=== PATIENT | male | born 1945 | race Caucasian/White ===

== ENCOUNTER → 2019-12-20 | Outpatient (BNVA) | payer MEDICARE, SELFPAY | PROVIDERS: PCP Internal Medicine; Visit Provider Internal Medicine ==

== ENCOUNTER → 2020-01-17 11:10 | Outpatient (BNVA) | payer MEDICARE, SELFPAY | PROVIDERS: PCP Internal Medicine; Referring Provider Internal Medicine; Visit Provider Internal Medicine | DX: Z76.89 Persons encountering health services in other specified circumstances (principal) ==

== ENCOUNTER 2020-01-26 11:05 | Outpatient (REF) | payer MEDICARE, SELFPAY ==
[2020-01-26 14:38] LABS: MANUAL DIFF FLAG NO
[2020-01-26 14:43] LABS: Basophils Percent Auto 0.8 % (0-2); Eosinophils Absolute Auto 0.1 X10*3/uL (0.0-0.4); Eosinophils Percent Auto 2.5 % (0-4); Hematocrit 36.2 % (42-52); Hemoglobin 11.8 g/dl (14.0-18.0); Imm Gran Abs Auto 0.02 X10*3/uL (0.00-0.03); Imm Gran Pct Auto 0.4 % (0.0-0.4); Lymphocytes Percent Auto 20.3 % (20-40); Mean Corpuscular HGB Conc 32.6 g/dl (31.0-36.0); Mean Corpuscular Hemoglobin 30.3 pg (27.0-33.0); Mean Corpuscular Volume 92.8 fL (80-98); Mean Platelet Volume 10.3 fL (9.4-12.4); Monocytes Absolute Auto 0.5 X10*3/uL (0.1-1.2); Monocytes Percent Auto 10.7 % (2-11); Neutrophils Absolute Auto 3.1 X10*3/uL (2.0-8.3); Neutrophils Percent Auto 65.3 % (45-73); Platelet Count 281 X10*3/uL (160-400); Red Cell Distribution Width 12.5 % (11.0-16.0); White Blood Count 4.8 X10*3/uL (4.8-10.8)
[2020-01-26 15:13] LABS: Alanine Aminotransferase 28 U/L (0-40); Albumin Level 4.5 g/dL (3.5-5.0); Alkaline Phosphatase 83 U/L (39-117); Anion Gap 12 (12-20); Aspartate Amino Transferase 30 U/L (5-37); Bilirubin Total 1.5 mg/dL (0.0-1.0); Blood Urea Nitrogen 17 mg/dL (9-16); Carbon Dioxide 26 mmol/L (22-29); Chloride 107 mmol/L (96-108); Cholesterol 112 mg/dL; Estimated Glomerular Filt Rate > 60; Glucose Fasting 87 mg/dL (60-99); HDL Cholesterol 45 mg/dL; LDL Cholesterol Calculated 54 mg/dl; Potassium 4.4 mmol/l (3.3-5.1); Sodium 141 mmol/L (135-145); Total Protein 7.1 g/dL (6.5-8.0); Triglycerides 65 mg/dL
[2020-01-26 15:35] LABS: Thyroid Stimulating Hormone 2.86 uIU/mL (0.32-4.0)
[2020-01-26 16:10] LABS: Prostate Specific Antigen 6.46 ng/mL (<0.05-4.0)
== END 2020-01-26 11:06 | disposition home or self-care (01) ==
LOC: HO.HMGCLDS 11:05
PROVIDERS: PCP Internal Medicine; Visit Provider Urology
DX: I48.20 Chronic atrial fibrillation, unspecified (principal); E78.2 Mixed hyperlipidemia; N40.0 Benign prostatic hyperplasia without lower urinary tract symptoms; C61 Malignant neoplasm of prostate; F51.01 Primary insomnia
CPT/HCPCS: 36415; 80053; 80061; 84153; 84443; 85025

== ENCOUNTER → 2020-01-31 12:05 | Outpatient (BNVA) | payer MEDICARE, SELFPAY | PROVIDERS: PCP Internal Medicine; Visit Provider Internal Medicine | DX: Z76.89 Persons encountering health services in other specified circumstances (principal) ==

== ENCOUNTER → 2020-02-14 15:20 | Outpatient (BNVA) | payer MEDICARE, SELFPAY | PROVIDERS: PCP Internal Medicine; Visit Provider Internal Medicine | DX: Z76.89 Persons encountering health services in other specified circumstances (principal) ==

== ENCOUNTER → 2020-02-29 11:27 | Outpatient (BNVA) | payer MEDICARE, SELFPAY | PROVIDERS: PCP Internal Medicine; Visit Provider Internal Medicine | DX: Z76.89 Persons encountering health services in other specified circumstances (principal) ==

== ENCOUNTER → 2020-03-14 08:15 | Outpatient (BNVA) | payer MEDICARE, SELFPAY | PROVIDERS: PCP Internal Medicine; Visit Provider Internal Medicine | DX: Z76.89 Persons encountering health services in other specified circumstances (principal) ==

== ENCOUNTER → 2020-03-22 11:19 | Outpatient (BNVA) | payer MEDICARE, SELFPAY | PROVIDERS: PCP Internal Medicine; Visit Provider Urology | DX: C61 Malignant neoplasm of prostate (principal) | CPT/HCPCS: 99212 ==

== ENCOUNTER → 2020-03-27 11:30 | Outpatient (BNVA) | payer MEDICARE, SELFPAY | PROVIDERS: PCP Internal Medicine; Visit Provider Internal Medicine | DX: Z76.89 Persons encountering health services in other specified circumstances (principal) ==

== ENCOUNTER → 2020-04-10 08:21 | Outpatient (BNVA) | payer MEDICARE, SELFPAY | PROVIDERS: PCP Internal Medicine; Visit Provider Internal Medicine | DX: Z76.89 Persons encountering health services in other specified circumstances (principal) ==

== ENCOUNTER → 2020-04-24 12:46 | Outpatient (BNVA) | payer MEDICARE, SELFPAY | PROVIDERS: PCP Internal Medicine; Visit Provider Internal Medicine ==

== ENCOUNTER → 2020-05-08 12:40 | Outpatient (BNVA) | payer MEDICARE, SELFPAY | PROVIDERS: PCP Internal Medicine; Visit Provider Internal Medicine ==

== ENCOUNTER → 2020-05-22 10:36 | Outpatient (BNVA) | payer MEDICARE, SELFPAY | PROVIDERS: PCP Internal Medicine; Visit Provider Internal Medicine | DX: I48.20 Chronic atrial fibrillation, unspecified (principal); Z51.81 Encounter for therapeutic drug level monitoring; Z79.01 Long term (current) use of anticoagulants | CPT/HCPCS: 85610; 99211 ==

== ENCOUNTER → 2020-06-05 12:50 | Outpatient (BNVA) | payer MEDICARE, SELFPAY | PROVIDERS: PCP Internal Medicine; Visit Provider Internal Medicine ==

== ENCOUNTER → 2020-06-19 10:46 | Outpatient (BNVA) | payer MEDICARE, SELFPAY | PROVIDERS: PCP Internal Medicine; Visit Provider Internal Medicine ==

== ENCOUNTER → 2020-07-03 12:15 | Outpatient (BNVA) | payer MEDICARE, SELFPAY | PROVIDERS: PCP Internal Medicine; Visit Provider Internal Medicine ==

== ENCOUNTER → 2020-07-17 12:05 | Outpatient (BNVA) | payer MEDICARE, SELFPAY | PROVIDERS: PCP Internal Medicine; Visit Provider Internal Medicine ==

== ENCOUNTER 2020-07-19 10:27 | Outpatient (REF) | payer MEDICARE, SELFPAY ==
[2020-07-19 12:28] LABS: Prostate Specific Antigen 6.54 ng/mL (<0.05-4.0)
== END 2020-07-19 10:28 | disposition home or self-care (01) ==
LOC: HO.HMGCLDS 10:27
PROVIDERS: PCP Internal Medicine; Visit Provider Urology
DX: Z79.01 Long term (current) use of anticoagulants (principal); Z12.5 Encounter for screening for malignant neoplasm of prostate
CPT/HCPCS: 36415; 84153

== ENCOUNTER → 2020-07-26 08:16 | Outpatient (BNVA) | payer MEDICARE, SELFPAY | PROVIDERS: PCP Internal Medicine; Visit Provider Urology | DX: C61 Malignant neoplasm of prostate (principal) | CPT/HCPCS: 99212 ==

== ENCOUNTER → 2020-07-31 11:30 | Outpatient (BNVA) | payer MEDICARE, SELFPAY | PROVIDERS: PCP Internal Medicine; Visit Provider Internal Medicine ==

== ENCOUNTER → 2020-08-14 09:13 | Outpatient (BNVA) | payer MEDICARE, SELFPAY | PROVIDERS: PCP Internal Medicine; Visit Provider Internal Medicine ==

== ENCOUNTER → 2020-08-28 09:18 | Outpatient (BNVA) | payer MEDICARE, SELFPAY | PROVIDERS: PCP Internal Medicine; Visit Provider Internal Medicine ==

== ENCOUNTER → 2020-09-11 09:39 | Outpatient (BNVA) | payer MEDICARE, SELFPAY | PROVIDERS: PCP Internal Medicine; Visit Provider Internal Medicine ==

== ENCOUNTER → 2020-09-25 10:32 | Outpatient (BNVA) | payer MEDICARE, SELFPAY | PROVIDERS: PCP Internal Medicine; Visit Provider Internal Medicine ==

== ENCOUNTER → 2020-10-10 10:21 | Outpatient (BNVA) | payer MEDICARE, SELFPAY | PROVIDERS: PCP Internal Medicine; Visit Provider Internal Medicine | DX: Z79.01 Long term (current) use of anticoagulants (principal) ==

== ENCOUNTER 2020-10-11 09:00 | Outpatient (RCR) | payer MEDICARE, SELFPAY ==
--- NOTE | 2020-10-11 16:42 | MHC.PT.DC ---
[facility] [place] Office [place] Office [address] Man Toribio 140 [facility] [phone] F: [phone] F: [phone] F: [phone] F: [phone] Physical Therapy Discharge Report Diagnosis: R groin strain, R gluteal pain. Date of Surgery: Date of Evaluation: 09/02/20 Date of Discharge: 10/11/20 Treatments to Date: 9 Cancellations to Date: No Shows to Date: Discharge Status: Achieved Goals Improved Function Independent with HEP Discharge Summary: Arturo has been an active and motivated participant in his therapy in and out of the clinic and has met his therapeutic goals, is I with his home program and is in agreement with DC at this time. Electronically signed by: Aries Mendes PT. Please sign and return to therapist. Thank you for your referral.
== END 2020-10-11 16:42 ==
LOC: HO.PTCHIC 09:00
PROVIDERS: Visit Provider Internal Medicine
DX: S76.211A Strain of adductor muscle, fascia and tendon of right thigh, initial encounter (principal)
CPT/HCPCS: 97110; 97116; 97140; 97150; 97162

== ENCOUNTER → 2020-10-23 11:28 | Outpatient (BNVA) | payer MEDICARE, SELFPAY | PROVIDERS: PCP Internal Medicine; Visit Provider Internal Medicine ==

== ENCOUNTER → 2020-11-06 09:32 | Outpatient (BNVA) | payer MEDICARE, SELFPAY | PROVIDERS: PCP Internal Medicine; Visit Provider Internal Medicine ==

== ENCOUNTER 2020-11-20 09:48 | Outpatient (REF) | payer MEDICARE, SELFPAY ==
[2020-11-20 14:54] LABS: PSA,Total (Free>4and<10) 4.28 ng/mL (0.00-4.00)
[2020-11-24 10:11] LABS: Free Prostate Spec Ag 0.5 ng/mL; Percent Free Prostate Spec Ag 14 % (calc) (>25); Prostate Specific Ag Total 3.5 ng/mL (< OR = 4.0)
== END 2020-11-20 09:49 | disposition home or self-care (01) ==
LOC: HO.HMGCLDS 09:48
PROVIDERS: Urology; PCP Internal Medicine; Visit Provider Internal Medicine
DX: C61 Malignant neoplasm of prostate (principal); N40.1 Benign prostatic hyperplasia with lower urinary tract symptoms; N13.8 Other obstructive and reflux uropathy
CPT/HCPCS: 36415; 84153; 84154

== ENCOUNTER → 2020-11-28 09:01 | Outpatient (BNVA) | payer MEDICARE, SELFPAY | PROVIDERS: PCP Internal Medicine; Visit Provider Urology | CPT/HCPCS: Q3014 ==

== ENCOUNTER → 2020-12-04 09:24 | Outpatient (BNVA) | payer MEDICARE, SELFPAY | PROVIDERS: PCP Internal Medicine; Visit Provider Internal Medicine ==

== ENCOUNTER 2020-12-12 09:57 | Outpatient (REF) | payer MEDICARE, SELFPAY ==
[2020-12-12 11:26] LABS: MANUAL DIFF FLAG NO
[2020-12-12 11:38] LABS: Basophils Percent Auto 0.8 % (0-2); Eosinophils Absolute Auto 0.2 X10*3/uL (0.0-0.4); Eosinophils Percent Auto 3.3 % (0-4); Hemoglobin 11.4 g/dl (14.0-18.0); Imm Gran Abs Auto 0.01 X10*3/uL (0.00-0.03); Imm Gran Pct Auto 0.2 % (0.0-0.4); Mean Corpuscular HGB Conc 32.6 g/dl (31.0-36.0); Mean Corpuscular Hemoglobin 30.3 pg (27.0-33.0); Mean Corpuscular Volume 93.1 fL (80-98); Mean Platelet Volume 10.3 fL (9.4-12.4); Monocytes Absolute Auto 0.7 X10*3/uL (0.1-1.2); Neutrophils Absolute Auto 3.2 X10*3/uL (2.0-8.3); Neutrophils Percent Auto 62.7 % (45-73); Platelet Count 266 X10*3/uL (160-400); Red Blood Count 3.76 X10*6/uL (4.60-5.80); Red Cell Distribution Width 12.6 % (11.0-16.0); White Blood Count 5.1 X10*3/uL (4.8-10.8)
[2020-12-12 12:05] LABS: Alanine Aminotransferase 23 U/L (0-40); Alkaline Phosphatase 75 U/L (39-117); Anion Gap 12 (12-20); Aspartate Amino Transferase 28 U/L (5-37); Bilirubin Total 1.5 mg/dL (0.0-1.0); Blood Urea Nitrogen 17 mg/dL (9-16); Carbon Dioxide 23 mmol/L (22-29); Cholesterol 114 mg/dL; Estimated Glomerular Filt Rate > 60; Glucose Fasting 104 mg/dL (60-99); HDL Cholesterol 40 mg/dL; LDL Cholesterol Calculated 63 mg/dl; Potassium 4.2 mmol/L (3.3-5.1); Total Protein 7.1 g/dL (6.5-8.0); Triglycerides 59 mg/dL
[2020-12-12 12:13] LABS: Thyroid Stimulating Hormone 2.58 uIU/mL (0.32-4.0)
[2020-12-12 12:52] LABS: Albumin Level 4.4 g/dL (3.5-5.0); Chloride 108 mmol/L (96-108); Sodium 139 mmol/L (135-145)
== END 2020-12-12 09:58 | disposition home or self-care (01) ==
LOC: HO.HMGCLDS 09:57
PROVIDERS: PCP Internal Medicine; Visit Provider Internal Medicine
DX: I48.0 Paroxysmal atrial fibrillation (principal); E78.2 Mixed hyperlipidemia
CPT/HCPCS: 36415; 80053; 80061; 84443; 85025

== ENCOUNTER → 2020-12-18 09:36 | Outpatient (BNVA) | payer MEDICARE, SELFPAY | PROVIDERS: PCP Internal Medicine; Visit Provider Internal Medicine ==

== ENCOUNTER → 2021-01-01 15:40 | Outpatient (BNVA) | payer MEDICARE, SELFPAY | PROVIDERS: PCP Internal Medicine; Visit Provider Internal Medicine ==

== ENCOUNTER 2021-01-22 09:00 | Outpatient (RCR) | payer MEDICARE, SELFPAY ==
--- NOTE | 2020-12-26 20:50 | MHC.PT.EP ---
[facility] [place] Office [place] Office [place] Office [address] Anca Toribio [address] [phone] F: [phone] F: [phone] F: [phone] F: [phone] Physical Therapy Plan of Care Date of Evaluation: Date of Surgery: Diagnosis: Muscle strain R thigh. 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 Pt is deemed an appropriate candidate to receive skilled PT in order to address his physical limitations to improve his functional ability. Frequency and Duration: The patient will be seen 2 x / wk x 5 wks. Short Term Goals: initiate HEP. improve baseline pain with activity to < 4/10; initial 7/10. Fci Goals: Pt will be able to negotiate 1 fl of stairs with managed Sx; initial: moderate difficulty. Pt will be yoshi to walk long distances w/o pain. I with HEP. Treatment Plan: Modalities to reduce pain, spasms and effusion. Manual therapy to restore motion and function. Therapeutic exercise to improve strength and flexibility. Neuromuscular re-education for posture and balance. Therapeutic activities to return to functional activities of daily living. Electronically signed by: Aries Mendes PT. Please sign and return to therapist. Thank you for your referral.
== END 2021-02-26 14:29 | disposition home or self-care (01) ==
LOC: HO.PTCHIC 09:00
PROVIDERS: PCP Internal Medicine; Visit Provider Internal Medicine
DX: S76.911D Strain of unspecified muscles, fascia and tendons at thigh level, right thigh, subsequent encounter (principal)
CPT/HCPCS: 97110; 97140; 97161

== ENCOUNTER → 2021-01-29 11:28 | Outpatient (BNVA) | payer MEDICARE, SELFPAY | PROVIDERS: PCP Internal Medicine; Visit Provider Internal Medicine | DX: I48.20 Chronic atrial fibrillation, unspecified (principal); Z51.81 Encounter for therapeutic drug level monitoring; Z79.01 Long term (current) use of anticoagulants | CPT/HCPCS: Q3014 ==

== ENCOUNTER → 2021-02-12 09:58 | Outpatient (BNVA) | payer MEDICARE, SELFPAY | PROVIDERS: PCP Internal Medicine; Visit Provider Internal Medicine ==

== ENCOUNTER 2021-02-13 09:04 | Outpatient (REF) | payer MEDICARE, SELFPAY ==
--- NOTE | ~2021-02-13 | XR_ITS ---
EXAMINATION: XR PELVIS CLINICAL INFORMATION: Pain in the hip COMPARISON: Pelvis and hips 05/22/2015 TECHNIQUE: AP view of the pelvis. FINDINGS: No fracture. No focal bone lesion. Status post left hip replacement. Orthopedic components in position with no fracture or loosening. There is mild joint narrowing of the right hip joint. Minor spur of the right femoral head inferiorly and the superior lateral rim of the acetabulum. Small subchondral cystic change present of the femoral head. No bony erosions. The sacroiliac joints are normal. There are vascular calcifications in the pelvis and proximal thigh. Compared to prior study of 05/22/2015 there is been interval placement of a left hip prosthesis. The degenerative change of the right hip is similar. XR/XR pelvis 1-2V IMPRESSION: 1. No acute abnormality. 2. Status post left hip replacement. No radiographic evidence of loosening of the prosthesis. 3. Mild to moderate degenerative joint disease of the right hip.
== END 2021-02-13 09:05 | disposition home or self-care (01) ==
LOC: HO.HOSX 09:04
PROVIDERS: Visit Provider Orthopaedic Surgery
DX: R26.9 Unspecified abnormalities of gait and mobility (principal); M16.11 Unilateral primary osteoarthritis, right hip; M76.31 Iliotibial band syndrome, right leg
CPT/HCPCS: 72170; 99202

== ENCOUNTER → 2021-03-12 12:38 | Outpatient (BNVA) | payer MEDICARE, SELFPAY | PROVIDERS: PCP Internal Medicine; Visit Provider Internal Medicine ==

== ENCOUNTER 2021-03-21 09:45 | Outpatient (REF) | payer MEDICARE, SELFPAY ==
[2021-03-21 12:10] LABS: PSA,Total (Free>4and<10) 2.99 ng/mL (0.00-4.00)
== END 2021-03-21 09:46 | disposition home or self-care (01) ==
LOC: HO.HMGCLDS 09:45
PROVIDERS: PCP Internal Medicine; Visit Provider Urology
DX: Z12.5 Encounter for screening for malignant neoplasm of prostate (principal); C61 Malignant neoplasm of prostate
CPT/HCPCS: 36415; 84153

== ENCOUNTER → 2021-03-26 12:58 | Outpatient (BNVA) | payer MEDICARE, SELFPAY | PROVIDERS: PCP Internal Medicine; Visit Provider Internal Medicine ==

== ENCOUNTER → 2021-03-27 08:22 | Outpatient (BNVA) | payer MEDICARE, SELFPAY | PROVIDERS: PCP Internal Medicine; Visit Provider Urology | DX: Z13.89 Encounter for screening for other disorder (principal) | CPT/HCPCS: Q3014 ==

== ENCOUNTER 2021-03-27 13:00 | Outpatient (RCR) | payer MEDICARE, SELFPAY ==
--- NOTE | 2021-02-26 17:18 | MHC.PT.EP ---
[facility] [place] Office [place] Office [place] Office [address] Man Toribio [address] [phone] F: [phone] F: [phone] F: [phone] F: [phone] Physical Therapy Plan of Care Date of Evaluation: Date of Surgery: Diagnosis: Illiotibial band syndrome R, OA R hip, unspecified abnormalities of gait. Assessment: Pt is a 76 y/o male referred to PT for eval and treat of Illiotibial band syndrome R, OA R hip, unspecified abnormalities of gait resulting in decreased tolerance for Heavy HH chores, playing tennis, squatting and lifting objects from the ground, and negotiating stairs secondary to increased B hip tissue tension, decreased B hip ER and abduction strength, gait abnormality, and pain. Pt is deemed an appropriate candidate to receive skilled PT in order to address his physical limitations to improve his functional ability. Ortho sp. instructions for Stretching, Core and gluteal, strengthening, and HEP. Frequency and Duration: The patient will be seen 2 x / wk x 5 wks. Short Term Goals: Initiate HEP. Improve baseline pain with activity to < 4/10; initial: 6/10. Senior Care Goals: Pt will report no longer painful negotiating stairs. improve B hip glute med MMT by at least 1/2 MMT grade; initial: 4/5 B I with HEP. Pt will be able to stand > 1 hour with managed Sx. Treatment Plan: Modalities to reduce pain, spasms and effusion. Manual therapy to restore motion and function. Therapeutic exercise to improve strength and flexibility. Neuromuscular re-education for posture and balance. Therapeutic activities to return to functional activities of daily living. Electronically signed by: Please sign and return to therapist. Thank you for your referral.
--- NOTE | 2021-03-27 17:00 | MHC.PT.DC ---
[facility] [place] Office [place] Office [place] Office [address] Man Toribio 140 [facility] [phone] F: [phone] F: [phone] F: [phone] F: [phone] Physical Therapy Discharge Report Diagnosis: Illiotibial band syndrome R, OA R hip, unspecified abnormalities of gait. Date of Surgery: Date of Evaluation: 02/26/21 Date of Discharge: Treatments to Date: 4 Cancellations to Date: No Shows to Date: Discharge Status: Discharge Summary: Arturo has been an active and motivated participant in his therapy in and out of the clinic. He has met his therapeutic goals, is I with his home program, and PT is in agreement with DC at this time. Electronically signed by: Please sign and return to therapist. Thank you for your referral.
== END 2021-03-27 17:00 | disposition home or self-care (01) ==
LOC: HO.PTCHIC 13:00
PROVIDERS: PCP Internal Medicine; Visit Provider Orthopaedic Surgery
DX: M76.31 Iliotibial band syndrome, right leg (principal); M16.11 Unilateral primary osteoarthritis, right hip; E26.9 Hyperaldosteronism, unspecified
CPT/HCPCS: 97110; 97140; 97161

== ENCOUNTER → 2021-04-09 14:13 | Outpatient (BNVA) | payer MEDICARE, SELFPAY | PROVIDERS: PCP Internal Medicine; Visit Provider Internal Medicine ==

== ENCOUNTER → 2021-04-23 09:56 | Outpatient (BNVA) | payer MEDICARE, SELFPAY | PROVIDERS: PCP Internal Medicine; Visit Provider Internal Medicine | DX: Z13.89 Encounter for screening for other disorder (principal) ==

== ENCOUNTER → 2021-04-25 09:14 | Outpatient (BNVA) | payer MEDICARE, SELFPAY | PROVIDERS: PCP Internal Medicine; Visit Provider Urology | DX: N40.0 Benign prostatic hyperplasia without lower urinary tract symptoms (principal); C61 Malignant neoplasm of prostate | CPT/HCPCS: 99212 ==

== ENCOUNTER → 2021-05-07 09:40 | Outpatient (BNVA) | payer MEDICARE, SELFPAY | PROVIDERS: PCP Internal Medicine; Visit Provider Internal Medicine | DX: Z13.89 Encounter for screening for other disorder (principal) ==

== ENCOUNTER → 2021-05-21 09:57 | Outpatient (BNVA) | payer MEDICARE, SELFPAY | PROVIDERS: PCP Internal Medicine; Visit Provider Internal Medicine | DX: I48.20 Chronic atrial fibrillation, unspecified (principal); Z51.81 Encounter for therapeutic drug level monitoring; Z79.01 Long term (current) use of anticoagulants | CPT/HCPCS: 85610; 99211 ==

== ENCOUNTER → 2021-06-04 10:30 | Outpatient (BNVA) | payer MEDICARE, SELFPAY | PROVIDERS: PCP Internal Medicine; Visit Provider Internal Medicine | DX: Z13.89 Encounter for screening for other disorder (principal) ==

== ENCOUNTER → 2021-06-18 10:26 | Outpatient (BNVA) | payer MEDICARE, SELFPAY | PROVIDERS: PCP Internal Medicine; Visit Provider Internal Medicine | DX: Z13.9 Encounter for screening, unspecified (principal) ==

== ENCOUNTER → 2021-07-02 09:15 | Outpatient (BNVA) | payer MEDICARE, SELFPAY | PROVIDERS: PCP Internal Medicine; Visit Provider Internal Medicine | DX: Z13.89 Encounter for screening for other disorder (principal) ==

== ENCOUNTER → 2021-07-17 14:04 | Outpatient (BNVA) | payer MEDICARE, SELFPAY | PROVIDERS: PCP Internal Medicine; Visit Provider Internal Medicine | DX: Z13.89 Encounter for screening for other disorder (principal) ==

== ENCOUNTER → 2021-07-30 09:20 | Outpatient (BNVA) | payer MEDICARE, SELFPAY | PROVIDERS: PCP Internal Medicine; Visit Provider Internal Medicine | DX: Z79.01 Long term (current) use of anticoagulants (principal) ==

== ENCOUNTER → 2021-08-05 10:27 | Outpatient (BNVA) | payer MEDICARE, SELFPAY | PROVIDERS: PCP Internal Medicine; Visit Provider Internal Medicine | DX: G47.39 Other sleep apnea (principal); G47.34 Idiopathic sleep related nonobstructive alveolar hypoventilation | CPT/HCPCS: 99202 ==

== ENCOUNTER → 2021-08-13 09:19 | Outpatient (BNVA) | payer MEDICARE, SELFPAY | PROVIDERS: PCP Internal Medicine; Visit Provider Internal Medicine | DX: Z79.01 Long term (current) use of anticoagulants (principal) ==

== ENCOUNTER 2021-08-13 10:49 | Outpatient (REF) | payer MEDICARE, SELFPAY ==
[2021-08-13 14:20] LABS: Prostate Specific Antigen 2.23 ng/mL (<0.05-4.0)
== END 2021-08-13 10:50 | disposition home or self-care (01) ==
LOC: HO.HMGCLDS 10:49
PROVIDERS: PCP Internal Medicine; Visit Provider Urology
DX: C61 Malignant neoplasm of prostate (principal); Z12.5 Encounter for screening for malignant neoplasm of prostate
CPT/HCPCS: 36415; 84153

== ENCOUNTER → 2021-08-20 08:32 | Outpatient (BNVA) | payer MEDICARE, SELFPAY | PROVIDERS: PCP Internal Medicine; Visit Provider Urology | DX: C61 Malignant neoplasm of prostate (principal); N40.1 Benign prostatic hyperplasia with lower urinary tract symptoms; R35.1 Nocturia; R39.11 Hesitancy of micturition; Z79.899 Other long term (current) drug therapy | CPT/HCPCS: Q3014 ==

== ENCOUNTER → 2021-10-03 22:40 | Outpatient (REF) | payer MEDICARE, SELFPAY | LOC: HO.SL 22:40 | PROVIDERS: Visit Provider Internal Medicine | DX: G47.33 Obstructive sleep apnea (adult) (pediatric) (principal) | CPT/HCPCS: 95811 ==

== ENCOUNTER → 2021-10-09 09:37 | Outpatient (BNVA) | payer MEDICARE, SELFPAY | PROVIDERS: PCP Internal Medicine; Visit Provider Internal Medicine | DX: G47.39 Other sleep apnea (principal); G47.34 Idiopathic sleep related nonobstructive alveolar hypoventilation | CPT/HCPCS: 99212 ==

== ENCOUNTER → 2021-12-25 08:54 | Outpatient (BNVA) | payer MEDICARE, SELFPAY | PROVIDERS: PCP Internal Medicine; Visit Provider Internal Medicine | DX: G47.34 Idiopathic sleep related nonobstructive alveolar hypoventilation (principal); G47.39 Other sleep apnea | CPT/HCPCS: 99212 ==

== ENCOUNTER 2022-02-17 10:26 | Outpatient (REF) | payer MEDICARE, SELFPAY ==
[2022-02-17 14:06] LABS: Prostate Specific Antigen 2.83 ng/mL (<0.05-4.0)
== END 2022-02-17 10:27 | disposition home or self-care (01) ==
LOC: HO.HMGCLDS 10:26
PROVIDERS: PCP Internal Medicine; Visit Provider Urology
DX: Z12.5 Encounter for screening for malignant neoplasm of prostate (principal); C61 Malignant neoplasm of prostate
CPT/HCPCS: 36415; 84153

== ENCOUNTER → 2022-02-25 09:52 | Outpatient (BNVA) | payer MEDICARE, SELFPAY | PROVIDERS: PCP Internal Medicine; Visit Provider Urology | DX: C61 Malignant neoplasm of prostate (principal); N40.0 Benign prostatic hyperplasia without lower urinary tract symptoms | CPT/HCPCS: 99212 ==

== ENCOUNTER → 2022-02-26 10:08 | Outpatient (BNVA) | payer MEDICARE, SELFPAY | PROVIDERS: PCP Internal Medicine; Visit Provider Internal Medicine | DX: G47.39 Other sleep apnea (principal); G47.34 Idiopathic sleep related nonobstructive alveolar hypoventilation; R06.3 Periodic breathing | CPT/HCPCS: 99212 ==

== ENCOUNTER → 2022-03-11 12:07 | Outpatient (BNVA) | payer MEDICARE, SELFPAY | PROVIDERS: PCP Internal Medicine; Visit Provider Internal Medicine | DX: Z79.01 Long term (current) use of anticoagulants (principal) ==

== ENCOUNTER → 2022-03-25 13:35 | Outpatient (BNVA) | payer MEDICARE, SELFPAY | PROVIDERS: PCP Internal Medicine; Visit Provider Internal Medicine | DX: Z79.01 Long term (current) use of anticoagulants (principal) ==

== ENCOUNTER → 2022-04-08 13:40 | Outpatient (BNVA) | payer MEDICARE, SELFPAY | PROVIDERS: PCP Internal Medicine; Visit Provider Internal Medicine | DX: Z79.01 Long term (current) use of anticoagulants (principal) ==

== ENCOUNTER → 2022-04-22 12:57 | Outpatient (BNVA) | payer MEDICARE, SELFPAY | PROVIDERS: PCP Internal Medicine; Visit Provider Internal Medicine | DX: Z79.01 Long term (current) use of anticoagulants (principal) ==

== ENCOUNTER → 2022-05-06 11:04 | Outpatient (BNVA) | payer MEDICARE, SELFPAY | PROVIDERS: PCP Internal Medicine; Visit Provider Internal Medicine | DX: Z79.01 Long term (current) use of anticoagulants (principal) ==

== ENCOUNTER → 2022-05-13 09:17 | Outpatient (BNVA) | payer MEDICARE, SELFPAY | PROVIDERS: PCP Internal Medicine; Visit Provider Internal Medicine | DX: I48.20 Chronic atrial fibrillation, unspecified (principal); Z79.01 Long term (current) use of anticoagulants; Z51.81 Encounter for therapeutic drug level monitoring | CPT/HCPCS: 85610; 99211 ==

== ENCOUNTER → 2022-05-27 09:27 | Outpatient (BNVA) | payer MEDICARE, SELFPAY | PROVIDERS: PCP Internal Medicine; Visit Provider Internal Medicine | DX: Z79.01 Long term (current) use of anticoagulants (principal) ==

== ENCOUNTER → 2022-06-10 14:34 | Outpatient (BNVA) | payer MEDICARE, SELFPAY | PROVIDERS: PCP Internal Medicine; Visit Provider Internal Medicine | DX: Z79.01 Long term (current) use of anticoagulants (principal) ==

== ENCOUNTER → 2022-06-24 14:38 | Outpatient (BNVA) | payer MEDICARE, SELFPAY | PROVIDERS: PCP Internal Medicine; Visit Provider Internal Medicine ==

== ENCOUNTER → 2022-07-08 13:05 | Outpatient (BNVA) | payer MEDICARE, SELFPAY | PROVIDERS: PCP Internal Medicine; Visit Provider Internal Medicine ==

== ENCOUNTER → 2022-07-22 14:39 | Outpatient (BNVA) | payer MEDICARE, SELFPAY | PROVIDERS: PCP Internal Medicine; Visit Provider Internal Medicine ==

== ENCOUNTER → 2022-08-05 13:45 | Outpatient (BNVA) | payer MEDICARE, SELFPAY | PROVIDERS: PCP Internal Medicine; Visit Provider Internal Medicine ==

== ENCOUNTER → 2022-08-19 14:05 | Outpatient (BNVA) | payer MEDICARE, SELFPAY | PROVIDERS: PCP Internal Medicine; Visit Provider Internal Medicine ==

== ENCOUNTER 2022-08-26 08:26 | Outpatient (REF) | payer MEDICARE, SELFPAY ==
[2022-08-26 11:17] LABS: MANUAL DIFF FLAG NO
[2022-08-26 11:40] LABS: Basophils Percent Auto 0.8 % (0-2); Eosinophils Absolute Auto 0.1 X10*3/uL (0.0-0.4); Eosinophils Percent Auto 2.1 % (0-4); Hematocrit 37.2 % (42.0-52.0); Hemoglobin 11.8 g/dl (14.0-18.0); Imm Gran Abs Auto 0.02 X10*3/uL (0.00-0.03); Imm Gran Pct Auto 0.4 % (0.0-0.4); Lymphocytes Absolute Auto 1.1 X10*3/uL (1.2-4.9); Lymphocytes Percent Auto 21.4 % (20-40); Mean Corpuscular HGB Conc 31.7 g/dl (31.0-36.0); Mean Corpuscular Hemoglobin 30.3 pg (27.0-33.0); Mean Corpuscular Volume 95.6 fL (80.0-98.0); Mean Platelet Volume 9.9 fL (9.4-12.4); Monocytes Absolute Auto 0.5 X10*3/uL (0.1-1.2); Monocytes Percent Auto 9.6 % (2-11); Neutrophils Absolute Auto 3.4 x10*3/uL (2.0-8.3); Neutrophils Percent Auto 65.7 % (45-73); Platelet Count 309 X10*3/uL (160-400); Red Blood Count 3.89 X10*6/uL (4.60-5.80); Red Cell Distribution Width 13.1 % (11.0-16.0); White Blood Count 5.2 X10*3/uL (4.8-10.8)
[2022-08-26 12:00] LABS: Alanine Aminotransferase 27 U/L (0-40); Albumin Level 4.2 g/dL (3.5-5.0); Alkaline Phosphatase 80 U/L (39-117); Anion Gap 12 (12-20); Aspartate Amino Transferase 32 U/L (5-37); Bilirubin Total 1.8 mg/dL (0.0-1.0); Blood Urea Nitrogen 21 mg/dL (9-16); Calcium 9.4 mg/dL (8.4-10.2); Carbon Dioxide 26 mmol/L (22-29); Chloride 106 mmol/L (96-108); Cholesterol 116 mg/dL; Estimated Glomerular Filt Rate > 60; Glucose Fasting 100 mg/dL (60-99); HDL Cholesterol 45 mg/dL; LDL Cholesterol Calculated 58 mg/dl; Potassium 4.2 mmol/L (3.3-5.1); Sodium 140 mmol/L (135-145); Total Protein 7.2 g/dL (6.5-8.0); Triglycerides 65 mg/dL
[2022-08-26 12:23] LABS: Thyroid Stimulating Hormone 2.94 uIU/mL (0.32-4.0)
== END 2022-08-26 08:27 | disposition home or self-care (01) ==
LOC: HO.HMGCLDS 08:26
PROVIDERS: Absent Provider Urology; PCP Internal Medicine; Visit Provider Internal Medicine
DX: Z12.5 Encounter for screening for malignant neoplasm of prostate (principal); C61 Malignant neoplasm of prostate; I48.0 Paroxysmal atrial fibrillation; E78.2 Mixed hyperlipidemia; N40.0 Benign prostatic hyperplasia without lower urinary tract symptoms; F51.01 Primary insomnia
CPT/HCPCS: 36415; 80053; 80061; 84153; 84443; 85025

== ENCOUNTER 2022-09-01 12:41 | Outpatient (AMB) | payer MEDICARE, SELFPAY ==
--- NOTE | 2022-09-01 12:53 | A.OFFVIS_ITS ---
Intake Intake Visit Reasons: 6M PSA(set) Intake Note: Patient is presents today for 6mo follow-up with PSA results. * Urology Medication: Finasteride * Blood Thinner: Warfarin Freight Brake Operator Required: No Accompanied by: Self / Same As Patient Allergies No Known Allergies [No Known Allergies*] Allergy (Verified 11/18/22 10:02) HPI HPI Comments History of Present Illness Details Arturo is a pleasant male. He is a patient of Dr. Muñoz. He is seen for the following urologic issues. - prostate cancer - BPH PSA remains low Has had improvement with nocturia secondary to compliance with sleep apnea therapy Continue finasteride Review in 6 months Prostate cancer grade group 1 - 05/04 - initial therapy active surveillance Prostate cancer diagnosed with Dr. Blue 2018 - initial PSA 6.5, prostate volume 35 g Initial pathology biopsy 05/04 - Gl 3+3 left mid lateral 30%, left mid medial 30% 04/26 cores PSA 08/02 6.5, 12/03 4.2 14%, 04/05 2.9, 09/03 2.2 03/05 2.8, 09/04 2.1 Initial therapy active surveillance, initiate finasteride 08/02 DNA analysis 05/06 active surveillance group 08/01 MRI 30 g prostate, no clear evidenc e of clinically significant lesion Lower urinary tract symptoms Longstanding Nocturia 1-2 Mild hesitancy Current medications tamsulosin [facility] Medical History BPH (benign prostatic hyperplasia) Central sleep apnea with Mateusz-Antoine respiration Elevated PSA Mixed sleep apnea Nocturnal hypoxemia Prostate cancer Surgical History History of left hip replacement History of right shoulder replacement Previous back surgery (~1997) Social History Patient Tobacco Use Status: Never used Tobacco Review of Systems Const Denies chills and Denies fever(s) Card Reports no additional complaints and Denies syncope Resp Denies cough GI Denies abdominal pain and Denies heartburn Reports as per HPI and Denies change in libido Neuro Denies syncope Psych Denies change in libido Endo Denies change in libido Physical Exam Const General: cooperative, healthy appearing, comfortable and no acute distress Orientation/consciousness: patient oriented x3 HEENT Face and sinus: Yes normal facial exam Mouth: moist mucous membranes Neck Neck: Yes normal visual inspection, Yes full ROM and Yes trachea midline Chest Chest palpation & inspection: normal inspection of the chest Resp Effort & Inspection: normal respiratory effort, able to speak in complete sentences and no respiratory distress GI Inspection: Yes normal to inspection Back/Spine/Pelvis Cervical Spine: normal cervical lordosis Thoracic/Lumbar Spine: thoracic and lumbar spine normal to inspection Skin General skin exam: no rashes or lesions noted Neuro General: patient oriented x3, gait normal, tone normal and moves all extremities Extrem General: Yes normal to inspection and Yes capillary refill normal Assessment & Plan Assessment & Plan (1) BPH (benign prostatic hyperplasia): Code(s): N40.0 - Benign prostatic hyperplasia without lower urinary tract symptoms (2) Prostate cancer: Comment: 05/04 low-grade, low volume prostate cancer Code(s): C61 - Malignant neoplasm of prostate Plan Six month follow-up Orders: Orders Prostate Specific Antigen 6 Months C61 - Malignant neoplasm of prostate Patient Instructions: Imaging studies, laboratory and physical exam results were discussed and reviewed in detail. No major barriers to patient understanding were identified. An opportunity to ask questions regarding the treatment plan was provided. All questions were answered. The patient expressed understanding and agreement with the above treatment plan. The patient is aware they should contact our office by phone for worsening of their current condition or the appearance of new urologic symptoms. Compliance is encouraged with any medications and followup testing that is ordered. It is a privilege to participate in the urologic care of your patient. If you have any questions or concerns regarding treatment for the above conditions, or other urologic issues, please do not hesitate to contact me. The office telephone contact is [phone]. This note is constructed using voice recognition software. While every effort has been made to ensure accuracy wire rope sales representative errors may have been included. Yours sincerely, Dr Chidi Escobar MD, [facility] - Urology Providers of Expert, Compassionate Care for the Genitourinary System Coding Level of Care Code Est Pt Level 3 (59065) Diagnoses BPH (benign prostatic hyperplasia) N40.0 Prostate cancer C61
== END 2022-09-01 13:13 | disposition home or self-care (01) ==
LOC: HO.HUSH 12:41
PROVIDERS: PCP Internal Medicine; Visit Provider Urology
DX: N40.0 Benign prostatic hyperplasia without lower urinary tract symptoms (principal); C61 Malignant neoplasm of prostate
CPT/HCPCS: 99213

== ENCOUNTER → 2022-09-01 12:41 | Outpatient (BNVA) | payer MEDICARE, SELFPAY | PROVIDERS: PCP Internal Medicine; Visit Provider Urology | DX: C61 Malignant neoplasm of prostate (principal); N40.0 Benign prostatic hyperplasia without lower urinary tract symptoms | CPT/HCPCS: 99212 ==

== ENCOUNTER → 2022-09-02 11:18 | Outpatient (BNVA) | payer MEDICARE, SELFPAY | PROVIDERS: PCP Internal Medicine; Visit Provider Internal Medicine ==

== ENCOUNTER → 2022-09-23 10:33 | Outpatient (BNVA) | payer MEDICARE, SELFPAY | PROVIDERS: PCP Internal Medicine; Visit Provider Internal Medicine ==

== ENCOUNTER → 2022-10-07 09:43 | Outpatient (BNVA) | payer MEDICARE, SELFPAY | PROVIDERS: PCP Internal Medicine; Visit Provider Internal Medicine ==

== ENCOUNTER 2022-10-08 13:45 | Outpatient (AMB) | payer MEDICARE, SELFPAY ==
[2022-10-08 14:15] VITALS: BP 122/60; PULSE 61; O2SAT 96; BMI 25.3
--- NOTE | 2022-10-08 14:15 | MHC.OFFVIS ---
Intake Vital Signs 10/08/22 14:15 Height 5 ft 10 in Weight 176 lb 5.917 oz BMI 25.3 BP 122/60 Blood Pressure Location Rt brachial Position Sitting Pulse 61 Pulse Source Pulse Oximeter Pulse Oximetry (%) 96 Oxygen Delivery Method Room Air Intake Visit Reasons: Obstructive sleep apnea Fruit Farmworker Required: No Allergies No Known Allergies [No Known Allergies*] Allergy (Verified 10/08/22 14:37) Medication List - Last Reconciled 10/08/22 by Luisana Anguiano MD aspirin (Adult Low Dose Aspirin) 81 mg PO DAILY atorvastatin 40 mg PO DAILY finasteride 5 mg PO .MON,WED,FRI lorazepam 1 mg PO BEDTIME PRN srsavtya-fix-CV-lycopen-lutein 300-600-300 mcg (Centrum Silver Men) 1 tab PO DAILY neomycin-polymyxin B-dexameth 3.5mg/mL-10,000 unit/mL-0.1 % 0 drps ophthalmic (eye) tamsulosin 0.4 mg PO DAILY warfarin 5 mg See Protocol PO DAILY Do you need a note to return to daycare/school/sports/work: No HPI Obstructive sleep apnea HPI Details THIS 77 YEARS OLD GENTLEMAN IS A CASE OF SEVERE (MIXED )SLEEP APNEA, 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 HE REQUIRES A RELATIVELY HIGH PRESSURE, BUT USES HIS CPAP VERY REGULARLY. HE SLEEPS AT LEAST 6-7 HOURS EVERY NIGHT. ON SOME OF THE NIGHTS SLEEP MAY BE INTERRUPTED BY WAKING UP AFTER A FEW HOURS AND THEN HE GOES BACK TO SLEEP. HE DENIES ANY DAYTIME SLEEPINESS. HIS WEIGHT REMAINS WELL CONTROLLED. [facility] Medical History BPH (benign prostatic hyperplasia) Central sleep apnea with Cody-Muñoz respiration Elevated PSA Mixed sleep apnea Nocturnal hypoxemia Prostate cancer Surgical History History of left hip replacement History of right shoulder replacement Previous back surgery (~1997) Social History Patient Tobacco Use Status: Never used Tobacco Review of Systems Const All systems reviewed & are unremarkable except as noted in HPI and below Denies chills and Denies fever(s) Eyes Reports no additional complaints ENT Reports no additional complaints Card Reports no additional complaints and Denies syncope Resp Denies cough GI Denies abdominal pain and Denies heartburn Reports as per HPI and Denies change in libido Musc Reports no additional complaints Skin/Breast Reports system reviewed and no additional complaints, except as documented Neuro Denies syncope Psych Denies change in libido Endo Denies change in libido Physical Exam Vital Signs: Last Vital Signs Pulse 61 10/08/22 14:15 BP 122/60 10/08/22 14:15 Pulse Ox 96 10/08/22 14:15 Oxygen Delivery Method Room Air 10/08/22 14:15 BMI result Body Mass Index 25.3 Const General: healthy appearing, comfortable, no acute distress, alert and awake Orientation/consciousness: patient oriented x3 HEENT Other: One prominent finding is that of is significant degree of RETROGANTHIA of the lower jaw. Thus compromising the jim pharyngeal space. MALLAMPATI CLASS 3 . General nose exam: No nasal polyps present and No nasal discharge present Face and sinus: Yes sinuses nontender Mouth: oropharynx abnormals (Tongue is back and convex, Mallampati class 3) Throat: Yes posterior oropharynx normal Eyes General: appearance normal, both eyes and all related structures Neck Neck: Yes normal visual inspection, Yes no lymphadenopathy, Yes trachea midline and Yes no JVD Thyroid: Thyroid normal Lymphatic: other (Neck size 16 in) Chest Chest palpation & inspection: normal inspection of the chest, normal palpation of entire chest wall and no tenderness Resp Effort & Inspection: normal respiratory effort Auscultation: clear to auscultation bilaterally, no crackles and no wheezes Cardio Palpation: normal PMI Rate: regular rate Rhythm: regular rhythm Heart sounds: no gallops and no murmurs Peripheral pulses: Peripheral pulses 2+ throughout GI Palpation (GI): Soft to palpation, nontender, No hepatosplenomegaly present and no masses Auscultation: normal bowel sounds Back/Spine/Pelvis Thoracic/Lumbar Spine: thoracic and lumbar spine normal to inspection Skin General skin exam: no rashes or lesions noted Neuro General: patient oriented x3 and no focal motor deficits Cranial nerves: Yes CN's II-XII intact bilaterally Extrem General: Yes normal to inspection, Yes no clubbing, cyanosis or edema and Yes no calf tenderness Psych Appearance: grossly normal and well kempt Speech and movement: Normal speech and movement present Assessment & Plan Assessment & Plan (1) Mixed sleep apnea: Comment: BASELINE STUDY HAD SHOWN PRESENCE OF MIXED SLEEP APNEA, PREDOMINANTLY CENTRAL APNEA WITH CODY-MUÑOZ BREATHING, AND ALSO COMPONENT OF OBSTRUCTIVE SLEEP APNEA. CPAP TITRATION , SUCCESSFUL BUT REQUIRED HIGH BILEVEL PRESSURE OF 20/16 CM, WITH THIS PRESSURE HYPOXEMIA WAS ALSO CORRECTED. He is using bilevel CPAP successfully, and claims that his sleep is better. HIS COMPLIANCE IS 100%, WITH MUCH IMPROVED SLEEP QUALITY. ADVISED TO KEEP ON USING THE CPAP REGULARLY EVERY NIGHT (FOR AT LEAST 6-7 HOURS EVERY NIGHT ) Code(s): G47.39 - Other sleep apnea (2) Nocturnal hypoxemia: Comment: NOCTURNAL HYPOXEMIA CORRECTED WITH THE USE OF BIPAP. SO HE DOES NOT NEED OXYGEN SUPPLEMENTATION. Code(s): G47.34 - Idiopathic sleep related nonobstructive alveolar hypoventilation Coding Level of Care Code Est Pt Level 3 (44692) Diagnoses Mixed sleep apnea G47.39 Nocturnal hypoxemia G47.34
== END 2022-10-08 14:42 | disposition home or self-care (01) ==
PROVIDERS: PCP Internal Medicine; Visit Provider Internal Medicine
DX: G47.39 Other sleep apnea (principal); G47.34 Idiopathic sleep related nonobstructive alveolar hypoventilation
CPT/HCPCS: 99213

== ENCOUNTER → 2022-10-08 13:45 | Outpatient (BNVA) | payer MEDICARE, SELFPAY | PROVIDERS: PCP Internal Medicine; Visit Provider Internal Medicine | DX: G47.39 Other sleep apnea (principal); G47.34 Idiopathic sleep related nonobstructive alveolar hypoventilation | CPT/HCPCS: 99212 ==

== ENCOUNTER → 2022-10-21 10:01 | Outpatient (BNVA) | payer MEDICARE, SELFPAY | PROVIDERS: PCP Internal Medicine; Visit Provider Internal Medicine ==

== ENCOUNTER → 2022-11-04 10:45 | Outpatient (BNVA) | payer MEDICARE, SELFPAY | PROVIDERS: PCP Internal Medicine; Visit Provider Internal Medicine ==

== ENCOUNTER → 2022-11-18 10:01 | Outpatient (BNVA) | payer MEDICARE, SELFPAY | PROVIDERS: PCP Internal Medicine; Visit Provider Internal Medicine ==

== ENCOUNTER → 2022-12-02 11:05 | Outpatient (BNVA) | payer MEDICARE, SELFPAY | PROVIDERS: PCP Internal Medicine; Visit Provider Internal Medicine ==

== ENCOUNTER → 2022-12-16 10:39 | Outpatient (BNVA) | payer MEDICARE, SELFPAY | PROVIDERS: PCP Internal Medicine; Visit Provider Internal Medicine ==

== ENCOUNTER 2022-12-17 10:41 | Outpatient (REF) | payer MEDICARE, SELFPAY | END 2022-12-17 10:42 | disposition home or self-care (01) | LOC: HO.LAB 10:41 | PROVIDERS: PCP Internal Medicine; Visit Provider Otolaryngology | DX: J34.89 Other specified disorders of nose and nasal sinuses (principal) | CPT/HCPCS: 36415; 82565; 84520 ==

== ENCOUNTER → 2023-01-06 10:40 | Outpatient (BNVA) | payer MEDICARE, SELFPAY | PROVIDERS: PCP Internal Medicine; Visit Provider Internal Medicine ==

== ENCOUNTER → 2023-01-27 10:03 | Outpatient (BNVA) | payer MEDICARE, SELFPAY | PROVIDERS: PCP Internal Medicine; Visit Provider Internal Medicine ==

== ENCOUNTER → 2023-02-10 10:45 | Outpatient (BNVA) | payer MEDICARE, SELFPAY | PROVIDERS: PCP Internal Medicine; Visit Provider Internal Medicine ==

== ENCOUNTER 2023-02-22 09:56 | Outpatient (REF) | payer MEDICARE, SELFPAY ==
[2023-02-22 14:17] LABS: Prostate Specific Antigen 2.11 ng/mL (<0.05-4.0)
== END 2023-02-22 09:57 | disposition home or self-care (01) ==
LOC: HO.HMGCLDS 09:56
PROVIDERS: Urology; PCP Internal Medicine; Visit Provider Psychiatry & Neurology Neurology
DX: C61 Malignant neoplasm of prostate (principal); Z12.5 Encounter for screening for malignant neoplasm of prostate
CPT/HCPCS: 36415; 84153

== ENCOUNTER → 2023-02-24 09:52 | Outpatient (BNVA) | payer MEDICARE, SELFPAY | PROVIDERS: PCP Internal Medicine; Visit Provider Internal Medicine ==

== ENCOUNTER 2023-03-02 12:48 | Outpatient (AMB) | payer MEDICARE, SELFPAY ==
--- NOTE | 2023-03-02 13:04 | A.OFFVIS_ITS ---
Intake Intake Visit Reasons: 6m/PSA(set) Intake Note: Patient is Present for Follow Up Urology Medication: Finasteride, Tamsulosin Antibiotic Allergies: None Blood Thinners: Warfarin Allergies No Known Allergies [No Known Allergies*] Allergy (Verified 03/02/23 13:04) Medication List - Last Reconciled 03/02/23 by Chidi Escobar MD aspirin (Adult Low Dose Aspirin) 81 mg PO DAILY atorvastatin 40 mg PO DAILY finasteride 5 mg PO .MON,WED,WED lorazepam 1 mg PO BEDTIME PRN [id number] mcg (Centrum Silver Men) 1 tab PO DAILY neomycin-polymyxin B-dexameth 3.5mg/mL-10,000 unit/mL-0.1 % 0 drps ophthalmic (eye) tamsulosin 0.4 mg PO DAILY warfarin 5 mg See Protocol PO DAILY HPI HPI Comments History of Present Illness Details Arturo is a pleasant male. He is a patient of Dr. Muñoz. He is seen for the following urologic issues. - prostate cancer - BPH PSA remains low Has had improvement with nocturia secondary to compliance with sleep apnea therapy Continue finasteride May cut back to 2 times a week Review in 6 months Prostate cancer grade group 1 - 05/04 - initial therapy active surveillance Prostate cancer diagnosed with Dr. 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 BPH (benign prostatic hyperplasia) Prostate cancer Elevated PSA Surgical History History of right shoulder replacement History of left hip replacement Previous back surgery (~1997) Social History Patient Tobacco Use Status: Never used Tobacco Review of Systems Const Denies chills and Denies fever(s) Card Reports no additional complaints and Denies syncope Resp Denies cough GI Denies abdominal pain and Denies heartburn Reports as per HPI and Denies change in libido Neuro Denies syncope Psych Denies change in libido Endo Denies change in libido Physical Exam Const General: cooperative, healthy appearing, comfortable and no acute distress Orientation/consciousness: patient oriented x3 HEENT Face and sinus: Yes normal facial exam Mouth: moist mucous membranes Neck Neck: Yes normal visual inspection, Yes full ROM and Yes trachea midline Chest Chest palpation & inspection: normal inspection of the chest Resp Effort & Inspection: normal respiratory effort, able to speak in complete sentences and no respiratory distress GI Inspection: Yes normal to inspection Back/Spine/Pelvis Cervical Spine: normal cervical lordosis Thoracic/Lumbar Spine: thoracic and lumbar spine normal to inspection Skin General skin exam: no rashes or lesions noted Neuro General: patient oriented x3, gait normal, tone normal and moves all extremities Extrem General: Yes normal to inspection and Yes capillary refill normal Assessment & Plan Assessment & Plan (1) Prostate cancer: Comment: 05/04 low-grade, low volume prostate cancer Code(s): C61 - Malignant neoplasm of prostate Plan Six month follow-up Orders: Orders AMB Post Void Residual by ultrasound Today N40.0 - Benign prostatic hyperplasia without lower urinary tract symptoms Prostate Specific Antigen 6 Months C61 - Malignant neoplasm of prostate Patient Instructions: Imaging studies, laboratory and physical exam results were discussed and reviewed in detail. No major barriers to patient understanding were identified. An opportunity to ask questions regarding the treatment plan was provided. All questions were answered. The patient expressed understanding and agreement with the above treatment plan. The patient is aware they should contact our office by phone for worsening of their current condition or the appearance of new urologic symptoms. Compliance is encouraged with any medications and followup testing that is ordered. It is a privilege to participate in the urologic care of your patient. If you have any questions or concerns regarding treatment for the above conditions, or other urologic issues, please do not hesitate to contact me. The office telephone contact is [phone]. This note is constructed using voice recognition software. While every effort has been made to ensure accuracy retail presentation specialist errors may have been included. Yours sincerely, Dr Chidi Escobar MD, [facility] - Urology Providers of Expert, Compassionate Care for the Genitourinary System Coding Level of Care Code Est Pt Level 3 (01725) Diagnoses Prostate cancer C61
== END 2023-03-02 13:33 | disposition home or self-care (01) ==
PROVIDERS: PCP Internal Medicine; Visit Provider Urology
DX: C61 Malignant neoplasm of prostate (principal)
CPT/HCPCS: 99213

== ENCOUNTER → 2023-03-02 12:48 | Outpatient (BNVA) | payer MEDICARE, SELFPAY | PROVIDERS: PCP Internal Medicine; Visit Provider Urology | DX: C61 Malignant neoplasm of prostate (principal) | CPT/HCPCS: 99212 ==

== ENCOUNTER → 2023-03-11 09:51 | Outpatient (BNVA) | payer MEDICARE, SELFPAY | PROVIDERS: PCP Internal Medicine; Visit Provider Internal Medicine ==

== ENCOUNTER → 2023-03-24 08:17 | Outpatient (BNVA) | payer MEDICARE, SELFPAY | PROVIDERS: PCP Internal Medicine; Visit Provider Internal Medicine ==

== ENCOUNTER → 2023-04-07 10:03 | Outpatient (BNVA) | payer MEDICARE, SELFPAY | PROVIDERS: PCP Internal Medicine; Visit Provider Internal Medicine ==

== ENCOUNTER 2023-04-15 14:02 | Outpatient (AMB) | payer MEDICARE, SELFPAY ==
[2023-04-15 14:06] VITALS: BP 130/64; PULSE 61; O2SAT 99; BMI 26.0
--- NOTE | 2023-04-15 14:06 | MHC.OFFVIS ---
Intake Vital Signs 04/15/23 14:06 Height 5 ft 10 in Weight 181 lb BMI 26.0 BP 130/64 Blood Pressure Location Lt brachial Position Sitting Pulse 61 Pulse Source Pulse Oximeter Pulse Oximetry (%) 99 Oxygen Delivery Method Room Air Intake Visit Reasons: Obstructive sleep apnea Intake Note: pt is here for follow up and states he is doing well with usage. 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 Allergies No Known Allergies [No Known Allergies*] Allergy (Verified 04/15/23 14:27) Medication List - Last Reconciled 04/15/23 by Luisana Anguiano MD aspirin (Adult Low Dose Aspirin) 81 mg PO DAILY atorvastatin 40 mg PO DAILY finasteride 5 mg PO .MON,WED,FRI lorazepam 1 mg PO BEDTIME PRN [id number] mcg (Centrum Silver Men) 1 tab PO DAILY neomycin-polymyxin B-dexameth 3.5mg/mL-10,000 unit/mL-0.1 % 0 drps ophthalmic (eye) tamsulosin 0.4 mg PO DAILY warfarin 5 mg See Protocol PO DAILY Do you need a note to return to daycare/school/sports/work: No HPI Obstructive sleep apnea HPI Details Mr. Bentley, 78 years old gentleman of a thin build, has rather severe obstructive sleep apnea secondary to severe RETROGANTHIA of the lower jaw. He has benefited from the use of bilevel CPAP. However recently he is having some problem with the mask, causing irritation on his nasal bridge and on the sides. So he has not been using enough in the last few weeks. He feels that he cannot go without using the mask, because then he feels tired and sleepy during the daytime. [facility] Medical History Nocturnal hypoxemia Central sleep apnea with Cody-Antoine respiration Mixed sleep apnea BPH (benign prostatic hyperplasia) Prostate cancer Elevated PSA Surgical History History of right shoulder replacement History of left hip replacement Previous back surgery (~1997) Social History Patient Tobacco Use Status: Never used Tobacco Review of Systems Const All systems reviewed & are unremarkable except as noted in HPI and below Denies chills and Denies fever(s) Eyes Reports no additional complaints ENT Reports no additional complaints Card Reports no additional complaints and Denies syncope Resp Denies cough GI Denies abdominal pain and Denies heartburn Reports as per HPI and Denies change in libido Musc Reports no additional complaints Skin/Breast Reports system reviewed and no additional complaints, except as documented Neuro Denies syncope Psych Denies change in libido Endo Denies change in libido Physical Exam Vital Signs: Last Vital Signs Pulse 61 04/15/23 14:06 BP 130/64 04/15/23 14:06 Pulse Ox 99 04/15/23 14:06 Oxygen Delivery Method Room Air 04/15/23 14:06 BMI result Body Mass Index 26.0 Const General: healthy appearing, comfortable, no acute distress, alert and awake Orientation/consciousness: patient oriented x3 HEENT Other: One prominent finding is that of is significant degree of RETROGANTHIA of the lower jaw. Thus compromising the jim pharyngeal space. MALLAMPATI CLASS 3 . General nose exam: No nasal polyps present and No nasal discharge present Face and sinus: Yes sinuses nontender Mouth: oropharynx abnormals (Tongue is back and convex, Mallampati class 3) Throat: Yes posterior oropharynx normal Eyes General: appearance normal, both eyes and all related structures Neck Neck: Yes normal visual inspection, Yes no lymphadenopathy, Yes trachea midline and Yes no JVD Thyroid: Thyroid normal Lymphatic: other (Neck size 16 in) Chest Chest palpation & inspection: normal inspection of the chest, normal palpation of entire chest wall and no tenderness Resp Effort & Inspection: normal respiratory effort Auscultation: clear to auscultation bilaterally, no crackles and no wheezes Cardio Palpation: normal PMI Rate: regular rate Rhythm: regular rhythm Heart sounds: no gallops and no murmurs Peripheral pulses: Peripheral pulses 2+ throughout GI Palpation (GI): Soft to palpation, nontender, No hepatosplenomegaly present and no masses Auscultation: normal bowel sounds Back/Spine/Pelvis Thoracic/Lumbar Spine: thoracic and lumbar spine normal to inspection Skin General skin exam: no rashes or lesions noted Neuro General: patient oriented x3 and no focal motor deficits Cranial nerves: Yes CN's II-XII intact bilaterally Extrem General: Yes normal to inspection, Yes no clubbing, cyanosis or edema and Yes no calf tenderness Psych Appearance: grossly normal and well kempt Speech and movement: Normal speech and movement present Results Reviewed Results Reviewed: Compliance report is reviewed and for the last 3 weeks he has been using his CPAP only for about an hour at night. This is because of irritation on his nose and the cheeks, and he is having a high level of air leak. However when he has used the CPAP his residual AHI is only 0.2 Assessment & Plan Assessment & Plan (1) Mixed sleep apnea: Comment: BASELINE STUDY HAD SHOWN PRESENCE OF MIXED SLEEP APNEA, PREDOMINANTLY CENTRAL APNEA WITH CODY-ANTOINE BREATHING, AND ALSO COMPONENT OF OBSTRUCTIVE SLEEP APNEA. CPAP TITRATION , SUCCESSFUL BUT REQUIRED HIGH BILEVEL PRESSURE OF 20/16 CM, WITH THIS PRESSURE HYPOXEMIA WAS ALSO CORRECTED. He is using bilevel CPAP successfully, and claims that his sleep is better. LATELY HIS COMPLIANCE IS POOR BECAUSE HE IS HAVING SOME ISSUE WITH THE MASK LINING. Code(s): G47.39 - Other sleep apnea Plan: WE ARE REFERRING HIM TO THE DME SUPPLIER, FOR PROPER MASK FITTING. I STRESSED THAT HE HAS TO START USING THE MASK EVERY NIGHT AND FOR AT LEAST 4-5 HOURS PER NIGHT. WILL SEE HIM BACK IN 2 MONTHS TO MAKE SURE THAT HE IS USING THE MASK ENOUGH AND PROPERLY. Coding Level of Care Code Est Pt Level 3 (93526) Diagnoses Mixed sleep apnea G47.39
== END 2023-04-15 14:29 | disposition home or self-care (01) ==
PROVIDERS: PCP Internal Medicine; Visit Provider Internal Medicine
DX: G47.39 Other sleep apnea (principal)
CPT/HCPCS: 99213

== ENCOUNTER → 2023-04-15 14:02 | Outpatient (BNVA) | payer MEDICARE, SELFPAY | PROVIDERS: PCP Internal Medicine; Visit Provider Internal Medicine | DX: G47.39 Other sleep apnea (principal) | CPT/HCPCS: 99212 ==

== ENCOUNTER → 2023-04-21 10:19 | Outpatient (BNVA) | payer MEDICARE, SELFPAY | PROVIDERS: PCP Internal Medicine; Visit Provider Internal Medicine ==

== ENCOUNTER → 2023-05-05 15:06 | Outpatient (BNVA) | payer MEDICARE, SELFPAY | PROVIDERS: PCP Internal Medicine; Visit Provider Internal Medicine ==

== ENCOUNTER 2023-05-19 08:05 | Outpatient (AMB) | payer MEDICARE, SELFPAY ==
[2023-05-19 08:13] LABS: Prothrombin Time Whole Bld POC 23.7 sec (11.1-13.5)
--- NOTE | 2023-05-19 08:19 | MHC.OFFVISCO ---
Intake Intake Visit Reasons: Anticoagulation Allergies No Known Allergies [No Known Allergies*] Allergy (Verified 05/19/23 08:07) Medication List - Last Reconciled 05/19/23 by Yesenia Jenkins RN aspirin (Adult Low Dose Aspirin) 81 mg PO DAILY atorvastatin 40 mg PO DAILY finasteride 5 mg orally wed and ; lorazepam 1 mg PO BEDTIME PRN [id number] mcg (Centrum Silver Men) 1 tab PO DAILY neomycin-polymyxin B-dexameth 3.5mg/mL-10,000 unit/mL-0.1 % 0 drps ophthalmic (eye) tamsulosin 0.4 mg PO DAILY warfarin 5 mg See Protocol PO DAILY Nursing Note pt came to clinic for meter to meter correlation, pt is A+O x 3 and offers no complaints or new dx, finesteride was decreased meter meter correlation with proficient POC skills, meter to date with results and correct time and date INR received and reviewed from [facility] INR? 2.0 in therapeutic range Pt is well and staying active No changes in health or diet No signs and symptoms of bleeding or bruising or clotting Keep same dosing 2.5mg x 2 days/ 5mg x 5 days Retest 2 weeks next meter to meter booked 05/2024 Anti-Coag Initial Assessment Social Hx Patient Tobacco Use Status: Never used Tobacco Questionnaires HAS-BLED Does the patient had uncontrolled Hypertension?: No Does the patient have renal disease?: No Does the patient have liver disease?: No Does the patient have a history of stroke?: Yes Has the patient had major bleeding or predisposition to bleeding?: No Does the patient have labile INRs?: No Is the patient over 65 years of age?: Yes Is the patient on medications that gives them a predisposition to bleeding?: Yes Does the patient use alcohol?: No HAS-BLED Score: 3 CHADSVASC Age: 75 or over Gender: Male Does the patient have a history of CHF?: No Does the patient have a history of Hypertension?: No Does the patient have a history of Stroke/TIA/Thromboembolism?: Yes Does the patient have a history of Vascular Disease (prior DE, PAD or aortic plaque)?: No Does the patient have a history of Diabetes?: No CHADS VACS Score: 4 Guillermo Prediction Score Rsk VTE Active Cancer: No Previous VTE, excluding superficial vein thrombosis: No Reduced mobility: No Already known Thrombophilic Condition: No With-in last month Trauma and/or Surgery: No Elderly 70 year or older: Yes Heart and/or Respiratory Failure: No Acute Myocardial infarction and/or Ischemic Stroke: Yes Acute Infection and/or Rheumatologic Disorder: No Obesity (BMI 30 or greater): No Ongoing Hormonal Treatment: No Score: 2 Guillermo Score less than 4; Low Risk of VTE Guillermo Score 4 or greater; High Risk of VTE Coding Level of Care Code Est Patient Level 1 Diagnoses Current use of anticoagulant therapy Z79.01 Comment meter to meter correlation and document 2 sites acelis and expanssoco Assessment & Plan Assessment & Plan (1) Current use of anticoagulant therapy: 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
== END 2023-05-19 08:32 | disposition home or self-care (01) ==
LOC: HO.ACS 08:05
PROVIDERS: PCP Internal Medicine; Visit Provider Internal Medicine
DX: Z79.01 Long term (current) use of anticoagulants (principal)

== ENCOUNTER → 2023-05-19 08:05 | Outpatient (BNVA) | payer MEDICARE, SELFPAY | PROVIDERS: PCP Internal Medicine; Visit Provider Internal Medicine | DX: I48.20 Chronic atrial fibrillation, unspecified (principal); Z79.01 Long term (current) use of anticoagulants; Z51.81 Encounter for therapeutic drug level monitoring | CPT/HCPCS: 85610; 99211 ==

== ENCOUNTER → 2023-06-02 14:06 | Outpatient (BNVA) | payer MEDICARE, SELFPAY | PROVIDERS: PCP Internal Medicine; Visit Provider Internal Medicine ==

== ENCOUNTER → 2023-06-16 11:32 | Outpatient (BNVA) | payer MEDICARE, SELFPAY | PROVIDERS: PCP Internal Medicine; Visit Provider Internal Medicine ==

== ENCOUNTER 2023-06-24 13:19 | Outpatient (AMB) | payer MEDICARE, SELFPAY ==
[2023-06-24 13:37] VITALS: BP 102/68; PULSE 86; O2SAT 96; BMI 25.4
--- NOTE | 2023-06-24 13:37 | MHC.OFFVIS ---
Intake Vital Signs 06/24/23 13:37 Height 5 ft 10 in Weight 177 lb BMI 25.4 BP 102/68 Blood Pressure Location Lt brachial Position Sitting Pulse 86 Pulse Source Pulse Oximeter Pulse Oximetry (%) 96 Oxygen Delivery Method Room Air Intake Visit Reasons: Obstructive sleep apnea Intake Note: pt is here for CONRAD, his mask is causing issues with nose Pigment Grinder Required: No Allergies No Known Allergies [No Known Allergies*] Allergy (Verified 06/24/23 16:50) Medication List - Last Reconciled 06/24/23 by Luisana Anguiano MD aspirin (Adult Low Dose Aspirin) 81 mg PO DAILY atorvastatin 40 mg PO DAILY finasteride 5 mg orally wed and ; lorazepam 1 mg PO BEDTIME PRN [id number] mcg (Centrum Silver Men) 1 tab PO DAILY tamsulosin 0.4 mg PO DAILY warfarin 5 mg See Protocol PO DAILY Do you need a note to return to daycare/school/sports/work: No HPI Obstructive sleep apnea HPI Details MR. BROWN, 78 years old very pleasant gentleman is here for follow-up of his sleep apnea and use of CPAP. He has been using his CPAP very regularly with good compliance. The only issue is that the mask still irritates his nasal bridge. He has been trying to put some nasal pads, and has been keeping the mask on throughout the night. He sleeps well. Denies any daytime sleepiness. [facility] Medical History Nocturnal hypoxemia 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 BPH (benign prostatic hyperplasia) Prostate cancer Elevated PSA Surgical History History of right shoulder replacement History of left hip replacement Previous back surgery (~1997) Social History Patient Tobacco Use Status: Never used Tobacco Review of Systems Const All systems reviewed & are unremarkable except as noted in HPI and below Denies chills and Denies fever(s) Eyes Reports no additional complaints ENT Reports no additional complaints Card Reports no additional complaints and Denies syncope Resp Denies cough GI Denies abdominal pain and Denies heartburn Reports as per HPI and Denies change in libido Musc Reports no additional complaints Skin/Breast Reports system reviewed and no additional complaints, except as documented Neuro Denies syncope Psych Denies change in libido Endo Denies change in libido Physical Exam Vital Signs: Last Vital Signs Pulse 86 06/24/23 13:37 BP 102/68 06/24/23 13:37 Pulse Ox 96 06/24/23 13:37 Oxygen Delivery Method Room Air 06/24/23 13:37 BMI result Body Mass Index 25.4 Const General: healthy appearing, comfortable, no acute distress, alert and awake Orientation/consciousness: patient oriented x3 HEENT Other: One prominent finding is that of is significant degree of RETROGANTHIA of the lower jaw. Thus compromising the jim pharyngeal space. MALLAMPATI CLASS 3 . General nose exam: No nasal polyps present and No nasal discharge present Face and sinus: Yes sinuses nontender Mouth: oropharynx abnormals (Tongue is back and convex, Mallampati class 3) Throat: Yes posterior oropharynx normal Eyes General: appearance normal, both eyes and all related structures Neck Neck: Yes normal visual inspection, Yes no lymphadenopathy, Yes trachea midline and Yes no JVD Thyroid: Thyroid normal Lymphatic: other (Neck size 16 in) Chest Chest palpation & inspection: normal inspection of the chest, normal palpation of entire chest wall and no tenderness Resp Effort & Inspection: normal respiratory effort Auscultation: clear to auscultation bilaterally, no crackles and no wheezes Cardio Palpation: normal PMI Rate: regular rate Rhythm: regular rhythm Heart sounds: no gallops and no murmurs Peripheral pulses: Peripheral pulses 2+ throughout GI Palpation (GI): Soft to palpation, nontender, No hepatosplenomegaly present and no masses Auscultation: normal bowel sounds Back/Spine/Pelvis Thoracic/Lumbar Spine: thoracic and lumbar spine normal to inspection Skin General skin exam: no rashes or lesions noted Neuro General: patient oriented x3 and no focal motor deficits Cranial nerves: Yes CN's II-XII intact bilaterally Extrem General: Yes normal to inspection, Yes no clubbing, cyanosis or edema and Yes no calf tenderness Psych Appearance: grossly normal and well kempt Speech and movement: Normal speech and movement present Results Reviewed Results Reviewed: Compliance report for the last 30 nights is reviewed he has used 30/30 nights 100% of the time Average use per night 7 hours 4 minutes which is excellent. No significant air leak. Pressure setting 20/16 . Residual AHI 2.9 Assessment & Plan Assessment & Plan (1) Mixed sleep apnea: Comment: BASELINE STUDY HAD SHOWN PRESENCE OF MIXED SLEEP APNEA, PREDOMINANTLY CENTRAL APNEA WITH MATEUSZ-ANTOINE BREATHING, AND ALSO COMPONENT OF OBSTRUCTIVE SLEEP APNEA. CPAP TITRATION , SUCCESSFUL BUT REQUIRED HIGH BILEVEL PRESSURE OF 20/16 CM, WITH THIS PRESSURE HYPOXEMIA WAS ALSO CORRECTED. He is using BIPAP successfully, and claims that his sleep is better. Compliance is excellent. But he has discomfort even with the new fullface mask. Code(s): G47.39 - Other sleep apnea Plan: Commended for good compliance. Will send order for a different fullface mask , which does not go over his nasal bridge( Dream wear) A FIT- 30 (2) Nocturnal hypoxemia: Comment: NOCTURNAL HYPOXEMIA CORRECTED WITH THE USE OF BIPAP. SO HE DOES NOT NEED OXYGEN SUPPLEMENTATION. Code(s): G47.34 - Idiopathic sleep related nonobstructive alveolar hypoventilation Plan: DOES NOT NEED OXYGEN Coding Level of Care Code Est Pt Level 3 (83453) Diagnoses Mixed sleep apnea G47.39 Nocturnal hypoxemia G47.34
== END 2023-06-24 14:12 | disposition home or self-care (01) ==
PROVIDERS: PCP Internal Medicine; Visit Provider Internal Medicine
DX: G47.39 Other sleep apnea (principal); G47.34 Idiopathic sleep related nonobstructive alveolar hypoventilation
CPT/HCPCS: 99213

== ENCOUNTER → 2023-06-24 13:19 | Outpatient (BNVA) | payer MEDICARE, SELFPAY | PROVIDERS: PCP Internal Medicine; Visit Provider Internal Medicine | DX: G47.39 Other sleep apnea (principal); G47.34 Idiopathic sleep related nonobstructive alveolar hypoventilation; Z99.89 Dependence on other enabling machines and devices | CPT/HCPCS: 99212 ==

== ENCOUNTER → 2023-06-30 10:54 | Outpatient (BNVA) | payer MEDICARE, SELFPAY | PROVIDERS: PCP Internal Medicine; Visit Provider Internal Medicine ==

== ENCOUNTER → 2023-07-21 09:57 | Outpatient (BNVA) | payer MEDICARE, SELFPAY | PROVIDERS: PCP Internal Medicine; Visit Provider Internal Medicine ==

== ENCOUNTER → 2023-08-04 11:22 | Outpatient (BNVA) | payer MEDICARE, SELFPAY | PROVIDERS: PCP Internal Medicine; Visit Provider Internal Medicine ==

== ENCOUNTER → 2023-08-18 09:35 | Outpatient (BNVA) | payer MEDICARE, SELFPAY | PROVIDERS: PCP Internal Medicine; Visit Provider Internal Medicine ==

== ENCOUNTER 2023-08-27 09:13 | Outpatient (REF) | payer MEDICARE, SELFPAY | END 2023-08-27 09:14 | disposition home or self-care (01) | LOC: HO.HMGCLDS 09:13 | PROVIDERS: PCP Internal Medicine; Visit Provider Urology | DX: C61 Malignant neoplasm of prostate (principal); Z12.5 Encounter for screening for malignant neoplasm of prostate | CPT/HCPCS: 36415; 84153 ==

== ENCOUNTER → 2023-09-01 13:45 | Outpatient (BNVA) | payer MEDICARE, SELFPAY | PROVIDERS: PCP Internal Medicine; Visit Provider Internal Medicine ==

== ENCOUNTER → 2023-09-15 10:43 | Outpatient (BNVA) | payer MEDICARE, SELFPAY | PROVIDERS: PCP Internal Medicine; Visit Provider Internal Medicine ==

== ENCOUNTER → 2023-09-29 09:37 | Outpatient (BNVA) | payer MEDICARE, SELFPAY | PROVIDERS: PCP Internal Medicine; Visit Provider Internal Medicine ==

== ENCOUNTER 2023-10-12 09:55 | Outpatient (AMB) | payer MEDICARE, SELFPAY ==
--- NOTE | 2023-10-12 09:52 | MHC.OFFVIS ---
Intake Visit Reasons: 6m/PSA(set) Intake Note: Patient is Present for 6m Follow Up/psa Urology Medication: Finasteride, Tamsulosin Antibiotic Allergies: None Blood Thinners: Warfarin,aspirin Compliance Mgr Required: No Allergies No Known Allergies [No Known Allergies*] Allergy (Verified 12/08/23 09:01) Medication List - Last Reconciled 10/12/23 by Chidi Escobar MD aspirin (Adult Low Dose Aspirin) 81 mg PO DAILY atorvastatin 40 mg PO DAILY finasteride 5 mg orally Twice weekly- Wednesday & ; 90 days lorazepam 1 mg PO BEDTIME PRN [id number] mcg (Centrum Silver Men) 1 tab PO DAILY tamsulosin 0.4 mg PO DAILY warfarin 5 mg See Protocol PO DAILY HPI Comments Details: Arturo is a pleasant male. He is a patient of Dr. Muñoz. He is seen for the following urologic issues. - prostate cancer - BPH Telemedicine Evaluation 15 min Consultation [employer] [facility] Video PSA remains low 1.9 Has had improvement with nocturia secondary to compliance with sleep apnea therapy Continue finasteride Trial cycling finasteride Review in 6 months Prostate cancer grade group 1 - 05/04 - initial therapy active surveillance Prostate cancer diagnosed with Dr. Blue 2018 - initial PSA 6.5, prostate volume 35 g Initial pathology biopsy 05/04 - Gl 3+3 left mid lateral 30%, left mid medial 30% 04/26 cores PSA 08/02 6.5, 12/03 4.2 14%, 04/05 2.9, 09/03 2.2 03/05 2.8, 09/04 2.1, 03/06 2.1, 09/05 1.9 Initial therapy active surveillance, initiate finasteride 08/02 Prolaris DNA analysis 05/06 active surveillance group 08/01 MRI 30 g prostate, no clear evidence of clinically significant lesion Lower urinary tract symptoms Longstanding Nocturia 1-2 Mild hesitancy Current medications tamsulosin [facility] Medical History Nocturnal hypoxemia 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 BPH (benign prostatic hyperplasia) Prostate cancer Elevated PSA Surgical History History of right shoulder replacement History of left hip replacement Previous back surgery (~1997) Social History Patient Tobacco Use Status: Never used Tobacco Review of Systems Const All systems reviewed & are unremarkable except as noted in HPI and below Reports no additional complaints Resp Reports no additional complaints GI Reports no additional complaints Reports as per HPI Musc Reports no additional complaints Physical Exam Telemedicine evaluation Appropriate responses Regular breathing rate and rhythm HEENT Head: Yes normal to inspection Ears: hearing grossly normal bilaterally Eyes General: appearance normal, both eyes and all related structures Neck Neck: Yes normal visual inspection Chest Chest palpation & inspection: normal inspection of the chest Resp Effort & Inspection: normal respiratory effort and able to speak in complete sentences Telehealth Telehealth Location of provider rendering services: practice address Location of patient: address on file Patient Identification confirmed using: Name, : Yes Telehealth method: voice only Patient verbally consented to treatment: Yes Patient verbally consented to billing insurance company: Yes Patient informed of any privacy concerns related to visit: Yes Assessment & Plan Assessment & Plan (1) Prostate cancer: Comment: 05/04 low-grade, low volume prostate cancer Code(s): C61 - Malignant neoplasm of prostate Category: Medical Plan Six-month follow-up PSA Orders: Orders Prostate Specific Antigen 6 Months C61 - Malignant neoplasm of prostate Patient Instructions: Imaging studies, laboratory and physical exam results were discussed and reviewed in detail. No major barriers to patient understanding were identified. An opportunity to ask questions regarding the treatment plan was provided. All questions were answered. The patient expressed understanding and agreement with the above treatment plan. The patient is aware they should contact our office by phone for worsening of their current condition or the appearance of new urologic symptoms. Compliance is encouraged with any medications and followup testing that is ordered. It is a privilege to participate in the urologic care of your patient. If you have any questions or concerns regarding treatment for the above conditions, or other urologic issues, please do not hesitate to contact me. The office telephone contact is [phone]. This note is constructed using voice recognition software. While every effort has been made to ensure accuracy application security engineer errors may have been included. Yours sincerely, Dr Chidi Escobar MD, [facility] - Urology Providers of Expert, Compassionate Care for the Genitourinary System Coding Level of Care Code Tele Est Pt Level 3 (88797) Diagnoses Prostate cancer C61
== END 2023-10-12 12:35 | disposition home or self-care (01) ==
LOC: HO.HUSH 09:55
PROVIDERS: PCP Internal Medicine; Visit Provider Urology
DX: C61 Malignant neoplasm of prostate (principal)
CPT/HCPCS: 99442

== ENCOUNTER → 2023-10-12 09:55 | Outpatient (BNVA) | payer MEDICARE, SELFPAY | PROVIDERS: PCP Internal Medicine; Visit Provider Urology ==

== ENCOUNTER → 2023-10-13 09:33 | Outpatient (BNVA) | payer MEDICARE, SELFPAY | PROVIDERS: PCP Internal Medicine; Visit Provider Internal Medicine ==

== ENCOUNTER 2023-10-26 13:34 | Outpatient (AMB) | payer MEDICARE, SELFPAY ==
--- NOTE | 2023-10-26 13:39 | MHC.OFFVIS ---
Vital Signs 10/26/23 13:40 Height 5 ft 10 in Weight 174 lb 2.643 oz BMI 25.0 BP 102/60 Blood Pressure Location Rt brachial Position Sitting Respiration 14 Pulse 58 Pulse Source Pulse Oximeter Pulse Oximetry (%) 97 Oxygen Delivery Method Room Air Intake Visit Reasons: Obstructive sleep apnea Intake Note: Patient comes in for follow up. Allergies No Known Allergies [No Known Allergies*] Allergy (Verified 10/26/23 14:07) Medication List - Last Reconciled 10/26/23 by Luisana Anguiano MD aspirin (Adult Low Dose Aspirin) 81 mg PO DAILY atorvastatin 40 mg PO DAILY finasteride 5 mg orally Twice weekly- Wednesday & ; 90 days lorazepam 1 mg PO BEDTIME PRN [id number] 798-01-780-300 mcg (Centrum Silver Men) 1 tab PO DAILY tamsulosin 0.4 mg PO DAILY warfarin 5 mg See Protocol PO DAILY Do you need a note to return to daycare/school/sports/work: No HPI HPI Obstructive sleep apnea: Details: This 78 years old very pleasant gentleman who is the of normal weight, has obstructive sleep apnea 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 In fact he is not able to sleep good without the CPAP. He .has been very compliant and benefiting His CPAP device was not functioning well and today he got a new model. He has no issue with the mask. [facility] Medical History Nocturnal hypoxemia Central sleep apnea with Cody-Muñoz respiration Mixed sleep apnea BPH (benign prostatic hyperplasia) Prostate cancer Elevated PSA Surgical History History of right shoulder replacement History of left hip replacement Previous back surgery (~1997) Social History Patient Tobacco Use Status: Never used Tobacco Review of Systems Const All systems reviewed & are unremarkable except as noted in HPI and below Denies chills and Denies fever(s) Eyes Reports no additional complaints ENT Reports no additional complaints Card Reports no additional complaints and Denies syncope Resp Denies cough GI Denies abdominal pain and Denies heartburn Reports as per HPI and Denies change in libido Musc Reports no additional complaints Skin/Breast Reports system reviewed and no additional complaints, except as documented Neuro Denies syncope Psych Denies change in libido Endo Denies change in libido Physical Exam Vital Signs: Last Vital Signs Pulse 58 10/26/23 13:40 Resp 14 10/26/23 13:40 BP 102/60 10/26/23 13:40 Pulse Ox 97 10/26/23 13:40 Oxygen Delivery Method Room Air 10/26/23 13:40 BMI result Body Mass Index 25.0 Const General: healthy appearing, comfortable, no acute distress, alert and awake Orientation/consciousness: patient oriented x3 HEENT Other: One prominent finding is that of is significant degree of RETROGANTHIA of the lower jaw. Thus compromising the jim pharyngeal space. MALLAMPATI CLASS 3 . General nose exam: No nasal polyps present and No nasal discharge present Face and sinus: Yes sinuses nontender Mouth: oropharynx abnormals (Tongue is back and convex, Mallampati class 3) Teeth and gingiva: other (Has very significant degree of retroganthia of the lower jaw) Throat: Yes posterior oropharynx normal Eyes General: appearance normal, both eyes and all related structures Neck Neck: Yes normal visual inspection, Yes no lymphadenopathy, Yes trachea midline and Yes no JVD Thyroid: Thyroid normal Lymphatic: other (Neck size 16 in) Chest Chest palpation & inspection: normal inspection of the chest, normal palpation of entire chest wall and no tenderness Resp Effort & Inspection: normal respiratory effort Auscultation: clear to auscultation bilaterally, no crackles and no wheezes Cardio Palpation: normal PMI Rate: regular rate Rhythm: regular rhythm Heart sounds: no gallops and no murmurs Peripheral pulses: Peripheral pulses 2+ throughout GI Palpation (GI): Soft to palpation, nontender, No hepatosplenomegaly present and no masses Auscultation: normal bowel sounds Back/Spine/Pelvis Thoracic/Lumbar Spine: thoracic and lumbar spine normal to inspection Skin General skin exam: no rashes or lesions noted Neuro General: patient oriented x3 and no focal motor deficits Cranial nerves: Yes CN's II-XII intact bilaterally Extrem General: Yes normal to inspection, Yes no clubbing, cyanosis or edema and Yes no calf tenderness Psych Appearance: grossly normal and well kempt Speech and movement: Normal speech and movement present Assessment & Plan Assessment & Plan (1) Mixed sleep apnea: Comment: BASELINE STUDY HAD SHOWN PRESENCE OF MIXED SLEEP APNEA, PREDOMINANTLY CENTRAL APNEA WITH CODY-MUÑOZ BREATHING, AND ALSO COMPONENT OF OBSTRUCTIVE SLEEP APNEA. CPAP TITRATION , SUCCESSFUL BUT REQUIRED HIGH BILEVEL PRESSURE OF 20/16 CM, WITH THIS PRESSURE HYPOXEMIA WAS ALSO CORRECTED. He has been using BIPAP successfully, and claims that his sleep is better. Compliance has been excellent. Code(s): G47.39 - Other sleep apnea Category: Medical Plan: He just has his new CPAP device . Advised to keep on using the CPAP with bilevel pressure 20/16 cm . Every night (2) Nocturnal hypoxemia: Comment: NOCTURNAL HYPOXEMIA CORRECTED WITH THE USE OF BIPAP. SO HE DOES NOT NEED OXYGEN SUPPLEMENTATION. Code(s): G47.34 - Idiopathic sleep related nonobstructive alveolar hypoventilation Category: Medical Plan: Explained to him that he is doing well and that not need. To have O2 supplementation Coding Level of Care Code Est Pt Level 3 (98452) Diagnoses Mixed sleep apnea G47.39 Nocturnal hypoxemia G47.34
[2023-10-26 13:40] VITALS: BP 102/60; PULSE 58; RESP 14; O2SAT 97; BMI 25.0
== END 2023-10-26 14:05 | disposition home or self-care (01) ==
PROVIDERS: PCP Internal Medicine; Visit Provider Internal Medicine
DX: G47.39 Other sleep apnea (principal); G47.34 Idiopathic sleep related nonobstructive alveolar hypoventilation
CPT/HCPCS: 99213

== ENCOUNTER → 2023-10-26 13:34 | Outpatient (BNVA) | payer MEDICARE, SELFPAY | PROVIDERS: PCP Internal Medicine; Visit Provider Internal Medicine | DX: G47.34 Idiopathic sleep related nonobstructive alveolar hypoventilation (principal); G47.37 Central sleep apnea in conditions classified elsewhere; M26.19 Other specified anomalies of jaw-cranial base relationship | CPT/HCPCS: 99212 ==

== ENCOUNTER → 2023-10-27 14:14 | Outpatient (BNVA) | payer MEDICARE, SELFPAY | PROVIDERS: PCP Internal Medicine; Visit Provider Internal Medicine ==

== ENCOUNTER → 2023-11-10 10:54 | Outpatient (BNVA) | payer MEDICARE, SELFPAY | PROVIDERS: PCP Internal Medicine; Visit Provider Internal Medicine ==

== ENCOUNTER → 2023-11-24 08:50 | Outpatient (BNVA) | payer MEDICARE, SELFPAY | PROVIDERS: PCP Internal Medicine; Visit Provider Internal Medicine ==

== ENCOUNTER → 2023-12-08 09:05 | Outpatient (BNVA) | payer MEDICARE, SELFPAY | PROVIDERS: PCP Internal Medicine; Visit Provider Internal Medicine | DX: Z79.01 Long term (current) use of anticoagulants (principal) ==

== ENCOUNTER → 2023-12-22 10:28 | Outpatient (BNVA) | payer MEDICARE, SELFPAY | PROVIDERS: PCP Internal Medicine; Visit Provider Internal Medicine ==

== ENCOUNTER → 2024-01-05 10:37 | Outpatient (BNVA) | payer MEDICARE, SELFPAY | PROVIDERS: PCP Internal Medicine; Visit Provider Internal Medicine ==

== ENCOUNTER → 2024-01-13 09:49 | Outpatient (BNVA) | payer MEDICARE, SELFPAY | PROVIDERS: PCP Internal Medicine; Visit Provider Internal Medicine ==

== ENCOUNTER 2024-02-29 09:39 | Outpatient (REF) | payer MEDICARE, SELFPAY ==
--- OUTSIDE RECORDS SUMMARY | 2024-02-29 09:42 | XMS_ITS | Continuity of Care Document ---
Author Name [facility] Organization [facility] Care Team Providers Care Lemon Grower Name Role Phone [facility] Unavailable Unavailable Problems Combined list of problems from Department of [facility] and [facility] facilities. It does not include entries that [...] RUCHI MARQUEZ Comment: Cardio Dr Salazar at [facility] Degenerative joint disease of shoulder region Active Condition Jan 15, 2021 Entered By: RUCHI MARQUEZ Comment: Shldr Replacement, R Shldr 2016 [place] Osteoarthritis of hip Active Condition Jan 15, 2021 Entered By: RUCHI MARQUEZ Comment: THR, L Side 2014 [place] Prostate cancer Active Condition Jan 15, 2021 Entered By: RUCHI MARQUEZ Comment: Tx'd Medically Only; [facility] - Dr. Escobar [phone] 15, 2021 Entered By: RUCHI MARQUEZ Comment: on Flomax; Last PSA was 3.5 in DEC 03 [place] Screening for malignant neoplasm of colon done Active Condition Jan 15, 2021 Entered By: RUCHI MARQUEZ Comment: Screen Colonoscopy approx 2011; No CA; repeat prn [place] Seen by general physician Active Condition Jan 15, 2021 Entered By: RUCHI MARQUEZ Comment: PCP Dr Muñoz [phone] [place] Medications Combined list of outpatient medications from Department of [facility] and [facility] facilities.Medications provided include 1) outpatient medications [...] Site Reaction Lot Number CVX Code Drug Supervisor Sterile Processing Status Comments Source COVID-19 (Ortho-tag), MRNA, LNP-S, PF, 30 MCG/0.3 ML DOSE 3 2020 208 complet ed [facility] INFLUENZA, UNSPECIFIED FORMULATION 2020 88 complet ed [facility] COVID-19 (PFIZER), MRNA, LNP-S, PF, 30 MCG/0.3 ML DOSE 2 2020 208 complet ed [facility] COVID-19 (PFIZER), MRNA, LNP-S, PF, 30 MCG/0.3 ML DOSE 1 2020 208 complet ed [facility] Social History Combined list of available smoking, tobacco, and other social history from Department of Defense and Veterans Affairs facilities. Social History Type Response Date Comment [facility] e Tobacco smoking status [facility]-TOBACCO NEVER USED 01/16/20 21 [place]
[2024-02-29 13:16] LABS: MANUAL DIFF FLAG NO
[2024-02-29 13:27] LABS: Basophils Percent Auto 0.8 % (0-2); Eosinophils Absolute Auto 0.2 X10*3/uL (0.0-0.4); Eosinophils Percent Auto 3.2 % (0-4); Hemoglobin 11.5 g/dl (14.0-18.0); Imm Gran Abs Auto 0.02 X10*3/uL (0.00-0.03); Imm Gran Pct Auto 0.4 % (0.0-0.4); Lymphocytes Percent Auto 20.8 % (20-40); Mean Corpuscular HGB Conc 31.9 g/dl (31.0-36.0); Mean Corpuscular Hemoglobin 29.8 pg (27.0-33.0); Mean Corpuscular Volume 93.3 fL (80.0-98.0); Mean Platelet Volume 9.9 fL (9.4-12.4); Monocytes Absolute Auto 0.6 X10*3/uL (0.1-1.2); Monocytes Percent Auto 11.6 % (2-11); Neutrophils Absolute Auto 3.2 x10*3/uL (2.0-8.3); Neutrophils Percent Auto 63.2 % (45-73); Platelet Count 277 X10*3/uL (160-400); Red Blood Count 3.86 X10*6/uL (4.60-5.80); Red Cell Distribution Width 12.6 % (11.0-16.0)
[2024-02-29 13:54] LABS: Alanine Aminotransferase 54 U/L (0-40); Albumin Level 4.1 g/dL (3.5-5.0); Alkaline Phosphatase 119 U/L (39-117); Anion Gap 10 (12-20); Aspartate Amino Transferase 47 U/L (5-37); Bilirubin Total 1.2 mg/dL (0.0-1.0); Blood Urea Nitrogen 23 mg/dL (9-16); Calcium 8.9 mg/dL (8.4-10.2); Carbon Dioxide 27 mmol/L (22-29); Chloride 107 mmol/L (96-108); Cholesterol 114 mg/dL (<200); Estimated Glomerular Filt Rate > 60; Glucose Fasting 98 mg/dL (60-99); HDL Cholesterol 44 mg/dL (>40); LDL Cholesterol Calculated 57 mg/dL (<100); Potassium 4.2 mmol/L (3.3-5.1); Sodium 140 mmol/L (135-145); Total Protein 7.1 g/dL (6.5-8.0); Triglycerides 67 mg/dL (<150)
[2024-02-29 13:55] LABS: Thyroid Stimulating Hormone 3.66 uIU/mL (0.32-4.0)
== END 2024-02-29 09:40 | disposition home or self-care (01) ==
LOC: HO.HMGCLDS 09:39
PROVIDERS: PCP Internal Medicine; Visit Provider Internal Medicine
DX: I48.0 Paroxysmal atrial fibrillation (principal); E78.2 Mixed hyperlipidemia; N40.0 Benign prostatic hyperplasia without lower urinary tract symptoms; C61 Malignant neoplasm of prostate; F51.01 Primary insomnia
CPT/HCPCS: 36415; 80053; 80061; 84443; 85025

== ENCOUNTER → 2024-03-06 08:34 | Outpatient (BNVA) | payer MEDICARE, SELFPAY | PROVIDERS: PCP Internal Medicine; Visit Provider Internal Medicine ==

== ENCOUNTER → 2024-03-22 09:47 | Outpatient (BNVA) | payer MEDICARE, SELFPAY | PROVIDERS: PCP Internal Medicine; Visit Provider Internal Medicine ==

== ENCOUNTER 2024-04-04 09:32 | Outpatient (REF) | payer MEDICARE, SELFPAY ==
--- OUTSIDE RECORDS SUMMARY | 2024-04-04 10:29 | XMS_ITS | Clinical Summary ---
Author Organization [facility] Address [address] [place] [address] Care Team Providers Care Cementer Helper Name Role Phone Unavailable Primary Care Provider Unavailabl e Social History Tobacco Use Types Packs/Day Years Used Date Smoking Tobacco: Never Assessed Sex and Gender Information Value Date Recorded Sex Assigned at Not on file Gender Identity Not on file Sexual Orientation Not on file Plan of Treatment Health Maintenance Due Date Last Done Comments DTaP/Tdap/Td Vaccines (1 - Tdap) 01/20/1963 Pneumococcal Vaccines 50+ (1 of 1 - PCV) 01/20/1994 Zoster (Shingles) Vaccine (1 of 2) 01/20/1994 RSV Vaccine 60 years and old er and Patients (1 - 1-dose 75+ series) 01/20/2019 COVID-19 Vaccine ( - 2023-2 5 season) 2023 Hepatitis B Vaccines Aged Out No long er eligible based on patient's age to complete this topic
--- OUTSIDE RECORDS SUMMARY | 2024-04-04 10:29 | XMS_ITS | Continuity of Care Document ---
Author Name [employer] Organization [facility] Care Team Providers Care Renewable Energy Technician Name Role Phone [facility] Unavailable Unavailable Problems Combined list of problems from Department of [facility] and [facility] facilities. 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 Escobar [phone] 15, 2021 Entered By: RUCHI MARQUEZ Comment: on Flomax; Last PSA was 3.5 in DEC 03 [place] Screening for malignant neoplasm of colon done Active Condition Jan 15, 2021 Entered By: RUCHI MARQUEZ Comment: Screen Colonoscopy approx 2011; No CA; repeat prn [place] Seen by general physician Active Condition Jan 15, 2021 Entered By: RUCHI MARQUEZ Comment: PCP Dr Muñoz [phone] [place] Medications Combined list of outpatient medications from Department of [facility] and [facility] facilities.Medications provided include 1) outpatient medications from [...] Site Reaction Lot Number CVX Code Drug Tape Duplicator Status Comments Source COVID-19 (SplitGigs), MRNA, LNP-S, PF, 30 MCG/0.3 ML DOSE 3 2020 208 complet ed [facility] INFLUENZA, UNSPECIFIED FORMULATION 2020 88 complet ed [facility] COVID-19 (PFIZER), MRNA, LNP-S, PF, 30 MCG/0.3 ML DOSE 2 2020 208 complet ed [facility] COVID-19 (PFIZER), MRNA, LNP-S, PF, 30 MCG/0.3 ML DOSE 1 2020 208 complet ed [facility] Social History Combined list of available smoking, tobacco, and other social history from Department of Defense and Veterans Affairs facilities. Social History Type Response Date Comment [facility] e Tobacco smoking status [facility]-TOBACCO NEVER USED 01/16/20 21 [place]
--- OUTSIDE RECORDS SUMMARY | 2024-04-04 10:29 | XMS_ITS | Clinical Summary ---
Author Organization [facility] Address [address] [place] [address] Phone Care Team Providers Care Assembly Operator Name Role Phone Arden Muñoz DO Primary Care Provider [phone] Encounters Date Type Department Care Team Description 01/04/2024 9:24 AM EDT - 01/04/2024 11:59 PM EDT Hospital Encounter [facility] Cardiology [facility] [address] [place] [phone] Neville Salazar MD Discharge Disposition: Home or Self Care from Last 3 Months Family History Medical History Relation Name Comments Stroke Father Other: Cardiomyopathy Mother Relation Name Status Comments Father Mother Social History Tobacco Use Types Packs/Day Years Used Date Smoking Tobacco: Never Smokeless Tobacco: Never Alcohol Use Standard Drinks/Week Comments Never 0 (1 standard drink = 0.6 oz pur e alcohol) Sex and Gender Information Value Date Recorded Sex Assigned at Not on file Gender Identity Not on file Sexual Orientation Not on file Obstetrics History Last Filed Vital Signs Vital Sign Reading Time Taken Comments Blood Pressure 138/81 01/04/2024 10:06 AM EDT Pulse 58 09/13/2023 10:56 AM EDT Temperature - - Respiratory Rate - - Oxygen Saturation - - Inhaled Oxygen Concentration - - Weight 78.9 kg (174 lb) 01/04/2024 10:06 AM EDT Height 175.3 cm (5' 9 ) 01/04/2024 10:06 AM EDT Body Mass Index 25.7 01/04/2024 10:06 AM EDT Plan of Treatment Health Maintenance Due Date Last Done Comments DTaP,Tdap,and Td Vaccines (1 - Tdap) 01/20/1964 Zoster Vaccines (1 of 2) 01/20/1994 Pneumococcal Vaccine: 65+ Years (1 of 1 - PCV) 01/20/2009 RSV Immunization Patients 60 + Years Old (1 - 1-dose 75+ series) 01/20/2019 Cholesterol Screening (Lipid Panel) 02/22/2022 Depression Screening 02/22/2022 Falls Risk Assessment 02/22/2022 Social Influencers of Health Screening 02/22/2022 COVID-19 Vaccine (1 - 2023-2 5 season) 2023 Influenza Vaccine (#1) 2023 2, 12/09/2020 HIB Vaccines Aged Out No longer eligi ble based on patient's age to complete this topic HPV Vaccines Aged Out No longer eligi ble based on patient's age to complete this topic Hepatitis A Vaccines Aged Out No long er eligible based on patient's age to complete this topic Hepatitis B Vaccines Aged Out No long er eligible based on patient's age to complete this topic IPV Vaccines Aged Out No longer eligi ble based on patient's age to complete this topic MMR Vaccines Aged Out No longer eligi ble based on patient's age to complete this topic Meningococcal ACWY Vaccine Aged Out N o longer eligible based on patient's age to complete this topic RSV Immunization Patients Under 20 months Aged Out No longer eligible b ased on patient's age to complete this topic Varicella Vaccines Aged Out No longer eligible based on patient's age to complete this topic Procedures Procedure Name Priority Date/Time Associated Diagnosis Comments EXTERNAL ECHO Routine 01/04/2024 9:33 AM EDT from Last 3 Months Results * External Echo (01/04/2024 9:33 AM EDT) Anatomical Region Laterality Modality Ultrasound Historical Provider MD SNEED ECHO PROCEDURE S from Last 3 Months Care Teams Assembly Operator Relationship Specialty Start Date End Date Arden Muñoz DO [address] [place] [phone] PCP - General 02/03/12
--- OUTSIDE RECORDS SUMMARY | 2024-04-04 10:29 | XMS_ITS | Data Portability ---
Author Organization [place] - [facility], Allergy Address [address] [address] Assessment Encounter Date Assessment Date Assessment LastModified by Organization Details LastModified Time 07/30/2023 07/30/2023 HAF scheduled. He has my email in case he needs to change the appointment. [email or web address] Not available 07/30/2023 10:28:33 Plan of Treatment Reminders Order Date Submit Date Provider Last Modified By Organization Details Last Modified Time Details Appointments None record ed. Lab None record ed. Referral None record ed. Procedures None record ed. Surgeries None record ed. Imaging None record ed. Medication Orders None record ed. Patient TargetsNo targets recorded. Patient InstructionsNo instructions recorded. Reason for Referral None Reported. Results Created Date Observation Date Name Description Value Unit Range Abnormal Flag Note LastModifiedBy Organization Detail LastModifiedTime 11/03/19 24 07/22/2023 imagi ng/di agnos tic resul t No observ ation record ed. [email or web address] Not Available 16:42:21 11/03/19 24 07/22/2023 imagi ng/di agnos tic resul t No observ ation record ed. [email or web address] Not Available 16:42:23 11/03/19 24 01/22/2022 imagi ng/di agnos tic resul t No observ ation record ed. [email or web address] Not Available 16:42:27 11/03/19 24 03/11/2023 imagi ng/di agnos tic resul t No observ ation record ed. [email or web address] Not Available 16:42:28 11/03/19 24 07/22/2023 audio gram No observ ation record ed. [email or web address] Not Available 16:42:33 Result Notes None recorded. Problems Name Problem SNOMED Code Status Onset Date Resolution Date Notes Provider Name and Address Organization Details Recorded Time Sensorine ural hearing loss of bilateral ears 664681644 Active 2023 ALONA GUILLEN, AUD 100 [facility] 100, [place], [address] , [facility] - [facility] 4 10:29:09 Bilateral exostosis of external ear canals [id number] 47068 Active 2023 Exostosis of external canal, bilateral ; Note: Date Diagnosed : 07/22/2023 10:03 AM (H61.813) Not Available [facility] 4 03:10:10 Abnormal auditory perceptio n 03461703 Active 2023 Other abnormal auditory perceptio ns, left ear; Note: Date Diagnosed : 07/22/2023 10:03 AM (H93.292) Not Available [facility] 4 03:10:11 Problem Notes None recorded. Procedures Surgical History None recorded. Imaging Results Imaging Date Name Status LastModified by [facility] Details LastModified Time 07/22/2023 imaging/diagno stic result completed Information not available 11/03/2023 16:42:21 07/22/2023 imaging/diagno stic result completed Information not available 11/03/2023 16:42:23 01/22/2022 imaging/diagno stic result completed Information not available 11/03/2023 16:42:27 03/11/2023 imaging/diagno stic result completed Information not available 11/03/2023 16:42:28 07/22/2023 audiogram completed Information not available 11/03/2023 16:42:33 Procedure Notes None recorded. Medical Equipment None Reported. Medications Name Sig Start Date Stop Date Status Note LastModified by Organization Details LastModified Time multivitam in tablet active Medication ID: [id number] Bra nd Name: multivitam in Send Method: E-Prescrib ed Subs Allowed: subs OK Medicat ionGeneric Name: multivitam in Not Available Not Available Not Available atorvastat in 40 mg tablet active Medication ID: [id number] nd Name: atorvastat in Send Method: E-Prescrib ed Subs Allowed: subs OK Medicat ionGeneric Name: atorvastat in Not Available Not Available Not Available neomycin-p olymyxin-h ydrocort 3.5 mg/mL-10,0 00 unit/mL-1 % ear solution INSTILL 4-5 DROPS IN LEFT EAR EVERY DAY active Not Available Not Available No t Available tamsulosin 0.4 mg capsule active Medication ID: [id number] nd Name: tamsulosin Send Method: E-Prescrib ed Subs Allowed: subs OK Medicat ionGeneric Name: tamsulosin Not Available Not Available Not Available warfarin 5 mg tablet active Medication ID: [id number] nd Name: warfarin S end Method: E-Prescrib ed Subs Allowed: subs OK Medicat ionGeneric Name: warfarin Not Available Not Available Not Available lorazepam 1 mg tablet active Medication ID: [id number] nd Name: lorazepam Send Method: E-Prescrib ed Subs Allowed: subs OK Medicat ionGeneric Name: lorazepam Not Available Not Available Not Available finasterid e 5 mg tablet active Medication ID: [id number] nd Name: finasterid e Send Method: E-Prescrib ed Subs Allowed: subs OK Medicat ionGeneric Name: finasterid e Not Available Not Available Not Available aspirin 81 mg capsule active Medication ID: [id number] nd Name: aspirin Se nd Method: E-Prescrib ed Subs Allowed: subs OK Medicat ionGeneric Name: aspirin Not Available Not Available Not Available Vitals None Recorded Social History None recorded. Functional Status None recorded. Mental Status None recorded. Family History Nothing Reported. Medical History No medical history recorded. Past Encounters Encounter ID Performer Location Encounter Start Date Encounter Closed Date Diagnosis/Indication Diagnosis SNOMED-CT Code Diagnosis ICD10 Code Diagnosis Note [id number] GAUTAM ZELAYA [place] [address] [place] [address] 07/30/2023 09:51:52 09/02/2023 00:15:53 Sensorineural hearing loss of bilateral ears [id number] H90.3 [id number] GAUTAM ZELAYA [place] [address] [place] [address] 08/12/2023 10:36:38 08/12/2023 11:38:04 Sensorineural hearing loss of bilateral ears [id number] H90.3 [id number] GAUTAM ZELAYA [place] 100 [facility] 100 [place] [address] 10/01/2023 10:34:45 10/02/2023 14:45:28 Sensorineural hearing loss of bilateral ears [id number] H90.3 Health Concerns Section Related Observation LastModified by Organization Detai ls LastModified Time None Recorded Concern Status LastModified by Organization Details LastModified Time None Recorded Advance Directives Directive None Recorded Payers Encounter Date Sequence Insurance Name Policy Number Policy Devine Covered Member ID Devine Member ID Guarantor Name 07/30/2023 2 [employer] OPTIONS (MEDICARE SUPPLEMENT) Arturo Hammond Mc [id number] Arturo Stephany Mc 07/30/2023 1 MEDICARE B-[place]: [facility] Arturo Correao [id number] Arturo Stephany Correao 08/12/2023 2 [employer] OPTIONS (MEDICARE SUPPLEMENT) Arturo Correao [id number] Arturo Correao 08/12/2023 1 MEDICARE [place]: [facility] Arturo Correao [id number] Arturo Stephany Correao 10/01/2023 2 [employer] OPTIONS (MEDICARE SUPPLEMENT) Arturo Correao [id number] Arturo Correao 10/01/2023 1 MEDICARE B-[place]: [facility] Arturo Hammond Mc [id number] Arturo Stephany Mc Notes Date Note Type Note Provider Name and Address Organization Details Recorded Time 07/30/2023 text/html Pt is here today with {{spouse* daughter son}}. They are {{a* an}} {{new* experienced} } user of hearing aids. Here today due to difficulty {{ in all situations. Especially with his left ear, he feels it is always blocked. Goes out every morning to play pickleball or pingpong, leads a pretty active lifestyle with friends. #}} Discussed type, technology levels, and manufacturers of hearing aids. Type of phone: {{iphone android (galaxNanoLumens) android (off brand) no smart phone iphone, but not too interested in the bluetooth/angie technology.#}} Ordering:{{Oticon p honak* Widex}} {{ [id number] Life-R in P7 steel frazier#}}Drywall Sander: {{ 1M#}}Domes: {{ open medium#}}Other: {{}} Paid today: {{$ $0#}}Due at fitting {{$ $5144#}}Total: {{$ $5144#}} ALONA GUILLEN, [facility] 100 [facility],[address], [address], [facility] 07/30/2023 10:29:20 08/12/2023 text/html Fit today with {{phonak* oticon wi dex}} Set at level 3 and fit to target. {{No changes made after REM. Turned down after REM for comfort.*}} 90% with weak occlusion used car manager. VC activated and explained. All tap controls turned off. Discussed insertion/removal of devices from ears and value stream manager and cleaning of devices which included changing the domes, replacing the filter, and wiping down the HAs. Patient was able to successfully insert devices into ears in office {{Connected to phone and angie. Connected to angie but not phone Connected to phone but not angie Not interested in phone connectivity* Does not have a smartphone}}Paid {{ 5144#}} via {{card osorio check*} } via {{ARG* SANJUANA}} ALONA GUILLEN [facility] 100 [facility],[address], [address], [facility] 08/12/2023 11:33:57 10/01/2023 text/html Concerns: No concerns regarding sound quality or fit of devices. He wanted to go over care/maintence of the hearing aids again.Check/clean: Changed domes and filters. GWO.Adjustments: None made in software. No firmware updates were needed at this timeDataloggin.5Reviewed the frequency of when he needs to change the domes and filters and also discussed how to replace them. He understood.FU: 1 year FU with HT. ALONA GUILLEN, [facility] 100 [facility],[place] [address], [place], [address], [facility] - [facility] 10/01/2023 11:03:39
[2024-04-04 14:12] LABS: Prostate Specific Antigen 3.79 ng/mL (<0.05-4.0)
== END 2024-04-04 09:33 | disposition home or self-care (01) ==
LOC: HO.HMGCLDS 09:32
PROVIDERS: PCP Internal Medicine; Visit Provider Urology
DX: C61 Malignant neoplasm of prostate (principal); Z12.5 Encounter for screening for malignant neoplasm of prostate
CPT/HCPCS: 36415; 84153

== ENCOUNTER → 2024-04-05 09:47 | Outpatient (BNVA) | payer MEDICARE, SELFPAY | PROVIDERS: PCP Internal Medicine; Visit Provider Internal Medicine ==

== ENCOUNTER 2024-04-12 11:26 | Outpatient (AMB) | payer MEDICARE, SELFPAY ==
--- NOTE | 2024-04-12 11:29 | MHC.OFFVIS ---
Intake Visit Reasons: 6m/PSA(set) Intake Note: Patient is present for 6M/PSA Urology Medication:FINASTERIDE,TAMSULOSIN Antibiotic Allergy:NONE Blood Thinner:ASPIRIN,WARFARIN Wing Coverer Required: No Allergies No Known Allergies [No Known Allergies*] Allergy (Verified 04/12/24 11:30) HPI Comments Details: Arturo is a pleasant male. He is a patient of Dr. Muñoz. He is seen for the following urologic issues. - prostate cancer - BPH PSA rise - 3.8 While cycling finasteride Will switch back to 2 tabs per week since PSA remained low during this phase Has had improvement with nocturia secondary to compliance with sleep apnea therapy Prostate cancer grade group 1 - 05/04 - initial therapy active surveillance Prostate cancer diagnosed with Dr. 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 BPH (benign prostatic hyperplasia) Prostate cancer Elevated PSA Surgical History History of right shoulder replacement History of left hip replacement Previous back surgery (~1997) Social History Patient Tobacco Use Status: Never used Tobacco Review of Systems Const Denies chills and Denies fever(s) Card Reports no additional complaints and Denies syncope Resp Denies cough GI Denies abdominal pain and Denies heartburn Reports as per HPI and Denies change in libido Neuro Denies syncope Psych Denies change in libido Endo Denies change in libido Physical Exam Const General: cooperative, healthy appearing, comfortable and no acute distress Orientation/consciousness: patient oriented x3 HEENT Face and sinus: Yes normal facial exam Mouth: moist mucous membranes Neck Neck: Yes normal visual inspection, Yes full ROM and Yes trachea midline Chest Chest palpation & inspection: normal inspection of the chest Resp Effort & Inspection: normal respiratory effort, able to speak in complete sentences and no respiratory distress GI Inspection: Yes normal to inspection Back/Spine/Pelvis Cervical Spine: normal cervical lordosis Thoracic/Lumbar Spine: thoracic and lumbar spine normal to inspection Skin General skin exam: no rashes or lesions noted Neuro General: patient oriented x3, gait normal, tone normal and moves all extremities Extrem General: Yes normal to inspection and Yes capillary refill normal Results AMB Urinalysis, Automated UA Leukoctes 0 Tiana/uL Last Edit by KORI Wasserman on 04/12/24 12:09 UA Nitrite Negative Last Edit by KORI Wasserman on 04/12/24 12:09 UA Urobilinogen 0.2 mg/dL Last Edit by KORI Wasserman on 04/12/24 12:09 UA Protein 15 mg/dL Last Edit by KORI Wasserman on 04/12/24 12:09 UA pH 6.0 Last Edit by KORI Wasserman on 04/12/24 12:09 UA Blood 10 Jose/uL Last Edit by KORI Wasserman on 04/12/24 12:09 UA Specific [place] 1.015 Last Edit by KORI Wasserman on 04/12/24 12:09 UA Ketone Negative Last Edit by KORI Wasserman on 04/12/24 12:09 UA Bilirubin 0 mg/dL Last Edit by KORI Wasserman on 04/12/24 12:09 UA Glucose 0 mg/dL Last Edit by KORI Wasserman on 04/12/24 12:09 Results Reviewed Results Reviewed: Laboratory Last Values Urine pH (Auto) 6.0 04/12/24 12:08 Specific [place] (Auto) 1.015 04/12/24 12:08 Urine Protein (Auto) 15 mg/dL 04/12/24 12:08 Glucose (UA)(Auto) 0 mg/dL 04/12/24 12:08 Urine Ketones (Auto) Negative 04/12/24 12:08 Urine Blood (Auto) 10 Jose/uL 04/12/24 12:08 Urine Nitrite (Auto) Negative 04/12/24 12:08 Urine Bilirubin (Auto) 0 mg/dL 04/12/24 12:08 Urine Urobilinogen (Auto) 0.2 mg/dL 04/12/24 12:08 Leukocyte Esterase (Auto) 0 Tiana/uL 04/12/24 12:08 Assessment & Plan Assessment & Plan (1) Prostate cancer: Comment: 05/04 low-grade, low volume prostate cancer Code(s): C61 - Malignant neoplasm of prostate Category: Medical Plan Four month follow-up PSA Orders: Orders Prostate Specific Antigen 4 Months C61 - Malignant neoplasm of prostate AMB Urinalysis Automated Today Z13.9 - Encounter for screening, unspecified Patient Instructions: Imaging studies, laboratory and physical exam results were discussed and reviewed in detail. No major barriers to patient understanding were identified. An opportunity to ask questions regarding the treatment plan was provided. All questions were answered. The patient expressed understanding and agreement with the above treatment plan. The patient is aware they should contact our office by phone for worsening of their current condition or the appearance of new urologic symptoms. Compliance is encouraged with any medications and followup testing that is ordered. It is a privilege to participate in the urologic care of your patient. If you have any questions or concerns regarding treatment for the above conditions, or other urologic issues, please do not hesitate to contact me. The office telephone contact is [phone]. This note is constructed using voice recognition software. While every effort has been made to ensure accuracy radio sales account executive errors may have been included. Yours sincerely, Dr Chidi Escobar MD, CASSANDRA [facility] - Urology Providers of Expert, Compassionate Care for the Genitourinary System Coding Level of Care Code Est Pt Level 3 (21924) Diagnoses Prostate cancer C61
--- OUTSIDE RECORDS SUMMARY | 2024-04-12 13:52 | XMS_ITS | Continuity of Care Document ---
Author Name [facility] Organization [facility] Care Team Providers Care Natural Gas Plant Technician Name Role Phone [facility] Unavailable Unavailable Problems Combined list of problems from Department of [facility] and [facility] facilities. It does not include entries [...] RUCHI MARQUEZ Comment: Cardio Dr Salazar at [facility] Degenerative joint disease of shoulder region Active Condition Jan 15, 2021 Entered By: RUCHI MARQUEZ Comment: Shldr Replacement, R Shldr 2016 [place] Osteoarthritis of hip Active Condition Jan 15, 2021 Entered By: RUCHI MARQUEZ Comment: THR, L Side 2014 [place] Prostate cancer Active Condition Jan 15, 2021 Entered By: RUCHI MARQUEZ Comment: Tx'd Medically Only; URO - Dr. Escobar [phone] 15, 2021 Entered By: RUCHI MARQUEZ Comment: on Flomax; Last PSA was 3.5 in DEC 03 [place] Screening for malignant neoplasm of colon done Active Condition Jan 15, 2021 Entered By: RUCHI MARQUEZ Comment: Screen Colonoscopy approx 2011; No CA; repeat prn [place] Seen by general physician Active Condition Jan 15, 2021 Entered By: RUCHI MARQUEZ Comment: PCP Dr Muñoz [phone] [place] Medications Combined list of outpatient medications from Department of [facility] and [facility] facilities.Medications provided include 1) outpatient medications [...] Site Reaction Lot Number CVX Code 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 Social History Type Response Date Comment [facility] e Tobacco smoking status [facility] VA-TOBACCO NEVER USED 01/16/20 21 [place]
--- OUTSIDE RECORDS SUMMARY | 2024-04-12 13:52 | XMS_ITS | Clinical Summary ---
Author Organization [facility] Address [address] [place] [address] Care Team Providers Care Recycling Attendant Name Role Phone Unavailable Primary Care Provider [...]
--- OUTSIDE RECORDS SUMMARY | 2024-04-12 13:52 | XMS_ITS ---
Author Organization Arden Muñoz DO, FACP Address [address] [place] [phone] Care Team Providers Care Prepper Name Role Phone Arden Muñoz Primary Care Provider [phone] REASON FOR VISIT told patient to call Encounters Encounter Location Date Provider Diagnosis Arden Muñoz DO, FACP [address] [place] [phone] 02/16/2024 Arden Muñoz PLAN OF TREATMENT Next Appt Details Provider Name:Arden wagoner, 04/18/2024 09:00:00 AM, [address] [place] [address], [phone],
--- OUTSIDE RECORDS SUMMARY | 2024-04-12 13:52 | XMS_ITS ---
Author Organization Arden Muñoz DO, FACP Address [address] [place] [phone] Care Team Providers Care Director Health Name Role Phone Arden Muñoz Primary Care Provider REASON FOR VISIT Message MEDICATIONS Medication SIG (Take, Route, Fr equency, Duration) Notes Start Date End Date Status Azithromycin 250 MG [address] day, then 1 tablet daily for 4 days Orally Once a day for 5 day(s) 02/14/2024 Active Encounters Encounter Location Date Provider Diagnosis ANGELITO [facility] [address] [place] [phone] 02/14/2024 Arden Muñoz PLAN OF TREATMENT Medication Medication Name Sig Start Date Stop Date Notes Azithromycin 250 MG [address] day, then 1 tablet daily for 4 days Orally Once a day for 5 day(s) 02/14/2024 Next Appt Details Provider Name:Arden wagoner, 04/18/2024 09:00:00 AM, [address] [place] [address], [phone],
--- OUTSIDE RECORDS SUMMARY | 2024-04-12 13:53 | XMS_ITS ---
Author Organization [facility] Address [address] [place] [address] Care Team Providers Care Access Specialist Name Role Phone Arden Muñoz MD Primary Care Provider Unavail able Juan Erwin Unavailable [phone] Allergies No Known Allergies REASON FOR VISIT Foot pain Medications Medication SIG (Take, Route, Frequency, Duration) Notes Start Date End Date Status Pravastatin Sodium U nknown Atenolol 15mg Unknow n Aspir-Low 81 MG 1 tablet Orally Once a day for 30 day(s) Unknown Atorvastatin Calcium 40 MG 1 tablet Oral ly Once a day for 30 day(s) Active Clark Aspirin EC Low Dose 81 MG 1 tablet Orally Once a day for 30 day(s) Active Multi Vitamin - 1 tablet Orally Once a day Active Warfarin Sodium 5 MG 1 tablet Orally Onc e a day for 30 day(s) Active Finasteride 5 MG 1 tablet Orally Once a day Active Tamsulosin HCl 0.4 MG 1 capsule Orally O nce a day for 30 day(s) Active Social History Tobacco Use: Social History Observation Description Date Details (start date - stop date) Never Smoker NA - NA Tobacco Use/Smoking Question Answer Notes Are you a: nonsmoker Additional Findings: Tobacco Non-User Current no n-smoker Alcohol Screen Question Answer Notes Did you have a drink containing alcohol in the p ast year? No Points 0 Interpretation Negative Tobacco use other than smoking: Question Answer Notes Are you an other tobacco user? No Vital Signs Height 5 ft 10 in in 01/29/2023 Weight 165 lbs 01/29/2023 BMI 23.67 kg/m2 01/29/2023 Encounters Encounter Location Date Provider Diagnosis [facility] [place] [address] [place] [address] 01/29/2023 Juan Erwin Pain in left foot M79.672 ; Pain in left ankle and joints of left foot M25.572 ; Bursitis of intermetatarsal bursa of left foot M77.52 ; Metatarsalgia of left foot M77.42 ; Pain in right foot M79.671 ; Pain in right ankle and joints of right foot M25.571 ; Bursitis of intermetatarsal bursa of right foot M77.51 and Metatarsalgia, right foot M77.41 Assessments Encounter Date Diagnosis (ICD Code) Assessment Notes Treatment Notes Treatment Clinical Notes Section Notes 01/29/2023 Pain in left foot (ICD-10 - M79.672) 01/29/2023 Pain in left ankle and joints of left foot (ICD-10 - M25.572) 01/29/2023 Bursitis of intermetatarsal bursa of left foot (ICD-10 - M77.52) 01/29/2023 Metatarsalgia of left foot (ICD-10 - M77.42) 01/29/2023 Pain in right foot (ICD-10 - M79.671) 01/29/2023 Pain in right ankle and joints of right foot (ICD-10 - M25.571) 01/29/2023 Bursitis of intermetatarsal bursa of right foot (ICD-10 - M77.51) 01/29/2023 Metatarsalgia, right foot (ICD-10 - M77.41) Plan Of Treatment Pending Test Test Name Order Date X ray : Foot, left 3V 01/29/2023 X ray : Foot, right 3V 01/29/2023 Next Appt Details Follow Up: prn, Reason: Progress Notes * Arturo BROWN ADOB:1945 (78 yo M)Acc No.[id number]:01/29/2023 Progress Notes Patient:?Arturo Brown Provider:?Juan Erwin DPM :1945???Age:78 Y???Sex:Male Dylon e:01/29/2023 Address:[address] [place], [place] Pcp:Arden Muñoz MD Subjective: * Chief Complaints: * ???Foot pain * HPI: ???Foot Pain:?Location:?Outside, Bottom, Midfoot, B/L.?Duration:?1 year or more.?Course:?worse.?Treatments:?rest.? * ROS:?General/Constitutional:?Nausea?denies.?Vomiting?denies.?Hunger Thirst?denies.?Loss appetite?denies.?Chills?denies.?Fatigue?denies.?Fever?denies.?Night Sweats?denies.?Unexplained weight loss?denies.?Unexplained weight gain?denies.?HEENTM:?Dentures?denies.?Dizziness?denies.?Glasses/contacts?admits.?Retinopathy?de nies.?Blurred/double vision?denies.?TMJ?denies.?Discharge/drainage?denies.?Implants?denies.?Sore throat?denies.?Dental implants?admits.?Hard of hearing ?denies.?Difficulty chewing/swallowing/speaking?denies.?Nose bleeds?denies.?Sore mouth?denies.?Respiratory:?On Oxygen?denies.?Pneumonia/pleurisy?denies.?Bronchitis?denies.?Emphysema?denies.?C oughing?denies.?Cough blood?denies.?Shortness of breath?denies.?Wheezing?denies.?Cardiovascular:?Pacemaker?denies.?MVP?denies.?WPW?denies.?CHF?denies.?Heart attack?denies.?Septal defect?denies.?Rapid beat?denies.?Chest pain ?denies.?Atrial Fib.?, admits.?Murmur/Palpitations?denies.?Gastrointestinal:?Hemorrhoids?denies.?Stomach/Abdominal pain?denies.?Dark blood stool?denies.?Irritable bowel ?denies.?Constipation?denies.?Diarrhea?denies.?Hematology:?Swelling?denies.?Clots?denies.?Varicose Veins?denies.?Bruising?admits, on anticoagulants.?Bleeding problem?admits, on anticoagulants.?Genitourinary:?Blood urine?denies.?Frequent/Painfu/urination/bladder control?denies.?Kidney stones?denies.?Infection (UTI)?denies.?Nephropathy?denies.?sex trans dis (STD)?denies.?Prostate?admits.?Musculoskeletal:?Hammertoes?denies.?Bunions?denies.?Back Pain?denies.?Muscle Cramps/ Resting?denies.?Muscle cramps / walking?denies.?Generalized aches and pains?denies.?Weakness?denies.?Integ.:?Joshi?denies.?Scars?denies.?Corns/calluses?admits.?Ingrown nails?denies.?Painful nails?denies.?Open Sores?denies.?Rashes?denies.?Neurologic:?Difficulty sleeping?denies.?Brain disorder?denies.?Numbness?denies.?Balance trouble?denies.?Confusion?denies.?Fainting/blackouts?denies.?Tingling?denies.?Tr emors?denies.? * Medical History:? * Surgical History:?back surge ry 1999hip replacement 2015shoulder surgery 2016 * Hospitalization/Major Diagno stic Procedure:?Denies Past Hospitalization * Family History:?Mother: dece ased, diagnosed with Family history of arthritis.?Father: , diagnosed with Family history of arthritis.?Siblings: Cancer, diagnosed with Other malignant neoplasm of unspecified site.? * Social History:?Tobacco Use:?Tobacco Use/Smoking?Are you a:?nonsmoker ?Additional Findings: Tobacco Non-User?Current non-smoker ?Tobacco use other than smoking?Are you an other tobacco user??No ???Drugs/Alcohol:?Drugs?Have you used drugs other than those for medical reasons in the past 12 months??No ?Alcohol Screen?Did you have a drink containing alcohol in the past year??No ?Points?0 ?Interpretation?Negative ???Miscellaneous:?no Caffeine. ?Children: yes. ?no Exercise. ?Marital status: . ?Occupation: retired. * Medications:?TakingMulti Vit yoo - Tablet 1 tablet Orally Once a dayFinasteride 5 MG Tablet 1 tablet Orally Once a dayWarfarin Sodium 5 MG Tablet 1 tablet Orally Once a dayTamsulosin HCl 0.4 MG Capsule 1 capsule Orally Once a dayAtorvastatin Calcium 40 MG Tablet 1 tablet Orally Once a dayBayer Aspirin EC Low Dose 81 MG Tablet Delayed Release 1 tablet Orally Once a dayTaking Multi Vitamin - Tablet 1 tablet Orally Once a dayTaking Finasteride 5 MG Tablet 1 tablet Orally Once a dayTaking Warfarin Sodium 5 MG Tablet 1 tablet Orally Once a dayTaking Tamsulosin HCl 0.4 MG Capsule 1 capsule Orally Once a dayTaking Atorvastatin Calcium 40 MG Tablet 1 tablet Orally Once a dayTaking Clark Aspirin EC Low Dose 81 MG Tablet Delayed Release 1 tablet Orally Once a dayUnknownAtenolol 15mg Pravastatin Sodium Aspir-Low 81 MG Tablet Delayed Release 1 tablet Orally Once a dayMedication List reviewed and reconciled with the patientUnknown Atenolol 15mg Unknown Pravastatin Sodium Unknown Aspir-Low 81 MG Tablet Delayed Release 1 tablet Orally Once a dayMedication List reviewed and reconciled with the patient * Allergies:?N.K.Yoonyes[Aller gies Verified] Objective: * Vitals:?Ht:5 ft 10 in, Wt:16 5, BMI: 23.67, Shoe size:11, Ht-cm: 177.8 cm, Wt-k.84 kg. * Examination: ???Orthopedic: ?MUSCLE STRENGTH:?5/5 all groups in a symmetrical fashion , B/L.?GAIT ABNORMALITY:?antalgic.?TAILOR'S BUNION:?Enlarged, painful, prominent, inflamed 5th Metatarsal Base , B/L.?FOOTWEAR:?shoe gear properties exacerbate patients foot/toe deformity.?X-Rays - IMAGING REPORT: ?Clinical Indication(s):? Evaluate for Fracture.?Views:? 3 views of Foot, AP, LAT, LO, B/L.?Findings:?normal bone and soft tissue density consistent for patients age and sex , hypertrophy of 5th MT Base/Styloid process.?Fracture:?Negative fractures identified.?Neurological: ?SENSORY:?Neurological exam reveals intact sensorium, pain sensation normal, vibration sensation intact, pinprick sensation is normal in the lower extremities, Pt denies, anesthesia, burning, paresthesia, tingling, B/L.?TINEL'S COMPRESSION:? Negative tarsal tunnel, leslie pedis, and medial calcaneal nerves.?DEEP TENDON REFLEXES:?Achilles, 2/4, B/L.?Neuroma Pain: ?PALPATION:?No interspace pain noted on palpation.?General Examination: ?GENERAL APPEARANCE:?Reveals a pleasant, alert, well-nourished, well- developed, well hydrated individual, who demonstrates proper attention to hygiene/body habitus, and is in no acute distress, Pt serves as own?historian for office visit today.?ORIENTED:?person, place, and time.?Vascular: ?DP PULSES:?3/4, B/L.?PT PULSES:?3/4, B/L.?CAPILLARY FILL TIME:?immediate, all digits, B/L.?SKIN TEMPERTURE GRADIENT OF THE LOWER EXTERMITIES:?warm to cool, proximal to distal, B/L.?HAIR GROWTH/TEXTURE/ELASTICITY/TURGOR:?normal, B/L.?PIGMENTATION:?normal, B/L.?EDEMA:?absent, B/L.?Dermatologic: ?SKIN FINDINGS:?Skin exam reveals normal texture, elasticity, and turgor. There are no masses. The interspaces are clear.? 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 Plan: * Treatment: 2.?Pain in right foot?Imaging: X ray : Foot, right 3V * Procedure Codes:?54939 X-RAY EXAM OF LEFT FOOT 3V, Modifiers: 26 , EB05812 X-RAY EXAM OF RIGHT FOOT 3V, Modifiers: 26 , RT * Preventive Medicine:? ??Counseling:?Discussion:?-04: Office or other outpatient visit for the evaluation and management of a new patient, which required a medically appropriate history and/or examination and MODERATE level of DECISION MAKING for: 1 OR MORE CHRONIC PROBLEM(S) THATS WORSENING, 2 STABLE CHRONIC PROBLEMS, A NEWLY DIAGNOSED PROBLEM WITH UNCERTAIN PROGNOSIS, AN ACUTE COMPLICATED INJURY WITH MULTIPLE TREATMENT OPTIONS, OR AN ACUTE PROBLEM WITH ACCOMPANYING SYSTEMIC SYMPTOMS, THAT POSE(S) A MODERATE RISK OF MORBIDITY. THIS CONDITION MAY ALSO INCLUDE RX DRUG MANAGEMENT, OR A DECISON FOR MINOR SURGERY. The visit on the day of the encounter encompassed interpreting the data and educating the patient as to the nature of their condition, treatment options available according to their individual PMH, meds, allergies, and overall health/living conditions, as well as any potential risks or complications that may occur from a failure to adhere to, and participate in, the recommended course of therapy. The discussion included a complete verbal, and/or written explanation of the examination results, any x-rays taken, the proposed diagnosis, and outline of the treatment plan. A schedule for future care needs was also explained. The patient verbalized an understanding of the instructions at this time and agreed to be an active participant in their treatment. If the patient should think of any questions or concerns after the visit, I have encouraged the patient to call the office.?Metatarsalgea:?I explained to the patient the possible etiologies of their Metatarsalgea Foot pain, including foot type/shoegear/activity level/exercise routine and the risks/benefits of all the different treatment options for pain including: No treatment at all, Rest, Ice, NSAIDs(only if well tolerated after meals), New/supportive Shoegear, Strappings and Tapings, Foot/Ankle AFO Bracing, Stretching exercises, Deep Tissue Massage, Arch support/shoe inserts, Custom orthoses, Topical analgesics including Aspercream/Voltaren gel, Physical Therapy, Cortisone injection therapy, EPAT/ESWT. Advantages and disadvantages of each option were discussed and the patients questions re: shoegear, custom vs prefabricated inserts, activity level, PO vs Topical medications (and their respective potential complications/drug interactions/side effects), and consistency in home treatment regimens for optimal success were answered to their verbally confirmed satisfaction.?Orthotics:?I explained to the patient the benefits of OT use. I explained that orthoses are medically necessary to decrease the foot pain through proper mechanical control, support of their foot, decrease pain under the painful metatarsal by supplementing the soft tissue, cushion the forefoot by supplementing the soft tissue.?P.R.I.C.E.:?The patient was counseled on the use of P.R.I.C.E. and NSAIDS (if well tolerated) to aid in the recovery from their painful condition.?Podiatric Surgery Counseling:?Surgical procedures to treat the patients foot problem were discussed. We reviewed the risks of the procedure (described below) vs not having the procedure (persistent pain, deformity, risk for skin ulceration/infection, loss of toe). We discussed the potential procedure complications including, but not limited to: pain, swelling, bleeding, scarring, numbness, infection, delayed/non healing, floppy/unstable/shorthened toe, recurrence, failure of the procedure, overcorrection leading to plantarflexed/downward positioned toe, recurrence, need for further surgery, as well as the possibility for loss of the toe itself. We discussed the use of IV/Local anesthesia, and the usual post-op course for healing. No guarentees were given. The patient verbally indicated a full understanding of the above conversation, and any other of their questions were answered to their satisfaction.?Shoe Gear Counseling:?The patient and I reviewed the types of shoes they should be wearing. My recommendation included obtaining a well-fitted shoe with a good supportive, non-foldable nor twistable sole, plenty of toe/room for the forefoot, and proper arch support. Based on todays examination, I recommended the patient look for new shoes, by having their feet professionally measured. We discussed that generally the best time of the day for a shoe fitting is the afternoon. Different shoes types and brands to best match the patients occupation and vocation were discussed. Specific brand selection will be up to the patient, their individual foot condition/deformities, and fit. The patient and I reviewed the standard new shoe break in period by wearing them for a few hours a day while checking for redness or sores as wear time is increased. The patient verbally confirmed to understanding the information discussed.? * Follow Up:?prn * Images: * Sign off status: Completed true * Provider:?Juan Erwin DPM Date:?2022 Generated for Jluis swift/aTyo/Tam on:?04/12/2024 01:53 PM EST History and Physical Notes * HPI (History of Present Illness) Category Sub-Category Detail Notes Category Not es Foot Pain Location: Outside, Bottom, Midfoot, B/ L Duration: 1 year or more Course: worse Treatments: rest Examination Category Sub-Category Detail Notes Category Not es Neuroma Pain PALPATION: No interspace pain noted on palpation Neurological SENSORY: Neurological exa m reveals intact sensorium, pain sensation normal, vibration sensation intact, pinprick sensation is normal in the lower extremities, Pt denies, anesthesia, burning, paresthesia, tingling, B/L TINEL'S COMPRESSION: Negative tarsal shereen alejandro, leslie pedis, and medial calcaneal nerves DEEP TENDON REFLEXES: Achilles, 2/4, B/L Dermatologic SKIN FINDINGS: Skin exam reveal s normal texture, elasticity, and turgor. There are no masses. The interspaces are clear Orthopedic GAIT ABNORMALITY: antalgic FOOTWEAR: shoe gear properties exacerbate patients foot/toe deformity TAILOR'S BUNION: Enlarged, painful, p rominent, inflamed 5th Metatarsal Base , B/L MUSCLE STRENGTH: 5/5 all groups in a symmetrical fashion , B/L General Examination GENERAL APPEARANCE: Reveals a pleasant, alert, well- nourished, well-developed, well hydrated individual, who demonstrates proper attention to hygiene/body habitus, and is in no acute distress, Pt serves as own historian for office visit today ORIENTED: person, place, and t angus Vascular DP PULSES (B): 3/4, B/L PT PULSES (B): 3/4, B/L CAPILLARY FILL TIME: immediate, all digi ts, B/L TEMPERTURE GRADIENT (C): warm to cool, p roximal to distal, B/L TROPHIC CONDITION-TEXTURE/ELASTICITY/TURGOR/HAIR GROWTH (B): normal, B/L EDEMA (C): absent, B/L PIGMENTATION: normal, B/L X-Rays - IMAGING REPORT Findings: normal b one and soft tissue density consistent for patients age and sex , hypertrophy of 5th MT Base/Styloid process Fracture: Negative fractures i dentified Views: 3 views of Foot, AP, LAT, LO, B/L Clinical Indication(s): Evaluate for Fra cture
--- OUTSIDE RECORDS SUMMARY | 2024-04-12 13:53 | XMS_ITS | Data Portability ---
Author Organization [place] [facility], All[facility] Address [address] [address] Assessment Encounter Date Assessment Date Assessment LastModified [...] Sensorine ural hearing loss of bilateral ears 432333202 Active 2023 ALONA GUILLEN, AUD [address] [facility], [place], [address] , [facility] - [facility] 4 10:29:09 Bilateral exostosis of external ear canals [id number] 48818 Active 2023 Exostosis of external canal, bilateral ; Note: Date Diagnosed : 07/22/2023 10:03 AM (H61.813) Not Available [facility] 4 03:10:10 Abnormal auditory perceptio n 19055266 Active 2023 Other abnormal auditory perceptio ns, left ear; Note: Date Diagnosed : 07/22/2023 10:03 AM (H93.292) Not Available [facility] 4 03:10:11 Problem Notes None recorded. Procedures Surgical History None recorded. Imaging Results Imaging Date Name Status LastModified by Organ [facility] Details LastModified Time 07/22/2023 imaging/diagno stic result [...] Time multivitam in tablet active Medication ID: [id number] Bra nd Name: multivitam in Send Method: E-Prescrib ed Subs Allowed: subs OK Medicat ionGeneric Name: multivitam in Not Available Not Available Not Available atorvastat in 40 mg tablet active Medication ID: [id number] nd Name: atorvastat in Send Method: E-Prescrib ed Subs Allowed: subs OK Medicat ionGeneric Name: atorvastat in Not Available Not Available Not Available neomycin-p olymyxin-h ydrocort 3.5 mg/mL-10,0 00 unit/mL-1 % ear solution INSTILL 4-5 DROPS IN LEFT EAR EVERY DAY active Not Available Not Available No t Available tamsulosin 0.4 mg capsule active Medication ID: [id number] nd Name: tamsulosin Send Method: E-Prescrib ed Subs Allowed: subs OK Medicat ionGeneric Name: tamsulosin Not Available Not Available Not Available warfarin 5 mg tablet active Medication ID: [id number] nd Name: warfarin S end Method: E-Prescrib ed Subs Allowed: subs OK Medicat ionGeneric Name: warfarin Not Available Not Available Not Available lorazepam 1 mg tablet active Medication ID: [id number] nd Name: lorazepam Send Method: E-Prescrib ed Subs Allowed: subs OK Medicat ionGeneric Name: lorazepam Not Available Not Available Not Available finasterid e 5 mg tablet active Medication ID: [id number] nd Name: finasterid e Send Method: E-Prescrib ed Subs Allowed: subs OK Medicat ionGeneric Name: finasterid e Not Available Not Available Not Available aspirin 81 mg capsule active Medication ID: [id number] nd Name: aspirin Se nd Method: E-Prescrib [...] [address] ZELAYA [place] - [place] [address] [place] [address] 07/30/2023 09:51:52 09/02/2023 00:15:53 Sensorineural hearing loss of bilateral ears [id number] H90.3 1905 [address]AYA [place] [address] [place] [address] 08/12/2023 10:36:38 08/12/2023 11:38:04 Sensorineural hearing loss of bilateral ears [id number] H90.3 [id number] [address] ZELAYA [place] 100 [facility] 100 [place] [address] 10/01/2023 10:34:45 10/02/2023 14:45:28 Sensorineural hearing loss of bilateral ears 031985465 H90.3 Health Concerns Section Related Observation LastModified by Organization Detai ls LastModified Time None Recorded Concern Status LastModified by Organization Details LastModified Time None Recorded Advance Directives Directive None Recorded Payers Encounter Date Sequence Insurance Name Policy Number Policy Devine Covered Member ID Devine Member ID Guarantor Name 07/30/2023 2 [employer] OPTIONS (MEDICARE SUPPLEMENT) Arturo Hammond Mc [id number] Arturo Stephany Mc 07/30/2023 1 MEDICARE B-[place]: [facility] Arturo Correao [id number] Arturo Stephany Correao 08/12/2023 2 [employer] OPTIONS (MEDICARE SUPPLEMENT) Arturo Correao [id number] Arturo Correao 08/12/2023 1 [place]: [facility] Arturo Correao [id number] Arturo Stephany Correao 10/01/2023 2 [employer] OPTIONS (MEDICARE SUPPLEMENT) Arturo Correao [id number] Arturo Correao 10/01/2023 1 MEDICARE B-[place]: [facility] Arturo Hammond Mc [id number] Arturo Stephany Mc Notes Date Note Type [...] hearing aids. Type of phone: {{iphone android (galaxWedia) android (off brand) no smart phone iphone, but not too interested in the bluetooth/angie technology.#}} Ordering:{{Oticon p honak* Widex}} {{ [id number] Life-R in P7 steel frazier#}}Endoscopy Registered Nurse: {{ 1M#}}Domes: {{ open medium#}}Other: {{}} Paid today: {{$ $0#}}Due at fitting {{$ $5144#}}Total: {{$ $5144#}} ALONA GUILLEN, [facility],[address], [address], [facility] 07/30/2023 10:29:20 08/12/2023 text/html Fit today with {{phonak* oticon wi dex}} Set at level 3 and fit to target. {{No changes made after REM. Turned down after REM for comfort.*}} 90% with weak occlusion manager star. VC activated and explained. All tap controls turned off. Discussed insertion/removal of devices from ears and mechanical shovel operator and cleaning of devices which included changing [...] check*} } via {{ARG* SANJUANA}} ALONA GUILLEN [facility] [address] [facility],[address], [address], [facility] 08/12/2023 11:33:57 10/01/2023 text/html Concerns: No concerns [...] He understood.FU: 1 year FU with HT. AOLNA GUILLEN, [facility] [address] [facility],[place] [address], [place], [address], [facility] - [facility] 10/01/2023 11:03:39
--- OUTSIDE RECORDS SUMMARY | 2024-04-12 13:53 | XMS_ITS ---
Author Organization Arden Muñoz DO, FACP Address [address] [place] [phone] Care Team Providers Care Bread Molder Name Role Phone Arden Muñoz Primary Care Provider REASON FOR VISIT blood thinners Encounters Encounter Location Date Provider Diagnosis Arden Muñoz DO, FACP [address] [place] [phone] 03/03/2024 Arden Muñoz PLAN OF TREATMENT Next Appt Details Provider Name:Arden wagoner, 04/18/2024 09:00:00 AM, [address] [place] [address], [phone],
--- OUTSIDE RECORDS SUMMARY | 2024-04-12 13:53 | XMS_ITS | Patient Health Record ---
Author Organization Arden Muñoz DO, [facility] Address [address] [place] [phone] Care Team Providers Care Social Worker Clinical Name Role Phone Arden Muñoz Primary Care Provider [phone] ALLERGIES No Known Allergies RESULTS Component Value Reference Range Notes INR WHOLE BLOOD POC Reviewed date:05/19/2023 01:08:36 PM Interpretation:Therapeutic Performing Lab:[facility], [address] [place] [phone] Notes/Report: PT, INR - Anti Coag Clinic 2.0 0.9-1.1 METER #: [id number] INTERNATIONAL NORMALIZED RATIO (INR) REFERENCE RANGES Reference Range For patients not on anticoagulant therapy: 0.9 - 1.1 INR ranges for oral anticoagulant therapy: For prevention and treatment of venous thrombosis and pulmonary embolism: 2.0 - 3.0 For acute myocardial infarction with aspirin therapy: 2.0 - 3.0 For acute myocardial infarction without aspirin therapy: 3.0 - 4.0 For patients with mechanical prosthetic heart valves: 2.5 - 3.5 Prothrombin Time Whole Bld P OC Reviewed date:05/19/2023 01:08:48 PM Interpretation:Therapeutic Performing Lab:[facility], [address] [place] [phone] Notes/Report: Prothrombin Time Whole Bld POC 23.7 11.1-13.5 sec Prostate Specific Antigen Reviewed date:08/27/2023 11:46:25 AM Interpretation:Normal Performing Lab:[facility], [address] [place] [phone] Notes/Report: Prostate Specific Antigen 1.90 <0.05-4.0 ng/mL PSA methodology: Ga Alinity i Chemiluminescent Microparticle Immunoassay (CMIA) Complete Blood Count Auto Di ff Reviewed date:02/29/2024 02:06:56 PM Interpretation:Abnormal Performing Lab:[facility], [address] [place] [phone] Notes/Report: White Blood Count 5.0 4.8-10.8 X10*3/uL Red Blood Count 3.86 4.60-5.80 X10*6/uL Hemoglobin 11.5 14.0-18.0 g/dl Hematocrit 36.0 42.0-52.0 % Mean Corpuscular Volume 93.3 80.0-98.0 fL Mean Corpuscular Hemoglobin 29.8 27.0-33.0 pg Mean Corpuscular HGB Conc 31.9 31.0-36.0 g/dl Red Cell Distribution Width 12.6 11.0-16.0 % Platelet Count 277 160-400 X10*3/uL Mean Platelet Volume 9.9 9.4-12.4 fL Neutrophils Percent Auto 63.2 45-73 % Imm Gran Pct Auto 0.4 0.0-0.4 % Lymphocytes Percent Auto 20.8 20-40 % Monocytes Percent Auto 11.6 2-11 % Eosinophils Percent Auto 3.2 0-4 % Basophils Percent Auto 0.8 0-2 % NRBC Pct Auto 0.0 0.0-0.2 /100WBC Neutrophils Absolute Auto 3.2 2.0-8.3 x10*3/u L Imm Gran Abs Auto 0.02 0.00-0.03 X10*3/uL Lymphocytes Absolute Auto 1.0 1.2-4.9 X10*3/u L Monocytes Absolute Auto 0.6 0.1-1.2 X10*3/uL Eosinophils Absolute Auto 0.2 0.0-0.4 X10*3/u L Basophils Absolute Auto 0.0 0.0-0.2 X10*3/uL NRBC Abs Auto 0.000 0.0-0.012 X10*3/uL Comprehensive Leland. Panel Fa st Reviewed date:02/29/2024 02:09:56 PM Interpretation:Abnormal Performing Lab:[facility], [address] [place] [phone] Notes/Report: Sodium 140 135-145 mmol/L Potassium 4.2 3.3-5.1 mmol/L Chloride 107 96-108 mmol/L Carbon Dioxide 27 22-29 mmol/L Anion Gap 10 12-20 Blood Urea Nitrogen 23 9-16 mg/dL Creatinine 0.89 0.5-1.4 mg/dL Estimated Glomerular Filt Rate > 60 Chronic Kidney Disease: Estimated GFR < 60 mL/min/1.73m2 Severe Kidney Disease: Estimated GFR < 15 mL/min/1.73m2 Glucose Fasting 98 60-99 mg/dL Calcium 8.9 8.4-10.2 mg/dL Bilirubin Total 1.2 0.0-1.0 mg/dL Aspartate Amino Transferase 47 5-37 U/L Alanine Aminotransferase 54 0-40 U/L Total Protein 7.1 6.5-8.0 g/dL Albumin Level 4.1 3.5-5.0 g/dL Alkaline Phosphatase 119 39-117 U/L Lipid Panel Reviewed date:02/29/2024 02:06:56 PM Interpretation:Normal Performing Lab:[facility], [address] [place] [phone] Notes/Report: Triglycerides 67 <150 mg/dL Desirable Triglyceride: less than 150 mg/dL Borderline High Triglyceride 150-199 mg/dL High Triglyceride: 200-499 mg/dL Very High Triglyceride: greater than or equal to 5OO mg/dL Cholesterol 114 <200 mg/dL Desirable Cholesterol: less than 200 mg/dL Borderline High Cholesterol: 200-239 mg/dL High Cholesterol: greater than 239 mg/dL LDL Cholesterol Calculated 57 <100 mg/dL Desirable LDL: less than 100 mg/dL Near Optimal/Above Optimal LDL: 110-129 mg/dL Borderline High LDL: 130-159 mg/dL High LDL: 160-189 mg/dL Very High LDL: greater than or equal to 190 mg/dL HDL Cholesterol 44 >40 mg/dL Desirable HDL: greater than 40 mg/dL Note: This HDL assay may give artificially low results in patients with liver disease. Thyroid Stimulating Hormone Reviewed date:02/29/2024 02:07:10 PM Interpretation:Normal Performing Lab:[facility], [address] [place] [phone] Notes/Report: Thyroid Stimulating Hormone 3.66 0.32-4.0 uIU/ mL Note: A sustained TSH level above 2.5 uIU/mL may warrant further investigation. TSH 3rd Generation ([facility]) REASON FOR REFERRAL No Information MEDICATIONS Medication SIG (Take, Route, Frequency, Duration) Notes Start Date End Date Status LORazepam 1 MG 1 tablet at bedtime as needed Orally Once a day for 30 days 01/10/2024 Active Finasteride 5 MG 1 tablet Orally Thre e times a week Active Centrum Silver - 1 tablet Orally Once a day Active Azithromycin 250 MG [address] day, then 1 tablet daily for 4 days Orally Once a day for 5 day(s) 02/14/2024 Active Atorvastatin Calcium 40 MG 1 tablet Oral ly Once a day Active Tamsulosin HCl 0.4 MG 1 capsule Orally O nce a day Active Aspirin 81 MG 1 tablet Orally Once a day Active Warfarin Sodium 5 MG 1 tablet as directe d Orally Once a day for 90 days Active IMMUNIZATIONS Vaccine Route Administration Date Status Comme nts Influenza Quad IM Intramuscular 06/06/2018 Administered TDaP IM Intramuscular 06/06/2018 Administered PPD ID Intradermal 06/06/2018 Administered Influenza High Dose IM Intramuscular 01/31/2019 Administer ed Influenza High Dose IM Intramuscular 12/01/2019 Administer ed COVID-19 Pfizer BioNTech Unknown 04/17/2020 Administere d Influnza High Dose Quad Unknown 12/09/2020 Administered Influenza Unknown 01/18/2010 Administered PCV 13 Unknown 04/08/2015 Administered COVID-19 Pfizer BioNTech Unknown 12/09/2020 Administere d COVID-19 Pfizer BioNTech Unknown 05/10/2020 Administere d COVID-19 Pfizer BioNTech Unknown 06/18/2021 Administere d PCV 20 Unknown 09/22/2021 Administered Shingrix Unknown 09/30/2021 Administered Influnza High Dose Quad Unknown 12/09/2021 Administered Shingrix Unknown 12/09/2021 Administered COVID-19 Pfizer Bivalent Unknown 12/18/2021 Administere d COVID-19 Pfizer Bivalent Unknown 08/18/2022 Administere d SOCIAL HISTORY Tobacco Use: Social History Observation Description Date Details (start date - stop date) Never Smoker NA - NA Sex Assigned At : Social History Observation Description Sex Assigned At Unknown Tobacco Use/Smoking Question Answer Notes Patient is a nonsmoker Additional Findings: Tobacco Non-User Cu rrent non-smoker, currently using no form of tobacco Alcohol Screen Question Answer Notes Did you have a drink containing alcohol in the p ast year? No Points 0 Interpretation Negative PROBLEMS Problem Type ICD Code Onset Dates Problem Status W/U Status Risk SNOMED Code Notes Problem Chronic atrial fibrillation (I48.2) Active confirmed 199194118 Problem Mixed hyperlipidemia (E78.2) Active confirmed 587988116 Problem Benign prostatic hyperplasia without lower urinary tract symptoms (N40.0) Active confirmed 607582139 Problem Primary insomnia (F51.01) Active confirmed 0190214 Problem Prostate cancer (C61) Active confirmed 027520411 Problem Paroxysmal atrial fibrillation (I48.0) Active confirmed 328858643 Problem CONRAD (obstructive sleep apnea) (G47.33) Active confirmed 91760565 VITAL SIGNS Blood pressure diastolic 62 mm Hg 10/20/2023 Height 68.25 in 10/20/2023 Blood pressure systolic 108 mm Hg 10/20/2023 Weight 174 lbs 10/20/2023 BMI 26.26 kg/m2 10/20/2023 Encounters Encounter Location Date Provider Diagnosis Arden Muñoz DO [address] [id number] 04/20/2023 Arden Muñoz Paroxysmal atrial fibrillation I48.0 ; Mixed hyperlipidemia E78.2 ; Benign prostatic hyperplasia without lower urinary tract symptoms N40.0 ; Prostate cancer C61 ; Primary insomnia F51.01 and Left-sided low back pain without sciatica, unspecified chronicity M54.50 Arden Muñoz DO, [address] [id number] 10/20/2023 Arden Muñoz Paroxysmal atrial fibrillation I48.0 ; Mixed hyperlipidemia E78.2 ; Benign prostatic hyperplasia without lower urinary tract symptoms N40.0 ; Prostate cancer C61 and Primary insomnia F51.01 Arden Muñoz DO [address] [id number] 04/16/2023 Arden Muñoz Primary insomnia F51 .01 Arden Muñoz DO [address] [id number] 05/10/2023 Arden Muñoz Primary insomnia F51 .01 Arden Muñoz DO [address] [id number] 09/13/2023 Arden Muñoz Primary insomnia F51 .01 Arden Muñoz DO [address] [id number] 01/10/2024 Arden Muñoz Primary insomnia F51 .[address] Wanda FLOR, [facility] [address] [place], [place] [id number] 02/14/[address] Wanda , [facility] [address] [place], [place] [id number] 02/16/[address] Wanda , [address] [id number] 04/16/2023 Arden Azarman Primary insomnia F51 .[address] Wanda FLOR, [facility] [address] [place], [place] [id number] 03/03/2024 Arden Muñoz ASSESSMENTS Encounter Date Diagnosis Assessment Notes Treatment Notes Treatment Clinical Notes 04/20/2023 Mixed hyperlipidemia (ICD-10 - E78.2) 04/20/2023 Paroxysmal atrial fibrillation (ICD-10 - I48.0) 10/20/2023 Mixed hyperlipidemia (ICD-10 - E78.2) 10/20/2023 Paroxysmal atrial fibrillation (ICD-10 - I48.0) 04/16/2023 Primary insomnia (ICD-10 - F51.01) 05/10/2023 Primary insomnia (ICD-10 - F51.01) 09/13/2023 Primary insomnia (ICD-10 - F51.01) 01/10/2024 Primary insomnia (ICD-10 - F51.01) 04/16/2023 Primary insomnia (ICD-10 - F51.01) 04/20/2023 Benign prostatic hyperplasia without lower urinary tract symptoms (ICD-10 - N40.0) 10/20/2023 Benign prostatic hyperplasia without lower urinary tract symptoms (ICD-10 - N40.0) 04/20/2023 Prostate cancer (ICD-10 - C61) Follow up with Urology 10/20/2023 Prostate cancer (ICD-10 - C61) Follow up with Urology 04/20/2023 Primary insomnia (ICD-10 - F51.01) 10/20/2023 Primary insomnia (ICD-10 - F51.01) 04/20/2023 Left-sided low back pain without sciatica, unspecified chronicity (ICD-10 - M54.50) Advised Physical Therapy. Arturo declines. He will let me know if his back pain does not subside PLAN OF TREATMENT Next Appt Details Provider Name:Arden Way Doetam rizwana, 04/18/2024 09:00:00 AM, [address] [place] [address], [place], [place], [phone], Insurance Providers Payer Name Payer Address Payer Phone Subscriber Number Group Number Insured Name Patient Relationship to Insured Coverage Start Date Coverage End Date MEDICARE [address] [place] [phone] [id number] Arturo Bentley Self - patient is the insured [facility] [address] [place] [address] [id number] Arturo Bentley Self - patient is the insured MEDICAL (GENERAL) HISTORY Medical History History ICD Code Atrial fibrillation hyperlipidemia cardiomyopathy, nonischemic cerebrovascular accident, embolic, left MCA, 2014 osteoarthritis s/p left THR and right sh oulder replacement anemia of chronic disease insomnia benign prostatic hyperplasia (BPH) prostate cancer
--- OUTSIDE RECORDS SUMMARY | 2024-04-12 13:53 | XMS_ITS | Clinical Summary ---
Author Organization [facility] [employer] [facility] Address [address] [facility] [facility] [place] [address] Phone Care Team Providers Care Cod Clerk Name Role Phone WandaArden pro Primary Care Provider [phone] Allergies No known active allergies Medications Medication Sig Dispensed Refills Start Date End Date Status finasteride (PROSCAR) 5 mg tablet Take 1 tablet (5 mg total) by mouth 1 (one) time each day. Active atorvastatin (LIPITOR) 40 mg tablet Take 1 tablet (40 mg total) by mouth 1 (one) time each day. Active LORazepam (ATIVAN) 1 mg tablet Take 1 tablet (1 mg total) by mouth as needed. Max Daily Amount: 1 mg Active multivitamin (Oncovite) tablet Take 1 tablet by mouth 1 (one) time each day. Active tamsulosin (FLOMAX) 0.4 mg 24 hr capsule Take 1 capsule (0.4 mg total) by mouth 1 (one) time each day. Active warfarin (COUMADIN) 2.5 mg tablet Take 1 tablet (2.5 mg total) by mouth 1 (one) time each day. Active warfarin (COUMADIN) 5 mg tablet Take 1 tablet (5 mg total) by mouth 1 (one) time each day. Active Active Problems Problem Noted Date Diagnosed Date Longstanding persistent atrial fibrillation 07/13 Overview (04/05/2024): Last Assessment & Plan: Patient has permanent atrial fibrillation, without any tacky or bradycardia symptoms reported. He is auto rate controlled. He remains anticoagulated for high [id number] score with prior stroke. He does have sleep apnea by home sleep study though the sleep center did not have any upcoming in lab titration study appointments available per his report and he plans to see the pulmonology team at [facility] next week. We discussed the long-term risks of untreated sleep apnea including further dilatation of his RV with concern for right-sided heart failure. Therefore, we stressed the importance of managing her sleep apnea. He does understand and agrees to at least the visit with the pulmonary team for further evaluation. We will update his echocardiogram before his next visit to follow his RV size and his TR. For now he is euvolemic on exam. Continue current treatment plan and the patient will notify us of any changes in his condition. Nonrheumatic tricuspid valve regurgitation 07/29 Overview (04/05/2024): Last Assessment & Plan: Update echocardiogram prior to his next visit. Hopefully he will be able to tolerate CPAP. Continue to follow. Family History Medical History Relation Name Comments [...] 01/04/2024 10:06 AM EDT Plan of Treatment Upcoming Encounters Date Type Department Care Team (Late st Contact Info) Description 08/10/2024 9:50 AM EDT Office Visit [facility] [address] [place] [address] Neville Salazar MD [address] [place] [address] Health Maintenance Due Date Last Done Comments DTaP,Tdap,and Td Vaccines (1 - Tdap) 01/20/1963 Zoster Vaccines (1 of 2) 01/20/1994 Pneumococcal Vaccine: 65+ Years (1 of 1 - PCV) 01/20/2009 RSV Immunization Patients 60 + Years Old (1 - 1-dose 75+ series) 01/20/2019 Cholesterol Screening (Lipid Panel) 02/22/2022 Depression Screening 02/22/2022 Falls Risk Assessment 02/22/2022 Medicare Annual Wellness Visit 02/22/2022 Social Influencers of Health Screening 02/22/2022 COVID-19 Vaccine ( - 2023-2 5 season) 2023 Influenza Vaccine [...] on patient's age to complete this topic Care Teams Cod Clerk Relationship Specialty Start Date End Date Arden Muñoz DO [address] [place] [phone] PCP - General 02/03/12
--- OUTSIDE RECORDS SUMMARY | 2024-04-12 13:53 | XMS_ITS | Patient Health Record ---
Author Organization [facility] Address [address] [facility] [place] [address] Care Team Providers Care Instructional Consultant Name Role Phone Arden Muñoz MD Primary Care Provider Unavail able Juan Erwin Unavailable [phone] Allergies No Known Allergies Reason For Referral No Information Medications Medication SIG (Take, Route, Frequency, Duration) Notes Start Date End Date Status Multi Vitamin - 1 tablet Orally Once a day Active Warfarin Sodium 5 MG 1 tablet Orally Onc e a day for 30 day(s) Active Finasteride 5 MG 1 tablet Orally Once a day Active Pravastatin Sodium U nknown Atenolol 15mg Unknow n Aspir-Low 81 MG 1 tablet Orally Once a day for 30 day(s) Unknown Atorvastatin Calcium 40 MG 1 tablet Oral ly Once a day for 30 day(s) Active Tamsulosin HCl 0.4 MG 1 capsule Orally O nce a day for 30 day(s) Active Clark Aspirin EC Low Dose 81 MG 1 tablet Orally Once a day for 30 day(s) Active Social [...] Are you an other tobacco user? No Plan Of Treatment Pending Test Test Name Order Date X ray : Foot, left 3V 08/29/2019 X ray : Foot, left 3V 01/29/2023 X ray : Foot, right 3V 01/29/2023 X ray : Foot, right 3V 07/10/2011 Insurance Providers Payer Name Payer Address Payer Phone Subscriber Number Group Number Insured Name Patient Relationship to Insured Coverage Start Date Coverage End Date Medicare National [employer] [address] [place] [address] [id number] McArturo Self - patient is the insured [employer] Secondary to Medicare [address] [place] [id number] Arturo Bentley Self - patient is the insured Medical (General) History Medical History History ICD Code heart condition hypertension Cholesterol chicken pox Cancer Stroke Measles Mumps Chicken pox Joint implants/screws Back,Hip,and Knee pain covid-19 Atrial fibrillation Surgical History Surgery Date(Month/Year) back surgery 1998 hip replacement 2014 shoulder surgery 2016
== END 2024-04-12 12:42 | disposition home or self-care (01) ==
PROVIDERS: PCP Internal Medicine; Visit Provider Urology
DX: Z13.9 Encounter for screening, unspecified (principal); C61 Malignant neoplasm of prostate
CPT/HCPCS: 99213

== ENCOUNTER → 2024-04-12 11:26 | Outpatient (BNVA) | payer MEDICARE, SELFPAY | PROVIDERS: PCP Internal Medicine; Visit Provider Urology | DX: C61 Malignant neoplasm of prostate (principal); N40.1 Benign prostatic hyperplasia with lower urinary tract symptoms; R35.1 Nocturia; R39.11 Hesitancy of micturition; Z79.899 Other long term (current) drug therapy | CPT/HCPCS: 81003; 99212 ==

== ENCOUNTER → 2024-04-18 06:59 | Outpatient (BNVA) | payer MEDICARE, SELFPAY | PROVIDERS: PCP Internal Medicine; Visit Provider Internal Medicine ==

== ENCOUNTER → 2024-05-03 08:33 | Outpatient (BNVA) | payer MEDICARE, SELFPAY | PROVIDERS: PCP Internal Medicine; Visit Provider Internal Medicine ==

== ENCOUNTER 2024-05-09 10:24 | Outpatient (AMB) | payer MEDICARE, SELFPAY ==
--- NOTE | 2024-05-09 10:25 | MHC.PC.OV ---
Vital Signs 05/09/24 10:29 Height 5 ft 7.25 in Weight 170 lb BMI 26.4 BP 120/72 Blood Pressure Location Rt brachial Pulse 68 Pulse Source Pulse Oximeter Temp 97.3 F Pulse Oximetry (%) 99 Intake Visit Reasons: follow up Intake Note: Discuss his chronic medical issues Allergies No Known Allergies [No Known Allergies*] Allergy (Verified 05/09/24 10:51) Medication List - Last Reconciled 05/09/24 by Saravanan Fajardo MD aspirin (Adult Low Dose Aspirin) 81 mg PO DAILY atorvastatin 40 mg PO DAILY finasteride 5 mg PO DAILY 90 days lorazepam 1 mg PO BEDTIME PRN tl-wya-kidjf-J7-xmhtggj-ruwsog [id number] mcg (Centrum Silver Men) 1 tab PO DAILY tamsulosin 0.4 mg PO DAILY warfarin 5 mg See Protocol PO DAILY PFSH Medical History (Updated 05/09/24 @ 10:55 by Saravanan Fajardo MD) Generalized anxiety disorder Insomnia Anemia of chronic disease Osteoarthritis H/O ischemic left MCA stroke Nonischemic cardiomyopathy Hyperlipidemia Atrial fibrillation Nocturnal hypoxemia Central sleep apnea with Cody-Muñoz respiration Mixed sleep apnea BPH (benign prostatic hyperplasia) Prostate cancer Elevated PSA Surgical History History of right shoulder replacement History of left hip replacement Previous back surgery (~1997) Social History Patient Tobacco Use Status: Never used Tobacco Physical exam (Primary Care) Vital Signs: Last Vital Signs Temp 97.3 F 05/09/24 10:29 Pulse 68 05/09/24 10:29 BP 120/72 05/09/24 10:29 Pulse Ox 99 05/09/24 10:29 BMI result Body Mass Index 26.4 Tobacco/Smoking Status: Tobacco use Status Patient Tobacco Use Status Never used Tobacco 05/09/24 10:26 Coding Level of Care Code New Pt Level 4 (30111) Complex EM visit Add On G2211 Diagnoses Atrial fibrillation I48.91 Hyperlipidemia E78.5 BPH (benign prostatic hyperplasia) N40.0 Prostate cancer C61 Mixed sleep apnea G47.39 Hepatitis K75.9 Generalized anxiety disorder F41.1 Assessment & Plan Assessment & Plan (1) Atrial fibrillation: Code(s): I48.91 - Unspecified atrial fibrillation Category: Medical Plan: Condition is stable. Continue warfarin (2) Hyperlipidemia: Code(s): E78.5 - Hyperlipidemia, unspecified Category: Medical Plan: LDL in range. (3) BPH (benign prostatic hyperplasia): Code(s): N40.0 - Benign prostatic hyperplasia without lower urinary tract symptoms Category: Medical Plan: Sees urologist. On meds. PSA is less than 4 (4) Prostate cancer: Comment: 05/04 low-grade, low volume prostate cancer Code(s): C61 - Malignant neoplasm of prostate Category: Medical Plan: As above (5) Mixed sleep apnea: Comment: BASELINE STUDY HAD SHOWN PRESENCE OF MIXED SLEEP APNEA, PREDOMINANTLY CENTRAL APNEA WITH CODY-MUÑOZ BREATHING, AND ALSO COMPONENT OF OBSTRUCTIVE SLEEP APNEA. CPAP TITRATION , SUCCESSFUL BUT REQUIRED HIGH BILEVEL PRESSURE OF 20/16 CM, WITH THIS PRESSURE HYPOXEMIA WAS ALSO CORRECTED. He has been using BIPAP successfully, and claims that his sleep is better. Compliance has been excellent. Code(s): G47.39 - Other sleep apnea Category: Medical Plan: As above (6) Hepatitis: Code(s): K75.9 - Inflammatory liver disease, unspecified Plan: LFT to be repeated. (7) Generalized anxiety disorder: Code(s): F41.1 - Generalized anxiety disorder Category: Medical Plan: Continue lorazepam three month supply Plan History of Present Illness The patient is an 79-year-old male presenting with a follow-up visit for his chronic medical conditions and to discuss medication management. He has a history of atrial fibrillation for which he is on Coumadin, monitored at [facility]. No further episodes of arrhythmia have been reported. The patient has undergone back surgery, right shoulder replacement, and total hip replacement in the past, with no current complaints regarding these conditions. He reports a history of a stroke, although details of deficits are not provided. He recently had a skin cancer lesion excised from his right leg and had previous excisions from the chest area and another minor area managed by a physician wet process miller head assistant. For prostate cancer, he did not have surgery but was treated with Finasteride; initial PSA levels reduced significantly. A recent elevation required adjustment, and he remains on the medication under monitoring. The patient also uses CPAP therapy for obstructive sleep apnea, which he uses nightly. A recent evaluation indicated slightly elevated liver enzymes; previously, his liver function was normal. There are no new symptoms suggesting liver dysfunction. Social History - Engages in regular activity, exercising at the gym thrice weekly, playing ping pong, and pickleball. - Attends personal and family healthcare with private insurance. - Drives during the day; vision issues restrict night driving. - Reports good appetite; modifies intake due to age rather than health issues. Review of Systems - Cardiovascular: Denies chest pain or palpitations. - Urinary: Denies urinary incontinence or difficulty. - Neurological: Denies any new focal neurological deficits. - Musculoskeletal: Denies joint pain or new limitations. - General: Denies fatigue or weakness, reports good energy. Physical Exam General: Cooperative and healthy appearing Nutritional Appearance: Well nourished Orientation/consciousness: Patient oriented x3 Limitations: No limitations Head: Normal to inspection General: Appearance normal, both eyes and all related structures Neck: Normal visual inspection Chest: Normal palpation of entire chest wall Respiratory: Normal respiratory effort Neurology: Patient oriented x3 Results - Labs: Previous liver enzyme test showed slight elevation. Plan - Refill Lorazepam with instructions for three months of use for nighttime dosing. - Check liver function tests promptly to monitor the elevated enzymes further. - Continue monitoring PSA and prostate status under current therapeutic regimen. - Conduct routine follow-up in six months unless changes occur or further symptoms develop. - Encourage continuation of current exercise regimen and health maintenance activities. Patient was informed and verbally consented to the use of an ambient scribe for clinic note documentation during this visit. Discussion Notes During this visit, we focused on addressing Mr. Bentley's current medication requirements and health maintenance. We discussed his history with atrial fibrillation and his regimen with Coumadin, emphasizing the importance of continued monitoring. We discussed his recent history of skin cancer treatments and the necessity of regular checks. I explained the importance of managing prostate cancer through Finasteride and maintaining vigilance through PSA tests. Additionally, we discussed his need for a CPAP for obstructive sleep apnea and emphasized regular usage. For his liver enzyme elevation, I advised obtaining updated tests promptly for assessment. We addressed his request for Lorazepam refills, providing clarity on its use for sleep at night. I advised him of no dietary or activity restrictions concerning his medications. Our conversation concluded with a six-month follow-up schedule and instruction to continue current health activities. Patient Instructions - Continue using Lorazepam nightly as prescribed for three months. - Schedule liver function tests at your earliest convenience. - Maintain regular use of your CPAP machine at night. - Engage in routine physical activity as tolerated. - Schedule a follow-up visit in six months. - For any concerns or new symptoms, contact the office.
[2024-05-09 10:29] VITALS: BP 120/72; PULSE 68; TEMP 36.3; O2SAT 99; BMI 26.4
--- OUTSIDE RECORDS SUMMARY | 2024-05-09 12:18 | XMS_ITS ---
Author Organization Arden Muñoz DO, FACP Address [address] [place], [place] [id number] Care Team Providers Care Carton Wrapper Name Role Phone Arden Muñoz Primary Care Provider [phone] REASON FOR VISIT told patient to call Encounters Encounter Location Date Provider Diagnosis Arden Muñoz DO, FACP [address] [place] [phone] 02/16/2024 Arden Muñoz PLAN OF TREATMENT No Information
--- OUTSIDE RECORDS SUMMARY | 2024-05-09 12:18 | XMS_ITS | Data Portability ---
Author Organization [place] - [facility], Allergy Address [address] [address] Assessment Encounter Date Assessment Date Assessment LastModified [...] Sensorine ural hearing loss of bilateral ears [id number] Active 2023 ALONA GUILLEN, AUD 100 [facility], [place], [address] , [facility] - [facility] 4 10:29:09 Bilateral exostosis of external ear canals [id number] 44583 Active 2023 Exostosis of external canal, bilateral ; Note: Date Diagnosed : 07/22/2023 10:03 AM (H61.813) Not Available [facility] 4 03:10:10 Abnormal auditory perceptio n 56979245 Active 2023 Other abnormal auditory perceptio ns, left ear; Note: Date Diagnosed : 07/22/2023 10:03 AM (H93.292) Not Available [facility] 4 03:10:11 Problem Notes None recorded. Procedures Surgical History None recorded. Imaging Results Imaging Date Name Status [facility]Modified by [facility] Details LastModified Time 07/22/2023 imaging/diagno stic [...] Time multivitam in tablet active Medication ID: [id number] Bra nd Name: multivitam in Send Method: E-Prescrib ed Subs Allowed: subs OK Medicat ionGeneric Name: multivitam in Not Available Not Available Not Available atorvastat in 40 mg tablet active Medication ID: [id number] nd Name: atorvastat in Send Method: E-Prescrib ed Subs Allowed: subs OK Medicat ionGeneric Name: atorvastat in Not Available Not Available Not Available neomycin-p olymyxin-h ydrocort 3.5 mg/mL-10,0 00 unit/mL-1 % ear solution INSTILL 4-5 DROPS IN LEFT EAR EVERY DAY active Not Available Not Available No t Available tamsulosin 0.4 mg capsule active Medication ID: [id number] nd Name: tamsulosin Send Method: E-Prescrib ed Subs Allowed: subs OK Medicat ionGeneric Name: tamsulosin Not Available Not Available Not Available warfarin 5 mg tablet active Medication ID: [id number] nd Name: warfarin S end Method: E-Prescrib ed Subs Allowed: subs OK Medicat ionGeneric Name: warfarin Not Available Not Available Not Available lorazepam 1 mg tablet active Medication ID: [id number] nd Name: lorazepam Send Method: E-Prescrib ed Subs Allowed: subs OK Medicat ionGeneric Name: lorazepam Not Available Not Available Not Available finasterid e 5 mg tablet active Medication ID: [id number] nd Name: finasterid e Send Method: E-Prescrib ed Subs Allowed: subs OK Medicat ionGeneric Name: finasterid e Not Available Not Available Not Available aspirin 81 mg capsule active Medication ID: [id number] nd Name: aspirin Se nd Method: E-Prescrib [...] 165 [facility]AYA [place] [address] [place] [address] 07/30/2023 09:51:52 09/02/2023 00:15:53 Sensorineural hearing loss of bilateral ears 792414096 H90.3 1905 [facility]AYA [place] [place] [address] [place] [address] 08/12/2023 10:36:38 08/12/2023 11:38:04 Sensorineural hearing loss of bilateral ears 999004101 H90.3 8647 [facility] ZELAYA [place] [place] 100 [facility] 100 [place] [address] 10/01/2023 10:34:45 10/02/2023 14:45:28 Sensorineural hearing loss of bilateral ears [id number] H90.3 Health Concerns Section Related Observation LastModified by Organization Detai ls LastModified Time None Recorded Concern Status LastModified by Organization Details LastModified Time None Recorded Advance Directives Directive None Recorded Payers Encounter Date Sequence Insurance Name Policy Number Policy Devine Covered Member ID Devine Member ID Guarantor Name 07/30/2023 2 [employer] OPTIONS (MEDICARE SUPPLEMENT) Arturo Hammond Mc [id number] Arturo Stephany Mc 07/30/2023 1 MEDICARE B-AZ: [facility] Arturo Correao [id number] Arturo Stephany Correao 08/12/2023 2 [employer] HE[employer] OPTIONS (MEDICARE SUPPLEMENT) Arturo Correao [id number] Arturo Correao 08/12/2023 1 MEDICARE B-[place]: [facility] Arturo Correao [id number] Arturo Stephany Correao 10/01/2023 2 [employer] OPTIONS (MEDICARE SUPPLEMENT) Arturo Correao [id number] Arturo Correao 10/01/2023 1 MEDICARE B-AZ: [facility] Arturo Hammond Mc [id number] Arturo Stephany Mc Notes Date Note Type [...] hearing aids. Type of phone: {{iphone android ([employer]) android (off brand) no smart phone iphone, but not too interested in the bluetooth/angie technology.#}} Ordering:{{Oticon p honak* Widex}} {{ epvxbfhb12 Life-R in P7 steel frazier#}}Metal Treater: {{ 1M#}}Domes: {{ open medium#}}Other: {{}} Paid today: {{$ $0#}}Due at fitting {{$ $5144#}}Total: {{$ $5144#}} ALONA GUILLEN, [facility] 100 [facility],[address], [address], [facility] 07/30/2023 10:29:20 08/12/2023 text/html Fit today with {{phonak* oticon wi dex}} Set at level 3 and fit to target. {{No changes made after REM. Turned down after REM for comfort.*}} 90% with weak occlusion manager stone. VC activated and explained. All tap controls turned off. Discussed insertion/removal of devices from ears and emergency preparedness manager and cleaning of devices which included [...] check*} } via {{ARG* SANJUANA}} ALONA GUILLEN [facility] 100 [facility],[address], [address], [facility] 08/12/2023 11:33:57 10/01/2023 text/html Concerns: No [...] 1 year FU with HT. ALONA GUILLEN, [facility] 100 [facility],[place] [address], [place], [address], [facility] - [facility] 10/01/2023 11:03:39
--- OUTSIDE RECORDS SUMMARY | 2024-05-09 12:18 | XMS_ITS | Clinical Summary ---
Author Organization [facility] Address [address] [place] [address] Care Team Providers Care Inspector Screen Printing Name Role Phone Unavailable Primary Care Provider [...]
--- OUTSIDE RECORDS SUMMARY | 2024-05-09 12:18 | XMS_ITS | Patient Health Record ---
Author Organization [facility] Address [address] [facility] [place] [address] Care Team Providers Care Farm Machine Tender Name Role Phone Arden Muñoz MD Primary Care Provider Unavail able Juan Erwin Unavailable [phone] Allergies No Known Allergies Reason For Referral [...] Inc [address] [place] [address] [id number] McArturo Self - patient is the insured AARP Secondary to Medicare [address] [place] [address] [id number] Arturo Bentley Self - patient is the insured Medical (General) History Medical History History ICD Code heart condition hypertension Cholesterol chicken pox Cancer Stroke Measles Mumps Chicken pox Joint implants/screws Back,Hip,and Knee pain covid-19 Atrial fibrillation Surgical History Surgery Date(Month/Year) back surgery 1998 hip replacement 2014 shoulder surgery 2016
--- OUTSIDE RECORDS SUMMARY | 2024-05-09 12:18 | XMS_ITS | Clinical Summary ---
Author Organization [facility] Address [address] [place] [address] Phone Care Team Providers Care Electric Shaver Mechanic Name Role Phone WandaArden pro Primary Care Provider [phone] Allergies No known active allergies Medications finasteride (PROSCAR) 5 mg tablet Take 1 [...] rate controlled. He remains anticoagulated for high [id number] score with prior stroke. He does have sleep apnea by home sleep study though the sleep center did not have any upcoming in lab titration study appointments available per his report and he plans to see the pulmonology team at [facility] next week. We discussed the [...] Recorded Sex Assigned at Not on file Legal Sex Male 7:09 AM EST Gender Identity Not on file Sexual Orientation [...] Description 08/10/2024 9:50 AM EDT Office Visit [facility] - [address] [place] [address] Neville Salazar MD [address] [facility] [address] [place] [address] Health Maintenance Due Date Last Done Comments DTaP,Tdap,and Td Vaccines (1 - Tdap) 01/20/1963 Pneumococcal Vaccine: 50+ Years (1 of 1 - PCV) 01/20/1994 Zoster Vaccines (1 of 2) 01/20/1994 RSV Immunization Patients 60 + Years Old [...] patient's age to complete this topic Meningococcal B Vacine Aged Out No lo nger eligible based on patient's age to complete this topic RSV Immunization Patients Under 20 months Aged Out No longer eligible b ased on patient's age to complete this topic Varicella Vaccines Aged Out No longer eligible based on patient's age to complete this topic Insurance MEDICARE Care Teams Electric Shaver Mechanic Relationship Specialty Start Date End Date Arden Muñoz DO [address] [place] [address] PCP - General 02/03/12
--- OUTSIDE RECORDS SUMMARY | 2024-05-09 12:19 | XMS_ITS | Patient Health Record ---
Author Organization Arden Muñoz DO, [facility] Address [address] [place] [phone] Care Team Providers Care Supervisor Drapery Hanging Name Role Phone Arden Muñoz Primary Care Provider ALLERGIES No Known Allergies RESULTS Component Value Reference Range Notes INR WHOLE BLOOD POC Reviewed date:05/19/2023 01:08:36 PM Interpretation:Therapeutic Performing Lab:[facility], [address] [place] [phone] Notes/Report: PT, INR - Anti Coag Clinic 2.0 0.9-1.1 METER #: [id number] INTERNATIONAL NORMALIZED RATIO (INR) REFERENCE RANGES Reference [...] OC Reviewed date:05/19/2023 01:08:48 PM Interpretation:Therapeutic Performing Lab:[facility], [address] [place] [address] Notes/Report: Prothrombin Time Whole Bld POC 23.7 11.1-13.5 sec Prostate Specific Antigen Reviewed date:08/27/2023 11:46:25 AM Interpretation:Normal Performing Lab:[facility], [address] [place] [phone] Notes/Report: Prostate Specific Antigen 1.90 <0.05-4.0 ng/mL PSA methodology: Ga Alinity i Chemiluminescent Microparticle Immunoassay (CMIA) Complete Blood Count Auto Di ff Reviewed date:02/29/2024 02:06:56 PM Interpretation:Abnormal Performing Lab:[facility], [address] [place] [address] Notes/Report: White Blood Count 5.0 4.8-10.8 X10*3/uL [...] NRBC Abs Auto 0.000 0.0-0.012 X10*3/uL Comprehensive [facility]. Panel Fa st Reviewed date:02/29/2024 02:09:56 PM Interpretation:Abnormal Performing Lab:[facility], [address] [place] [phone] Notes/Report: Sodium 140 135-145 mmol/L Potassium 4.2 [...] Panel Reviewed date:02/29/2024 02:06:56 PM Interpretation:Normal Performing Lab:[facility], [address] [place] [phone] Notes/Report: Triglycerides 67 <150 mg/dL Desirable Triglyceride: [...] Hormone Reviewed date:02/29/2024 02:07:10 PM Interpretation:Normal Performing Lab:[facility], [address] [place] [phone] Notes/Report: Thyroid Stimulating Hormone 3.66 0.32-4.0 uIU/ [...] Problem Chronic atrial fibrillation (I48.2) Active confirmed 662976252 Problem Mixed hyperlipidemia (E78.2) Active confirmed 475719664 Problem Benign prostatic hyperplasia without lower urinary tract symptoms (N40.0) Active confirmed 759667344 Problem Primary insomnia (F51.01) Active confirmed 4096741 Problem Prostate cancer (C61) Active confirmed 140398212 Problem Paroxysmal atrial fibrillation (I48.0) Active confirmed 612991457 Problem CONRAD (obstructive sleep apnea) (G47.33) Active confirmed 26742553 VITAL SIGNS Blood pressure diastolic 62 mm Hg 10/20/2023 Height 68.25 in 10/20/2023 Blood pressure systolic 108 mm Hg 10/20/2023 Weight 174 lbs 10/20/2023 BMI 26.26 kg/m2 10/20/2023 Encounters Encounter Location Date Provider Diagnosis Arden Muñoz DO, [address] [id number] 10/20/2023 Arden Muñoz Paroxysmal atrial fibrillation I48.0 ; Mixed hyperlipidemia E78.2 ; Benign prostatic hyperplasia without lower urinary tract symptoms N40.0 ; Prostate cancer C61 and Primary insomnia F51.01 Arden Muñoz DO, [address] [id number] 04/18/2024 Arden Muñoz DO, [address] [id number] 05/10/2023 Arden Muñoz Primary insomnia F51 .01 Arden Muñoz DO, [address] [id number] 09/13/2023 Arden Muñoz Primary insomnia F51 .01 Arden Muñoz DO, [address] [id number] 01/10/2024 Arden Muñoz Primary insomnia F51 .01 Arden Muñoz DO, [address] [id number] 02/14/2024 Arden Muñoz DO, [address] [id number] 02/16/2024 Arden Muñoz DO, [address] [id number] 03/03/2024Shimon Muñoz ASSESSMENTS Encounter Date Diagnosis Assessment Notes Treatment Notes Treatment Clinical Notes 10/20/2023 Mixed hyperlipidemia (ICD-10 - E78.2) 10/20/2023 Paroxysmal atrial fibrillation (ICD-10 - I48.0) 05/10/2023 Primary insomnia (ICD-10 - F51.01) 09/13/2023 Primary insomnia (ICD-10 - F51.01) 01/10/2024 Primary insomnia (ICD-10 - F51.01) 10/20/2023 Benign prostatic hyperplasia without lower urinary tract symptoms (ICD-10 - N40.0) 10/20/2023 Prostate cancer (ICD-10 - C61) Follow up with Urology 10/20/2023 Primary insomnia (ICD-10 - F51.01) PLAN OF TREATMENT No Information Insurance Providers Payer Name Payer Address Payer Phone Subscriber Number Group Number Insured Name Patient Relationship to Insured Coverage Start Date Coverage End Date MEDICARE [address] [facility] [place] [phone] [id number] Arturo Bentley Self - patient is the insured [facility] OPTIONS [address] [place] [phone] [id number] Arturo Bentley Self - patient is the insured MEDICAL (GENERAL) HISTORY Medical History History ICD Code Atrial fibrillation hyperlipidemia cardiomyopathy, nonischemic cerebrovascular accident, embolic, left MCA, 2014 osteoarthritis s/p left THR and right sh oulder replacement anemia of chronic disease insomnia benign prostatic hyperplasia (BPH) prostate cancer
--- OUTSIDE RECORDS SUMMARY | 2024-05-09 12:19 | XMS_ITS ---
Author Organization Arden Muñoz DO, FACP Address [address] [place], [place] [phone] Care Team Providers Care Rock Climbing Instructor Name Role Phone Arden Muñoz Primary Care Provider [phone] REASON FOR VISIT blood thinners Encounters Encounter Location Date Provider Diagnosis Arden Muñoz DO, [facility] [address] [place] [id number] 03/03/2024 Arden Muñoz PLAN OF TREATMENT No Information
--- OUTSIDE RECORDS SUMMARY | 2024-05-09 12:19 | XMS_ITS ---
Author Organization Arden Muñoz DO, FACP Address [address] [place] [phone] Care Team Providers Care Traveling Accountant Name Role Phone Arden Muñoz Primary Care Provider REASON FOR VISIT 6 month f/u Encounters Encounter Location Date Provider Diagnosis Arden Muñoz DO, [place] [address] [place] [id number] 04/18/2024 Arden Muñoz PLAN OF TREATMENT No Information
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
--- OUTSIDE RECORDS SUMMARY | 2024-05-09 12:19 | XMS_ITS ---
[facility] Address [address] [place] [address] Care Team Providers Care Refrigeration Person Name Role Phone Arden Muñoz MD Primary Care Provider Unavail able Juan Erwin Unavailable [phone] Allergies No Known Allergies REASON FOR VISIT [...] 01/29/2023 Encounters Encounter Location Date Provider Diagnosis [facility] [place] [address] [place] [address] 01/29/2023 Juan Erwin Pain in left foot [...] * Arturo BROWN ADOB:1945 (78 yo M)Acc No.[id number]:01/29/2023 Progress Notes Patient:?Arturo Brown Provider:?Jaun Erwin DPM :1945???Age:78 Y???Sex:Male Dylon e:01/29/2023 Address:[place], [id number] Pcp:Arden Muñoz MD Subjective: * Chief Complaints: [...] ray : Foot, right 3V * Procedure Codes:?87696 X-RAY EXAM OF LEFT FOOT 3V, Modifiers: 26 , [id number] X-RAY EXAM OF RIGHT FOOT 3V, Modifiers: [...] Provider:?Juan Erwin DPM Date:?2022 Generated for Jluis swift/Tayo/Tam on:?05/09/2024 12:18 PM EST History and Physical Notes * [...]
== END 2024-05-09 10:43 | disposition home or self-care (01) ==
LOC: HO.HMCSH 10:24
PROVIDERS: PCP Internal Medicine; Visit Provider Internal Medicine
DX: I48.91 Unspecified atrial fibrillation (principal); E78.5 Hyperlipidemia, unspecified; N40.0 Benign prostatic hyperplasia without lower urinary tract symptoms; C61 Malignant neoplasm of prostate; G47.39 Other sleep apnea; K75.9 Inflammatory liver disease, unspecified; F41.1 Generalized anxiety disorder

== ENCOUNTER → 2024-05-09 10:24 | Outpatient (BNVA) | payer MEDICARE, SELFPAY | PROVIDERS: PCP Internal Medicine; Visit Provider Internal Medicine | DX: I48.91 Unspecified atrial fibrillation (principal); E78.5 Hyperlipidemia, unspecified; N40.0 Benign prostatic hyperplasia without lower urinary tract symptoms; C61 Malignant neoplasm of prostate; G47.39 Other sleep apnea; F41.1 Generalized anxiety disorder; K75.9 Inflammatory liver disease, unspecified | CPT/HCPCS: 99202 ==

== ENCOUNTER 2024-05-10 09:30 | Outpatient (REF) | payer MEDICARE, SELFPAY ==
--- OUTSIDE RECORDS SUMMARY | 2024-05-10 10:50 | XMS_ITS ---
Author Organization [facility] Address [address] [place] [address] Care Team Providers Care Clod Puller Name Role Phone Arden Muñoz MD Primary Care Provider Unavail able Juan Erwin Unavailable [phone] Allergies No Known Allergies REASON FOR VISIT [...] 01/29/2023 Encounters Encounter Location Date Provider Diagnosis [facility] [place] [address] [place] [address] 01/29/2023 Juan Erwin Pain in left foot [...] * Arturo BROWN ADOB:1945 (78 yo M)Acc No.[id number]:01/29/2023 Progress Notes Patient:?Arturo Brown Provider:?Juan Erwin DPM :1945???Age:78 Y???Sex:Male Dylon e:01/29/2023 Address:[address], [id number] Pcp:Arden Muñoz MD Subjective: * Chief Complaints: [...] ray : Foot, right 3V * Procedure Codes:?22094 X-RAY EXAM OF LEFT FOOT 3V, Modifiers: 26 , [id number] X-RAY EXAM OF RIGHT FOOT 3V, Modifiers: [...] Erwin DPM Date:?2022 Generated for Jluis swift/Tayo/Tam on:?05/10/2024 10:50 AM EST History and Physical Notes * HPI [...]
--- OUTSIDE RECORDS SUMMARY | 2024-05-10 10:50 | XMS_ITS | Patient Health Record ---
Author Organization [facility] Address [address] [place] [address] Care Team Providers Care Check Pilot Name Role Phone Arden Muñoz MD Primary Care Provider Unavail able Juan Erwin Unavailable [phone] Allergies No Known Allergies Reason For Referral [...] Inc [address] [place] [address] [id number] McArturo Self - patient is the insured AARP Secondary to Medicare [address] [place] [address] [id number] Arturo Bentley Self - patient is the insured Medical (General) History Medical History History ICD Code heart condition hypertension Cholesterol chicken pox Cancer Stroke Measles Mumps Chicken pox Joint implants/screws Back,Hip,and Knee pain covid-19 Atrial fibrillation Surgical History Surgery Date(Month/Year) back surgery 1998 hip replacement 2014 shoulder surgery 2016
--- OUTSIDE RECORDS SUMMARY | 2024-05-10 10:50 | XMS_ITS | Clinical Summary ---
Author Organization [facility] Address [address] [place] [address] Phone Care Team Providers Care Utility Forester Name Role Phone WandaArden pro Primary Care Provider [phone] Allergies No known active allergies Medications finasteride [...] rate controlled. He remains anticoagulated for high [id number] score with prior stroke. He does have sleep apnea by home sleep study though the sleep center did not have any upcoming in lab titration study appointments available per his report and he plans to see the pulmonology team at [facility] next week. We discussed the long-term risks [...] Description 08/10/2024 9:50 AM EDT Office Visit [facility] [address] [place] [address] Neville Salazar MD [address] [place] [address] Health Maintenance Due Date Last Done Comments [...] complete this topic Insurance MEDICARE Care Teams Utility Forester Relationship Specialty Start Date End Date Arden Muñoz DO [address] [place] [phone] PCP - General 02/03/12
--- OUTSIDE RECORDS SUMMARY | 2024-05-10 10:50 | XMS_ITS | Clinical Summary ---
Author Organization [facility] Address [address] [place] [address] Care Team Providers Care Gasoline Tester Name Role Phone Unavailable Primary Care Provider [...]
--- OUTSIDE RECORDS SUMMARY | 2024-05-10 10:50 | XMS_ITS ---
Author Organization Arden Muñoz DO, FACP Address [address] [place], [place] [id number] Care Team Providers Care Clergy Member Name Role Phone Arden Muñoz Primary Care Provider REASON FOR VISIT told patient to call Encounters Encounter Location Date Provider Diagnosis Arden Muñoz DO, FACP [address] [place] [phone] 02/16/2024 Arden Muñoz PLAN OF TREATMENT No Information
--- OUTSIDE RECORDS SUMMARY | 2024-05-10 10:51 | XMS_ITS ---
Author Organization Arden Muñoz DO, FACP Address [address] [place] [phone] Care Team Providers Care Drum Stenciler Name Role Phone Arden Muñoz Primary Care Provider [phone] REASON FOR VISIT 6 month f/u Encounters Encounter Location Date Provider Diagnosis Arden Muñoz DO, [facility] [address] [place] [phone] 04/18/2024 Arden Muñoz PLAN OF TREATMENT No Information
--- OUTSIDE RECORDS SUMMARY | 2024-05-10 10:51 | XMS_ITS ---
Author Organization Arden Muñoz DO, FACP Address [address] [place], [place] [phone] Care Team Providers Care Clinical Rn Manager Name Role Phone Arden Muñoz Primary Care Provider REASON FOR VISIT blood thinners Encounters Encounter Location Date Provider Diagnosis Arden Muñoz DO, FACP [address] [place] [phone] 03/03/2024 Arden Muñoz PLAN OF TREATMENT No Information
--- OUTSIDE RECORDS SUMMARY | 2024-05-10 10:51 | XMS_ITS | Continuity of Care Document ---
Author Name [facility] Organization [facility] Care Team Providers Care Almond Blancher Operator Name Role Phone [facility] Unavailable Unavailable Problems Combined list of problems from Department of [facility] and [facility] facilities. It does not include [...] RUCHI MARQUEZ Comment: Cardio Dr Salazar at [facility] Degenerative joint disease of shoulder region Active Condition Jan 15, 2021 Entered By: RUCHI MARQUEZ Comment: Shldr Replacement, R Shldr 2016 [place] Osteoarthritis of hip Active Condition Jan 15, 2021 Entered By: RUCHI MARQUEZ Comment: THR, L Side 2014 [place] Prostate cancer Active Condition Jan 15, 2021 Entered By: RUCHI MARQUEZ Comment: Tx'd Medically Only; [facility] - Dr. Escobar [phone] 15, 2021 Entered By: RUCHI MARQUEZ Comment: on Flomax; Last PSA was 3.5 in DEC 03 [place] Screening for malignant neoplasm of colon done Active Condition Jan 15, 2021 Entered By: RUCHI MARQUEZ Comment: Screen Colonoscopy approx 2011; No CA; repeat prn [place] Seen by general physician Active Condition Jan 15, 2021 Entered By: RUCHI MARQUEZ Comment: PCP Dr Muñoz [phone] [place] Medications Combined list of outpatient medications from Department of [facility] and [facility] facilities.Medications provided include 1) outpatient [...] Site Reaction Lot Number CVX Code Drug Still Operator Brandy Status Comments Source COVID-19 ([employer]), MRNA, LNP-S, PF, 30 MCG/0.3 ML DOSE 3 2020 208 complet ed [facility] INFLUENZA, UNSPECIFIED FORMULATION 2020 88 complet ed [facility] COVID-19 (PFIZER), MRNA, LNP-S, PF, 30 MCG/0.3 ML DOSE 2 2020 208 complet ed [facility] COVID-19 (PFIZER), MRNA, LNP-S, PF, 30 MCG/0.3 ML DOSE 1 2020 208 complet ed [facility] Social History Combined list of available smoking, tobacco, and other social history from Department of Defense and Veterans Affairs facilities. Social History Type Response Date Comment [facility] e Tobacco smoking status [facility] VA-TOBACCO NEVER USED 01/16/20 21 [place]
[2024-05-10 14:28] LABS: Alanine Aminotransferase 51 U/L (0-40); Albumin Level 4.1 g/dL (3.5-5.0); Alkaline Phosphatase 120 U/L (39-117); Aspartate Amino Transferase 54 U/L (5-37); Bilirubin Direct 0.6 mg/dL (0.0-0.5); Bilirubin Total 1.6 mg/dL (0.0-1.0); Total Protein 7.3 g/dL (6.5-8.0)
== END 2024-05-10 09:31 | disposition home or self-care (01) ==
LOC: HO.HMGCLDS 09:30
PROVIDERS: PCP Internal Medicine; Visit Provider Internal Medicine
DX: K75.9 Inflammatory liver disease, unspecified (principal)
CPT/HCPCS: 36415; 80076

== ENCOUNTER 2024-05-16 14:23 | Outpatient (AMB) | payer MEDICARE, SELFPAY ==
--- NOTE | 2024-05-16 14:45 | A.OFFVIS_ITS ---
Vital Signs 05/16/24 14:47 Height 5 ft 10 in Weight 168 lb BMI 24.1 BP 120/60 Blood Pressure Location Lt brachial Position Sitting Pulse 74 Pulse Source Pulse Oximeter Pulse Oximetry (%) 95 Oxygen Delivery Method Room Air Intake Visit Reasons: Obstructive sleep apnea Intake Note: pt is here for akilah and feeling fine. 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 Required: No Allergies No Known Allergies [No Known Allergies*] Allergy (Verified 05/16/24 15:23) Medication List - Last Reconciled 05/16/24 by Luisana Anguiano MD aspirin (Adult Low Dose Aspirin) 81 mg PO DAILY atorvastatin 40 mg PO DAILY finasteride 5 mg PO DAILY 90 days lorazepam 1 mg PO BEDTIME PRN [id number] mcg (Centrum Silver Men) 1 tab PO DAILY tamsulosin 0.4 mg PO DAILY warfarin 5 mg See Protocol PO DAILY HPI HPI Obstructive sleep apnea: Details: THIS 79 YEARS OLD VERY PLEASANT GENTLEMAN HAS OBSTRUCTIVE SLEEP APNEA SECONDARY TO RETROGNATHIA OF THE LOWER JAW. BECAUSE HE HAD ELEMENT OF MATEUSZ-MUÑOZ BREATHING AND CENTRAL APNEAS HE REQUIRED BE TREATED WITH BILEVEL PRESSURE. HE USES CPAP VERY REGULARLY EVERY NIGHT AND SLEEPS WELL. THERE IS MILD AIR LEAK BUT HE CAN ADJUST THE STRAPS DURING THE NIGHT. HE SLEEPS GOOD AT LEAST FOR 5-6 HOURS EVERY NIGHT. DENIES ANY DAYTIME SLEEPINESS. 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 sleep apnea BPH (benign prostatic hyperplasia) Prostate cancer Elevated PSA Surgical History History of right shoulder replacement History of left hip replacement Previous back surgery (~1997) Social History Patient Tobacco Use Status: Never used Tobacco Review of Systems Const All systems reviewed & are unremarkable except as noted in HPI and below Denies chills and Denies fever(s) Eyes Reports no additional complaints ENT Reports no additional complaints Card Reports no additional complaints and Denies syncope Resp Denies cough GI Denies abdominal pain and Denies heartburn Reports as per HPI and Denies change in libido Musc Reports no additional complaints Skin/Breast Reports system reviewed and no additional complaints, except as documented Neuro Denies syncope Psych Denies change in libido Endo Denies change in libido Physical Exam Vital Signs: Last Vital Signs Pulse 74 05/16/24 14:47 BP 120/60 05/16/24 14:47 Pulse Ox 95 05/16/24 14:47 Oxygen Delivery Method Room Air 05/16/24 14:47 BMI result Body Mass Index 24.1 Const General: healthy appearing, comfortable, no acute distress, alert and awake Orientation/consciousness: patient oriented x3 HEENT Other: One prominent finding is that of is significant degree of RETROGANTHIA of the lower jaw. Thus compromising the jim pharyngeal space. MALLAMPATI CLASS 3 . General nose exam: No nasal polyps present and No nasal discharge present Face and sinus: Yes sinuses nontender Mouth: oropharynx abnormals (Tongue is back and convex, Mallampati class 3) Teeth and gingiva: other (Has very significant degree of retroganthia of the lower jaw) Throat: Yes posterior oropharynx normal Eyes General: appearance normal, both eyes and all related structures Neck Neck: Yes normal visual inspection, Yes no lymphadenopathy, Yes trachea midline and Yes no JVD Thyroid: Thyroid normal Lymphatic: other (Neck size 16 in) Chest Chest palpation & inspection: normal inspection of the chest, normal palpation of entire chest wall and no tenderness Resp Effort & Inspection: normal respiratory effort Auscultation: clear to auscultation bilaterally, no crackles and no wheezes Cardio Palpation: normal PMI Rate: regular rate Rhythm: regular rhythm Heart sounds: no gallops and no murmurs Peripheral pulses: Peripheral pulses 2+ throughout GI Palpation (GI): Soft to palpation, nontender, No hepatosplenomegaly present and no masses Auscultation: normal bowel sounds Back/Spine/Pelvis Thoracic/Lumbar Spine: thoracic and lumbar spine normal to inspection Skin General skin exam: no rashes or lesions noted Neuro General: patient oriented x3 and no focal motor deficits Cranial nerves: Yes CN's II-XII intact bilaterally Extrem General: Yes normal to inspection, Yes no clubbing, cyanosis or edema and Yes no calf tenderness Psych Appearance: grossly normal and well kempt Speech and movement: Normal speech and movement present Results Reviewed Results Reviewed: COMPLIANCE REPORT FOR THE LAST 30 NIGHTS IS REVIEWED AND HE HAS USED 100% OF THE NIGHT. AVERAGE USAGE PER NIGHT 5 HOURS 40 MINUTES. PRESSURE SETTING 20/16 CM. THERE IS MILD TO MODERATE DEGREE OF AIR LEAK. RESIDUAL AHI 3.9 MOSTLY DUE TO OBSTRUCTIVE EVENTS. Assessment & Plan Assessment & Plan (1) Mixed sleep apnea: Comment: BASELINE STUDY HAD SHOWN PRESENCE OF MIXED SLEEP APNEA, PREDOMINANTLY CENTRAL APNEA WITH MATEUSZ-MUÑOZ BREATHING, AND ALSO COMPONENT OF OBSTRUCTIVE SLEEP APNEA. CPAP TITRATION , SUCCESSFUL BUT REQUIRED HIGH BILEVEL PRESSURE OF 20/16 CM, WITH THIS PRESSURE HYPOXEMIA WAS ALSO CORRECTED. HE HAS BEEN USING BIPAP VERY REGULARLY EVERY NIGHT AND SLEEPS WELL. COMPLIANCE REMAINS GOOD. Code(s): G47.39 - Other sleep apnea Category: Medical Plan: COMMENDED FOR GOOD COMPLIANCE, INSTRUCTED TO TIGHTEN THE STRAPS TO MINIMIZE AIR LEAK. (2) Nocturnal hypoxemia: Comment: NOCTURNAL HYPOXEMIA CORRECTED WITH THE USE OF BIPAP. Code(s): G47.34 - Idiopathic sleep related nonobstructive alveolar hypoventilation Category: Medical Plan: HYPOXEMIA BEING CORRECTED WITH THE USE OF BIPAP, HE DOES NOT NEED ANY O2 SUPPLEMENTATION AT NIGHT Coding Level of Care Code Est Pt Level 3 (01091) Diagnoses Mixed sleep apnea G47.39 Nocturnal hypoxemia G47.34
[2024-05-16 14:47] VITALS: BP 120/60; PULSE 74; O2SAT 95; BMI 24.1
--- OUTSIDE RECORDS SUMMARY | 2024-05-16 18:12 | XMS_ITS | Clinical Summary ---
Author Organization [facility] [employer] [facility] Address [address] [place] [address] Phone Care Team Providers Care Head Of English Name Role Phone WandaArden pro Primary Care Provider [phone] Allergies No known active allergies Medications finasteride [...] rate controlled. He remains anticoagulated for high [id number]-FHLm score with prior stroke. He does have sleep apnea by home sleep study though the sleep center did not have any upcoming in lab titration study appointments available per his report and he plans to see the pulmonology team at [facility] next week. We discussed the long-term [...] Description 08/10/2024 9:50 AM EDT Office Visit [facility] [address] [place] [address] Neville Salazar MD [address] [place] [address] Health Maintenance Due Date Last Done Comments [...] complete this topic Insurance MEDICARE Care Teams Head Of English Relationship Specialty Start Date End Date Arden Muñoz DO [address] [place] [phone] PCP - General 02/03/12
--- OUTSIDE RECORDS SUMMARY | 2024-05-16 18:12 | XMS_ITS ---
Author Organization [facility] Address [address] [place] [address] Care Team Providers Care Laundry Aid Name Role Phone Arden Muñoz MD Primary Care Provider Unavail able Juan Erwin Unavailable [phone] Allergies No Known Allergies REASON FOR VISIT [...] 01/29/2023 Encounters Encounter Location Date Provider Diagnosis [facility] [place] [address] [place] [address] 01/29/2023 Juan Erwin Pain in left foot [...] * Arturo BROWN ADOB:1945 (78 yo M)Acc No.[id number]:01/29/2023 Progress Notes Patient:?Arturo Brown Provider:?Juan Erwin DPM :1945???Age:78 Y???Sex:Male Dylon e:01/29/2023 Address:[place], [place] Pcp:Arden Muñoz MD Subjective: * Chief Complaints: [...] ray : Foot, right 3V * Procedure Codes:?44099 X-RAY EXAM OF LEFT FOOT 3V, Modifiers: 26 , [id number] X-RAY EXAM OF RIGHT FOOT 3V, Modifiers: [...] Erwin DPM Date:?2022 Generated for Jluis swift/Tayo/Tam on:?05/16/2024 06:12 PM EST History and Physical Notes * [...]
--- OUTSIDE RECORDS SUMMARY | 2024-05-16 18:12 | XMS_ITS | Data Portability ---
Author Organization [place] - [facility], Allergy Address [address] [address] Assessment Encounter Date Assessment Date Assessment LastModified [...] Sensorine ural hearing loss of bilateral ears [id number] Active 2023 ALONA GUILLEN, AUD 100 [facility] 100, [place], [address] , [facility] - [facility] 4 10:29:09 Bilateral exostosis of external ear canals [id number] Active 2023 Exostosis of external canal, bilateral ; Note: Date Diagnosed : 07/22/2023 10:03 AM (H61.813) Not Available [facility] 4 03:10:10 Abnormal auditory perceptio n [id number] Active 2023 Other abnormal auditory perceptio ns, left ear; Note: Date Diagnosed : 07/22/2023 10:03 AM (H93.292) Not Available [facility] 4 03:10:11 Problem Notes None recorded. Procedures Surgical History None recorded. Imaging Results Imaging Date Name Status LastModified by Organ [facility] Details LastModified Time 07/22/2023 imaging/diagno stic [...] Time multivitam in tablet active Medication ID: [id number] Bra nd Name: multivitam in Send Method: E-Prescrib ed Subs Allowed: subs OK Medicat ionGeneric Name: multivitam in Not Available Not Available Not Available atorvastat in 40 mg tablet active Medication ID: [id number] nd Name: atorvastat in Send Method: E-Prescrib ed Subs Allowed: subs OK Medicat ionGeneric Name: atorvastat in Not Available Not Available Not Available neomycin-p olymyxin-h ydrocort 3.5 mg/mL-10,0 00 unit/mL-1 % ear solution INSTILL 4-5 DROPS IN LEFT EAR EVERY DAY active Not Available Not Available No t Available tamsulosin 0.4 mg capsule active Medication ID: [id number] nd Name: tamsulosin Send Method: E-Prescrib ed Subs Allowed: subs OK Medicat ionGeneric Name: tamsulosin Not Available Not Available Not Available warfarin 5 mg tablet active Medication ID: [id number] nd Name: warfarin S end Method: E-Prescrib ed Subs Allowed: subs OK Medicat ionGeneric Name: warfarin Not Available Not Available Not Available lorazepam 1 mg tablet active Medication ID: [id number] nd Name: lorazepam Send Method: E-Prescrib ed Subs Allowed: subs OK Medicat ionGeneric Name: lorazepam Not Available Not Available Not Available finasterid e 5 mg tablet active Medication ID: [id number] nd Name: finasterid e Send Method: E-Prescrib ed Subs Allowed: subs OK Medicat ionGeneric Name: finasterid e Not Available Not Available Not Available aspirin 81 mg capsule active Medication ID: [id number] nd Name: aspirin Se nd Method: E-Prescrib [...] 165 GAUTAM ZELAYA [place] [address] [place] [address] 07/30/2023 09:51:52 09/02/2023 00:15:53 Sensorineural hearing loss of bilateral ears [id number] H90.3 1905 GAUTAM ZELAYA [place] [address] [place] [address] 08/12/2023 10:36:38 08/12/2023 11:38:04 Sensorineural hearing loss of bilateral ears [id number] H90.3 8647 GAUT[place] ZELAYA [place] 100 [facility] 100 [place] [address] 10/01/2023 10:34:45 10/02/2023 14:45:28 Sensorineural hearing loss of bilateral ears [id number] H90.3 Health Concerns Section Related Observation LastModified by Organization Detai ls LastModified Time None Recorded Concern Status LastModified by Organization Details LastModified Time None Recorded Advance Directives Directive None Recorded Payers Encounter Date Sequence Insurance Name Policy Number Policy Devine Covered Member ID Devine Member ID Guarantor Name 07/30/2023 2 [employer] OPTIONS (MEDICARE SUPPLEMENT) Arturo Hammond Mc [id number] Arturo Stephany Mc 07/30/2023 1 MEDICARE B-[place]: [facility] Arturo Correao [id number] Arturo Stephany Correao 08/12/2023 2 [employer] HE[employer] OPTIONS (MEDICARE SUPPLEMENT) Arturo Correao [id number] Arturo Correao 08/12/2023 1 MEDICARE B-[place]: [facility] Arturo Correao [id number] Arturo Stephany Correao 10/01/2023 2 [employer] OPTIONS (MEDICARE SUPPLEMENT) Arturo Correao [id number] Arturo Correao 10/01/2023 1 MEDICARE B-[place]: [facility] Arturo Hammond Mc [id number] Arturo Stephany Mc Notes Date Note Type [...] hearing aids. Type of phone: {{iphone android ([employer]) android (off brand) no smart phone iphone, but not too interested in the bluetooth/angie technology.#}} Ordering:{{Oticon p honak* Widex}} {{ [id number] Life-R in P7 steel frazier#}}Manager Credit Risk: {{ 1M#}}Domes: {{ open medium#}}Other: {{}} Paid today: {{$ $0#}}Due at fitting {{$ $5144#}}Total: {{$ $5144#}} ALONA GUILLEN, [facility] 100 [facility],[address], [address], [facility] 07/30/2023 10:29:20 08/12/2023 text/html Fit today with {{phonak* oticon wi dex}} Set at level 3 and fit to target. {{No changes made after REM. Turned down after REM for comfort.*}} 90% with weak occlusion manager hvac. VC activated and explained. All tap controls turned off. Discussed insertion/removal of devices from ears and c.o.d. audit clerk and cleaning of devices which included changing [...] check*} } via {{ARG* SANJUANA}} ALONA GUILLEN [facility] 100 [facility],[address], [address], [facility] 08/12/2023 11:33:57 10/01/2023 text/html Concerns: No concerns [...] 1 year FU with HT. ALONA GUILLEN, [facility] 100 [facility],[place] [address], [place], [address], [facility] - [facility] 10/01/2023 11:03:39
--- OUTSIDE RECORDS SUMMARY | 2024-05-16 18:12 | XMS_ITS | Clinical Summary ---
Author Organization [facility] Address 100 [place] [address] Care Team Providers Care Lumite Injector Name Role Phone Unavailable Primary Care Provider [...]
--- OUTSIDE RECORDS SUMMARY | 2024-05-16 18:12 | XMS_ITS | Continuity of Care Document ---
Author Name [facility] Organization [facility] Care Team Providers Care Safety Compliance Specialist Name Role Phone [facility] Unavailable Unavailable Problems Combined list of problems from Department of [facility] and [facility] facilities. It does not include [...] RUCHI MARQUEZ Comment: Cardio Dr Salazar at [facility] Degenerative joint disease of shoulder region Active Condition Jan 15, 2021 Entered By: RUCHI MARQUEZ Comment: Shldr Replacement, R Shldr 2016 [place] Osteoarthritis of hip Active Condition Jan 15, 2021 Entered By: RUCHI MARQUEZ Comment: THR, L Side 2014 [place] Prostate cancer Active Condition Jan 15, 2021 Entered By: RUCHI MARQUEZ Comment: Tx'd Medically Only; [facility] - Dr. Escobar [phone] 15, 2021 Entered By: RUCHI MARQUEZ Comment: on Flomax; Last PSA was 3.5 in DEC 03 [place] Screening for malignant neoplasm of colon done Active Condition Jan 15, 2021 Entered By: RUCHI MARQUEZ Comment: Screen Colonoscopy approx 2011; No CA; repeat prn [place] Seen by general physician Active Condition Jan 15, 2021 Entered By: RUCHI MARQUEZ Comment: PCP Dr Muñoz [phone] [place] Medications Combined list of outpatient medications from Department of [facility] and [facility] facilities.Medications provided include 1) outpatient medications [...] Site Reaction Lot Number CVX Code Drug Environmental Remediation Engineer Status Comments Source COVID-19 (eFans), MRNA, LNP-S, PF, 30 MCG/0.3 ML DOSE 3 2020 208 complet ed [facility] INFLUENZA, UNSPECIFIED FORMULATION 2020 88 complet ed [facility] COVID-19 (PFIZER), MRNA, LNP-S, PF, 30 MCG/0.3 ML DOSE 2 2020 208 complet ed [facility] COVID-19 (PFIZER), MRNA, LNP-S, PF, 30 MCG/0.3 ML DOSE 1 2020 208 complet ed [facility] Social History Combined list of available smoking, tobacco, and other social history from Department of Defense and Veterans Affairs facilities. Social History Type Response Date Comment [facility] e Tobacco smoking status [facility] VA-TOBACCO NEVER USED 01/16/20 21 [place]
--- OUTSIDE RECORDS SUMMARY | 2024-05-16 18:12 | XMS_ITS | Patient Health Record ---
Author Organization [facility] Address [address] [facility] [place] [address] Care Team Providers Care Automation Engineer Name Role Phone Arden Muñoz MD Primary Care Provider Unavail able Juan Erwin Unavailable [phone] Allergies No Known Allergies Reason For Referral [...] Inc [address] [place] [address] [id number] McArturo Self - patient is the insured AARP Secondary to Medicare [address] [place] [address] [id number] Arturo Bentley Self - patient is the insured Medical (General) History Medical History History ICD Code heart condition hypertension Cholesterol chicken pox Cancer Stroke Measles Mumps Chicken pox Joint implants/screws Back,Hip,and Knee pain covid-19 Atrial fibrillation Surgical History Surgery Date(Month/Year) back surgery 1998 hip replacement 2014 shoulder surgery 2016
== END 2024-05-16 15:25 | disposition home or self-care (01) ==
PROVIDERS: PCP Internal Medicine; Visit Provider Internal Medicine
DX: G47.39 Other sleep apnea (principal); G47.34 Idiopathic sleep related nonobstructive alveolar hypoventilation
CPT/HCPCS: 99213

== ENCOUNTER → 2024-05-16 14:23 | Outpatient (BNVA) | payer MEDICARE, SELFPAY | PROVIDERS: PCP Internal Medicine; Visit Provider Internal Medicine | DX: G47.39 Other sleep apnea (principal); G47.34 Idiopathic sleep related nonobstructive alveolar hypoventilation | CPT/HCPCS: 99212 ==

== ENCOUNTER 2024-05-17 08:06 | Outpatient (AMB) | payer MEDICARE, SELFPAY ==
--- OUTSIDE RECORDS SUMMARY | 2024-05-17 08:17 | XMS_ITS | Patient Health Record ---
Author Organization [facility] Address [address] [place] [address] Care Team Providers Care Supervisor Pigment Making Name Role Phone Arden Muñoz MD Primary Care Provider Unavail able Juan Erwin Unavailable [phone] Allergies No Known Allergies Reason For Referral [...] Inc [address] [place] [address] [id number] McArturo Self - patient is the insured AARP Secondary to Medicare [address] [place] [address] [id number] Arturo Bentley Self - patient is the insured Medical (General) History Medical History History ICD Code heart condition hypertension Cholesterol chicken pox Cancer Stroke Measles Mumps Chicken pox Joint implants/screws Back,Hip,and Knee pain covid-19 Atrial fibrillation Surgical History Surgery Date(Month/Year) back surgery 1998 hip replacement 2014 shoulder surgery 2016
--- OUTSIDE RECORDS SUMMARY | 2024-05-17 08:17 | XMS_ITS | Clinical Summary ---
Author Organization [facility] Address 100 [place] [address] Care Team Providers Care Supervisor Cell Efficiency Name Role Phone Unavailable Primary Care Provider [...]
--- OUTSIDE RECORDS SUMMARY | 2024-05-17 08:18 | XMS_ITS | Clinical Summary ---
Author Organization [facility] Address [address] [place] [address] Phone Care Team Providers Care Wood Dowel Machine Operator Name Role Phone WandaArden pro Primary Care Provider Allergies No known active allergies Medications finasteride [...] rate controlled. He remains anticoagulated for high [id number] score with prior stroke. He does have sleep apnea by home sleep study though the sleep center did not have any upcoming in lab titration study appointments available per his report and he plans to see the pulmonology team at [facility] next week. We discussed the long-term risks [...] Description 08/10/2024 9:50 AM EDT Office Visit [facility] [address] [place] [address] Neville Salazar MD [address] [facility] [address] [place] [address] Health Maintenance Due Date Last Done Comments [...] complete this topic Insurance MEDICARE Care Teams Wood Dowel Machine Operator Relationship Specialty Start Date End Date Arden Muñoz DO [address] [place] [phone] PCP - General 02/03/12
--- OUTSIDE RECORDS SUMMARY | 2024-05-17 08:18 | XMS_ITS ---
Author Organization [facility] Address [address] [place] [address] Care Team Providers Care Damage Cutter Name Role Phone Arden Muñoz MD Primary Care Provider Unavail able Juan Erwin Unavailable [phone] Allergies No Known Allergies REASON FOR VISIT [...] 01/29/2023 Encounters Encounter Location Date Provider Diagnosis [facility] [place] [address] [place] [address] 01/29/2023 Juan Erwin Pain in left foot [...] * Arturo BROWN ADOB:1945 (78 yo M)Acc No.[id number]:01/29/2023 Progress Notes Patient:?Arturo Brown Provider:?Juan Erwin DPM :1945???Age:78 Y???Sex:Male Dylon e:01/29/2023 Address:[place], [place] Pcp:Arden Muñoz MD Subjective: * Chief Complaints: [...] ray : Foot, right 3V * Procedure Codes:?01741 X-RAY EXAM OF LEFT FOOT 3V, Modifiers: 26 , [id number] X-RAY EXAM OF RIGHT FOOT 3V, Modifiers: [...] Erwin DPM Date:?2022 Generated for Jluis swift/Tayo/Tam on:?05/17/2024 08:17 AM EST History and Physical Notes * [...]
--- OUTSIDE RECORDS SUMMARY | 2024-05-17 08:18 | XMS_ITS | Continuity of Care Document ---
Author Name [facility] Organization [facility] Care Team Providers Care Campaign Coordinator Name Role Phone [facility] Unavailable Unavailable Problems Combined list of problems from [facility] facilities. It does not include [...] RUCHI MARQUEZ Comment: Cardio Dr Salazar at [facility] Degenerative joint disease of shoulder region Active Condition Jan 15, 2021 Entered By: RUCHI MARQUEZ Comment: Shldr Replacement, R Shldr 2016 [place] Osteoarthritis of hip Active Condition Jan 15, 2021 Entered By: RUCHI MARQUEZ Comment: THR, L Side 2014 [place] Prostate cancer Active Condition Jan 15, 2021 Entered By: RUCHI MARQUEZ Comment: Tx'd Medically Only; [facility] - Dr. Escobar [phone] 15, 2021 Entered By: RUCHI MARQUEZ Comment: on Flomax; Last PSA was 3.5 in DEC 03 [place] Screening for malignant neoplasm of colon done Active Condition Jan 15, 2021 Entered By: RUCHI MARQUEZ Comment: Screen Colonoscopy approx 2011; No CA; repeat prn [place] Seen by general physician Active Condition Jan 15, 2021 Entered By: RUCHI MARQUEZ Comment: PCP Dr Muñoz [phone] [place] Medications Combined list of outpatient medications from [facility] of [facility] and [facility] facilities.Medications provided include 1) outpatient [...] Site Reaction Lot Number CVX Code Drug Campaign Assistant Status Comments Source COVID-19 ([employer]), MRNA, LNP-S, PF, 30 MCG/0.3 ML DOSE 3 2020 208 complet ed [facility] INFLUENZA, UNSPECIFIED FORMULATION 2020 88 complet ed [facility] COVID-19 (PFIZER), MRNA, LNP-S, PF, 30 MCG/0.3 ML DOSE 2 2020 208 complet ed [facility] COVID-19 (PFIZER), MRNA, LNP-S, PF, 30 MCG/0.3 ML DOSE 1 2020 208 complet ed [facility] Social History Combined list of available smoking, tobacco, and other social history from Department of Defense and Veterans Affairs facilities. Social History Type Response Date Comment [facility] e Tobacco smoking status [facility]-TOBACCO NEVER USED 01/16/20 21 [place]
--- NOTE | 2024-05-17 08:21 | MHC.OFFVISCO ---
Intake Intake Visit Reasons: Anticoagulation Allergies No Known Allergies [No Known Allergies*] Allergy (Verified 05/17/24 08:08) Medication List - Last Reconciled 05/17/24 by Clau Baldwin RN aspirin (Adult Low Dose Aspirin) 81 mg PO DAILY atorvastatin 40 mg PO DAILY finasteride 5 mg PO 2XW lorazepam 1 mg PO BEDTIME PRN [id number]-ghqzhjv-mthzzt [id number] mcg (Centrum Silver Men) 1 tab PO DAILY tamsulosin 0.4 mg PO DAILY warfarin 5 mg See Protocol PO DAILY Nursing Note INR: 2.0- in therapeutic range OF 2-3 Medications and supplements reviewed with pt- only change is finasteride is 2x/week pt pcp is Dr Fajardo No changes in health, diet, medications, or supplements, Denies any signs and symptoms of bleeding or bruising or clotting. Bleeding, bruising, clotting discussed Nutritional guidance given - no greens for 2 days Dose: 5mg x 7 F/U INR: 2 weeks Patient verbalizes understanding of instructions given pt here for meter to meter correlation- pt demonstrates good technique but states has occ difficulty placing sample to strip. first strip was error 5 strategies discussed- enc to hold sample to side of strip until he hears a beep and position meter in optimal position. medications reviewed, risk scores done. pt meter memory check with several discrepancies noted with additional inr's per pt meter. pt states did inr when he returned from vacation and held warfarin due to elev inr. pt instructed to call all poc inr's to acs Anti-Coag Initial Assessment Social Hx Patient Tobacco Use Status: Never used Tobacco Questionnaires HAS-BLED Does the patient had uncontrolled Hypertension?: No Does the patient have renal disease?: No Does the patient have liver disease?: No Does the patient have a history of stroke?: Yes Has the patient had major bleeding or predisposition to bleeding?: No Does the patient have labile INRs?: No Is the patient over 65 years of age?: Yes Is the patient on medications that gives them a predisposition to bleeding?: Yes Does the patient use alcohol?: No HAS-BLED Score: 3 CHADSVASC Age: 75 or over Gender: Male Does the patient have a history of CHF?: No Does the patient have a history of Hypertension?: No Does the patient have a history of Stroke/TIA/Thromboembolism?: Yes Does the patient have a history of Vascular Disease (prior WA, PAD or aortic plaque)?: No Does the patient have a history of Diabetes?: No CHADS VACS Score: 4 Guillermo Prediction Score Rsk VTE Active Cancer: Yes (prostate cancer) Previous VTE, excluding superficial vein thrombosis: No Reduced mobility: No Already known Thrombophilic Condition: No With-in last month Trauma and/or Surgery: Yes (skin cancer on leg removed 2 weeks ago) Elderly 70 year or older: Yes Heart and/or Respiratory Failure: No Acute Myocardial infarction and/or Ischemic Stroke: Yes Acute Infection and/or Rheumatologic Disorder: No Obesity (BMI 30 or greater): No Ongoing Hormonal Treatment: No Score: 7 Guillermo Score less than 4; Low Risk of VTE Guillermo Score 4 or greater; High Risk of VTE Coding Level of Care Code Est Patient Level 2 Diagnoses Current use of anticoagulant therapy Z79.01 Results AMB INR Fingerstick AMB INR Fingerstick 2.0 Last Edit by Clau Baldwin RN on 05/17/24 08:38 interface delay Assessment & Plan Assessment & Plan (1) Current use of anticoagulant therapy: Code(s): 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
[2024-05-18 08:26] LABS: Prothrombin Time Whole Bld POC 23.7 sec (11.1-13.5)
== END 2024-05-17 08:43 | disposition home or self-care (01) ==
PROVIDERS: PCP Internal Medicine; Visit Provider Internal Medicine
DX: Z79.01 Long term (current) use of anticoagulants (principal)

== ENCOUNTER → 2024-05-17 08:06 | Outpatient (BNVA) | payer MEDICARE, SELFPAY | PROVIDERS: PCP Internal Medicine; Visit Provider Internal Medicine | DX: I48.20 Chronic atrial fibrillation, unspecified (principal); Z79.01 Long term (current) use of anticoagulants; Z51.81 Encounter for therapeutic drug level monitoring | CPT/HCPCS: 85610; 99212 ==

== ENCOUNTER → 2024-05-31 10:25 | Outpatient (BNVA) | payer MEDICARE, SELFPAY | PROVIDERS: PCP Internal Medicine; Visit Provider Internal Medicine Medical Oncology ==

== ENCOUNTER 2024-06-09 10:11 | Outpatient (REF) | payer MEDICARE, SELFPAY ==
--- NOTE | ~2024-06-09 | US_ITS ---
EXAMINATION: US ABDOMEN HISTORY: R74.8 - Abnormal levels of other serum enzymes TECHNIQUE: Real-time grayscale ultrasound imaging of the abdomen was performed and images were reviewed. COMPARISON: There are no prior studies for comparison. FINDINGS: Liver: The right lobe of the liver measures 18.1 cm in size. The left lobe of the liver measures 7.2 cm in size. The liver demonstrates normal homogeneous echotexture. Multiple hepatic cysts are seen in the left lobe measuring up to 1.2 cm in size. No intrahepatic biliary ductal dilatation is identified. There is normal hepatopedal flow in the portal vein. Gallbladder and biliary tree: The gallbladder is unremarkable, without evidence of calculi, wall thickening, or pericholecystic fluid. There is no sonographic Oconnor sign. The common bile duct is normal in caliber measuring 3 mm. Kidneys: The right kidney measures 11.7 cm in length. The left kidney measures 11.5 cm in length. The kidneys are unremarkable, without evidence of masses, hydronephrosis, or calculi. Pancreas: The pancreatic head, neck, and body are unremarkable. The pancreatic tail is obscured by bowel gas. Spleen: The spleen is normal in size and contour, measuring 11.0 cm in length. Abdominal aorta and inferior vena cava: The visualized portions of the abdominal aorta and inferior vena cava are normal in caliber. There is no free fluid in the abdomen. US/US abdomen complete IMPRESSION: Hepatomegaly. Hepatic cysts measuring up to 1.2 cm in size. Otherwise unremarkable abdominal ultrasound. Electronically signed by: Arden Fontenot MD 06/09/2024 11:07 AM EDT
== END 2024-06-09 10:12 | disposition home or self-care (01) ==
LOC: HO.HMGCX 10:11
PROVIDERS: PCP Internal Medicine; Visit Provider Internal Medicine
DX: R74.8 Abnormal levels of other serum enzymes (principal)
CPT/HCPCS: 76700

== ENCOUNTER → 2024-06-09 10:28 | Outpatient (BNV) | payer MEDICARE, SELFPAY | PROVIDERS: PCP Internal Medicine; Visit Provider Radiology Diagnostic Radiology | DX: R74.8 Abnormal levels of other serum enzymes (principal) | CPT/HCPCS: 76700 ==

== ENCOUNTER → 2024-06-28 11:39 | Outpatient (BNVA) | payer MEDICARE, SELFPAY | PROVIDERS: PCP Internal Medicine; Visit Provider Internal Medicine Medical Oncology | DX: Z13.89 Encounter for screening for other disorder (principal) ==

== ENCOUNTER → 2024-07-12 08:53 | Outpatient (BNVA) | payer MEDICARE, SELFPAY | PROVIDERS: PCP Internal Medicine; Visit Provider Internal Medicine Medical Oncology | DX: Z13.89 Encounter for screening for other disorder (principal) ==

== ENCOUNTER → 2024-07-27 10:13 | Outpatient (BNVA) | payer MEDICARE, SELFPAY | PROVIDERS: PCP Internal Medicine; Visit Provider Internal Medicine Medical Oncology ==

== ENCOUNTER 2024-07-31 09:49 | Outpatient (REF) | payer MEDICARE, SELFPAY ==
--- OUTSIDE RECORDS SUMMARY | 2024-07-31 10:10 | XMS_ITS | Clinical Summary ---
Author Organization [facility] Address [address] [place] [address] Care Team Providers Care Venue Attendant Name Role Phone Unavailable Primary Care Provider Unavailabl e Social History Tobacco Use Types Packs/Day Years Used Date Smoking Tobacco: Never Assessed Sex and Gender Information Value Date Recorded Sex Assigned at Not on file Legal Sex Male 2:41 PM EDT Gender Identity Not on file Sexual Orientation Not on file Plan of Treatment Health Maintenance Due Date Last Done Comments DTaP/Tdap/Td Vaccines (1 - Tdap) 01/20/1963 Pneumococcal Vaccines 50+ (1 of 1 - PCV) 01/20/1994 Zoster (Shingles) Vaccine (1 of 2) 01/20/1994 RSV Vaccine 60 years and old er and Patients (1 - 1-dose 75+ series) 01/20/2019 COVID-19 Vaccine (2023-2 5 season) 2023 Hepatitis B Vaccines Aged Out No long er eligible based on patient's age to complete this topic
--- OUTSIDE RECORDS SUMMARY | 2024-07-31 10:10 | XMS_ITS | Clinical Summary ---
Author Organization [facility] Address [address] [place] [address] Phone Care Team Providers Care Deck Officer Name Role Phone Wanda Arden Primary Care Provider [phone] Allergies No known active allergies Medications finasteride [...] Problem Noted Date Diagnosed Date Longstanding persistent atri al fibrillation (CMS/HCC V24, CMS/HCC V28) 07/29/2021 Overview (04/05/2024): Last Assessment & Plan: Patient has permanent atrial fibrillation, without any tacky or bradycardia symptoms reported. He is auto rate controlled. He remains anticoagulated for high [id number] score with prior stroke. He does have sleep apnea by home sleep study though the sleep center did not have any upcoming in lab titration study appointments available per his report and he plans to see the pulmonology team at [facility] next week. We discussed the long-term risks [...] Description 08/10/2024 9:50 AM EDT Office Visit [facility] - [address] [place] [id number] Neville Salazar MD [address] [facility] [address] [place] [address] Health Maintenance Due Date Last Done Comments DTaP,Tdap,and Td Vaccines (1 - Tdap) 01/20/1963 Pneumococcal Vaccine: 50+ Years (1 of 1 - PCV) 01/20/1994 Zoster Vaccines (1 of 2) 01/20/1994 RSV Immunization Adult Patients (1 - 1-dose 75+ series) 01/20/2019 Cholesterol Screening (Lipid Panel) 02/22/2022 Depression Screening 02/22/2022 Falls Risk Assessment 02/22/2022 Medicare Annual Wellness Visit 02/22/2022 Social Influencers of Health Screening 02/22/2022 COVID-19 Vaccine ( - 2023-2 5 season) 2023 Influenza Vaccine (Season Ended) 2024 12/09/2021, 12/09/2020 HIB Vaccines Aged Out No longer [...] age to complete this topic Meningococcal B Vaccine Aged Out No l onger eligible based on patient's age to complete this topic RSV Immunization Patients Under 20 months Aged Out No longer eligible b ased on patient's age to complete this topic Varicella Vaccines Aged Out No longer eligible based on patient's age to complete this topic Insurance MEDICARE Care Teams Deck Officer Relationship Specialty Start Date End Date Arden Muñoz DO [address] [place] [phone] PCP - General 02/03/12
--- OUTSIDE RECORDS SUMMARY | 2024-07-31 10:10 | XMS_ITS | Data Portability ---
Author Organization [place] [facility], Allergy Address [address] [address] Assessment Encounter Date Assessment Date Assessment LastModified [...] Sensorine ural hearing loss of bilateral ears [id number] Active 2023 ALONA GUILLEN, AUD [address] [facility] [address], [place], [address] , [facility] - [facility] 4 10:29:09 Bilateral exostosis of external ear canals [id number] 17867 Active 2023 Exostosis of external canal, bilateral ; Note: Date Diagnosed : 07/22/2023 10:03 AM (H61.813) Not Available [facility] 4 03:10:10 Abnormal auditory perceptio n [id number] Active 2023 Other abnormal auditory perceptio ns, left ear; Note: Date Diagnosed : 07/22/2023 10:03 AM (H93.292) Not Available [facility] 4 03:10:11 Problem Notes None recorded. Procedures Surgical History None recorded. Imaging Results Imaging Date Name Status [facility] Details LastModified Time 07/22/2023 imaging/diagno stic result [...] Time multivitam in tablet active Medication ID: [id number] Bra nd Name: multivitam in Send Method: E-Prescrib ed Subs Allowed: subs OK Medicat ionGeneric Name: multivitam in Not Available Not Available Not Available atorvastat in 40 mg tablet active Medication ID: [id number] nd Name: atorvastat in Send Method: E-Prescrib ed Subs Allowed: subs OK Medicat ionGeneric Name: atorvastat in Not Available Not Available Not Available neomycin-p olymyxin-h ydrocort 3.5 mg/mL-10,0 00 unit/mL-1 % ear solution INSTILL 4-5 DROPS IN LEFT EAR EVERY DAY active Not Available Not Available No t Available tamsulosin 0.4 mg capsule active Medication ID: [id number] nd Name: tamsulosin Send Method: E-Prescrib ed Subs Allowed: subs OK Medicat ionGeneric Name: tamsulosin Not Available Not Available Not Available warfarin 5 mg tablet active Medication ID: [id number] nd Name: warfarin S end Method: E-Prescrib ed Subs Allowed: subs OK Medicat ionGeneric Name: warfarin Not Available Not Available Not Available lorazepam 1 mg tablet active Medication ID: [id number] nd Name: lorazepam Send Method: E-Prescrib ed Subs Allowed: subs OK Medicat ionGeneric Name: lorazepam Not Available Not Available Not Available finasterid e 5 mg tablet active Medication ID: [id number] nd Name: finasterid e Send Method: E-Prescrib ed Subs Allowed: subs OK Medicat ionGeneric Name: finasterid e Not Available Not Available Not Available aspirin 81 mg capsule active Medication ID: [id number] nd Name: aspirin Se nd Method: E-Prescrib [...] GAUTAM ZELAYA [place] [address] [place] [address] 07/30/2023 09:51:52 09/02/2023 00:15:53 Sensorineural hearing loss of bilateral ears [id number] H90.3 [id number] GAUTAM ZELAYA [place] [address] [place] [address] 08/12/2023 10:36:38 08/12/2023 11:38:04 Sensorineural hearing loss of bilateral ears [id number] H90.3 [id number] GAUTAM ZELAYA [place] - [place] 100 [facility], [address] 100 [place] [address] 10/01/2023 10:34:45 10/02/2023 14:45:28 Sensorineural hearing loss of bilateral ears [id number] H90.3 Health Concerns Section Related Observation LastModified by Organization Detai ls LastModified Time None Recorded Concern Status LastModified by Organization Details LastModified Time None Recorded Advance Directives Directive None Recorded Payers Insurance Date Sequence Insurance Name Policy Number Policy Devine Covered Member ID Devine Member ID Guarantor Name 09/28/2023 2 [employer] OPTIONS (MEDICARE SUPPLEMENT) Arturo Bentley [id number] Arturo Bentley 09/28/2023 1 MEDICARE [place]: [employer] Arturo Bentley [id number] Arturo Bentley Notes Date Note Type Note Provider Name [...] hearing aids. Type of phone: {{iphone android (galaxy) android (off brand) no smart phone iphone, but not too interested in the bluetooth/angie technology.#}} Ordering:{{Oticon p honak* Widex}} {{ omssenyl70 Life-R in P7 steel frazier#}}Scroll Machine Operator: {{ 1M#}}Domes: {{ open medium#}}Other: {{}} Paid today: {{$ $0#}}Due at fitting {{$ $5144#}}Total: {{$ $5144#}} GAUTAM ZELAYA 100 [facility],[address], [address], [facility] - [facility] 07/30/2023 10:29:20 08/12/2023 text/html Fit today with {{phonak* oticon wi dex}} Set at level 3 and fit to target. {{No changes made after REM. Turned down after REM for comfort.*}} 90% with weak occlusion dairy department manager. VC activated and explained. All tap controls turned off. Discussed insertion/removal of devices from ears and field hand and cleaning of devices which included changing [...] osorio check*} } via {{ARG* SANJUANA}} ALONA GUILLEN, [facility] 100 [facility],[address], [address], [facility] 08/12/2023 11:33:57 10/01/2023 text/html Concerns: No [...] 1 year FU with HT. ALONA GUILLEN, [facility] [address] [facility],[place] [address], [place], [address], [facility] - [facility] 10/01/2023 11:03:39
--- OUTSIDE RECORDS SUMMARY | 2024-07-31 10:10 | XMS_ITS | Continuity of Care Document ---
Author Name [facility] Organization [facility] Care Team Providers Care Rn Supplemental Name Role Phone [facility] Unavailable Unavailable Problems Combined list of problems from Department of [facility] and [facility] facilities. It does not include entries [...] RUCHI MARQUEZ Comment: Cardio Dr Salazar at [facility] Degenerative joint disease of shoulder region Active Condition Jan 15, 2021 Entered By: RUCHI MARQUEZ Comment: Shldr Replacement, R Shldr 2016 [place] Osteoarthritis of hip Active Condition Jan 15, 2021 Entered By: RUCHI MARQUEZ Comment: THR, L Side 2014 [place] Prostate cancer Active Condition Jan 15, 2021 Entered By: RUCHI MRAQUEZ Comment: Tx'd Medically Only; [facility] - Dr. Escobar [phone] 15, 2021 Entered By: RUCHI MARQUEZ Comment: on Flomax; Last PSA was 3.5 in DEC 03 [place] Screening for malignant neoplasm of colon done Active Condition Jan 15, 2021 Entered By: RUCHI MARQUEZ Comment: Screen Colonoscopy approx 2011; No CA; repeat prn [place] Seen by general physician Active Condition Jan 15, 2021 Entered By: RUCHI MARQUEZ Comment: PCP Dr Muñoz [phone] [place] Medications Combined list of outpatient medications from Department of [facility] and [facility] facilities.Medications provided include 1) outpatient medications [...] Site Reaction Lot Number CVX Code Drug Sap Business Intelligence Consultant Status Comments Source COVID-19 ([employer]), MRNA, LNP-S, PF, 30 MCG/0.3 ML DOSE 3 2020 208 complet ed [facility] INFLUENZA, UNSPECIFIED FORMULATION 2020 88 complet ed [facility] COVID-19 (PFIZER), MRNA, LNP-S, PF, 30 MCG/0.3 ML DOSE 2 2020 208 complet ed [facility] COVID-19 (PFIZER), MRNA, LNP-S, PF, 30 MCG/0.3 ML DOSE 1 2020 208 complet ed [facility] Social History Combined list of available smoking, tobacco, and other social history from Department of Defense and Veterans Affairs facilities. Social History Type Response Date Comment [facility] e Tobacco smoking status [facility] VA-TOBACCO NEVER USED 01/16/20 21 [place]
[2024-07-31 13:48] LABS: Prostate Specific Antigen 3.91 ng/mL (<0.05-4.0)
== END 2024-07-31 09:50 | disposition home or self-care (01) ==
LOC: HO.HMGCLDS 09:49
PROVIDERS: PCP Internal Medicine; Visit Provider Urology
DX: C61 Malignant neoplasm of prostate (principal); Z12.5 Encounter for screening for malignant neoplasm of prostate
CPT/HCPCS: 36415; 84153

== ENCOUNTER 2024-08-09 09:27 | Outpatient (AMB) | payer MEDICARE, SELFPAY ==
--- NOTE | 2024-08-09 09:36 | MHC.OFFVIS ---
Intake Visit Reasons: 4m/PSA Intake Note: Patient is present for 4M/PSA Urology Medication:FINASTERIDE,TAMSULOSIN Antibiotic Allergy:NONE Blood Thinner:ASPIRIN,WARFARIN Vault Manager Required: No Allergies No Known Allergies [No Known Allergies*] Allergy (Verified 08/09/24 09:36) HPI Comments Details: Arturo is a pleasant male. He is a patient of Dr. Muñoz. He is seen for the following urologic issues. - prostate cancer - BPH PSA stable at 3.9 Using finasteride 2 times per week Would benefit from repeat MRI at next visit Has had improvement with nocturia secondary to compliance with sleep apnea therapy Urinary Symptoms Review - No specific urinary symptoms or incontinence issues discussed. - No voiding issues or nocturnal symptoms mentioned. - Patient on finasteride therapy, currently taking it twice a week. Prostate cancer grade group 1 - 05/04 - initial therapy active surveillance Prostate cancer diagnosed with Dr. Blue 2018 - initial PSA 6.5, prostate volume 35 g Initial pathology biopsy 05/04 - Gl 3+3 left mid lateral 30%, left mid medial 30% 04/26 cores PSA 08/02 6.5, 12/03 4.2 14%, 04/05 2.9, 09/03 2.2 03/05 2.8, 09/04 2.1, 03/06 2.1, 09/05 1.9, 04/08 3.8, 08/06 3.9 Initial therapy active surveillance, initiate finasteride 08/02 Prolaris DNA analysis 05/06 active surveillance group 08/01 MRI 30 g prostate, no clear evidence of clinically significant lesion Lower urinary tract symptoms Longstanding Nocturia 1-2 Mild hesitancy Current medications tamsulosin PFSH Medical History (Updated 05/16/24 @ 15:28 by Luisana Anguiano MD) Generalized anxiety disorder Insomnia Anemia of chronic disease Osteoarthritis H/O ischemic left MCA stroke Nonischemic cardiomyopathy Hyperlipidemia Atrial fibrillation Nocturnal hypoxemia 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 BPH (benign prostatic hyperplasia) Prostate cancer Elevated PSA Surgical History (Updated 06/28/24 @ 11:53 by Beatrice Mcconnell) History of colonoscopy (~08/16/13) History of right shoulder replacement History of left hip replacement Previous back surgery (~1997) Social History Patient Tobacco Use Status: Never used Tobacco Review of Systems Const Denies chills and Denies fever(s) Card Reports no additional complaints and Denies syncope Resp Denies cough GI Denies abdominal pain and Denies heartburn Reports as per HPI and Denies change in libido Neuro Denies syncope Psych Denies change in libido Endo Denies change in libido Physical Exam Const General: cooperative, healthy appearing, comfortable and no acute distress Orientation/consciousness: patient oriented x3 HEENT Face and sinus: Yes normal facial exam Mouth: moist mucous membranes Neck Neck: Yes normal visual inspection, Yes full ROM and Yes trachea midline Chest Chest palpation & inspection: normal inspection of the chest Resp Effort & Inspection: normal respiratory effort, able to speak in complete sentences and no respiratory distress GI Inspection: Yes normal to inspection Back/Spine/Pelvis Cervical Spine: normal cervical lordosis Thoracic/Lumbar Spine: thoracic and lumbar spine normal to inspection Skin General skin exam: no rashes or lesions noted Neuro General: patient oriented x3, gait normal, tone normal and moves all extremities Extrem General: Yes normal to inspection and Yes capillary refill normal Assessment & Plan Assessment & Plan (1) Prostate cancer: Comment: 05/04 low-grade, low volume prostate cancer Code(s): C61 - Malignant neoplasm of prostate Category: Medical (2) BPH (benign prostatic hyperplasia): Code(s): N40.0 - Benign prostatic hyperplasia without lower urinary tract symptoms Category: Medical Plan 1. Prostate Cancer, Grade Group 1 Plan: Active surveillance. Repeat prostate MRI in six months. Monitor PSA levels. Continue finasteride twice weekly, consider daily if PSA increases. 2. Elevated Prostate-Specific Antigen Psa Plan: Monitor PSA variability. Increase finasteride to three times a week. Reassess PSA and MRI findings in six months. Discussion Notes During the visit, we discussed the management of the patient's Grade Group 1 prostate cancer and the associated PSA levels. The patient has experienced fluctuations in PSA, previously reduced with daily finasteride. We agreed on a management plan involving continued active surveillance, with a repeat MRI scheduled for six months to assess any changes. The potential to increase finasteride frequency was discussed, noting that it could help stabilize PSA levels. The patient was informed of the risks and benefits of the current plan, including regular monitoring to detect any progression. We emphasized the accuracy of MRIs in detecting suspicious areas and the importance of early intervention if necessary. The patient is aware of the follow-up timeline and the need for consistent monitoring. Patient Instructions - Continue taking finasteride as prescribed, currently twice a week. - Expect a scheduled MRI of the prostate in six months. - Monitor any changes in urinary habits and report them during the next visit. - Consider increasing finasteride to three times a week as discussed. - Follow up in six months for lab work and MRI results. - phlebotomist supervisor/instructor prescribed Valium for MRI procedure if necessary. Orders: Orders Prostate Specific Antigen 6 Months C61 - Malignant neoplasm of prostate MR Prostate wo/w con 6 Months C61 - Malignant neoplasm of prostate Medications: New diazepam Take medication after arrival at office 2 mg PO BID 1 day PRN 2 tabs 0RF anxiety C61 - Malignant neoplasm of prostate, R45.89 - Other symptoms and signs involving emotional state Patient Instructions: This note is constructed using voice recognition software. While every effort has been made to ensure accuracy seafood packer errors may have been included. Imaging studies, laboratory and physical exam results were discussed and reviewed in detail. No major barriers to patient understanding were identified. An opportunity to ask questions regarding the treatment plan was provided. All questions were answered. The patient expressed understanding and agreement with the above treatment plan. The patient is aware they should contact our office by phone for worsening of their current condition or the appearance of new urologic symptoms. Compliance is encouraged with any medications and followup testing that is ordered. It is a privilege to participate in the urologic care of your patient. If you have any questions or concerns regarding treatment for the above conditions, or other urologic issues, please do not hesitate to contact me. The office telephone contact is [phone]. Sincerely, Dr Chidi Escobar MD, [facility] - Urology Compassionate Specialist Care for the Genitourinary System Coding Level of Care Code Est Pt Level 4 (26522) Complex EM visit Add On G2211 Diagnoses Prostate cancer C61 BPH (benign prostatic hyperplasia) N40.0
--- OUTSIDE RECORDS SUMMARY | 2024-08-09 10:08 | XMS_ITS | Clinical Summary ---
Author Organization [facility] Address [address] [place] [address] Care Team Providers Care Mental Health Therapist Name Role Phone Unavailable Primary Care Provider [...]
== END 2024-08-09 10:23 | disposition home or self-care (01) ==
LOC: HO.HUSH 09:28
PROVIDERS: PCP Internal Medicine; Visit Provider Urology
DX: C61 Malignant neoplasm of prostate (principal); N40.0 Benign prostatic hyperplasia without lower urinary tract symptoms
CPT/HCPCS: 99214; G2211

== ENCOUNTER → 2024-08-09 09:27 | Outpatient (BNVA) | payer MEDICARE, SELFPAY | PROVIDERS: PCP Internal Medicine; Visit Provider Urology | DX: C61 Malignant neoplasm of prostate (principal); N40.0 Benign prostatic hyperplasia without lower urinary tract symptoms; R45.89 Other symptoms and signs involving emotional state | CPT/HCPCS: 99212 ==

== ENCOUNTER 2024-08-21 11:00 | Outpatient (REF) | payer MEDICARE, SELFPAY ==
--- OUTSIDE RECORDS SUMMARY | 2024-08-21 12:34 | XMS_ITS | Continuity of Care Document ---
Author Name [facility] Organization [facility] Care Team Providers Care Physician Extender Name Role Phone [facility] Unavailable Unavailable Problems Combined list of problems from Department of [facility] and [facility] facilities. It does not include [...] RUCHI MARQUEZ Comment: Cardio Dr Salazar at [facility] Degenerative joint disease of shoulder region Active Condition Jan 15, 2021 Entered By: RUCHI MARQUEZ Comment: Shldr Replacement, R Shldr 2016 [place] Osteoarthritis of hip Active Condition Jan 15, 2021 Entered By: RUCHI MARQUEZ Comment: THR, L Side 2014 [place] Prostate cancer Active Condition Jan 15, 2021 Entered By: RUCHI MARQUEZ Comment: Tx'd Medically Only; U[facility] - Dr. Escobar [phone] 15, 2021 Entered By: RUCHI MARQUEZ Comment: on Flomax; Last PSA was 3.5 in DEC 03 [place] Screening for malignant neoplasm of colon done Active Condition Jan 15, 2021 Entered By: RUCHI MARQUEZ Comment: Screen Colonoscopy approx 2011; No CA; repeat prn [place] Seen by general physician Active Condition Jan 15, 2021 Entered By: RUCHI MARQUEZ Comment: PCP Dr Muñoz [phone] [place] Medications Combined list of outpatient medications from Department of [facility] and [facility] facilities.Medications provided include 1) outpatient medications [...] Site Reaction Lot Number CVX Code Drug Concrete Vault Maker Status Comments Source COVID-19 ([employer]), MRNA, LNP-S, PF, 30 MCG/0.3 ML DOSE 3 2020 208 complet ed [facility] INFLUENZA, UNSPECIFIED FORMULATION 2020 88 complet ed [facility] COVID-19 (PFIZER), MRNA, LNP-S, PF, 30 MCG/0.3 ML DOSE 2 2020 208 complet ed [facility] COVID-19 (PFIZER), MRNA, LNP-S, PF, 30 MCG/0.3 ML DOSE 1 2020 208 complet ed [facility] Social History Combined list of available smoking, tobacco, and other social history from Department of Defense and Veterans Affairs facilities. Social History Type Response Date Comment [facility] e Tobacco smoking status [facility]-TOBACCO NEVER USED 01/16/20 21 [place]
[2024-08-21 13:42] LABS: Anion Gap 14 (12-20); Blood Urea Nitrogen 22 mg/dL (9-16); Calcium 9.6 mg/dL (8.4-10.2); Carbon Dioxide 24 mmol/L (22-29); Chloride 106 mmol/L (96-108); Estimated Glomerular Filt Rate > 60; Glucose Random 110 mg/dL (60-115); Potassium 4.2 mmol/L (3.3-5.1); Sodium 140 mmol/L (135-145)
== END 2024-08-21 11:01 | disposition home or self-care (01) ==
LOC: HO.HMGCLDS 11:00
PROVIDERS: PCP Internal Medicine; Visit Provider Internal Medicine
DX: I48.11 Longstanding persistent atrial fibrillation (principal)
CPT/HCPCS: 36415; 80048

== ENCOUNTER → 2024-08-23 09:07 | Outpatient (BNVA) | payer MEDICARE, SELFPAY | PROVIDERS: PCP Internal Medicine; Visit Provider Internal Medicine Medical Oncology | DX: Z13.89 Encounter for screening for other disorder (principal) ==

== ENCOUNTER → 2024-09-06 14:45 | Outpatient (BNVA) | payer MEDICARE, SELFPAY | PROVIDERS: PCP Internal Medicine; Visit Provider Internal Medicine Medical Oncology | DX: Z13.89 Encounter for screening for other disorder (principal) ==

== ENCOUNTER 2024-11-07 10:26 | Outpatient (AMB) | payer MEDICARE, SELFPAY ==
--- OUTSIDE RECORDS SUMMARY | 2013-10-14 | XMS_ITS | Encounter Summary ---
Author Organization [facility] Address [address] [facility] [address] [place] [address] Phone Care Team Providers Care Amalgamator Name Role Phone Unavailable Primary Care Provider Unavailabl e Encounter Details Date Type Department Care Team (Late st Contact Info) Description 10/14/2013 Hospital Encounter [facility] [address] [place] [address] Noah [place] Jp, MD 55 [facility] [place] [address] [email or web address] Social History Tobacco Use Types Packs/Day [...] (No Interpretation) (10/14/2013 12:00 AM EDT) Narrative [facility] IMG INTERFACES - 09/20/2015 8:40 AM EDT This study is for PACS storage only and not for interpretation. Procedure Note SYSTEMGENERATED, DOCUMENTATION - 09/20/2015 This study is for PACS storage only and not for interpretation. us Noah Waters MD IMG OUTSIDE IMAGING W/OUT INTER PRETATION Final Result [facility] IMG INTERFACES documented in this encounter Visit Diagnoses Not on filedocumented in this encounter Additional Source Comments The information contained in this document represents components of the legal health record. It is not the complete legal health record.[facility]
--- OUTSIDE RECORDS SUMMARY | 2014-11-22 | XMS_ITS | Encounter Summary ---
Author Organization [facility] Address [address] [facility] [address] [place] [address] Phone Care Team Providers Care Feed Management Advisor Name Role Phone Unavailable Primary Care Provider Unavailabl e Encounter Details Date Type Department Care Team (Late st Contact Info) Description 11/22/2014 Hospital Encounter [facility] [address] [place] [address] Noah Waters Jp, MD [address] [facility] [address] [place] [address] [email or web address] [email or web address] Social History Tobacco Use Types [...] (No Interpretation) (11/22/2014 12:00 AM EDT) Narrative [facility] [place] - 09/20/2015 8:53 AM EDT This study is for PACS storage only and not for interpretation. Procedure Note SYSTEMGENERATED, DOCUMENTATION - 09/20/2015 This study is for PACS storage only and not for interpretation. us Noah Waters MD IMG OUTSIDE IMAGING W/OUT INTER PRETATION Final Result [facility] documented in this encounter Visit Diagnoses Not on filedocumented in this encounter Additional Source Comments The information contained in this document represents components of the legal health record. It is not the complete legal health record.[facility]
--- OUTSIDE RECORDS SUMMARY | 2015-04-03 01:00 | XMS_ITS | Encounter Summary ---
Author Organization [facility] Address [address] [facility] [address] [place] [address] Phone Care Team Providers Care Consumer Loan Processor Name Role Phone Unavailable Primary Care Provider Unavailabl e Encounter Details Date Type Department Care Team (Late st Contact Info) Description 04/03/2015 Hospital Encounter [facility] [address] [place] [address] Noah Waters Jp, MD [address] [facility] [place] [address] [email or web address] Social History Tobacco Use Types Packs/Day [...] (No Interpretation) (04/03/2015 12:00 AM EST) Narrative [facility] [place] - 09/20/2015 8:39 AM EDT This study is for PACS storage only and not for interpretation. Procedure Note SYSTEMGENERATED, DOCUMENTATION - 09/20/2015 This study is for PACS storage only and not for interpretation. us Noah Waters MD IMG OUTSIDE IMAGING W/OUT INTER PRETATION Final Result [facility] [place] [place] documented in this encounter Visit Diagnoses Not on filedocumented in this encounter Additional Source Comments The information contained in this document represents components of the legal health record. It is not the complete legal health record.[facility]
--- OUTSIDE RECORDS SUMMARY | 2021-01-15 10:31 | XMS_ITS | Continuity of Care Document ---
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 It does not include entries that were removed or entered in error. 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 Escobar [phone] 15, 2021 Entered By: RUCHI MARQUEZ Comment: on Flomax; Last PSA was 3.5 in DEC 03 [place] Screening for malignant neoplasm of colon done Active Condition Jan 15, 2021 Entered By: RUCHI MARQUEZ Comment: Screen Colonoscopy approx 2011; No CA; repeat prn QUIMBY Seen by general physician Active Condition Jan 15, 2021 Entered By: RUCHI MARQUEZ Comment: PCP Dr Muñoz [phone] [place] Medications Combined list of outpatient medications from Department of [facility] and [facility] facilities.Medications provided include 1) outpatient medications from the last 15 months, and 2) patient-reported medications. Medication Details Route Status Patient Instructions Prescription Expires Prescription Number Last Dispense Date Ordering Provider Order Date Order Qty Source ASPIRIN 81MG TAB,EC TAKE ONE TABLET BY MOUTH ONCE DAILY ORAL ACTIVE NUHA MARQUEZ 2020 IELD ATORVASTATI N CA 80MG TAB TAKE ONE-HALF TABLET BY MOUTH ONCE DAILY ORAL ACTIVE NUHA MARQUEZ 2020 IELD FINASTERIDE 5MG TAB TAKE ONE TABLET BY MOUTH BEDTIME ORAL ACTIVE NUHA MARQUEZ 2020 IELD MULTIVITAMI NS W/MINERALS TAB TAKE ONE TABLET BY MOUTH ONCE DAILY ORAL ACTIVE NUHA MARQUEZ 2020 IELD TAMSULOSIN HCL 0.4MG CAP TAKE 1 CAPSULE BY MOUTH BEDTIME ORAL ACTIVE NUHA MARQUEZ 2020 IELD WARFARIN (NON-VA) TAB TAKE 5 MG BY MOUTH ONCE DAILY NEEDED ORAL ACTIVE NUHA MARQUEZ 2020 IELD Immunizations Combined list of available immunizations from the Department of Defense and Veterans Affairs facilities. Immunization Series Date Given Administered By Site Reaction Lot Number CVX Code Drug Oracle Database Analyst Status Comments Source COVID-19 (Nasty Gal), MRNA, LNP-S, PF, 30 MCG/0.3 ML DOSE 3 2020 208 complet ed [facility] INFLUENZA, UNSPECIFIED FORMULATION 2020 88 complet ed [facility] COVID-19 (PFIZER), MRNA, LNP-S, PF, 30 MCG/0.3 ML DOSE 2 2020 208 complet ed [facility] COVID-19 (PFIZER), MRNA, LNP-S, PF, 30 MCG/0.3 ML DOSE 1 2020 208 complet ed [facility] Social History Combined list of available smoking, tobacco, and other social history from Department of Defense and Veterans Affairs facilities. Social History Type Response Date Comment [facility] e Tobacco smoking status [facility] VA-TOBACCO NEVER USED 01/16/20 21 QUIMBY
--- NOTE | 2024-11-07 10:37 | MHC.PC.OV ---
Vital Signs 11/07/24 10:39 Height 5 ft 7.68 in Weight 165 lb BMI 25.3 BP 119/56 L Respiration 16 Pulse 60 Pulse Source Pulse Oximeter Temp 98.3 F Temp Source Temporal Artery Scan Pulse Oximetry (%) 96 Oxygen Delivery Method Room Air Intake Visit Reasons: 6 month f/u - see comments Colorist Required: No Accompanied by: Self / Same As Patient Allergies No Known Allergies (No Known Allergies*) Allergy (Verified 11/07/24 10:39) Tobacco use date assessed: 11/07/24 Fall risk assessment: No Falls in past year Last assessed Fall Risk: 11/07/24 Dental Screening Dental Screen Date: 11/07/24 Did you have a dental visit in the last 12 months?: Yes Did you have a dental problem in the last 6 months where you did not have access to dental care?: No Was dental information given to patient?: Patient has dentist [facility], [facility] Medical History Generalized anxiety disorder Insomnia Anemia of chronic disease Osteoarthritis H/O ischemic left MCA stroke Nonischemic cardiomyopathy Hyperlipidemia Atrial fibrillation Nocturnal hypoxemia 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 Father No problems noted. Social History (Updated 11/07/24 @ 10:41 by DARYA Martinez) Housing: House Alcohol intake: current Alcohol intake frequency: does not drink Patient Tobacco Use Status: Never used Tobacco service: No Current occupational status: retired Cognitive needs: No Hearing needs: Yes (b/l hearing aids) Vision needs: Yes (rx glasses) Questionnaire PHQ-9 Over the last 2 weeks, how often have you been bothered by any of the following problems? 1. Little interest or pleasure in doing things: not at all 2. Feeling down, depressed, or hopeless: not at all 3. Trouble falling or staying asleep, or sleeping too much: not at all 4. Feeling tired or having little energy: not at all 5. Poor appetite or overeating: not at all 6. Feeling bad about yourself - or that you are a failure or have let yourself or your family down: not at all 7. Trouble concentrating on things, such as reading the newspaper or watching television: not at all 8. Moving or speaking so slowly that other people could have noticed. Or the opposite - being so fidgety or restless that you have been moving around a lot more than usual: not at all 9. Thoughts that you would be better off or of hurting yourself in some way: not at all Total score: 0 Source: Developed by Drs. Arden Miller, Anny Garsia, Mike Martin and colleagues, with an educational angel from [employer]. Thrive Questionnaire Date Thrive assessed: 11/07/24 I am a: Patient What is your living situation today?: I have a steady place to live Within the past 12 months, did the food you bought not last and you didn't have the money to get more?: Never true Within the past 12 months, did you worry whether your food would run out before you got money to buy more?: Never true Do you have trouble paying for medicines?: No Do you have trouble getting transportation to medical appointments?: No Do you have trouble paying your heating and electricity bill?: No Do you have trouble taking care of your child, family member or friend?: No Do you have trouble with day-to-day activities such as bathing, preparing meals, shopping, managing finances, etc.?: No Are you currently unemployed and looking for a job?: No Are you interested in more education?: No Please select the resources that you would like help with: None THRIVE Score: 0 AUDIT C Alcohol Use Questionnaire (AUDIT-C) 1. How often do you have a drink containing alcohol?: Never 3. How often do you have six or more drinks on one occasion?: Never Total Score: 0 KENNY-7 AMB Questionnaire KENNY-7 Date KENNY - 7 assessed: 11/07/24 Feeling nervous, anxious, or on edge: 0 = Not at all Not being able to stop or control worryin = Not at all Worrying too much about different things: 0 = Not at all Trouble relaxin = Not at all Being so restless that it is hard to sit still: 0 = Not at all Becoming easily annoyed or irritable: 0 = Not at all Feeling afraid as if something awful might happen: 0 = Not at all Total KENNY-7 score (0-4 normal; 5-9 mild; 10-14 moderate; 15-21 severe): 0 Source: Developed by Drs. Arden Miller, Anny Garsia, Mike Martin and colleagues, with an educational angel from [employer]. Physical exam (Primary Care) Vital Signs: Last Vital Signs Temp 98.3 F 11/07/24 10:39 Pulse 60 11/07/24 10:39 Resp 16 11/07/24 10:39 BP 119/56 L 11/07/24 10:39 Pulse Ox 96 11/07/24 10:39 Oxygen Delivery Method Room Air 11/07/24 10:39 BMI result Body Mass Index 25.3 Tobacco/Smoking Status: Tobacco use Status Tobacco use date assessed 11/07/24 11/07/24 10:43 Patient Tobacco Use Status Never used Tobacco 11/07/24 10:43 PHQ-9: PHQ-9 Score PHQ-9: Total score 0 11/07/24 10:43 Thrive Assessment: Date of Thrive Assessment Date Thrive assessed 11/07/24 11/07/24 10:43 Coding Level of Care Code Est Pt Level 4 (80196) Complex EM visit Add On G2211 Diagnoses Trigger finger M65.30 Assessment & Plan Assessment & Plan (1) Trigger finger: Code(s): M65.30 - Trigger finger, unspecified finger Plan: History of Present Illness - The patient is an 79-year-old male presenting with trigger finger and for preventative care vaccinations. - Trigger finger: The patient reports bilateral middle finger locking, requiring manual release, with a history of successful treatment via injection 30 years ago. The current episode has persisted for three months, with the right hand more severely affected. - Fluid retention: Recently managed by a sprinkler irrigation equipment mechanic with Lasix due to excess fluid. - Preventative care: The patient is considering RSV, influenza, and COVID-19 booster vaccinations, having previously received a pneumonia vaccination. Social History - Travel: The patient recently traveled to [place] with grandchildren, who assisted during the trip. Review of Systems - Musculoskeletal: Reports bilateral middle finger locking for three months. - Cardiovascular: Denies any new symptoms since starting Lasix for fluid retention. Physical Exam General: Cooperative and healthy appearing Nutritional Appearance: Well nourished Orientation/consciousness: Patient oriented x3 Limitations: No limitations Head: Normal to inspection General: Appearance normal, both eyes and all related structures Neck: Normal visual inspection Chest: Normal palpation of entire chest wall Respiratory: Deep breath in and out. Deep breath in and out. Deep breath in and out. Deep breath in and out. Deep breath in. ormal respiratory effort Neurology: Patient oriented x3 Results Plan 1. Trigger Finger - Referral to a surgeon in [place] for evaluation and possible injection treatment. 2. Fluid Retention - Managed with Lasix as prescribed by the sprinkler irrigation equipment mechanic. 3. Preventative Care - RSV, influenza, and COVID-19 booster vaccinations discussed and recommended. Discussion Notes I discussed with the patient the plan to refer him to a surgeon for his trigger finger, where he may receive an injection similar to previous treatment. We also reviewed the importance of receiving the RSV, influenza, and COVID-19 booster vaccinations for preventative care. The patient was informed that these vaccinations are available at the pharmacy and that they provide variable protection. Follow-up with the sprinkler irrigation equipment mechanic regarding fluid retention management with Lasix was also confirmed. Patient Instructions - Follow up with the surgeon in [place] for trigger finger evaluation and possible injection. - Consider receiving RSV, influenza, and COVID-19 booster vaccinations at the pharmacy. - Continue taking Lasix as prescribed by the sprinkler irrigation equipment mechanic for fluid retention.
[2024-11-07 10:39] VITALS: BP 119/56; PULSE 60; RESP 16; TEMP 36.8; O2SAT 96; BMI 25.3
--- OUTSIDE RECORDS SUMMARY | 2024-11-07 11:10 | XMS_ITS | Clinical Summary ---
Author Organization [facility] Address [address] [place], [place] [address] Phone Care Team Providers Care Needle Polisher Name Role Phone Saravanan Fajardo MD Primary Care Provider [phone] Allergies No known active allergies Medications finasteride (PROSCAR) 5 mg tablet Take 1 tablet (5 mg total) by mouth 1 (one) time each day. Active atorvastatin (LIPITOR) 40 mg tablet Take 1 tablet (40 mg total) by mouth 1 (one) time each day. Active LORazepam (ATIVAN) 1 mg tablet Take 1 tablet (1 mg total) by mouth as needed. Active multivitamin (Oncovite) tablet Take 1 tablet [...] mouth 1 (one) time each day. Active aspirin 81 mg EC tablet Take 1 tablet (81 mg total) by mouth 1 (one) time each day. Active furosemide (Lasix) 20 mg tablet Take 1 tablet (20 mg total) by mouth 1 (one) time each day. 90 each 3 08/10/2024 Active Active Problems Problem Noted Date Diagnosed Date Longstanding persistent atri al fibrillation (CMS/HCC V24, CMS/HCC V28) 07/29/2021 Overview (04/05/2024): Last Assessment & Plan: Patient has permanent atrial fibrillation, without any tacky or bradycardia symptoms reported. He is auto rate controlled. He remains anticoagulated for high [id number]-TGOm score with prior stroke. He does have sleep apnea by home sleep study though the sleep center did not have any upcoming in lab titration study appointments available per his report and he plans to see the pulmonology team at [facility] next week. We discussed the long-term [...] us of any changes in his condition. Assessment & Plan (08/10/2024 10:14 AM EDT): Orders: ECG 12 lead Transthoracic echocardiogram (TTE) complete with PRN contrast, bubble, strain, and 3D order panel; Future Basic metabolic panel; Future Nonrheumatic tricuspid valve regurgitation 07/29 Overview (04/05/2024): Last Assessment & Plan: Update echocardiogram prior to his next visit. Hopefully he will be able to tolerate CPAP. Continue to follow. Encounters Date Type Department Care Team Description 08/10/2024 9:50 AM EDT Office Visit [facility] [address] [place] [phone] Neville Salazar MD Longstanding persistent atrial fibrillation ([facility] V24, [facility] V28) (Primary Dx); Right ventricular enlargement; Hyperlipidemia, unspecified hyperlipidemia type from Last 3 Months Family History Medical [...] Sign Reading Time Taken Comments Blood Pressure 126/74 08/10/2024 9:45 AM EDT Pulse 65 08/10/2024 9:45 AM EDT Temperature - - Respiratory Rate - - Oxygen Saturation 98% 08/10/2024 9:45 AM EDT Inhaled Oxygen Concentration - - Weight 78.9 kg (174 lb) 08/10/2024 9:45 AM EDT Height 172.7 cm (5' 8 ) 08/10/2024 9:45 AM EDT Body Mass Index 26.46 08/10/2024 9:45 AM EDT Plan of Treatment Upcoming Encounters Date Type Department Care Team (Late st Contact Info) Description 11/16/2024 11:00 AM EDT Ancillary Procedure [facility] [address] [place] [address] Health Maintenance Due Date Last Done Comments RSV Immunization Adult Patients (1 - 1-dose 75+ series) 01/20/2019 Cholesterol Screening (Lipid Panel) 02/22/2022 Falls Risk Assessment 02/22/2022 Medicare Annual Wellness Visit 02/22/2022 Social Influencers of Health Screening 02/22/2022 Depression Screening 03/15/2024 COVID-19 Vaccine ( season) 2024 11/12/2023, 03/16/2023, 08/18/2022, Additional history exists Influenza Vaccine (#1) 2024 , 10/26/2022, 12/09/2021, Additional history exists DTaP,Tdap,and Td Vaccines (2 - Td or Tdap) 06/06/2028 06/06/2018 Pneumococcal Vaccine: 50+ Years Completed 09/22/2021, 04/08/2015 Zoster Vaccines Completed 12/09/2021, 09/30/2021 HIB Vaccines Aged Out No longer eligi [...] 20 months Aged Out No longer eligible based on patient's age to complete this topic Varicella Vaccines Aged Out No longer eligible based on patient's age to complete this topic Procedures Procedure Name Priority Date/Time Associated Diagnosis Comments EXTERNAL CLINICAL LAB Routine 08/21/2024 11:00 AM EDT ECG 12-LEAD Routine 08/10/2024 9:50 AM EDT Longstanding persistent atrial fibrillation (CMS/HCC V24, CMS/HCC V28) from Last 3 Months Results * External clinical lab (08/21/2024 11:00 AM EDT) us Historical Provider LAB BLOOD ORDERABLES Edit ed Result - Final * ECG 12 lead (08/10/2024 9:50 AM EDT) Ventricular Rate ECG 65 BPM GEMUSE Atrial Rate 394 BPM GEMUSE QRS Duration 98 ms GEMUSE Q-T Interval 446 ms GEMUSE QTc 463 ms GEMUSE R [place] 64 degrees GEMUSE T [place] 26 degrees GEMUSE ECG Interpretation Atrial fibrillation Abnormal ECG No previous ECGs available Confirmed by MD Martin, Neville ([id number]) on 08/10/2024 10:22:04 AM GEMUSE 08/10/2024 9:50 AM EDT 08/10/2024 10:22 AM EDT us Neville Salazar MD ECG ORDERABLES Final Res ult [facility] [place] from Last 3 Months Insurance MEDICARE [facility] Care Teams Needle Polisher Relationship Specialty Start Date End Date Saravanan Fajardo MD PCP - General Internal Medicine 08/10/24
--- OUTSIDE RECORDS SUMMARY | 2024-11-07 11:10 | XMS_ITS | Encounter Summary ---
Author Organization [facility] Address [address] [place] [address] Phone Care Team Providers Care Chip Applying Machine Tender Name Role Phone Pollo Iglesias MD Primary Care Provider [phone] Arden Muñoz DO Primary Care Provider Abdiaziz Blue MD Unavailable + Guru Traci Sanches MD Unavailable [phone] Justice Kate MD Unavailable [phone] Al Benoit MD Unavailable Self-Referred, Patient Unavailable Unavailab le Encounter Details Date Type Department Care Team (Late st Contact Info) Description 01/07/2016 Procedure Pass [facility] [address] [place] [phone] Social History Tobacco Use Types Packs/Day Years [...] on file documented as of this encounter Visit Diagnoses Not on filedocumented in this encounter Care Teams Chip Applying Machine Tender Relationship Specialty Start Date End Date Pollo Iglesias MD [address] [place] [address] PCP - General Internal Medicine 06/03/15 07/07/18 Arden Muñoz DO [address] [place] [address] PCP - General Internal Medicine 07/08/18 Abdiaziz Blue MD [address] [place] [address] Referring Physician Urology 05/11/19 Guru Traci Sanches MD [address] [place] [address] [email or web address] Medical Oncology 05/11/19 Justice Kate MD [address] [place] [address] [email or web address] Urology 05/11/19 Al Benoit MD [address] [place] [address] [email or web address] Radiation Oncology 05/11/19 Self-Referred, Patient 06/05/19 06/05/19 documented as of this encounter Additional Source Comments The information contained in this document represents components of the legal health record. It is not the complete legal health record.[facility]
--- OUTSIDE RECORDS SUMMARY | 2024-11-07 11:10 | XMS_ITS | Encounter Summary ---
Author Organization [facility] Address [address] [place] [address] Phone Care Team Providers Care Pediatrics Physician Name Role Phone Pollo Iglesias MD Primary Care Provider Arden Muñoz DO Primary Care Provider Abdiaziz Blue MD Unavailable + Guru Traci Sanches MD Unavailable [phone] Justice Kate MD Unavailable Al Benoit MD Unavailable [phone] Self-Referred, Patient Unavailable Unavailab le Reason for Visit * Reason Onset Date Comments Post Discharge Follow Up Call 07/12/2015 Encounter Details Date Type Department Care Team (Late st Contact Info) Description 07/12/2015 Telephone [facility] [address] [place] [address] RN [address] [place] [address] [email or web address] Discharge Follow Up Call Social History Tobacco Use Types Packs/Day Years [...] on filedocumented in this encounter Care Teams Pediatrics Physician Relationship Specialty Start Date End Date Pollo Iglesias MD [address] [place] [address] PCP - General Internal Medicine 06/03/15 07/07/18 Arden Muñoz DO [address] [place] [address] PCP - General Internal Medicine 07/08/18 Abdiaziz Blue MD [address] [place] [address] Referring Physician Urology 05/11/19 Guru Traci Sanches MD [address] [place] [address] [email or web address] Medical Oncology 05/11/19 Justice Kate MD [address] [place] [address] [email or web address] Urology 05/11/19 Al Benoit MD [address] [place] [address] [email or web address] Radiation Oncology 05/11/19 Self-Referred, Patient 06/05/19 06/05/19 documented as of this encounter Additional Source Comments The information contained in this document represents components of the legal health record. It is not the complete legal health record.[facility]
--- OUTSIDE RECORDS SUMMARY | 2024-11-07 11:10 | XMS_ITS | Encounter Summary ---
Author Organization [facility] Address [address] [place] [address] Phone Care Team Providers Care Manager Studio Name Role Phone Pollo Iglesias MD Primary Care Provider [phone] Arden Muñoz DO Primary Care Provider [phone] Abdiaziz Blue MD Unavailable + Guru Traci Sanches MD Unavailable [phone] Justice Kate MD Unavailable Al Benoit MD Unavailable Self-Referred, Patient Unavailable Unavailab le Encounter Details Date Type Department Care Team (Late st Contact Info) Description 03/06/2016 Procedure Pass [facility] [place] [address] [place] [address] Social History Tobacco Use Types Packs/Day Years [...] PM EDT documented as of this encounter Functional Status * Patient is deaf or has serious difficulty with hearing Answer Date of Assessment Author No 01/07/2016 9:40 PM Danny Sen MD * Patient is blind or has serious difficulty with seeing, even when wearing glasses Answer Date of Assessment Author No 01/07/2016 9:40 PM Danny Sen MD * Patient has serious difficulty walking or climbing stairs (5yr old or older) Answer Date of Assessment Author No 01/07/2016 9:40 PM Danny Sen MD * Patient has serious difficulty dressing or bathing (5yr old or older) Answer Date of Assessment Author Yes 01/07/2016 9:40 PM Danny Sen MD * Patient has serious difficulty doing errands alone such as visiting a doctor???s office or shopping, due to physical, mental, or emotional condition (15 years old or older) Answer Date of Assessment Author No 01/07/2016 9:40 PM Danny Sen MD documented as of this encounter Mental Status * Patient has serious difficulty concentrating, remembering, or making decisions due to physical, mental, or emotional condition Answer Entry Date Author No 01/07/2016 9:40 PM Danny Sen MD documented in this encounter Plan of Treatment Not on file documented as of this encounter Visit Diagnoses Not on filedocumented in this encounter Care Teams Manager Studio Relationship Specialty Start Date End Date Pollo Iglesias MD [address] [place] [address] PCP - General Internal Medicine 06/03/15 07/07/18 Arden Muñoz DO [address] [place] [address] PCP - General Internal Medicine 07/08/18 Abdiaziz Blue MD [address] [place] [address] Referring Physician Urology 05/11/19 Guru Traci Sanches MD [address] [place] [address] [email or web address] Medical Oncology 05/11/19 Justice Kate MD [address] [place] [address] Urology 05/11/19 Al Benoit MD [address] [place] [address] [email or web address] Radiation Oncology 05/11/19 Self-Referred, Patient 06/05/19 06/05/19 documented as of this encounter Additional Source Comments The information contained in this document represents components of the legal health record. It is not the complete legal health record.[facility]
--- OUTSIDE RECORDS SUMMARY | 2024-11-07 11:10 | XMS_ITS | Encounter Summary ---
Author Organization [facility] Address [address] [place] [address] Phone Care Team Providers Care Picker/Puller Name Role Phone Pollo Iglesias MD Primary Care Provider Arden Muñoz DO Primary Care Provider Abdiaziz Blue MD Unavailable + Guru Traci Sanches MD Unavailable [phone] Justice Kate MD Unavailable Al Benoit MD Unavailable Self-Referred, Patient Unavailable Unavailab le Encounter Details Date Type Department Care Team (Late st Contact Info) Description 01/14/2016 Telephone [facility] Department of Orthopaedic Surgery, Sports Medicine Service [address] [place] [address] Danny Acosta MD [address] [place] [address] Social History Tobacco Use Types Packs/Day Years [...] of Assessment Author No 01/07/2016 9:40 PM EDT Danny Acosta MD * Patient is blind or has serious difficulty with seeing, even when wearing glasses Answer Date of Assessment Author No 01/07/2016 9:40 PM EDT Danny Acosta MD * Patient has serious difficulty walking or climbing stairs (5yr old or older) Answer Date of Assessment Author No 01/07/2016 9:40 PM EDT Danny Acosta MD * Patient has serious difficulty dressing or bathing (5yr old or older) Answer Date of Assessment Author Yes 01/07/2016 9:40 PM EDT Danny Acosta MD * Patient has serious difficulty doing errands alone such as visiting a doctor???s office or shopping, due to physical, mental, or emotional condition (15 years old or older) Answer Date of Assessment Author No 01/07/2016 9:40 PM CHAKAT Danny Acosta MD documented as of this encounter Mental Status * Patient has serious difficulty concentrating, remembering, or making decisions due to physical, mental, or emotional condition Answer Entry Date Author No 01/07/2016 9:40 PM Danny Sen MD documented in this encounter Plan of Treatment Not on file documented as of this encounter Visit Diagnoses Not on filedocumented in this encounter Care Teams Picker/Puller Relationship Specialty Start Date End Date Pollo Iglesias MD [address] [place] [address] PCP - General Internal Medicine 06/03/15 07/07/18 Arden Muñoz DO [address] [place] [address] PCP - General Internal Medicine 07/08/18 Abdiaziz Blue MD [address] [place] [address] Referring Physician Urology 05/11/19 SonGuru Traci schneider MD [facility] [place] [address] [email or web address] Medical Oncology 05/11/19 Justice Kate MD [address] [place], [place] [address] [place] [address] [email or web address] Urology 05/11/19 Al Benoit MD [address] [place] [address] [email or web address] Radiation Oncology 05/11/19 Self-Referred, Patient 06/05/19 06/05/19 documented as of this encounter Additional Source Comments The information contained in this document represents components of the legal health record. It is not the complete legal health record.[facility]
--- OUTSIDE RECORDS SUMMARY | 2024-11-07 11:10 | XMS_ITS | Encounter Summary ---
Author Organization [facility] Address [address] [place] [address] Phone Care Team Providers Care Draft Roller Picker Name Role Phone Arden Muñoz DO Primary Care Provider Abdiaziz Blue MD Unavailable + Guru Traci Sanches MD Unavailable [phone] Justice Kate MD Unavailable Al Bneoit MD Unavailable [phone] Encounter Details Date Type Department Care Team (Late st Contact Info) Description 07/20/2022 Ancillary Orders [facility] Medical [facility] Orthopedics & Sports Medicine [address] [place] [address] Awa Andino MD [address] [place] [address] Orthopedics & Sports Medicine, [place], [place] [id number] [email or web address] Social History Tobacco Use Types Packs/Day Years [...] on file 07/10/2022 No 07/10/2022 No 07/10/2022 Sex and Gender Information Value Date Recorded Sex Assigned at Male 06/04/2019 8:48 PM EDT Legal Sex Male 9:44 AM EDT Gender Identity Male 06/04/2019 8:48 PM EDT Sexual Orientation Straight 06/04/2019 8: 48 PM EDT documented as of this encounter Functional Status * Patient is deaf or has serious difficulty with hearing Answer Date of Assessment Author No 07/01/2016 4:43 PM EDT Amirah Anguiano CNP * Patient is blind or has serious difficulty with seeing, even when wearing glasses Answer Date of Assessment Author No 07/01/2016 4:43 PM EDT Amirah Anguiano CNP * Patient has serious difficulty walking or climbing stairs (5yr old or older) Answer Date of Assessment Author No 07/01/2016 4:43 PM EDT Amirah Anguiano CNP * Patient has serious difficulty dressing or bathing (5yr old or older) Answer Date of Assessment Author No 07/01/2016 4:43 PM EDT Amirah Anguiano CNP * Patient has serious difficulty doing errands alone such as visiting a doctor???s office or shopping, due to physical, mental, or emotional condition (15 years old or older) Answer Date of Assessment Author No 07/01/2016 4:43 PM Amirah Al CNP documented as of this encounter Mental Status * Patient has serious difficulty concentrating, remembering, or making decisions due to physical, mental, or emotional condition Answer Entry Date Author No 07/01/2016 4:43 PM Amirah Al CNP documented in this encounter Plan of Treatment Not on file documented as of this encounter Visit Diagnoses Not on filedocumented in this encounter Care Teams Draft Roller Picker Relationship Specialty Start Date End Date Arden Muñoz DO [address] [place] [address] PCP - General Internal Medicine 07/08/18 Abdiaziz Blue MD [address] [place] [address] Referring Physician Urology 05/11/19 SonGuru Traci schneider MD [facility] [place] [address] [email or web address] Medical Oncology 05/11/19 Justice Kate MD [address] [place] [address] Urology 05/11/19 Al Benoit MD [address] [place] [address] [email or web address] Radiation Oncology 05/11/19 documented as of this encounter Additional Source Comments The information contained in this document represents components of the legal health record. It is not the complete legal health record.[facility]
--- OUTSIDE RECORDS SUMMARY | 2024-11-07 11:11 | XMS_ITS | Encounter Summary ---
Author Organization [facility] [place] [facility] Address [address] [place] [address] Phone Care Team Providers Care Repeater Chief Name Role Phone Arden Muñoz DO Primary Care Provider Abdiaziz Blue MD Unavailable + Guru Traci Sanches MD Unavailable [phone] Justice Kate MD Unavailable Al Benoit MD Unavailable [phone] Encounter Details Date Type Department Care Team (Late st Contact Info) Description 01/09/2022 Ancillary Orders [address] [address] Awa Andino MD [address] [place] [address] Orthopedics & Sports Medicine, [place] [address] [email or web address] Hip pain, chronic, right Social History Tobacco Use Types Packs/Day Years [...] documented in this encounter Plan of Treatment Pending Results Name Type Priority Associated Diagnoses Date /Time FL Guidance Needle Placement Non-Spine Imaging Routine Hip pain, chronic, right 01/13/2022 9:20 AM EDT Scheduled Orders Name Type Priority Associated Diagnoses Orde r Schedule FL Guidance Needle Placement Non-Spine Imaging Routine Hip pain, chronic, right 1 Occurrences starting 01/09/2022 until 04/11/2022 documented as of this encounter Visit Diagnoses Diagnosis Hip pain, chronic, right documented in this encounter Care Teams Repeater Chief Relationship Specialty Start Date End Date Arden Muñoz DO [address] [place] [address] PCP - General Internal Medicine 07/08/18 Abdiaziz Blue MD [address] [place] [address] Referring Physician Urology 05/11/19 Guru Traci Sanches MD [address] [place] [address] [address] [place] [address] [email or web address] Medical Oncology 05/11/19 Justice Kate MD [address] [place] [address] Urology 05/11/19 Al Benoit MD [address] [place] [address] [email or web address] Radiation Oncology 05/11/19 documented as of this encounter Additional Source Comments The information contained in this document represents components of the legal health record. It is not the complete legal health record.[facility] [place] [facility]
--- OUTSIDE RECORDS SUMMARY | 2024-11-07 11:11 | XMS_ITS | Encounter Summary ---
Author Organization [facility] Address [address] [place] [address] Phone Care Team Providers Care Pipe Fitter Supervisor Name Role Phone Pollo Iglesias MD Primary Care Provider Arden Muñoz DO Primary Care Provider Abdiaziz Blue MD Unavailable + Guru Traci Sanches MD Unavailable [phone] Justice Kate MD Unavailable Al Benoit MD Unavailable [phone] Self-Referred, Patient Unavailable Unavailab le Encounter Details Date Type Department Care Team (Late st Contact Info) Description 05/01/2016 Procedure Pass [facility] PERIOPERATIVE DEPT [address] [place] [id number] Social History Tobacco Use Types Packs/Day Years [...] of Assessment Author No 01/07/2016 9:40 PM EDDanny Polo MD * Patient is blind or has [...] on filedocumented in this encounter Care Teams Pipe Fitter Supervisor Relationship Specialty Start Date End Date Pollo Iglesias MD [address] [place] [address] PCP - General Internal Medicine 06/03/15 07/07/18 Arden Muñoz DO [address] [place] [address] PCP - General Internal Medicine 07/08/18 Abdiaziz Blue MD [address] [place] [address] Referring Physician Urology 05/11/19 Guru Traci Sanches MD [address] [place] [address] [email or web address] Medical Oncology 05/11/19 Justice Kate MD [address] [place] [address] [email or web address] Urology 05/11/19 Al Benoit MD [address] [place] [address] [email or web address] Radiation Oncology 05/11/19 Self-Referred, Patient 06/05/19 06/05/19 documented as of this encounter Additional Source Comments The information contained in this document represents components of the legal health record. It is not the complete legal health record.[facility]
--- OUTSIDE RECORDS SUMMARY | 2024-11-07 11:11 | XMS_ITS | Encounter Summary ---
Author Organization [facility] Address [address] [place] [address] Phone Care Team Providers Care Microsoft Office Instructor Name Role Phone Arden Muñoz DO Primary Care Provider Abdiaziz Blue MD Unavailable + Guru Traci Sanches MD Unavailable [phone] Justice Kate MD Unavailable [phone] Al Benoit MD Unavailable Encounter Details Date Type Department Care Team (Late st Contact Info) Description 01/09/2022 Ancillary Orders [facility] Medical [facility] Orthopedics & Sports Medicine [address] [place] [address] Awa Andino MD [address] [place] [address] Orthopedics & Sports Medicine, [place], [place] [id number] [email or web address] Social History Tobacco Use Types Packs/Day Years [...] on filedocumented in this encounter Care Teams Microsoft Office Instructor Relationship Specialty Start Date End Date Arden Muñoz DO [address] [place] [address] PCP - General Internal Medicine 07/08/18 Abdiaziz Blue MD [address] [place] [address] Referring Physician Urology 05/11/19 Guru Traci Sanches MD [address] [place] [address] [email or web address] Medical Oncology 05/11/19 Justice Kate MD [address] [place] [address] [email or web address] Urology 05/11/19 Al Benoit MD [address] [place] [address] [email or web address] Radiation Oncology 05/11/19 documented as of this encounter Additional Source Comments The information contained in this document represents components of the legal health record. It is not the complete legal health record.[facility]
--- OUTSIDE RECORDS SUMMARY | 2024-11-07 11:11 | XMS_ITS | Encounter Summary ---
Author Organization [facility] Address [address] [place] [address] [address] [place] [address] Phone Care Team Providers Care Gun Synchronizer Name Role Phone Pollo Iglesias MD Primary Care Provider Arden Muñoz DO Primary Care Provider Abdiaziz Blue MD Unavailable + Guru Traci Sanches MD Unavailable [phone] Justice Kate MD Unavailable Al Benoit MD Unavailable Self-Referred, Patient Unavailable Unavailab le Reason for Referral * Consultation (Routine) - Closed Specialty Diagnoses / Procedures Referred By Contclementina rojas Referred To Contact Rheumatology Diagnoses Primary osteoarthritis of right shoulder System, Provider Not In, PhD [address] [address] Referral ID Status Reason Start Date Expiration Date Visits Re quested Visits Authorized [id number] Closed 06/03/2015 06/03/2016 1 1 Encounter Details Date Type Department Care Team (Latest Contact Info) Description 06/03/2015 Transcribe Orders [facility] Rheumatology [address], [address] [place] [address] InstrDong avila MD [address] [place] [address] [place] [address] Primary osteoarthritis of right shoulder (Primary Dx) Social History Tobacco Use Types Packs/Day Years Used Date Smoking Tobacco: Never Assessed Sex and Gender Information Value Date Recorded Sex Assigned at Male 06/04/2019 8:48 PM EDT Legal Sex Male 9:44 AM EDT Gender Identity Male 06/04/2019 8:48 PM EDT Sexual Orientation Straight 06/04/2019 8: 48 PM EDT documented as of this encounter Plan of Treatment Scheduled Referrals Name Type Priority Associated Diagnoses Orde r Schedule Ambulatory referral to [facility] Rheumatology Outpatient Referral Routine Primary osteoarthritis of right shoulder Ordered: 06/03/2015 documented as of this encounter Visit Diagnoses Diagnosis Primary osteoarthritis of right shoulder- Primary documented in this encounter Care Teams Gun Synchronizer Relationship Specialty Start Date End Date Pollo Iglesias MD [address] [place] [address] PCP - General Internal Medicine 06/03/15 07/07/18 Arden Muñoz DO [address] [place] [address] PCP - General Internal Medicine 07/08/18 Abdiaziz Blue MD [address] [place] [address] Referring Physician Urology 05/11/19 Guru Traci Sanches MD [address] [place] [address] [email or web address] Medical Oncology 05/11/19 Justice Kate MD [address] [place] [address] [email or web address] Urology 05/11/19 Al Benoit MD [address] [place] [address] [email or web address] Radiation Oncology 05/11/19 Self-Referred, Patient 06/05/19 06/05/19 documented as of this encounter Additional Source Comments The information contained in this document represents components of the legal health record. It is not the complete legal health record.[facility]
--- OUTSIDE RECORDS SUMMARY | 2024-11-07 11:11 | XMS_ITS | Encounter Summary ---
Author Organization [facility] Address [address] [place] [address] Phone Care Team Providers Care Facility Manager Histology Name Role Phone Arden Muñoz DO Primary Care Provider Abdiaziz Blue MD Unavailable + Guru Traci Sanches MD Unavailable [phone] Justice Kate MD Unavailable Al Benoit MD Unavailable Encounter Details Date Type Department Care Team (Late st Contact Info) Description 07/20/2022 Ancillary Orders [address] [address] Awa Andino MD [address] [place] [address] Orthopedics & Sports Medicine, [place], [place] [phone] [email or web address] Hip pain, right Social History Tobacco Use Types Packs/Day [...] 07/01/2016 4:43 PM EDT Amirah Anguiano CNP documented as of this encounter Mental Status * Patient has serious difficulty concentrating, remembering, or making decisions due to physical, mental, or emotional condition Answer Entry Date Author No 07/01/2016 4:43 PM EDT Amirah Anguiano CNP documented in this encounter Plan of Treatment Pending Results Name Type Priority Associated Diagnoses Date /Time FL Guidance Needle Placement Non-Spine Imaging Routine Hip pain, right 07/21/2022 10:23 AM EDT Scheduled Orders Name Type Priority Associated Diagnoses Orde r Schedule FL Guidance Needle Placement Non-Spine Imaging Routine Hip pain, right 1 Occurrences starting 07/20/2022 until 10/20/2022 documented as of this encounter Visit Diagnoses Diagnosis Hip pain, right Pain in joint, pelvic region and thigh documented in this encounter Care Teams Facility Manager Histology Relationship Specialty Start Date End Date Arden Muñoz DO [address] [place] [address] PCP - General Internal Medicine 07/08/18 Abdiaziz Blue MD [address] [place] [address] Referring Physician Urology 05/11/19 Guru Traci Sanches MD [address] [place] [address] [email or web address] Medical Oncology 05/11/19 Jusitce Kate MD [address] [place] [address] [email or web address] Urology 05/11/19 Al Benoit MD [address] [place] [address] [email or web address] Radiation Oncology 05/11/19 documented as of this encounter Additional Source Comments The information contained in this document represents components of the legal health record. It is not the complete legal health record.[facility]
--- OUTSIDE RECORDS SUMMARY | 2024-11-07 11:11 | XMS_ITS | Encounter Summary ---
Author Organization [facility] Address [address] [place] [address] Phone Care Team Providers Care Brokerage Clerk Name Role Phone Pollo Iglesias MD Primary Care Provider [phone] Arden Muñoz DO Primary Care Provider [phone] Abdiaziz Blue MD Unavailable + Guru Traci Sanches MD Unavailable [phone] Justice Kate MD Unavailable Al Benoit MD Unavailable Self-Referred, Patient Unavailable Unavailab le Encounter Details Date Type Department Care Team (Late st Contact Info) Description 02/13/2016 Telephone [facility] Department of Orthopaedic Surgery, Sports Medicine Service [address] [facility] [address] [place] [address] Danny Acosta MD [address] [place] [address] Social History Tobacco Use Types Packs/Day Years [...] on filedocumented in this encounter Care Teams Brokerage Clerk Relationship Specialty Start Date End Date Pollo Iglesias MD [address] [place] [address] PCP - General Internal Medicine 06/03/15 07/07/18 Arden Muñoz DO [address] [place] [address] PCP - General Internal Medicine 07/08/18 Abdiaziz Blue MD [address] [place] [address] Referring Physician Urology 05/11/19 SonGuru Traci schneider MD [facility] [place] [address] [email or web address] Medical Oncology 05/11/19 Justice Kate MD [address] [place], [place] [address] [place] [address] [email or web address] Urology 05/11/19 Al Benoit MD [address] [place] [address] [email or web address] Radiation Oncology 05/11/19 Self-Referred, Patient 06/05/19 06/05/19 documented as of this encounter Additional Source Comments The information contained in this document represents components of the legal health record. It is not the complete legal health record.[facility]
--- OUTSIDE RECORDS SUMMARY | 2024-11-07 11:11 | XMS_ITS | Encounter Summary ---
Author Organization [facility] Address [address] [place] [address] Phone Care Team Providers Care Trial Paralegal Name Role Phone Pollo Iglesias MD Primary Care Provider [phone] Arden Muñoz DO Primary Care Provider [phone] Abdiaziz lBue MD Unavailable + Guru Traci Sanches MD Unavailable [phone] Justice Kate MD Unavailable Al Benoit MD Unavailable Self-Referred, Patient Unavailable Unavailab le Encounter Details Date Type Department Care Team (Late st Contact Info) Description 02/13/2016 Documentation [facility] Department of Orthopaedic Surgery, Sports Medicine Service [address] [facility] [address] [place] [address] Danny Acosta MD [address] [place] [address] Social History Tobacco Use Types Packs/Day Years [...] on filedocumented in this encounter Care Teams Trial Paralegal Relationship Specialty Start Date End Date Pollo Iglesias MD [address] [place] [address] PCP - General Internal Medicine 06/03/15 07/07/18 Arden Muñoz DO [address] [place] [address] PCP - General Internal Medicine 07/08/18 Abdiaziz Blue MD [address] [place] [address] Referring Physician Urology 05/11/19 SonGuru Traci schneider MD [facility] [place] [address] [email or web address] Medical Oncology 05/11/19 Justice Kate MD [address] [place], [place] [address] [place] [address] [email or web address] Urology 05/11/19 Al Benoit MD [address] [place] [address] [email or web address] Radiation Oncology 05/11/19 Self-Referred, Patient 06/05/19 06/05/19 documented as of this encounter Additional Source Comments The information contained in this document represents components of the legal health record. It is not the complete legal health record.[facility]
--- OUTSIDE RECORDS SUMMARY | 2024-11-07 11:11 | XMS_ITS | Clinical Summary ---
Author Organization [facility] Address [address] [place] [address] Phone Care Team Providers Care Front Desk Name Role Phone Arden Muñoz DO Primary Care Provider Abdiaziz Blue MD Unavailable + Guru Traci Sanches MD Unavailable [phone] Justice Kate MD Unavailable [phone] Al Benoit MD Unavailable Allergies No known active allergies Medications warfarin (COUMADIN) 5 MG tablet Take 5 mg by mouth daily. 5 times a week Active tamsulosin (FLOMAX) 0.4 mg Cp24 Take 0.4 mg by mouth every morning. Active atorvastatin (LIPITOR) 40 MG tablet Take 40 mg by mouth nightly. Active LORazepam (ATIVAN) 1 MG tablet Take 1 mg by mouth nightly at bedtime. Reported on 04/24/2016 Active therapeutic multivitamin tablet Take 1 tablet by mouth every morning. Active aspirin 81 MG EC tablet Take 81 mg by mouth daily. Active finasteride (PROSCAR) 5 mg tablet 3 Active aspirin 81 MG EC tablet 1 tablet. Active atorvastatin (LIPITOR) 40 MG tablet 1 tablet. Active LORazepam (ATIVAN) 1 MG tablet 1 tablet at bedtime as needed 3 Active tamsulosin (FLOMAX) 0.4 mg Cap 1 capsule. Active warfarin (COUMADIN) 5 MG tablet 1 tablet as directed Active Active Problems Problem Noted Date Diagnosed Date Blocked ear, left 02/02/2023 Assessment & Plan (02/23/2023 3:51 PM EST): Perception of left hearing difficulty noted for the past year. Prior exam was unremarkable. He faxed over a recent hearing test from a couple of weeks ago along with his hearing test from last year. Both demonstrated symmetric downsloping normal to severe sensorineural hearing loss with good word clarity. Word clarity was equal on both sides. He also had a CT temporal bone, neck and nasopharynx which were unremarkable. He has no neck problems or bruxism. Flonase, Claritin did not provide benefit. We reviewed that there does not appear to be any obvious reason for his left hearing difficulty. We discussed referred process causing distortion such as TMJ dysfunction, sinus or cervicogenic process. There is some newer research about hidden hearing loss. I suggested visit with otology and he is welcome to see an embroidery specialist closer to home or at [facility]. He will consider his options. Ultimately, he could consider hearing aid trial and see if that helps. Recommended: Otology evaluation for further discussion of left hearing distortion Could consider hearing aid trial Assessment & Plan (02/02/2023 2:03 PM EST): Persistent left ear blockage noted for the past year or so, presents for second opinion. Exam revealed intact tympanic membranes without infection or effusion. There was no availability for formal audiogram today, though tympanometry was performed. This was normal, type a bilaterally. I personally reviewed the CT temporal bone and CT neck that he had recently performed. There was no overt effusion or middle ear/mastoid process. There was no evidence of nasopharyngeal mass or lesion. He had presented under the suspicion of eustachian tube dysfunction. His history does not seem suggestive of it as he has trialed Claritin and Flonase without benefit and has no pain upon flying. He also has no history of recurrent effusions or infections. It is possible his symptoms are related to a sensorineural asymmetry. I recommended updated audiogram and we can compared to audiogram that he has had in the past, reportedly a few years ago. Some of the nuances and details of the audiogram would suggest whether he would be a hearing aid candidate. He will let my office know once he is able to have the audiogram closer to home. His local ENT office can fax us the results that we can arrange a telemedicine visit to review the data. He knows to call should questions or problems arise in the interim. Comprehensive audiogram testing, can perform locally Obtain updated audiogram and prior audiogram, fax results to our office Telemedicine appointment once data is obtained Prostate carcinoma 06/05/2019 Cancer Staging:Clinical:Stage IIB(cT1c, cN0, cM0, PSA: 7, Grade Group: 2) - Signed by Al Benoit MD on 06/05/2019 History of right shoulder replacement 06/29/2016 Presence of left artificial hip joint 06/24/2016 Right shoulder pain 01/07/2016 Osteoarthritis of left hip 07/08/2015 History of total left hip replacement 07/08/2015 Overview (08/07/2015): with Dr. Fuller Preop exam for internal medicine 06/26/2015 Overview (06/26/2015): Left AMY 07/08/15 Assessment & Plan (06/26/2015 1:33 PM EDT): Cardiac Risk Estimation: Patient has no unstable cardiac disease, revised cardiac risk index = 1, risk for major cardiac complications is 1%, Ruiz/NSQIP estimated risk of perioperative OK or cardiac arrest is <1%, can proceed to surgery without further cardiac risk stratification. Blood management: TXE will be ordered if Hb <13. Deep vein thrombosis prophylaxis: per orthopedic protocol Tendinitis of left hip flexor 06/26/2015 Overview (06/26/2015): Since 2014, in groin area, use to swim 3 /wk and go to gym 2/wk, taking motrin prn Chronic a-fib 06/26/2015 Overview (06/26/2015): Since 1997, on coumadin since CVA in 2013, literacy consultant Dr. Enrique Vogt, normal stress ECHO 01/29/14, CHADSVASC2=3 Assessment & Plan (06/26/2015 2:37 PM EDT): Given the severity of his embolic stroke 2 years ago, bridging anticoagulate with Lovenox has been recommended by his literacy consultant. The plan is to stop Coumadin 5 days before surgery, start Lovenox 1 mg/kg twice a day once INR is below 2, last dose Lovenox is 24 hours before surgery. Resume Coumadin 5 mg the evening of surgery, bridging with prophylactic dose Lovenox 30 mg twice a day until INR reach target of 2-2.5. Continue aspirin 81 mg. his heart rate is in the high 80s and low 90s, asymptomatic. atenolol was discontinued due to a year ago due to syncope and bradycardia. Increased risk for postop rapid A. fib, monitor heart rate closely, may use beta nikunj if needed. 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 patient was in A. fib and on aspirin 81 mg before the stroke. Assessment & Plan (06/26/2015 1:41 PM EDT): Increased risk for stroke perioperatively, will use Lovenox bridge and continue aspirin 81 mg as mentioned above. Insomnia 06/26/2015 Overview (06/26/2015): On lorazepam 1mg since the CVA in 2013 Bradycardia 06/26/2015 Overview (06/26/2015): Due to atenolol, s/p syncope in 2014 Chronic right shoulder pain 06/26/2015 Overview (06/26/2015): Will need shoulder replacement History of total shoulder replacement Resolved Problems Problem Noted Date Diagnosed Date Resolved Date Localized osteoarthritis of shoulder 01/08/2016 Biceps tendonitis 01/08/2016 Family History Medical History Relation Comments Stroke Father Relation Status Comments Father Social History Tobacco Use Types Packs/Day Years [...] Orientation Straight 06/04/2019 8: 48 PM EDT Last Filed Vital Signs Vital Sign Reading Time Taken Comments Blood Pressure 127/74 06/05/2019 8:00 AM EDT Pulse 74 06/05/2019 8:00 AM EDT Temperature 36.4 C (97.5 F) 06/05/2019 8:00 AM EDT Respiratory Rate 16 06/05/2019 8:00 AM EDT Oxygen Saturation 96% 06/05/2019 8:00 AM EDT Inhaled Oxygen Concentration 21% 11:32 AM EDT Weight 79.3 kg (174 lb 14.4 oz) 08/27/2022 9:47 AM EDT Height 174.6 cm (5' 8.75 ) 08/27/2022 9:47 AM ED T Body Mass Index 26.02 08/27/2022 9:47 AM EDT Plan of Treatment Health Maintenance Due Date Last Done Comments LIPID PANEL 1944 DEPRESSION SCREENING 1956 RSV VACCINE (1 - 1-dose 75+ series) 01/20/2019 COVID-19 VACCINE ( season) 2023 08/18/2022, 12/18/2021, 06/18/2021, Additional history exists Adult Td,Tdap Booster 06/06/2028 06/06/2018 PNEUMOCOCCAL VACCINES (50+ years) Completed 09/22/2021, 04/08/2015 ZOSTER VACCINES Completed 12/09/2021, 09/30/2021 SMOKING STATUS SCREENING (Once After 26 Yrs) Completed 08/27/2022 HEPATITIS A VACCINES Aged Out No long er eligible based on patient's age to complete this topic HIB VACCINES Aged Out No longer eligi ble based on patient's age to complete this topic MENINGOCOCCAL VACCINES (ACWY) Aged Out No longer eligible based on patient's age to complete this topic MENINGOCOCCAL VACCINES (B) Aged Out N o longer eligible based on patient's age to complete this topic Medical Devices Implanted Type Area Electronic Funds Transfer Coordinator Device Identifier Shelf Expiration Date Model / Serial / Lot Screw Bone 6.5x26mm Osteolock Ea Hip 16a - [id number] Implanted:Qty: 1 on 07/08/2015 by Abhinav Fuller MD at [facility] Left: Hip [employer] 04/06/2020 5260-5-0 26 / / [id number] Screw Bone 6.5x24mm Osteolock Ea Hip 16a - [id number] Implanted:Qty: 1 on 07/08/2015 by Abhinav Fuller MD at [facility] Left: Hip [employer] 04/09/2020 5260-5-0 24 / / [id number] Screw Compression Bone 4.5x38 Reverse Shoulder 08 - [id number] Implanted:Qty: 1 on 06/29/2016 by Noah Waters Jp, MD at [facility] Right: Shoulder [employer] [id number] / / Screw Anterior Comp Reverse Shoulder 08 - [id number] Implanted:Qty: 1 on 06/29/2016 by Noah Watres Jp, MD at [facility] Right: Shoulder [employer] [id number] / / Screw Bone Locking 4.5x35 Reverse Shoulder 08 - [id number] Implanted:Qty: 1 on 06/29/2016 by Noah Waters Jp, MD at [facility] Right: Shoulder [employer] BGS618 / / Screw Compression Shoulder [id number] Reverse Shoulder 08 - [id number] Implanted:Qty: 1 on 06/29/2016 by Noah Waters Jp, MD at [facility] Right: Shoulder [employer] HDX316 / / Centered 36 Mm Reverse Shoulder 05 - [id number] Implanted:Qty: 1 on 06/29/2016 by Noah Waters Jp, MD at [facility] Right: Shoulder [employer] 11/06/2020 [id number] / [id number] / Implant Hip 58mm Femoral Shell Acetabular Hemispherical Revision Trident Titanium Ea Hip Implanted:Qty: 1 on 07/08/2015 by Abhinav Fuller MD at [facility] STANDARD Left: Hip OJ [employer] 05/28/2020 509-02-5 8F / / [id number] Implant Hip X3 0deg 36mm Size F Femoral Insert Acetabular Trident Ea Hip Implanted:Qty: 1 on 07/08/2015 by Abhinav Fuller MD at [facility] STANDARD Left: Hip [employer] 04/18/2020 623-00-3 6F / / [id number] Implant Hip Xlarge 18f Femoral Sleeve Proximal Textured Ztt Srom Ea Hip Implanted:Qty: 1 on 07/08/2015 by Abhinav Fuller MD at [facility] STANDARD Left: Hip [employer] 07/13/2019 55-0530 / / [id number] Implant Hip [id number] Femoral Stem Tapered 11to13 Standard 36mm Plus 8mm Lateral Neck Srom Ea Hip [id number] Implanted:Qty: 1 on 07/08/2015 by Abhinav Fuller MD at [facility]ANDARD Left: Hip [employer] 07/14/2019 [id number] / / [id number] Implant Hip 36mm Plus 6 Femoral Head Tapered 11to13 - Metal Biolox Ea Hip [id number] Implanted:Qty: 1 on 07/08/2015 by Abhinav Fuller MD at [facility] STANDARD Left: Hip [employer] 07/13/2019 1365-33- 000 / / [id number] Force Fiber Implanted:Qty: 3 on 01/07/2016 by Noah Waters Jp, MD at [facility] Shoulder 08/19/2020 / / [id number] 25 Mm Diameter X 25 Mm Length Long Post Reverse Shoulder [id number] Implanted:Qty: 1 on 06/29/2016 by Noah Waters Jp, MD at [facility] Right: Shoulder [employer] 04/15/2018 HHY871 / [id number] / 6b Ascend Flex Standard Ptc Humeral Stem Shoulder 14 - [id number] Implanted:Qty: 1 on 06/29/2016 by Noah Waters Jp, MD at [facility] Right: Shoulder [employer] 04/06/2021 [id number] / [id number] / High Offset Reversed Tray + 0 Shoulder 03 - [id number] Implanted:Qty: 1 on 06/29/2016 by oNah Waters Jp, MD at [facility] Right: Shoulder [employer] 04/13/2021 MEB428 / [id number] / 36 Diameter Revision Reversed Insert+ 6/12.5 B Shoulder 04 - [id number] Implanted:Qty: 1 on 06/29/2016 by Noah Waters Jp, MD at [facility] Right: Shoulder [employer] 03/27/2021 [id number] / [id number] / Explanted Type Area Electronic Funds Transfer Coordinator Device Identifier Shelf Expiration Date Model / Serial / Lot Plate Bone 420mm Button Sterile Titanium 7 Hole Ea - [id number] Implanted:Qty: 1 on 01/07/2016 by Noah Waters Jp, MD at [facility] Explanted:Qty: 1 on 06/29/2016 at [facility] [employer] Right: Shoulder SYNTHES 482.823 / / Aequalis Perform Glenoid Cortiloc L60 Shoulder 02 Nc - [id number] Implanted:Qty: 1 on 01/07/2016 by Noah Waters Jp, MD at [facility] Explanted:Qty: 1 on 06/29/2016 by Noah Waters Jp, MD at [facility] Right: Shoulder [employer] 09/24/2020 TCT814 / / [id number] Head Humeral Shoulder Simpliciti 97f54pu - [id number] Implanted:Qty: 1 on 01/07/2016 by Noah Waters Jp, MD at [facility] Explanted:Qty: 1 on 06/29/2016 by Noah Waters Jp, MD at [facility] Right: Shoulder [employer] 07/29/2020 [id number] / [id number] / Nucleus Cementless Sz3 Simpliciti Ea - [id number] Implanted:Qty: 1 on 01/07/2016 by Noah Waters Jp, MD at [facility] Explanted:Qty: 1 on 06/29/2016 by Noah Waters Jp, MD at [facility] Right: Shoulder [employer] 06/24/2020 ULL675 / [id number] / Insurance MEDICARE PART A & B [facility] MEDICARE SUPPLEMENT MEDICARE PART A & B [facility] MEDICARE SUPPLEMENT MEDICARE PART A & B MEDICARE SUPPLEMENT MEDICARE PART A & B MEDICARE SUPPLEMENT [facility] Address: [place] [address] MEDICARE PART A & B MEDICARE SUPPLEMENT MEDICARE PART A & B Member Subscriber Plan / Payer ( fective 2009-) Name:Arturo Bentley Member ID:[id number] Relation to Subscriber:Self Name:Arturo Bentley Subscriber ID:[id number] Payer ID:[id number] Group ID:Not on file Type:Medicare Address: [employer] [address] MEDICARE SUPPLEMENT MEDICARE PART A & B Member Subscriber Plan / Payer ( fective 2009-Present) Name:Arturo Bentley Member ID:[id number] Relation to Subscriber:Self Name:Arturo Bentley Subscriber ID:[id number] Payer ID:[id number] Group ID:Not on file Type:Medicare Address: [employer] [address] MEDICARE SUPPLEMENT [facility] Address: [place] [address] MEDICARE PART A & B MEDICARE SUPPLEMENT MEDICARE PART A & B MEDICARE SUPPLEMENT Advance Directives For more information, please contact: [phone] (9AM - 5PM [facility], Wednesday-Wednesday) Documents on File Type Date Recorded Patient Equine Breeder Expl anation Healthcare Proxy 07/17/2015 1:01 PM * Full Code (Presumed) (Latest Code Status on File) Date Activated Date Inactivated Comments 06/29/2016 5:08 PM 07/01/2016 7:32 PM * Full Code (Confirmed) Date Activated Date Inactivated Comments 01/07/2016 4:46 PM 01/08/2016 5:38 PM Question Answer Comments Code Discussion Comments: patient * Full Code (Presumed) Date Activated Date Inactivated Comments 07/08/2015 2:28 PM 07/11/2015 4:30 PM Care Teams Front Desk Relationship Specialty Start Date End Date Arden Muñoz DO [address] [place] [address] PCP - General Internal Medicine 07/08/18 Abdiaziz Blue MD [address] [place] [address] Referring Physician Urology 05/11/19 Guru Traci Sanches MD [address] [place] [address] [email or web address] Medical Oncology 05/11/19 Justice Kate MD [address] [place] [address] Urology 05/11/19 Al Benoit MD [address] [place] [address] [email or web address] Radiation Oncology 05/11/19 Additional Source Comments The information contained in this document represents components of the legal health record. It is not the complete legal health record.[facility]
--- OUTSIDE RECORDS SUMMARY | 2024-11-07 11:11 | XMS_ITS | Encounter Summary ---
Author Organization [facility] Address [address] [place] [address] Phone Care Team Providers Care Occupational Ther Name Role Phone Pollo Iglesias MD Primary Care Provider [phone] Arden Muñoz DO Primary Care Provider Abdiaziz Blue MD Unavailable + Guru Traci Sanches MD Unavailable [phone] Justice Kate MD Unavailable [phone] Al Benoit MD Unavailable Self-Referred, Patient Unavailable Unavailab le Encounter Details Date Type Department Care Team (Late st Contact Info) Description 05/05/2016 Telephone VIRTUAL DEPARTMENT [address] [place] [phone] Mitra Leal MD [address] [place] [address] Social History Tobacco Use Types Packs/Day Years [...] on filedocumented in this encounter Care Teams Occupational Ther Relationship Specialty Start Date End Date Pollo Iglesias MD [address] [place] [address] PCP - General Internal Medicine 06/03/15 07/07/18 Arden Muñoz DO [address] [place] [address] PCP - General Internal Medicine 07/08/18 Abdiaziz Blue MD [address] [place] [address] Referring Physician Urology 05/11/19 Guru Traci Sanches MD [address] [place] [address] [place] [address] [email or web address] 05/11/19 Justice Kate MD [address] [place] [address] Urology 05/11/19 Al Benoit MD [address] [place] [address] [email or web address] Radiation Oncology 05/11/19 Self-Referred, Patient 06/05/19 06/05/19 documented as of this encounter Additional Source Comments The information contained in this document represents components of the legal health record. It is not the complete legal health record.[facility]
--- OUTSIDE RECORDS SUMMARY | 2024-11-07 11:11 | XMS_ITS | Encounter Summary ---
Author Organization [facility] Address [address] [place] [address] Phone Care Team Providers Care Clinical Account Liaison Name Role Phone Pollo Iglesias MD Primary Care Provider Arden Muñoz DO Primary Care Provider Abdiaziz Blue MD Unavailable + Guru Traci Sanches MD Unavailable [phone] Justcie Kate MD Unavailable [phone] Al Benoit MD Unavailable Self-Referred, Patient Unavailable Unavailab le Encounter Details Date Type Department Care Team (Late st Contact Info) Description 06/19/2015 Ancillary Orders Pain Management Services [address] [place] [address] Criss Langston MD [address] [place] [address] [email or web address] Social History Tobacco Use Types Packs/Day Years Used Date Smoking Tobacco: Never Alcohol Use Standard Drinks/Week Comments [...] on filedocumented in this encounter Care Teams Clinical Account Liaison Relationship Specialty Start Date End Date Pollo Iglesias MD [address] [place] [address] PCP - General Internal Medicine 06/03/15 07/07/18 Arden Muñoz DO [address] [place] [address] PCP - General Internal Medicine 07/08/18 Abdiaziz Blue MD [address] [place] [address] Referring Physician Urology 05/11/19 Guru Traci Sanches MD [address] [place] [address] [email or web address] Medical Oncology 05/11/19 Justice Kate MD [address] [place] [address] [email or web address] Urology 05/11/19 Al Benoit MD [address] [place] [address] [email or web address] Radiation Oncology 05/11/19 Self-Referred, Patient 06/05/19 06/05/19 documented as of this encounter Additional Source Comments The information contained in this document represents components of the legal health record. It is not the complete legal health record.[facility]
--- OUTSIDE RECORDS SUMMARY | 2024-11-07 11:11 | XMS_ITS | Clinical Summary ---
Author Organization [facility] Address [address] [place] [address] Care Team Providers Care Tip Stretcher Name Role Phone Unavailable Primary Care Provider [...]
--- OUTSIDE RECORDS SUMMARY | 2024-11-07 11:11 | XMS_ITS | Encounter Summary ---
Author Organization [facility] Address [address] [place] [address] Phone Care Team Providers Care Assembler Fishing Floats Name Role Phone Pollo Iglesias MD Primary Care Provider Arden Muñoz DO Primary Care Provider Abdiaziz Blue MD Unavailable + Guru Traci Sanches MD Unavailable [phone] Justice Kate MD Unavailable Al Benoit MD Unavailable [phone] Self-Referred, Patient Unavailable Unavailab le Encounter Details Date Type Department Care Team (Late st Contact Info) Description 06/29/2016 Procedure Pass [facility] [address] [place] [phone] Social History Tobacco Use Types Packs/Day Years [...] on filedocumented in this encounter Care Teams Assembler Fishing Floats Relationship Specialty Start Date End Date Pollo Iglesias MD [address] [place] [address] PCP - General Internal Medicine 06/03/15 07/07/18 Arden Muñoz DO [address] [place] [address] PCP - General Internal Medicine 07/08/18 Abdiaziz Blue MD [address] [place] [address] Referring Physician Urology 05/11/19 Guru Traci Sanches MD [address] [place] [address] [email or web address] Medical Oncology 05/11/19 Justice Kate MD [address] [place] [address] [email or web address] Urology 05/11/19 Al Benoit MD [address] [place] [address] [email or web address] Radiation Oncology 05/11/19 Self-Referred, Patient 06/05/19 06/05/19 documented as of this encounter Additional Source Comments The information contained in this document represents components of the legal health record. It is not the complete legal health record.[facility]
== END 2024-11-07 11:20 | disposition home or self-care (01) ==
LOC: HO.HMCSH 10:26
PROVIDERS: PCP Internal Medicine; Visit Provider Internal Medicine
DX: M65.30 Trigger finger, unspecified finger (principal)

== ENCOUNTER → 2024-11-07 10:26 | Outpatient (BNVA) | payer MEDICARE, SELFPAY | PROVIDERS: PCP Internal Medicine; Visit Provider Internal Medicine | DX: M65.331 Trigger finger, right middle finger (principal); M65.332 Trigger finger, left middle finger | CPT/HCPCS: 99212 ==

== ENCOUNTER 2024-11-28 10:42 | Outpatient (AMB) | payer MEDICARE, SELFPAY ==
--- NOTE | 2024-11-28 11:21 | MHC.OFFVIS ---
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 FOR FOLLOW-UP AFTER 6 MONTHS HE IS USING BIPAP 20/16 CMS VERY RELIGIOUSLY EVERY NIGHT AND SLEEPS GOOD. HE HAS GOOD ENERGY ON WAKING UP . . 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 [facility] Medical History Generalized anxiety disorder Insomnia Anemia of chronic disease Osteoarthritis H/O ischemic left MCA stroke Nonischemic cardiomyopathy Hyperlipidemia Atrial fibrillation Nocturnal hypoxemia Central sleep apnea with Mateusz-Muñoz respiration Mixed sleep apnea BPH (benign prostatic hyperplasia) Prostate cancer Elevated PSA Surgical History History of colonoscopy (~08/16/13) History of right shoulder replacement History of left hip replacement Previous back surgery (~1997) Family History Mother No problems noted. Father No problems noted. Social History Housing: House Alcohol intake: current Alcohol intake frequency: does not drink Patient Tobacco Use Status: Never used Tobacco service: No Current occupational status: retired Cognitive needs: No Hearing needs: Yes (b/l hearing aids) Vision needs: Yes (rx glasses) Review of Systems Const All systems reviewed & are unremarkable except as noted in HPI and below Denies chills and Denies fever(s) Eyes Reports no additional complaints ENT Reports no additional complaints Card Reports no additional complaints and Denies syncope Resp Denies cough GI Denies abdominal pain and Denies heartburn Reports as per HPI and Denies change in libido Musc Reports no additional complaints Skin/Breast Reports system reviewed and no additional complaints, except as documented Neuro Denies syncope Psych Denies change in libido Endo Denies change in libido Physical Exam Vital Signs: Last Vital Signs Pulse 65 11/28/24 11:22 BP 118/60 11/28/24 11:22 Pulse Ox 98 11/28/24 11:22 Oxygen Delivery Method Room Air 11/28/24 11:22 BMI result Body Mass Index 25.8 Const General: healthy appearing, comfortable, no acute distress, alert and awake Orientation/consciousness: patient oriented x3 HEENT Other: One prominent finding is that of is significant degree of RETROGANTHIA of the lower jaw. Thus compromising the jim pharyngeal space. MALLAMPATI CLASS 3 . General nose exam: No nasal polyps present and No nasal discharge present Face and sinus: Yes sinuses nontender Mouth: oropharynx abnormals (Tongue is back and convex, Mallampati class 3) Teeth and gingiva: other (Has very significant degree of retroganthia of the lower jaw) Throat: Yes posterior oropharynx normal Eyes General: appearance normal, both eyes and all related structures Neck Neck: Yes normal visual inspection, Yes no lymphadenopathy, Yes trachea midline and Yes no JVD Thyroid: Thyroid normal Lymphatic: other (Neck size 16 in) Chest Chest palpation & inspection: normal inspection of the chest, normal palpation of entire chest wall and no tenderness Resp Effort & Inspection: normal respiratory effort Auscultation: clear to auscultation bilaterally, no crackles and no wheezes Cardio Palpation: normal PMI Rate: regular rate Rhythm: regular rhythm Heart sounds: no gallops and no murmurs Peripheral pulses: Peripheral pulses 2+ throughout GI Palpation (GI): Soft to palpation, nontender, No hepatosplenomegaly present and no masses Auscultation: normal bowel sounds Back/Spine/Pelvis Thoracic/Lumbar Spine: thoracic and lumbar spine normal to inspection Skin General skin exam: no rashes or lesions noted Neuro General: patient oriented x3 and no focal motor deficits Cranial nerves: Yes CN's II-XII intact bilaterally Extrem General: Yes normal to inspection, Yes no clubbing, cyanosis or edema and Yes no calf tenderness Psych Appearance: grossly normal and well kempt Speech and movement: Normal speech and movement present Results Reviewed Results Reviewed: COMPLIANCE REPORT INDICATES THAT HE USES 100% OF THE NIGHTS. AVERAGE USAGE 5 HOURS 52 MINUTES. THERE IS ONLY MINIMAL AIR LEAK. RESIDUAL AHI ONLY 1.6. Assessment & Plan Assessment & Plan (1) Mixed sleep apnea: Comment: BASELINE STUDY HAD SHOWN PRESENCE OF MIXED SLEEP APNEA, PREDOMINANTLY CENTRAL APNEA WITH MATEUSZ-MUÑOZ BREATHING, AND ALSO COMPONENT OF OBSTRUCTIVE SLEEP APNEA. CPAP TITRATION , SUCCESSFUL BUT REQUIRED HIGH BILEVEL PRESSURE OF 20/16 CM, WITH THIS PRESSURE HYPOXEMIA WAS ALSO CORRECTED. HE HAS BEEN USING BIPAP VERY REGULARLY EVERY NIGHT AND SLEEPS WELL. COMPLIANCE REMAINS GOOD. Code(s): G47.39 - Other sleep apnea Category: Medical Plan COMMENDED FOR GOOD COMPLIANCE AND ADVISED TO KEEP ON USING THE BIPAP REGULARLY EVERY NIGHT. REVISIT Q 6 MONTHS. Coding Level of Care Code Est Pt Level 3 (49140) Diagnoses Mixed sleep apnea G47.39
[2024-11-28 11:22] VITALS: BP 118/60; PULSE 65; O2SAT 98; BMI 25.8
== END 2024-11-28 11:56 | disposition home or self-care (01) ==
PROVIDERS: PCP Internal Medicine; Visit Provider Internal Medicine
DX: G47.39 Other sleep apnea (principal)
CPT/HCPCS: 99213

== ENCOUNTER → 2024-11-28 10:42 | Outpatient (BNVA) | payer MEDICARE, SELFPAY | PROVIDERS: PCP Internal Medicine; Visit Provider Internal Medicine | DX: G47.39 Other sleep apnea (principal) | CPT/HCPCS: 99212 ==

== ENCOUNTER 2024-12-01 11:50 | Outpatient (REF) | payer MEDICARE, SELFPAY ==
--- OUTSIDE RECORDS SUMMARY | 2013-10-14 | XMS_ITS | Encounter Summary ---
Author Organization [facility] Address [address] [facility] [address] [place] [address] Phone Care Team Providers Care Duty Manager Name Role Phone Unavailable Primary Care Provider Unavailabl e Encounter Details Date Type Department Care Team (Late st Contact Info) Description 10/14/2013 Hospital Encounter [facility] [address] [place] [address] Noah Waters Jp, MD [address] [facility] [place] [address] [email or web address] Social History Tobacco Use Types [...] (No Interpretation) (10/14/2013 12:00 AM EDT) Narrative [facility] IMG INTERFACES - 09/20/2015 8:40 AM EDT This study is for PACS storage only and not for interpretation. Procedure Note SYSTEMGENERATED, DOCUMENTATION - 09/20/2015 This study is for PACS storage only and not for interpretation. us Noah Waters MD IMG OUTSIDE IMAGING W/OUT INTER PRETATION Final Result [facility] IMG INTERFACES documented in this encounter Visit Diagnoses Not on filedocumented in this encounter Additional Source Comments The information contained in this document represents components of the legal health record. It is not the complete legal health record.[facility]
--- OUTSIDE RECORDS SUMMARY | 2014-11-22 | XMS_ITS | Encounter Summary ---
Author Organization [facility] Address [address] [facility] [address] [place] [address] Phone Care Team Providers Care Manager Finance Name Role Phone Unavailable Primary Care Provider Unavailabl e Encounter Details Date Type Department Care Team (Late st Contact Info) Description 11/22/2014 Hospital Encounter [facility] [address] [place] [address] Noah Waters Jp, MD [address] [facility] [place] [address] [email or web address] Social History Tobacco Use Types [...] (No Interpretation) (11/22/2014 12:00 AM EDT) Narrative [facility] [place] [place]ES - 09/20/2015 8:53 AM EDT This study is for PACS storage only and not for interpretation. Procedure Note SYSTEMGENERATED, DOCUMENTATION - 09/20/2015 This study is for PACS storage only and not for interpretation. us Noah Waters MD IMG OUTSIDE IMAGING W/OUT INTER PRETATION Final Result [facility] [place] documented in this encounter Visit Diagnoses Not on filedocumented in this encounter Additional Source Comments The information contained in this document represents components of the legal health record. It is not the complete legal health record.[facility]
--- OUTSIDE RECORDS SUMMARY | 2015-04-03 01:00 | XMS_ITS | Encounter Summary ---
Author Organization [facility] Address [address] [facility] [address] [place] [address] Phone Care Team Providers Care Activity Manager Name Role Phone Unavailable Primary Care Provider Unavailabl e Encounter Details Date Type Department Care Team (Late st Contact Info) Description 04/03/2015 Hospital Encounter [facility] [address] [place] [address] Noah Waters Jp, MD [address] [facility] [place] [address] [email or web address] Social History Tobacco Use [...] (No Interpretation) (04/03/2015 12:00 AM EST) Narrative [facility] IMG INTERFACES - 09/20/2015 8:39 AM EDT This study is for PACS storage only and not for interpretation. Procedure Note SYSTEMGENERATED, DOCUMENTATION - 09/20/2015 This study is for PACS storage only and not for interpretation. us Noah Waters MD IMG OUTSIDE IMAGING W/OUT INTER PRETATION Final Result [facility] IMG INTERFACES documented in this encounter Visit Diagnoses Not on filedocumented in this encounter Additional Source Comments The information contained in this document represents components of the legal health record. It is not the complete legal health record.[facility]
--- OUTSIDE RECORDS SUMMARY | 2024-11-24 14:00 | XMS_ITS | Encounter Summary ---
Author Organization [facility] Address [address] [place] [address] Care Team Providers Care Certified Alcohol And Drug Counselor Name Role Phone Saravanan Fajardo MD Primary Care Provider [phone]- [phone] Reason for Visit * Reason Comments Follow-up Encounter Details Date Type Department Care Team (Late st Contact Info) Description 11/24/2024 2:00 PM EDT Office Visit [facility] - [address] [place] [phone] Neville Salazar MD [address] [place] [address] [place] [phone] Longstanding persistent atrial fibrillation (CMS/HCC V24, CMS/HCC V28) (Primary Dx); Nonrheumatic tricuspid valve regurgitation Social History Tobacco Use Types Packs/Day Years Used Date Smoking Tobacco: Never Smokeless Tobacco: Never Alcohol Use Standard Drinks/Week Comments Never 0 (1 standard drink = 0.6 oz pur e alcohol) Sex and Gender Information Value Date Recorded Sex Assigned at Not on file Legal Sex Male 7:09 AM EST Gender Identity Not on file Sexual Orientation Not on file documented as of this encounter Last Filed Vital Signs Vital Sign Reading Time Taken Comments Blood Pressure 134/70 11/24/2024 1:58 PM EDT Pulse 66 11/24/2024 1:58 PM EDT Temperature - - Respiratory Rate - - Oxygen Saturation 97% 11/24/2024 1:58 PM EDT Inhaled Oxygen Concentration - - Weight 76.2 kg (168 lb) 11/24/2024 1:58 PM EDT Height 170.2 cm (5' 7 ) 11/24/2024 1:58 PM EDT Body Mass Index 26.31 11/24/2024 1:58 PM EDT documented in this encounter Progress Notes * Neville Salazar MD - 11/24/2024 2:00 PM EDTAssociated Problem(s): Longstanding persistent atrial fibrillation (CMS/HCC V24, CMS/HCC V28) * Neville Salazar MD - 11/24/2024 2:00 PM EDTAssociated Problem(s): Nonrheumatic tricuspid valve regurgitation * Neville Salazar MD - 11/24/2024 2:00 PM EDT Images from the original note were not included. [facility] Cardiology Follow-up Note PCP: Saravanan Fajardo MD HPI: Arturo Bentley is a 79 y.o. old male with with cardiac risk factors of age and male gender. He has chronic atrial fibrillation, chronically anticoagulated with Coumadin given high [id number] score including prior stroke. He has had mild aorta enlargement on echo. His most recent from this month showed preserved LVEF stable aorta size though right atrial pressures remain high >15mmHg and TR in moderate range. No clear cardiac symptoms. ACTIVE MEDICATIONS: Outpatient Medications Marked as Taking for the 11/24/24 encounter (Office Visit) with Neville Leonard MD Medication Sig Dispense Refill aspirin 81 mg EC tablet Take 1 tablet (81 mg total) by mouth 1 (one) time each day. atorvastatin (LIPITOR) 40 mg tablet Take 1 tablet (40 mg total) by mouth 1 (one) time each day. finasteride (PROSCAR) 5 mg tablet Take 1 tablet (5 mg total) by mouth 3 (three) times a week. furosemide (Lasix) 20 mg tablet Take 1 tablet (20 mg total) by mouth 1 (one) time each day. 90 each3 LORazepam (ATIVAN) 1 mg tablet Take 1 tablet (1 mg total) by mouth as needed. multivitamin (Oncovite) tablet Take 1 tablet by mouth 1 (one) time each day. tamsulosin (FLOMAX) 0.4 mg 24 hr capsule Take 1 capsule (0.4 mg total) by mouth 1 (one) time each day. warfarin (COUMADIN) 2.5 mg tablet Take 1 tablet (2.5 mg total) by mouth 1 (one) time each day. warfarin (COUMADIN) 5 mg tablet Take 1 tablet (5 mg total) by mouth 1 (one) time each day. PAST MEDICAL HISTORY: Patient Active Problem List Diagnosis Longstanding persistent atrial fibrillation (CMS/HCC V24, CMS/HCC V28) Nonrheumatic tricuspid valve regurgitation ALLERGIES: No Known Allergies FAMILY HISTORY: Family History Problem Relation Name Age of Onset Other (Other: Cardiomyopathy) Mother Stroke Father SOCIAL HISTORY: Social History Tobacco Use Smoking status: Never Smokeless tobacco: Never Substance Use Topics Alcohol use: Never PHYSICAL EXAM: Vitals: 11/24/24 1358 BP: 134/70 Pulse: 66 SpO2: 97% Weight: 76.2 kg (168 lb) Height: 1.702 m (67 ) Gen: Stated age, well nourished, sitting up NAD HEENT: MMM no LAD, +JVD Pulm: non-labored, CTAB, no wheezing Heart: Irreg irreg soft holosystolic murmur Abd: Soft NT/ND, +BS, no tenderness Extrem: no c/c/e, no ulcers on LE Skin: no rashes Vasc: 2+ RP no carotid bruit Neuro: Alert oriented x 3, UE strength symmetric intact Psych: Mood good, Affect congruent EKG: Encounter Date: 08/10/24 ECG 12 lead Result Value Ventricular Rate ECG 65 Atrial Rate 394 QRS Duration 98 Q-T Interval 446 QTc 463 R [place] 64 T [place] 26 ECG Interpretation Atrial fibrillation Abnormal ECG No previous ECGs available Confirmed by MD Martin, Neville ([id number]) on 08/10/2024 10:22:04 AM *Note: Due to a large number of results and/or encounters for the requested time period, some results have not been displayed. A complete set of results can be found in Results Review. TESTING: No results found for: CHOL , TRIG , LDL , HDL , LDLCALC ASSESSMENT/PLAN: Assessment & Plan Longstanding persistent atrial fibrillation (CMS/HCC V24, CMS/HCC V28) Nonrheumatic tricuspid valve regurgitation Afib Heart rates controlled no new symptoms. Continue warfarin given elevated stroke risk. Aortic enlargement Mild ascending enlargement will continue periodic monitoring appears stable TR Moderate/ Likely related to annular enlargement from chronic afib. Right atrial pressure seems high. I would recommend increasing lasix to BID for the week come back in a week to recheck JVP (was best seen on left neck. CONRAD Needs CPAP llong-term likely will help to keep RV size and function stable as well as TR. I have applied the code G2211 to this patient???s visit as the primary provider managing afib, TR leading to the work up, and management associated with the medical care of this patient. This patient???s serious and complex medical conditions require continued management and coordination through myoffice. I have reviewed all information as it pertains to the management of this patient for final approval. The [facility] team will continue to co-manage this patient following the plan of care as established by my initial visit and as per AHA guidelines for ongoing management and surveillance of above listed conditions. This will include medication titration, initiation of appropriate medications and further t itration, and diagnostic studies to manage this disease process. documented in this encounter Plan of Treatment Upcoming Encounters Date Type Department Care Team (Late st Contact Info) Description 03/30/2025 10:40 AM EST Office Visit [facility] - [address] [place] [address] Anca Roberts NP [address] [place] [address] [place] [address] documented as of this encounter Visit Diagnoses Diagnosis Longstanding persistent atrial fibrillation (CMS/HCC V24, CMS/HCC V28)- Primary Nonrheumatic tricuspid valve regurgitation documented in this encounter Care Teams Certified Alcohol And Drug Counselor Relationship Specialty Start Date End Date Saravanan Fajardo MD [address] [place] [address] PCP - General Internal Medicine 11/24/24 documented as of this encounter
--- OUTSIDE RECORDS SUMMARY | 2024-12-01 11:20 | XMS_ITS | Encounter Summary ---
Author Organization [facility] Address [address] [place] [address] Care Team Providers Care Tower Cleaner Name Role Phone Saravanan Fajardo MD Primary Care Provider [phone]- [phone] Reason for Visit * Reason Comments Follow-up Encounter Details Date Type Department Care Team (Late st Contact Info) Description 12/01/2024 11:20 AM EDT Office Visit [facility] - [address] [place] [phone] Neville Salazar MD [address] [place] [address] [place] [phone] Longstanding persistent atrial fibrillation (CMS/HCC V24, CMS/HCC V28) (Primary Dx) Social History Tobacco Use Types [...] Sign Reading Time Taken Comments Blood Pressure 130/68 12/01/2024 11:05 AM EDT Pulse 63 12/01/2024 11:05 AM EDT Temperature - - Respiratory Rate - - Oxygen Saturation 98% 12/01/2024 11:05 AM EDT Inhaled Oxygen Concentration - - Weight 77.6 kg (171 lb) 12/01/2024 11:05 AM EDT Height 172.7 cm (5' 8 ) 12/01/2024 11:05 AM EDT Body Mass Index 26 12/01/2024 11:05 AM EDT documented in this encounter Ordered Prescriptions Prescription Sig Dispense Quantity Refills Last Filled Start Date End Date furosemide (Lasix) 20 mg tablet Take 1 tablet (20 mg total) by mouth 2 (two) times a day. 180 each 3 12/01/2024 12/01/2025 documented in this encounter Progress Notes * Neville Salazar MD - 12/01/2024 11:20 AM EDTAssociated Problem(s): Longstanding persistent atrial fibrillation (CMS/HCC V24, CMS/HCC V28) Orders: Basic metabolic panel; Future Magnesium; Future * Neville Salazar MD - 12/01/2024 11:20 AM EDT Images from the original note were not included. [facility] Cardiology Follow-up Note PCP: Saravanan Fajardo MD HPI: Arturo Bentley is a 79 y.o. old male with with cardiac risk factors of age and male gender. He has chronic atrial fibrillation, chronically anticoagulated with Coumadin given high [id number]-LASn score including prior stroke. He has had mild aorta enlargement on echo. His most recent from this month showed preserved LVEF stable aorta size though right atrial pressures remain high >15mmHg and TR in moderate range. No clear cardiac symptoms. We started on BID dosing of lasix. ACTIVE MEDICATIONS: Outpatient Medications Marked as Taking for the 12/01/24 encounter (Office Visit) with Neville Leonard MD [...] Topics Alcohol use: Never PHYSICAL EXAM: Vitals: 12/01/24 1105 BP: 130/68 BP Location: Right arm Patient Position: Sitting BP Cuff Size: Adult Pulse: 63 SpO2: 98% Weight: 77.6 kg (171 lb) Height: 1.727 m (68 ) Gen: Stated age, well nourished, sitting up NAD HEENT: MMM no LAD, JVP improved Pulm: non-labored, CTAB, no wheezing Heart: Irreg [...] 98 Q-T Interval 446 QTc 463 R [place] 64 T [place] 26 ECG Interpretation Atrial fibrillation Abnormal ECG No previous ECGs available Confirmed by MD Salazar Christopher ([id number]) on 08/10/2024 10:22:04 AM *Note: Due to a large number of results and/or encounters for the requested time period, some results have not been displayed. A complete set of results can be found in Results Review. TESTING: No results found for: CHOL , TRIG , LDL , HDL , LDLCALC ASSESSMENT/PLAN: Assessment & Plan Longstanding persistent atrial fibrillation (CMS/HCC V24, CMS/HCC V28) Orders: Basic metabolic panel; Future Magnesium; Future Afib Heart rates controlled no new symptoms. Continue warfarin given elevated stroke risk. Aortic enlargement Mild ascending enlargement will continue periodic monitoring appears stable TR Moderate/ Likely related to annular enlargement from chronic afib. Right atrial pressure seems high. JVP improved on lasix increase would check BMP/mag and continue on current dose. Can recheck echo for TR and RAP next year. CONRAD Needs CPAP llong-term likely will help [...] Description 03/30/2025 10:40 AM EST Office Visit [facility] - [address] [place] [address] Anca Roberts NP [address] [place] [address] [place] [address] Scheduled Orders Name Type Priority Associated Diagnoses Orde r Schedule Basic metabolic panel Lab Routine Longstanding persistent atrial fibrillation (CMS/HCC V24, CMS/HCC V28) 1 Occurrences starting 12/01/2024 until 12/01/2025 Magnesium Lab Routine Longstanding persistent atrial fibrillation (CMS/HCC V24, [facility] V28) 1 Occurrences starting 12/01/2024 until 12/01/2025 documented as of this encounter Visit Diagnoses Diagnosis Longstanding persistent atrial fibrillation ([facility] V24, [facility] V28)- Primary documented in this encounter Discontinued Medications Medication Sig Discontinue Reason Start Date End Da te furosemide (Lasix) 20 mg tablet Take 1 tablet (20 mg total) by mouth 1 (one) time each day. Reorder 08/10/2024 12/01/2024 documented as of this encounter Care Teams Tower Cleaner Relationship Specialty Start Date End Date Saravanan Fajardo MD [address] [place] [address] PCP - General Internal Medicine 11/24/24 documented as of this encounter
--- OUTSIDE RECORDS SUMMARY | 2024-12-01 12:20 | XMS_ITS | Encounter Summary ---
Author Organization [facility] Address [address] [place] [address] [address] [place] [address] Phone Care Team Providers Care Global Logistics Manager Name Role Phone Pollo Iglesias MD Primary Care Provider Arden Muñoz DO Primary Care Provider Abdiaziz Blue MD Unavailable + Guru Traci Sanches MD Unavailable Justice Kate MD Unavailable Al Benoit MD Unavailable Self-Referred, Patient Unavailable Unavailab le Reason for Referral * Consultation (Routine) - Closed Specialty Diagnoses / Procedures Referred By Contclementina rojas Referred To Contact Rheumatology Diagnoses Primary osteoarthritis of right shoulder System, Provider Not In, PhD [address] [address] Referral ID Status Reason Start Date Expiration Date Visits Re quested Visits Authorized [id number] Closed 06/03/2015 06/03/2016 1 1 Encounter Details Date Type Department Care Team (Latest Contact Info) Description 06/03/2015 Transcribe Orders [facility] [place] [address], [address], [address] [place] [address] InstrDong avila MD [address] [place] [address] [place] [id number] Primary osteoarthritis of right shoulder (Primary Dx) [...] Diagnoses Orde r Schedule Ambulatory referral to [facility] [place] Outpatient Referral Routine Primary osteoarthritis of right shoulder Ordered: 06/03/2015 documented as of this encounter Visit Diagnoses Diagnosis Primary osteoarthritis of right shoulder- Primary documented in this encounter Care Teams Global Logistics Manager Relationship Specialty Start Date End Date Pollo Iglesias MD [address] [place] [address] PCP - General Internal Medicine 06/03/15 07/07/18 Arden Muñoz DO [address] [place] [address] PCP - General Internal Medicine 07/08/18 Abdiaziz Blue MD [address] [place] [address] Referring Physician Urology 05/11/19 Guru Traci Sanches MD [address] [place] [phone] [email or web address] Medical Oncology 05/11/19 Justice Kate MD [address] [place] [address] [email or web address] Urology 05/11/19 Al Benoit MD NPI: [id number] [place] [address] [email or web address] Radiation Oncology 05/11/19 Self-Referred, Patient 06/05/19 06/05/19 documented as of this encounter Additional Source Comments The information contained in this document represents components of the legal health record. It is not the complete legal health record.[facility]
--- OUTSIDE RECORDS SUMMARY | 2024-12-01 12:20 | XMS_ITS | Encounter Summary ---
Author Organization [facility] Address [address] [place] [address] Phone Care Team Providers Care Satellite Communications Operator Name Role Phone Pollo Iglesias MD Primary Care Provider Arden Muñoz DO Primary Care Provider Abdiaziz Blue MD Unavailable + Guru Traci Sanches MD Unavailable Justice Kate MD Unavailable Al Benoit MD Unavailable Self-Referred, Patient Unavailable Unavailab le Encounter Details Date Type Department Care Team (Late st Contact Info) Description 01/14/2016 Telephone [facility] Department of Orthopaedic Surgery, Sports Medicine Service [address] [address] Danny Acosta MD [address] [place] [address] Social History Tobacco Use Types Packs/Day Years [...] of Assessment Author Yes 01/07/2016 9:40 PM CHKAAT Danny Acosta MD * Patient has serious [...] on filedocumented in this encounter Care Teams Satellite Communications Operator Relationship Specialty Start Date End Date Pollo Iglesias MD [address] [place] [address] PCP - General Internal Medicine 06/03/15 07/07/18 Arden Muñoz DO [address] [place] [address] PCP - General Internal Medicine 07/08/18 Abdiaziz Blue MD [address] [place] [address] Referring Physician Urology 05/11/19 Guru Traci Sanches MD [address] [address] [email or web address] Oncology 05/11/19 Justice Kate MD [address] [place] [address] [email or web address] Urology 05/11/19 Al Benoit MD [address] [place] [phone] [email or web address] [email or web address] Oncology 05/11/19 Self-Referred, Patient 06/05/19 06/05/19 documented as of this encounter Additional Source Comments The information contained in this document represents components of the legal health record. It is not the complete legal health record.[facility]
--- OUTSIDE RECORDS SUMMARY | 2024-12-01 12:20 | XMS_ITS | Encounter Summary ---
Author Organization [facility] Address [address] [place] [address] Phone Care Team Providers Care Board Operator Name Role Phone Pollo Iglesias MD Primary Care Provider Arden Muñoz DO Primary Care Provider Abdiaziz Blue MD Unavailable + Guru Traci Sanches MD Unavailable Justice Kate MD Unavailable [phone] Al Benoit MD Unavailable Self-Referred, Patient Unavailable Unavailab le Encounter Details Date Type Department Care Team (Late st Contact Info) Description 03/06/[address] [facility] - [place] [address] [facility], 6th [place] [address] Social History Tobacco Use Types Packs/Day Years [...] on filedocumented in this encounter Care Teams Board Operator Relationship Specialty Start Date End Date Pollo Iglesias MD [address] [place] [address] PCP - General Internal Medicine 06/03/15 07/07/18 Arden Muñoz DO [address] [place] [address] PCP - General Internal Medicine 07/08/18 Abdiaziz Blue MD [address] [place] [address] Referring Physician Urology 05/11/19 Guru Traci Sanches MD [address] [address] [email or web address] Medical Oncology 05/11/19 Justice Kate MD [address] [place] [address] Urology 05/11/19 Al Benoit MD [address] [place] [address] [email or web address] Radiation Oncology 05/11/19 Self-Referred, Patient 06/05/19 06/05/19 documented as of this encounter Additional Source Comments The information contained in this document represents components of the legal health record. It is not the complete legal health record.[facility]
--- OUTSIDE RECORDS SUMMARY | 2024-12-01 12:20 | XMS_ITS | Encounter Summary ---
Author Organization [facility] Address [address] [place] [address] Phone Care Team Providers Care Audiology Doctor Name Role Phone Pollo Iglesias MD Primary Care Provider Arden Muñoz DO Primary Care Provider Abdiaziz Blue MD Unavailable + Guru Traci Sanches MD Unavailable [phone] Justice Kate MD Unavailable Al Benoit MD Unavailable [phone] Self-Referred, Patient Unavailable Unavailab le Encounter Details Date Type Department Care Team (Late st Contact Info) Description 01/07/2016 Procedure Pass [facility] [place] [address] [place] [phone] Social History Tobacco Use Types Packs/Day Years [...] on filedocumented in this encounter Care Teams Audiology Doctor Relationship Specialty Start Date End Date Pollo Iglesias MD [address] [place] [address] PCP - General Internal Medicine 06/03/15 07/07/18 Arden Muñoz DO [address] [place] [address] PCP - General Internal Medicine 07/08/18 Abdiaziz Blue MD [address] [place] [address] Referring Physician Urology 05/11/19 Guru Traci Sanches MD [address] [address] [email or web address] Medical Oncology 05/11/19 Justice Kate MD [address] [place] [address] [email or web address] Urology 05/11/19 Al Benoit MD [address] [place] [address] [email or web address] Radiation Oncology 05/11/19 Self-Referred, Patient 06/05/19 06/05/19 documented as of this encounter Additional Source Comments The information contained in this document represents components of the legal health record. It is not the complete legal health record.[facility]
--- OUTSIDE RECORDS SUMMARY | 2024-12-01 12:20 | XMS_ITS | Encounter Summary ---
Author Organization [facility] Address [address] [place] [address] Phone Care Team Providers Care Flexible Shaft Winder Name Role Phone Pollo Iglesias MD Primary Care Provider Arden Muñoz DO Primary Care Provider Abdiaziz Blue MD Unavailable + Guru Traci Sanches MD Unavailable Justice Kate MD Unavailable Al Benoit MD Unavailable [phone] Self-Referred, Patient Unavailable Unavailab le Reason for Visit * Reason Onset Date Comments Post Discharge Follow Up Call 07/12/2015 Encounter Details Date Type Department Care Team (Late st Contact Info) Description 07/12/2015 Telephone [facility] [address] [place] [address] RN [address] [place] [address] [email or web address] Discharge Follow Up Call [...] on filedocumented in this encounter Care Teams Flexible Shaft Winder Relationship Specialty Start Date End Date Pollo Iglesias MD [address] [place] [address] PCP - General Internal Medicine 06/03/15 07/07/18 Arden Muñoz DO [address] [place] [address] PCP - General Internal Medicine 07/08/18 Abdiaziz Blue MD [address] [place] [address] Referring Physician Urology 05/11/19 Guru Traci Sanches MD [facility] [address] [address] [email or web address] Medical Oncology 05/11/19 Justice Kate MD [address] [place] [address] Urology 05/11/19 Al Benoit MD [address] [place] [address] [email or web address] Radiation Oncology 05/11/19 Self-Referred, Patient 06/05/19 06/05/19 documented as of this encounter Additional Source Comments The information contained in this document represents components of the legal health record. It is not the complete legal health record.[facility]
--- OUTSIDE RECORDS SUMMARY | 2024-12-01 12:20 | XMS_ITS | Clinical Summary ---
Author Organization [facility] Address [address] [facility] [address] [place], [place] [address] Phone Care Team Providers Care School Psychology Professor Name Role Phone Saravanan Fajardo MD Primary Care Provider [phone] Allergies No known active allergies Medications finasteride (PROSCAR) 5 mg tablet Take 1 tablet (5 mg total) by mouth 3 (three) times a week. Active atorvastatin (LIPITOR) 40 mg tablet Take [...] (two) times a day. 180 each 3 5 12/02/19 26 Active furosemide (Lasix) 20 mg tablet Take 1 tablet (20 mg total) by mouth 1 (one) time each day. 90 each 3 5 12/02/19 25 Discontinu ed(Reorder ) Active Problems Problem Noted Date Diagnosed Date Longstanding persistent atri al fibrillation ([facility]/HCC V24, CMS/HCC V28) 07/29/2021 Overview (04/05/2024): Last Assessment & Plan: Patient has permanent atrial fibrillation, without any tacky or bradycardia symptoms reported. He is auto rate controlled. He remains anticoagulated for high [id number] score with prior stroke. He does have sleep apnea by home sleep study though the sleep center did not have any upcoming in lab titration study appointments available per his report and he plans to see the pulmonology team at [facility] next week. We discussed the long-term [...] changes in his condition. Assessment & Plan (12/01/2024 11:15 AM EDT): Orders: Basic metabolic panel; Future Magnesium; Future Assessment & Plan (11/24/2024 2:49 PM EDT): Assessment & Plan (08/10/2024 10:14 AM EDT): Orders: ECG 12 lead Transthoracic echocardiogram (TTE) complete with PRN contrast, bubble, strain, and 3D order panel; Future Basic metabolic panel; Future Nonrheumatic tricuspid valve regurgitation 07/29 Overview (04/05/2024): Last Assessment & Plan: Update echocardiogram prior to his next visit. Hopefully he will be able to tolerate CPAP. Continue to follow. Assessment & Plan (11/24/2024 2:49 PM EDT): Encounters Date Type Department Care Team Description 12/01/2024 11:20 AM EDT Office Visit [facility] Cardiology [facility] [address] [place] [phone] Neville Salazar MD Longstanding persistent atrial fibrillation (CMS/HCC V24, CMS/HCC V28) (Primary Dx) 11/24/2024 2:00 PM EDT Office Visit [facility] Cardiology [facility] [address] [place] [address] Neville Salazar MD Longstanding persistent atrial fibrillation (CMS/HCC V24, CMS/HCC V28) (Primary Dx); Nonrheumatic tricuspid valve regurgitation 11/16/2024 11:00 AM EDT Ancillary Procedure [facility] [address] [place] [phone] Longstanding persistent atrial fibrillation (CMS/HCC V24, CMS/HCC V28) from Last 3 Months Family History Medical [...] Mass Index 26 12/01/2024 11:05 AM EDT Plan of Treatment Upcoming Encounters Date Type Department Care Team (Late st Contact Info) Description 03/30/2025 10:40 AM EST Office Visit [facility] [address] [facility] [address] [place] [address] Anca Roberts NP [address] [place] [address] [place] [address] Health Maintenance Due Date Last Done Comments Cholesterol Screening (Lipid Panel) 02/22/2022 Falls Risk Assessment 02/22/2022 Medicare Annual Wellness Visit 02/22/2022 Social Influencers of Health Screening 02/22/2022 Depression Screening 03/15/2024 DTaP,Tdap,and Td Vaccines (2 - Td or Tdap) 06/06/2028 06/06/2018 Pneumococcal Vaccine: 50+ Years Completed 09/22/2021, 04/08/2015 Zoster Vaccines Completed 12/09/2021, 09/30/2021 Influenza Vaccine Completed 11/08/2024, , 10/26/2022, Additional history exists COVID-19 Vaccine Completed 11/21/2024, , 03/16/2023, Additional history exists RSV Immunization Adult Patients Completed 11/21/2024 HIB Vaccines Aged Out No longer eligi [...] Procedure Name Priority Date/Time Associated Diagnosis Comments TRANSTHORACIC ECHOCARDIOGRAM (TTE) COMPLETE Routine 11/16/2024 11:43 AM EDT Longstanding persistent atrial fibrillation (CMS/HCC V24, CMS/HCC V28) from Last 3 Months Results * (ABNORMAL) TRANSTHORACIC ECHOCARDIOGRAM (TTE) COMPLETE (11/16/2024 11:43 AM EDT) BSA 1.91 m2 CV PACS Left Atrium Minor Thaxton 8.0 cm CV PACS Left Atrium Major Thaxton 8.5 cm CV PACS LA Area Sys (A2C) 41 cm2 CV PACS LA Area Sys (A4C) 46 cm2 CV PACS LA Volume (BP) 189 mL CV PACS RA Area 36.4 cm2 CV PACS RA 2D Volume 129 mL CV PACS AV Mean Gradient 5 mmHg CV PACS AV Mean Gradient 5 mmHg CV PACS Ao VTI 33.4 cm CV PACS AV Peak Cedrick 1.6 m/s CV PACS AV Peak Gradient 10 mmHg CV PACS AV Area Continuity Equation 1.9 cm2 CV PACS AV Area Peak Velocity 2.0 cm2 CV PACS Aortic Arch 3.4 cm CV PACS Ascending Aorta 4.0 cm CV PACS Aortic Sinus Valsalva 3.9 cm CV PACS IVC Proximal 2.2 cm CV PACS IVSD 1.0 0.6 - 1.0 cm CV PACS LVIDD 5.1 4.2 - 5.8 cm CV PACS LVIDS 3.3 2.5 - 4.0 cm CV PACS LVOT Diameter 2.2 cm CV PACS LVOT Mean Cedrick 0.5 m/s CV PACS LVOT Mean Grad 1 mmHg CV PACS LVOT Mean Grad 1 mmHg CV PACS LVOT Mean Grad 1 mmHg CV PACS LVOT Mean Grad 1 mmHg CV PACS LVOT Mean Grad 1 mmHg CV PACS LVOT Peak VTI 16.7 cm CV PACS LVOT Peak Cedrick 0.8 m/s CV PACS LVOT Peak Gradient 3 mmHg CV PACS LVPWD 1.1(A) 0.6 - 1.0 cm CV PACS LVOT Area 3.8 cm2 CV PACS LVOT Stroke Volume 63 mL CV PACS MV Deceleration Whitley 2.8 m/s2 CV PACS E Wave Deceleration Time 261(A) 119 - 242 ms CV PACS MV PHT 83 ms CV PACS MV Peak E Cedrick 0.71 m/s CV PACS MV Area PHT 2.7 cm2 CV PACS PV Acceleration Time 95 ms CV PACS PV Acceleration Time 95 ms CV PACS PV Peak Velocity 0.8 m/s CV PACS PV Peak Gradient 2 mmHg CV PACS RV Diastolic Basal Dimension 4.7(A) 2.5 - 4.1 cm CV PACS TAPSE 24 mm CV PACS TR Peak Velocity 2.38 m/s CV PACS TR Peak Gradient 23 mmHg CV PACS LVOT Stroke Index 33 mL/m2 CV PACS Relative Wall Thickness ratio 0.43 CV PACS LVOT:AV VTI Index 0.50 CV PACS FS 35 % CV PACS LV Mass 2D 201 g CV PACS Ascending Aorta Index 2.12 cm/m2 CV PACS LVOT flow 190 mL/s CV PACS RA 2D Volume Index 68 mL/m2 CV PACS OREN Index (VTI) 1.01 cm2/m2 CV PACS OREN Index (Pk Cedrick) 1.06 cm2/m2 CV PACS LVIDD Index 2.70 cm/m2 CV PACS LVIDS Index 1.75 cm/m2 CV PACS AV Velocity Ratio 0.50 CV PACS LA Volume Index (BP) 100 mL/m2 CV PACS LV Mass Index 2D 106 g/m2 CV PACS Right Ventricular Peak Systolic Pressure 38 mmHg CV PACS Est. RA Pressure 15 mmHg CV PACS Anatomical Region Laterality Modality Ultrasound Narrative 11/23/2024 2:12 PM EDT Left ventricle cavity size is normal. There is borderline hypertrophy. Systolic function is normal with an ejection fraction of 55-60%. There are no regional LV wall motion abnormalities. Indeterminate diastolic function. Right ventricle is enlarged. Right ventricular systolic function is normal. The atria are severely dilated. Right atrial pressure elevated 15 mmHg. Tricuspid valve demonstrates moderate regurgitation. The Sinus of Valsalva is dilated (3.9 cm). The ascending aorta is dilated (4.0 cm). Compaed to prior the right atrial pressure remains high. Left Ventricle Left ventricle cavity size is normal. There is borderline hypertrophy. Systolic function is normal with an ejection fraction of 55-60%. There are no regional LV wall motion abnormalities. Indeterminate diastolic function. Right Ventricle Right ventricle cavity is dilated. Systolic function is normal. Normal TAPSE (> 17 mm). Left Atrium Left atrium cavity is severely dilated. Right Atrium Right atrium cavity is severely dilated. IVC/SVC RA pressures is estimated to be 15 mmHg (IVC diameter >21 mm and decreases <50% during inspiration). Mitral Valve The leaflets are mildly thickened. There is annular calcification. There is mild regurgitation. There is no significant stenosis noted. Tricuspid Valve Tricuspid valve structure is normal. There is moderate regurgitation. There is no evidence of tricuspid valve stenosis. Aortic Valve The aortic valve is trileaflet. There is trace regurgitation. There is no significant stenosis. Pulmonic Valve Visualized portions of the pulmonic valve appear normal. No significant pulmonic valve regurgitation. No significant pulmonary valve stenosis noted. Ascending Aorta The Sinus of Valsalva is (3.9 cm). The ascending aorta is (4.0 cm). The transverse aorta is (3.4 cm). Pericardium There is no pericardial effusion. Study Details Overall the study quality was adequate. Neville Salazar MD CV ECHO PROCEDURES Final Result from Last 3 Months Insurance MEDICARE [facility] Care Teams School Psychology Professor Relationship Specialty Start Date End Date Saravanan Fajardo MD [address] [place] [phone] PCP - General Internal Medicine 11/24/24
--- OUTSIDE RECORDS SUMMARY | 2024-12-01 12:20 | XMS_ITS | Encounter Summary ---
Author Organization [facility] Address [address] [place] [address] Phone Care Team Providers Care Orchid Superintendent Name Role Phone Pollo Iglesias MD Primary Care Provider Arden Muñoz DO Primary Care Provider Abdiaziz Blue MD Unavailable + Guru Traci Sanches MD Unavailable Justice Kate MD Unavailable Al Benoit MD Unavailable [phone] Self-Referred, Patient Unavailable Unavailab le Encounter Details Date Type Department Care Team (Late st Contact Info) Description 02/13/2016 Documentation [facility] Department of Orthopaedic Surgery, Sports Medicine Service [address] [facility] [address] [place] [address] Danny Acosta MD [address] [place] [address] Social History Tobacco Use Types Packs/Day Years [...] of Assessment Author Yes 01/07/2016 9:40 PM CHAKAT Danny Acosta MD * Patient has serious [...] on filedocumented in this encounter Care Teams Orchid Superintendent Relationship Specialty Start Date End Date Pollo Iglesias MD [address] [place] [address] PCP - General Internal Medicine 06/03/15 07/07/18 Arden Muñoz DO [address] [place] [address] PCP - General Internal Medicine 07/08/18 Abdiaziz Blue MD [address] [place] [address] Referring Physician Urology 05/11/19 Guru Traci Sanches MD [address] [address] [email or web address] Medical Oncology 05/11/19 Justice Kate MD [address] [place] [address] [email or web address] Urology 05/11/19 Al Benoit MD [address] [place] [address] [email or web address] Radiation Oncology 05/11/19 Self-Referred, Patient 06/05/19 06/05/19 documented as of this encounter Additional Source Comments The information contained in this document represents components of the legal health record. It is not the complete legal health record.[facility]
--- OUTSIDE RECORDS SUMMARY | 2024-12-01 12:20 | XMS_ITS | Encounter Summary ---
Author Organization [facility] Address [address] [place] [address] Phone Care Team Providers Care Manager Of Digital Name Role Phone Pollo Iglesias MD Primary Care Provider [phone] Arden Muñoz DO Primary Care Provider Abdiaziz Blue MD Unavailable + Guru Traci Sanches MD Unavailable [phone] Justice Kate MD Unavailable Al Benoit MD Unavailable Self-Referred, Patient Unavailable Unavailab le Encounter Details Date Type Department Care Team (Late st Contact Info) Description 02/13/2016 Telephone [facility] [place] of [place]opaedic Surgery, Sports Medicine Service [address] [address] Danny Acosta MD 175 [place] [address] Social History Tobacco Use Types Packs/Day Years [...] filedocumented in this encounter Care Teams Manager Of Digital Relationship Specialty Start Date End Date Pollo Iglesias MD [address] [place] [address] PCP - General Internal Medicine 06/03/15 07/07/18 Arden Muñoz DO [address] [place] [address] PCP - General Internal Medicine 07/08/18 Abdiaziz Blue MD [address] [place] [address] Referring Physician Urology 05/11/19 Guru Traci Sanches MD [address] [address] [email or web address] Medical Oncology 05/11/19 Justice Kate MD [address] [place] [address] [email or web address] Urology 05/11/19 Al Benoit MD [address] [place] [address] [email or web address] Radiation Oncology 05/11/19 Self-Referred, Patient 06/05/19 06/05/19 documented as of this encounter Additional Source Comments The information contained in this document represents components of the legal health record. It is not the complete legal health record.[facility]
--- OUTSIDE RECORDS SUMMARY | 2024-12-01 12:20 | XMS_ITS | Encounter Summary ---
Author Organization [facility] Address [address] [place] [address] Phone Care Team Providers Care Billing Supervisor Name Role Phone Pollo Iglesias MD Primary Care Provider [phone] Arden Muñoz DO Primary Care Provider Abdiaziz Blue MD Unavailable + Guru Traci Sanches MD Unavailable Justice Kate MD Unavailable Al Benoit MD Unavailable Self-Referred, Patient Unavailable Unavailab le Encounter Details Date Type Department Care Team (Late st Contact Info) Description 06/29/2016 Procedure Pass [facility] [address] [place] [phone] Social History Tobacco Use Types Packs/Day Years [...] on filedocumented in this encounter Care Teams Billing Supervisor Relationship Specialty Start Date End Date Pollo Iglesias MD [address] [place] [address] PCP - General Internal Medicine 06/03/15 07/07/18 Arden Muñoz DO [address] [place] [address] PCP - General Internal Medicine 07/08/18 Abdiaziz Blue MD [address] [place] [address] Referring Physician Urology 05/11/19 Guru Traci Sanches MD [address] [address] [email or web address] Medical Oncology 05/11/19 Justice Kate MD [address] [place] [address] [email or web address] Urology 05/11/19 Al Benoit MD [address] [place] [address] [email or web address] Radiation Oncology 05/11/19 Self-Referred, Patient 06/05/19 06/05/19 documented as of this encounter Additional Source Comments The information contained in this document represents components of the legal health record. It is not the complete legal health record.[facility]
--- OUTSIDE RECORDS SUMMARY | 2024-12-01 12:20 | XMS_ITS | Encounter Summary ---
Author Organization [facility] Address [address] [place] [address] Phone Care Team Providers Care Ward Assistant Name Role Phone Arden Muñoz DO Primary Care Provider Abdiaziz Blue MD Unavailable + Guru Traci Sanches MD Unavailable Justice Kate MD Unavailable Al Benoit MD Unavailable Encounter Details Date Type Department Care Team (Late st Contact Info) Description 07/20/2022 Ancillary Orders [facility] Orthopedics & Sports Medicine [address] [place] [address] Awa Andino MD [address] [place] [address] Orthopedics & Sports Medicine, [facility] [place], [place] [id number] [email or web address] Social History Tobacco Use Types Packs/Day Years [...] of Assessment Author No 07/01/2016 4:43 PM CHAKAT Amirah Anguiano CNP documented as of this encounter Mental Status * Patient has serious difficulty concentrating, remembering, or making decisions due to physical, mental, or emotional condition Answer Entry Date Author No 07/01/2016 4:43 PM CHAKAT Amirah Anguiano CNP documented in this encounter Plan of Treatment Not on file documented as of this encounter Visit Diagnoses Not on filedocumented in this encounter Care Teams Ward Assistant Relationship Specialty Start Date End Date Arden Muñoz DO [address] [place] [address] PCP - General Internal Medicine 07/08/18 Abdiaziz Blue MD [address] [place] [address] Referring Physician Urology 05/11/19 Guru Traci Sanches MD [address] [address] [email or web address] Medical Oncology 05/11/19 Justice Kate MD [address] [place] [address] [email or web address] Urology 05/11/19 Al Benoit MD [address] [place] [address] [email or web address] Radiation Oncology 05/11/19 documented as of this encounter Additional Source Comments The information contained in this document represents components of the legal health record. It is not the complete legal health record.[facility]
--- OUTSIDE RECORDS SUMMARY | 2024-12-01 12:20 | XMS_ITS | Encounter Summary ---
Author Organization [facility] Address [address] [place] [address] Phone Care Team Providers Care Drawing Machine Operator Name Role Phone Arden Muñoz DO Primary Care Provider Abdiaziz Blue MD Unavailable + Guru Traci Sanches MD Unavailable Justice Kate MD Unavailable [phone] Al Benoit MD Unavailable Encounter Details Date Type Department Care Team (Late st Contact Info) Description 01/09/2022 Ancillary Orders [facility] Orthopedics & Sports Medicine [address] [place] [address] Awa Andino MD [address] [place] [address] Orthopedics & Sports Medicine, [place] [address] [email or web address] Social History Tobacco Use Types Packs/Day Years [...] on filedocumented in this encounter Care Teams Drawing Machine Operator Relationship Specialty Start Date End Date Arden Muñoz DO [address] [place] [address] PCP - General Internal Medicine 07/08/18 Abdiaziz Blue MD [address] [place] [address] Referring Physician Urology 05/11/19 Guru Traci Sanches MD [address] [address] [email or web address] Medical Oncology 05/11/19 Justice Kate MD [address] [place] [address] [email or web address] Urology 05/11/19 Al Benoit MD [address] [place] [address] [email or web address] Radiation Oncology 05/11/19 documented as of this encounter Additional Source Comments The information contained in this document represents components of the legal health record. It is not the complete legal health record.[facility]
--- OUTSIDE RECORDS SUMMARY | 2024-12-01 12:20 | XMS_ITS | Encounter Summary ---
Author Organization [facility] Address [address] [place] [address] Phone Care Team Providers Care Training Mgr Name Role Phone Pollo Iglesias MD Primary Care Provider Arden Muñoz DO Primary Care Provider Abdiaziz Blue MD Unavailable + Guru Traci Sanches MD Unavailable [phone] Justice Kate MD Unavailable Al Benoit MD Unavailable Self-Referred, Patient Unavailable Unavailab le Encounter Details Date Type Department Care Team (Late st Contact Info) Description 06/19/2015 Ancillary Orders [facility] [address] [place] [address] Criss Langston MD [address] [place] [address] [email or web address] Social History Tobacco Use Types [...] on filedocumented in this encounter Care Teams Training Mgr Relationship Specialty Start Date End Date Pollo Iglesias MD [address] [place] [address] PCP - General Internal Medicine 06/03/15 07/07/18 Arden Muñoz DO [address] [place] [address] PCP - General Internal Medicine 07/08/18 Abdiaziz Blue MD [address] [place] [address] Referring Physician Urology 05/11/19 Guru Traci Sanches MD [facility] [address] [email or web address] Medical Oncology 05/11/19 Justice Kate MD [address] [place] [address] Urology 05/11/19 Al Benoit MD [address] [place] [address] [email or web address] Radiation Oncology 05/11/19 Self-Referred, Patient 06/05/19 06/05/19 documented as of this encounter Additional Source Comments The information contained in this document represents components of the legal health record. It is not the complete legal health record.[facility]
--- OUTSIDE RECORDS SUMMARY | 2024-12-01 12:20 | XMS_ITS | Encounter Summary ---
Author Organization [facility] Address [address] [place] [address] Phone Care Team Providers Care Transfer Car Operator Drier Name Role Phone Arden Muñoz DO Primary Care Provider Abdiaziz Blue MD Unavailable + Guru Traci Sanches MD Unavailable Justice Kate MD Unavailable Al Benoit MD Unavailable Encounter Details Date Type Department Care Team (Late st Contact Info) Description 07/20/2022 Ancillary Orders [address] [address] Awa Andino MD [address] [place] [address] Orthopedics & Sports Medicine, [place], [place] [id number] [email or web address] Hip pain, right Social History Tobacco Use [...] thigh documented in this encounter Care Teams Transfer Car Operator Drier Relationship Specialty Start Date End Date Arden Muñoz DO [address] [place] [address] PCP - General Internal Medicine 07/08/18 Abdiaziz Blue MD [address] [place] [address] Referring Physician Urology 05/11/19 Guru Traci Sanches MD [address] [address] [email or web address] Medical Oncology 05/11/19 Justice Kate MD [address] [place] [address] Urology 05/11/19 Al Benoit MD [address] [place] [address] [email or web address] Radiation Oncology 05/11/19 documented as of this encounter Additional Source Comments The information contained in this document represents components of the legal health record. It is not the complete legal health record.[facility]
--- OUTSIDE RECORDS SUMMARY | 2024-12-01 12:20 | XMS_ITS | Encounter Summary ---
Author Organization [facility] Address [address] [place] [address] Phone Care Team Providers Care Dope Heater Name Role Phone Arden Muñoz DO Primary Care Provider [phone] Abdiaziz Blue MD Unavailable + Guru Traci Sanches MD Unavailable [phone] Justice Kate MD Unavailable Al Benoit MD Unavailable [phone] Encounter Details Date Type Department Care Team (Late st Contact Info) Description 01/09/2022 Ancillary Orders [address] [address] Awa Andino MD [address] [place] [address] Orthopedics & Sports Medicine, [place], [place] [phone] [email or web address] Hip pain, chronic, right Social [...] right documented in this encounter Care Teams Dope Heater Relationship Specialty Start Date End Date Arden Muñoz DO [address] [place] [address] PCP - General Internal Medicine 07/08/18 Abdiaziz Blue MD [address] [place] [address] Referring Physician Urology 05/11/19 Guru Traci Sanches MD [address] [phone] [email or web address] Medical Oncology 05/11/19 Justice Kate MD [address] [place] [address] Urology 05/11/19 Al Benoit MD [address] [place] [address] [email or web address] Radiation Oncology 05/11/19 documented as of this encounter Additional Source Comments The information contained in this document represents components of the legal health record. It is not the complete legal health record.[facility]
--- OUTSIDE RECORDS SUMMARY | 2024-12-01 12:21 | XMS_ITS | Clinical Summary ---
Author Organization [facility] Address [address] [place] [address] Care Team Providers Care Pelt Dropper Name Role Phone Unavailable Primary Care Provider Unavailabl e Social History Tobacco Use Types Packs/Day Years Used Date Smoking Tobacco: Never Assessed Sex and Gender Information Value Date Recorded Sex Assigned at Not on file Legal Sex Male 2:41 PM EDT Gender Identity Not on file Sexual Orientation Not on file Plan of Treatment Health Maintenance Due Date Last Done Comments Advance Care Planning 1945 DTaP/Tdap/Td Vaccines (1 - Tdap) 01/20/1963 Pneumococcal Vaccines 50+ (1 of 1 - PCV) 01/20/1994 Zoster (Shingles) Vaccine (1 of 2) 01/20/1994 RSV Vaccine 60 years and old er and Patients (1 - 1-dose 75+ series) 01/20/2019 COVID-19 Vaccine ( - 2023-2 5 season) 2024 Hepatitis B Vaccines Aged Out No long er eligible based on patient's age to complete this topic
--- OUTSIDE RECORDS SUMMARY | 2024-12-01 12:21 | XMS_ITS | Encounter Summary ---
Author Organization [facility] Address [address] [place] [address] Phone Care Team Providers Care Home Care Associate Name Role Phone Pollo Iglesias MD Primary Care Provider Arden Muñoz DO Primary Care Provider Abdiaziz Blue MD Unavailable + Guru Traci Sanches MD Unavailable Justice Kate MD Unavailable Al Benoit MD Unavailable Self-Referred, Patient Unavailable Unavailab le Encounter Details Date Type Department Care Team (Late st Contact Info) Description 05/01/2016 Procedure Pass [facility] PERIOPERATIVE DEPT [address] [place] [phone] Social History Tobacco Use Types Packs/Day Years [...] on filedocumented in this encounter Care Teams Home Care Associate Relationship Specialty Start Date End Date Pollo Iglesias MD [address] [place] [address] PCP - General Internal Medicine 06/03/15 07/07/18 Arden Muñoz DO [address] [place] [address] PCP - General Internal Medicine 07/08/18 Abdiaziz Blue MD [address] [place] [address] Referring Physician Urology 05/11/19 Guru Traci Sanches MD [address] [address] [email or web address] Medical Oncology 05/11/19 Justice Kate MD [address] [place] [address] [email or web address] Urology 05/11/19 Al Benoit MD [address] [place] [address] [email or web address] Radiation Oncology 05/11/19 Self-Referred, Patient 06/05/19 06/05/19 documented as of this encounter Additional Source Comments The information contained in this document represents components of the legal health record. It is not the complete legal health record.[facility]
--- OUTSIDE RECORDS SUMMARY | 2024-12-01 12:21 | XMS_ITS | Clinical Summary ---
Author Organization [facility] Address [address] [place] [address] Phone Care Team Providers Care Entry Manager Name Role Phone Arden Muñoz DO Primary Care Provider Abdiaziz Blue MD Unavailable + Guru Traci Sanches MD Unavailable Justice Kate MD Unavailable [phone] Al Benoit MD Unavailable [phone] Allergies No known active allergies Medications warfarin [...] and he is welcome to see an engineer intern closer to home or at [facility] He will consider his options. [...] is 1%, Ruiz/NSQIP estimated risk of perioperative [place] or cardiac arrest is <1%, can proceed [...] 1997, on coumadin since CVA in 2013, packaging sales consultant Dr. 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 The plan is to stop Coumadin [...] VACCINE (1 - 1-dose 75+ series) 01/20/2019 INFLUENZA VACCINE (#1) 2024 , 12/09/2021, 12/09/2020, Additional history exists COVID-19 VACCINE ( season) 2024 08/18/2022, 12/18/2021, 06/18/2021, Additional history exists Adult [...] this topic Medical Devices Implanted Type Area Mica Plate Layer Hand Device Identifier Shelf Expiration Date Model / Serial / Lot Screw Bone 6.5x26mm Osteolock Ea Hip 16a - [id number] Implanted:Qty: 1 on 07/08/2015 by Abhinav Fuller MD at [facility] Left: Hip [employer] 04/06/2020 5260-5-0 26 / / [id number] Screw Bone 6.5x24mm Osteolock Ea Hip 16a - [id number] Implanted:Qty: 1 on 07/08/2015 by Abhinav Fuller MD at [facility] Left: Hip [employer] 04/09/2020 5260-5-0 24 / / [id number] Screw Compression Bone 4.5x38 Reverse Shoulder 08 - [id number] Implanted:Qty: 1 on 06/29/2016 by Noah Waetrs Jp, MD at [facility] Right: Shoulder [employer] NVA654 / / Screw Anterior Comp Reverse Shoulder 08 - [id number] Implanted:Qty: 1 on 06/29/2016 by Noah Waters Jp, MD at [facility] Right: Shoulder [employer] BNU817 / / Screw Bone Locking 4.5x35 Reverse Shoulder 08 - [id number] Implanted:Qty: 1 on 06/29/2016 by Noah Waters Jp, MD at [facility] Right: Shoulder [employer] YOW111 / / Screw Compression Shoulder [id number] Reverse Shoulder 08 - [id number] Implanted:Qty: 1 on 06/29/2016 by Noah Waters Jp, MD at [facility] Right: Shoulder [employer] NQC618 / / Centered 36 Mm Reverse Shoulder 05 - [id number] Implanted:Qty: 1 on 06/29/2016 by Noah Waters Jp, MD at [facility] Right: Shoulder [employer] 11/06/2020 EYS863 / [id number] / Implant Hip 58mm Femoral Shell Acetabular Hemispherical Revision Trident Titanium Ea Hip Implanted:Qty: 1 on 07/08/2015 by Abhinav Fuller MD at [facility] STANDARD Left: Hip OJ [employer] 05/28/2020 509-02-5 8F / / [id number] Implant Hip X3 0deg 36mm Size F Femoral Insert Acetabular Trident Ea Hip Implanted:Qty: 1 on 07/08/2015 by Abhinav Fuller MD at [facility] STANDARD Left: Hip [employer] 04/18/2020 623-00-3 6F / / [id number] Implant Hip Xlarge 18f Femoral Sleeve Proximal Textured Ztt Srom Ea Hip Implanted:Qty: 1 on 07/08/2015 by Abhinav Fuller MD at [facility] STANDARD Left: Hip [employer] 07/13/2019 55-0530 / / [id number] Implant Hip [id number] Femoral Stem Tapered 11to13 Standard 36mm Plus 8mm Lateral Neck Srom Ea Hip Implanted:Qty: 1 on 07/08/2015 by Abhinav Fuller MD at [facility] STANDARD Left: Hip [employer] 07/14/2019 [id number] / / [id number] Implant Hip 36mm Plus 6 Femoral Head Tapered 11to13 - Metal Biolox Ea Hip Implanted:Qty: 1 on 07/08/2015 by Abhinav Fuller MD at [facility] STANDARD Left: Hip [employer] 07/13/2019 1365-33- 000 / / [id number] Force Fiber Implanted:Qty: 3 on 01/07/2016 by Noah Waters Jp, MD at [facility] Shoulder 08/19/2020 / / [id number] 25 Mm Diameter X 25 Mm Length Long Post Reverse Shoulder - [id number] Implanted:Qty: 1 on 06/29/2016 by Noah Waters Jp, MD at [facility] Right: Shoulder [employer] 04/15/2018 PVB140 / [id number] / 6b Ascend Flex Standard Ptc Humeral Stem Shoulder 14 - [id number] Implanted:Qty: 1 on 06/29/2016 by Noah Waters Jp, MD at [facility] Right: Shoulder [employer] 04/06/2021 XFT006T / [id number] / High Offset Reversed Tray + 0 Shoulder 03 - [id number] Implanted:Qty: 1 on 06/29/2016 by Noah Waters Jp, MD at [facility] Right: Shoulder [employer] 04/13/2021 GNT722 / [id number] / 36 Diameter Revision Reversed Insert+ 6/12.5 B Shoulder 04 - [id number] Implanted:Qty: 1 on 06/29/2016 by Noah Waters Jp, MD at [facility] Right: Shoulder [employer] 03/27/2021 CMW512X / [id number] / Explanted Type Area Mica Plate Layer Hand Device Identifier Shelf Expiration Date Model / Serial / Lot Plate Bone 420mm Button Sterile Titanium 7 Hole Ea - [id number] Implanted:Qty: 1 on 01/07/2016 by Noah Waters Jp, MD at [facility] Explanted:Qty: 1 on 06/29/2016 at [facility] [employer] Right: Shoulder SYNTHES 482.823 / / Aequalis Perform Glenoid Cortiloc L60 Shoulder 02 Nc - [id number] Implanted:Qty: 1 on 01/07/2016 by Noah Waters Jp, MD at [facility] Explanted:Qty: 1 on 06/29/2016 by Noah Waters Jp, MD at [facility] Right: Shoulder [employer] 09/24/2020 BAP873 / / [id number] Head Humeral Shoulder Simpliciti 72e85le - [id number] Implanted:Qty: 1 on 01/07/2016 by Naoh Waters Jp, MD at [facility] Explanted:Qty: 1 on 06/29/2016 by Noah Waters Jp, MD at [facility] Right: Shoulder [employer] 07/29/2020 [id number] / [id number] 29 / Nucleus Cementless Sz3 Simpliciti Ea - [id number] Implanted:Qty: 1 on 01/07/2016 by Noah Waters Jp, MD at [facility] Explanted:Qty: 1 on 06/29/2016 by Naoh Waters Jp, MD at [facility] Right: Shoulder [employer] 06/24/2020 YYP668 / [id number] / Insurance MEDICARE PART A & B [facility] MEDICARE SUPPLEMENT MEDICARE PART A & B MEDICARE SUPPLEMENT MEDICARE PART A & B MEDICARE SUPPLEMENT MEDICARE PART A & B MEDICARE SUPPLEMENT MEDICARE PART A & B MEDICARE SUPPLEMENT MEDICARE PART A & B MEDICARE SUPPLEMENT MEDICARE PART A & [place] [address] [address] [place] [address] MEDICARE SUPPLEMENT MEDICARE PART A & B Member Subscriber Plan / Payer (Ef fective 2009-Present) Name:Arturo Bentley Member ID:[id number] Relation to Subscriber:Self Name:Arturo Bentley Subscriber ID:[id number] Payer ID:[id number] Group ID:Not on file Type:Medicare Address: [employer] [facility] [address] [place], [place] [id number] [address] MEDICARE SUPPLEMENT MEDICARE PART A & B [facility] AAR MEDICARE SUPPLEMENT Advance Directives For more information, please contact: [phone] (9AM - 5PM [facility], Wednesday-Wednesday) Documents on File Type Date Recorded Patient Manager Php Expl anation Healthcare Proxy 07/17/2015 1:01 PM [...] 2:28 PM 07/11/2015 4:30 PM Care Teams Entry Manager Relationship Specialty Start Date End Date Arden Muñoz DO [address] [place] [address] PCP - General Internal Medicine 07/08/18 Abdiaziz Blue MD [address] [place] [address] Referring Physician Urology 05/11/19 Guru Traci Sanches MD [address] [address] [email or web address] Medical Oncology 05/11/19 Justice Kate MD [address] [place] [address] [email or web address] Urology 05/11/19 Al Benoit MD [address] [place] [address] [email or web address] Radiation Oncology 05/11/19 Additional Source Comments The information contained in this document represents components of the legal health record. It is not the complete legal health record.[facility]
--- OUTSIDE RECORDS SUMMARY | 2024-12-01 12:21 | XMS_ITS | Encounter Summary ---
Author Organization [facility] Address [address] [place] [address] Phone Care Team Providers Care Terrazzo Journeyman Name Role Phone Pollo Iglesias MD Primary Care Provider Arden Muñoz DO Primary Care Provider Abdiaziz Blue MD Unavailable + Guru Traci Sanches MD Unavailable Justice Kate MD Unavailable [phone] Al Benoit MD Unavailable Self-Referred, Patient Unavailable Unavailab le Encounter Details Date Type Department Care Team (Late st Contact Info) Description 05/05/2016 Telephone VIRTUAL DEPARTMENT [address] [place] [phone] Mitra Leal MD [address] [place] [address] Social History Tobacco Use Types Packs/Day Years [...] Assessment Author Yes 01/07/2016 9:40 PM Danny Sne MD * Patient has serious difficulty doing [...] on filedocumented in this encounter Care Teams Terrazzo Journeyman Relationship Specialty Start Date End Date Pollo Iglesias MD [address] [place] [address] PCP - General Internal Medicine 06/03/15 07/07/18 Arden Muñoz DO [address] [place] [address] PCP - General Internal Medicine 07/08/18 Abdiaziz Blue MD [address] [place] [address] Referring Physician Urology 05/11/19 Guru Traci Sanches MD [address] [place] [address] [email or web address] Medical Oncology 05/11/19 Justice Kate MD [address] [place] [address] Urology 05/11/19 Al Benoit MD [address] [place] [address] [email or web address] Radiation Oncology 05/11/19 Self-Referred, Patient 06/05/19 06/05/19 documented as of this encounter Additional Source Comments The information contained in this document represents components of the legal health record. It is not the complete legal health record.[facility]
[2024-12-01 13:58] LABS: Anion Gap 13 (12-20); Blood Urea Nitrogen 23 mg/dL (9-16); Calcium 10.1 mg/dL (8.4-10.2); Carbon Dioxide 28 mmol/L (22-29); Chloride 105 mmol/L (96-108); Estimated Glomerular Filt Rate > 60; Potassium 4.5 mmol/L (3.3-5.1); Sodium 141 mmol/L (135-145)
== END 2024-12-01 11:51 | disposition home or self-care (01) ==
LOC: HO.HMGCLDS 11:50
PROVIDERS: PCP Internal Medicine; Visit Provider Internal Medicine
DX: I48.11 Longstanding persistent atrial fibrillation (principal)
CPT/HCPCS: 36415; 80048

== ENCOUNTER 2025-01-02 08:00 | Outpatient (AMB) | payer MEDICARE, SELFPAY ==
--- OUTSIDE RECORDS SUMMARY | 2013-10-14 | XMS_ITS | Encounter Summary ---
Author Organization [facility] Address [address] [facility] [address] [place] [address] Phone Care Team Providers Care Briquette Machine Operator Name Role Phone Unavailable Primary Care Provider Unavailabl e Encounter Details Date Type Department Care Team (Late st Contact Info) Description 10/14/2013 Hospital Encounter [facility] [address] [place] [address] Noah Waters Jp, MD [address] [facility] [address] [place] [address] [email or web address] Social History Tobacco Use Types Packs/Day Years [...] (No Interpretation) (10/14/2013 12:00 AM EDT) Narrative [facility] [place] IMG INTERFACES - 09/20/2015 8:40 AM EDT This study is for PACS storage only and not for interpretation. Procedure Note SYSTEMGENERATED, DOCUMENTATION - 09/20/2015 This study is for PACS storage only and not for interpretation. us Noah Waters MD IMG OUTSIDE IMAGING W/OUT INTER PRETATION Final Result [facility] [place] IMG INTERFACES documented in this encounter Visit Diagnoses Not on filedocumented in this encounter Additional Source Comments The information contained in this document represents components of the legal health record. It is not the complete legal health record.[facility]
--- OUTSIDE RECORDS SUMMARY | 2014-11-22 | XMS_ITS | Encounter Summary ---
Author Organization [facility] Address [address] [facility] [address] [place] [address] Phone Care Team Providers Care Teacher Ballet Name Role Phone Unavailable Primary Care Provider Unavailabl e Encounter Details Date Type Department Care Team (Late st Contact Info) Description 11/22/2014 Hospital Encounter [facility] [address] [place] [address] Noah Waters Jp, MD [address] [facility] [place] [address] [email or web address] Social History Tobacco Use Types [...] (No Interpretation) (11/22/2014 12:00 AM EDT) Narrative [facility] [place] - 09/20/2015 8:53 AM EDT This study is for PACS storage only and not for interpretation. Procedure Note SYSTEMGENERATED, DOCUMENTATION - 09/20/2015 This study is for PACS storage only and not for interpretation. us Noah Waters MD IMG OUTSIDE IMAGING W/OUT INTER PRETATION Final Result [facility] documented in this encounter Visit Diagnoses Not on filedocumented in this encounter Additional Source Comments The information contained in this document represents components of the legal health record. It is not the complete legal health record.[facility]
--- OUTSIDE RECORDS SUMMARY | 2015-04-03 01:00 | XMS_ITS | Encounter Summary ---
Author Organization [facility] Address [address] [facility] [address] [place] [address] Phone Care Team Providers Care Prepared Foods Supervisor Name Role Phone Unavailable Primary Care Provider Unavailabl e Encounter Details Date Type Department Care Team (Late st Contact Info) Description 04/03/2015 Hospital Encounter [facility] [address] [place] [address] Noah Waters Jp, MD [address] [facility] [address] [place] [address] [email or web address] Social History Tobacco Use Types Packs/Day [...] (No Interpretation) (04/03/2015 12:00 AM EST) Narrative [facility] IMG INTERFACES - 09/20/2015 8:39 AM EDT This study is for PACS storage only and not for interpretation. Procedure Note SYSTEMGENERATED, DOCUMENTATION - 09/20/2015 This study is for PACS storage only and not for interpretation. us Noah Waters MD IMG OUTSIDE IMAGING W/OUT INTER PRETATION Final Result [facility] IMG INTERFACES documented in this encounter Visit Diagnoses Not on filedocumented in this encounter Additional Source Comments The information contained in this document represents components of the legal health record. It is not the complete legal health record.[facility]
--- OUTSIDE RECORDS SUMMARY | 2025-01-02 08:03 | XMS_ITS | Encounter Summary ---
Author Organization [facility] Address [address] [place] [address] Phone Care Team Providers Care Gettering Filament Machine Operator Name Role Phone Arden Muñoz DO Primary Care Provider Abdiaziz Blue MD Unavailable + Guru Traci Sanches MD Unavailable Justice Kate MD Unavailable [phone] Al Benoit MD Unavailable Encounter Details Date Type Department Care Team (Late st Contact Info) Description 01/09/2022 Ancillary [address] [facility] Orthopedics & Sports Medicine [address] [place] [address] Awa Andino MD [address] [place] [address] Orthopedics & Sports Medicine, [place] [address] [email or web address] Social History Tobacco Use Types Packs/Day Years [...] on filedocumented in this encounter Care Teams Gettering Filament Machine Operator Relationship Specialty Start Date End Date Arden Muñoz DO [address] [place] [address] PCP - General Internal Medicine 07/08/18 Abdiaziz Blue MD [address] [place] [address] Referring Physician Urology 05/11/19 Guru Traci Sanches MD [address] [address] [email or web address] Medical Oncology 05/11/19 Justice Kate MD [address] [place], [place] [phone] [email or web address] Urology 05/11/19 Al Benoit MD [address] [place] [address] [email or web address] Radiation Oncology 05/11/19 documented as of this encounter Additional Source Comments The information contained in this document represents components of the legal health record. It is not the complete legal health record.[facility]
--- OUTSIDE RECORDS SUMMARY | 2025-01-02 08:03 | XMS_ITS | Encounter Summary ---
Author Organization [facility] Address [address] [place] [address] Phone Care Team Providers Care Supervisor Mill Name Role Phone Arden Muñoz DO Primary Care Provider Abdiaziz Blue MD Unavailable + Guru Traci Sanches MD Unavailable Justice Kate MD Unavailable [phone] Al Benoit MD Unavailable Encounter Details Date Type Department Care Team (Late st Contact Info) Description 07/20/2022 Ancillary Orders [address] [address] Awa Andino MD [address] [place] [address] Orthopedics & Sports Medicine, [place], [place] [phone] [email or web address] Hip pain, right Social History Tobacco Use [...] thigh documented in this encounter Care Teams Supervisor Mill Relationship Specialty Start Date End Date Arden Muñoz DO [address] [place] [address] PCP - General Internal Medicine 07/08/18 Abdiaziz Blue MD [address] [place] [address] Referring Physician Urology 05/11/19 Guru Traci Sanches MD [address] [address] [email or web address] Medical Oncology 05/11/19 Justice Kate MD [address] [place] [address] [email or web address] Urology 05/11/19 Al Benoit MD [address] [place] [address] [email or web address] Radiation Oncology 05/11/19 documented as of this encounter Additional Source Comments The information contained in this document represents components of the legal health record. It is not the complete legal health record.[facility]
--- OUTSIDE RECORDS SUMMARY | 2025-01-02 08:03 | XMS_ITS | Encounter Summary ---
Author Organization [facility] Address [address] [place] [address] Phone Care Team Providers Care Cheese Processor Name Role Phone Pollo Iglesias MD Primary Care Provider Arden Muñoz DO Primary Care Provider Abdiaziz Blue MD Unavailable + Guru Traci Sanches MD Unavailable Justice Kate MD Unavailable [phone] Al Benoit MD Unavailable [phone] Self-Referred, Patient Unavailable Unavailab le Encounter Details Date Type Department Care Team (Late st Contact Info) Description 01/14/2016 Telephone [facility] [place] of [place]opaedic Surgery, Sports Medicine Service [address] [address] Danny Acosta MD 175 [place] [address] Social History Tobacco Use Types Packs/Day Years [...] on filedocumented in this encounter Care Teams Cheese Processor Relationship Specialty Start Date End Date Pollo Iglesias MD [address] [place] [address] PCP - General Internal Medicine 06/03/15 07/07/18 Arden Muñoz DO [address] [place] [address] PCP - General Internal Medicine 07/08/18 Abdiaziz Blue MD [address] [place] [address] Referring Physician Urology 05/11/19 Guru Traci Sanches MD [address] [address] [email or web address] Medical Oncology 05/11/19 Justice Kate MD [address] [place] [address] [email or web address] Urology 05/11/19 Al Benoit MD [address] [place] [address] [email or web address] Radiation Oncology 05/11/19 Self-Referred, Patient 06/05/19 06/05/19 documented as of this encounter Additional Source Comments The information contained in this document represents components of the legal health record. It is not the complete legal health record.[facility]
--- OUTSIDE RECORDS SUMMARY | 2025-01-02 08:03 | XMS_ITS | Encounter Summary ---
Author Organization [facility] Address [address] [place] [address] Phone Care Team Providers Care Lieutenant Firefighter Name Role Phone Arden Muñoz DO Primary Care Provider Abdiaziz Blue MD Unavailable + Guru Traci Sanches MD Unavailable Justice Kate MD Unavailable [phone] Al Benoit MD Unavailable Encounter Details Date Type Department Care Team (Late st Contact Info) Description 07/20/2022 Ancillary Orders [facility] Orthopedics & Sports Medicine [address] [place] [address] Awa Andino MD [address] [place] [address] Orthopedics & Sports Medicine, [facility] [place], [place] [id number] [email or web address] Social History Tobacco Use Types Packs/Day Years [...] on filedocumented in this encounter Care Teams Lieutenant Firefighter Relationship Specialty Start Date End Date Arden Muñoz DO [address] [place] [address] PCP - General Internal Medicine 07/08/18 Abdiaziz Blue MD [address] [place] [address] Referring Physician Urology 05/11/19 Guru Traci Sanches MD [address] [address] [email or web address] Medical Oncology 05/11/19 Justice Kate MD [address] [place] [address] [email or web address] Urology 05/11/19 Al Benoit MD [address] [place] [address] [email or web address] Radiation Oncology 05/11/19 documented as of this encounter Additional Source Comments The information contained in this document represents components of the legal health record. It is not the complete legal health record.[facility]
--- OUTSIDE RECORDS SUMMARY | 2025-01-02 08:03 | XMS_ITS | Encounter Summary ---
Author Organization [facility] Address [address] [place] [address] Phone Care Team Providers Care Steam Setter Name Role Phone Arden Muñoz DO Primary Care Provider Abdiaziz Blue MD Unavailable + Guru Traci Sanches MD Unavailable [phone] Justice Kate MD Unavailable [phone] Al Benoit MD Unavailable Encounter Details Date Type Department Care Team (Late st Contact Info) Description 01/09/2022 Ancillary Orders [address] [address] Awa Andino MD [address] [place] [address] Orthopedics & Sports Medicine, [place] [address] [email or web address] Hip pain, chronic, right Social [...] right documented in this encounter Care Teams Steam Setter Relationship Specialty Start Date End Date Arden Muñoz DO [address] [place] [address] PCP - General Internal Medicine 07/08/18 Abdiaziz Blue MD [address] [place] [address] Referring Physician Urology 05/11/19 Guru Traci Sanches MD [address] [address] [email or web address] Medical Oncology 05/11/19 Justice Kate MD [address] [place] [address] [email or web address] Urology 05/11/19 Al Benoit MD [address] [place] [address] [email or web address] Radiation Oncology 05/11/19 documented as of this encounter Additional Source Comments The information contained in this document represents components of the legal health record. It is not the complete legal health record.[facility]
--- OUTSIDE RECORDS SUMMARY | 2025-01-02 08:03 | XMS_ITS | Encounter Summary ---
Author Organization [facility] Address [address] [place] [address] Phone Care Team Providers Care Metallurgical Inspector Name Role Phone Pollo Iglesias MD Primary Care Provider Arden Muñoz DO Primary Care Provider Abdiaziz Blue MD Unavailable + Guru Traci Sanches MD Unavailable Justice Kate MD Unavailable [phone] Al Benoit MD Unavailable [phone] Self-Referred, Patient Unavailable Unavailab le Encounter Details Date Type Department Care Team (Late st Contact Info) Description 06/19/2015 Ancillary Orders Pain Management Services 159 [place] [address] Criss Langston MD [address] [place] [address] [email or web address] Social History Tobacco Use Types [...] on filedocumented in this encounter Care Teams Metallurgical Inspector Relationship Specialty Start Date End Date Pollo Iglesias MD [address] [place] [address] PCP - General Internal Medicine 06/03/15 07/07/18 Arden Muñoz DO [address] [place] [address] PCP - General Internal Medicine 07/08/18 Abdiaziz Blue MD [address] [place] [address] Referring Physician Urology 05/11/19 Guru Traci Sanches MD [facility] [address] [email or web address] Medical Oncology 05/11/19 Justice Kate MD [address] [place] [address] [email or web address] Urology 05/11/19 Al Benoit MD [address] [place] [address] [email or web address] Radiation Oncology 05/11/19 Self-Referred, Patient 06/05/19 06/05/19 documented as of this encounter Additional Source Comments The information contained in this document represents components of the legal health record. It is not the complete legal health record.[facility]
--- OUTSIDE RECORDS SUMMARY | 2025-01-02 08:03 | XMS_ITS | Encounter Summary ---
Author Organization [facility] Address [address] [place] [address] Phone Care Team Providers Care Lubricating Engineer Name Role Phone Pollo Iglesias MD Primary Care Provider Arden Muñoz DO Primary Care Provider Abdiaziz Blue MD Unavailable + Guru Traci Sanches MD Unavailable Justice Kate MD Unavailable Al Benoit MD Unavailable Self-Referred, Patient Unavailable Unavailab le Encounter Details Date Type Department Care Team (Late st Contact Info) Description 01/07/2016 Procedure [place] [facility] [place] [address] [place] [phone] Social History Tobacco Use Types Packs/Day Years [...] on filedocumented in this encounter Care Teams Lubricating Engineer Relationship Specialty Start Date End Date Pollo Iglesias MD [address] [place] [address] PCP - General Internal Medicine 06/03/15 07/07/18 Arden Muñoz DO [address] [place] [address] PCP - General Internal Medicine 07/08/18 Abdiaziz Blue MD [address] [place] [address] Referring Physician Urology 05/11/19 Guru Traci Sanches MD [address] [address] [email or web address] Medical Oncology 05/11/19 Justice Kate MD [address] [place] [address] [email or web address] Urology 05/11/19 Al Benoit MD [address] [place] [address] [email or web address] Radiation Oncology 05/11/19 Self-Referred, Patient 06/05/19 06/05/19 documented as of this encounter Additional Source Comments The information contained in this document represents components of the legal health record. It is not the complete legal health record.[facility]
--- OUTSIDE RECORDS SUMMARY | 2025-01-02 08:03 | XMS_ITS | Encounter Summary ---
Author Organization [facility] Address [address] [place] [address] Phone Care Team Providers Care Dental Laboratory Assistant Name Role Phone Pollo Iglesias MD Primary Care Provider [phone] Arden Muñoz DO Primary Care Provider Abdiaziz Blue MD Unavailable + Guru Traci Sanches MD Unavailable Justice Kate MD Unavailable Al Benoit MD Unavailable [phone] Self-Referred, Patient Unavailable Unavailab le Reason for Visit * Reason Onset Date Comments Post Discharge Follow Up Call 07/12/2015 Encounter Details Date Type Department Care Team (Late st Contact Info) Description 07/12/2015 Telephone [facility] [address] [place] [address] RN 2013 [place] [address] [email or web address] Discharge Follow Up Call [...] on filedocumented in this encounter Care Teams Dental Laboratory Assistant Relationship Specialty Start Date End Date Pollo Iglesias MD [address] [place] [address] PCP - General Internal Medicine 06/03/15 07/07/18 Arden Muñoz DO [address] [place] [address] PCP - General Internal Medicine 07/08/18 Abdiaziz Blue MD [address] [place] [address] Referring Physician Urology 05/11/19 Guru Traci Sanches MD [facility] [address] [address] [email or web address] Medical Oncology 05/11/19 Justice Kate MD [address] [place] [address] [email or web address] Urology 05/11/19 Al Benoit MD [address] [place] [address] [email or web address] Radiation Oncology 05/11/19 Self-Referred, Patient 06/05/19 06/05/19 documented as of this encounter Additional Source Comments The information contained in this document represents components of the legal health record. It is not the complete legal health record.[facility]
--- OUTSIDE RECORDS SUMMARY | 2025-01-02 08:03 | XMS_ITS | Encounter Summary ---
Author Organization [facility] Address [address] [place] [address] Phone Care Team Providers Care Rfid Strategist Name Role Phone Pollo Iglesias MD Primary Care Provider Arden Muñoz DO Primary Care Provider Abdiaziz Blue MD Unavailable + Guru Traci Sanches MD Unavailable [phone] Justice Kate MD Unavailable Al Benoit MD Unavailable [phone] Self-Referred, Patient Unavailable Unavailab le Encounter Details Date Type Department Care Team (Late st Contact Info) Description 03/06/2016 Procedure Pass [facility] [place] [address] [facility], 6th [place] [address] Social History Tobacco Use Types Packs/Day Years [...] on filedocumented in this encounter Care Teams Rfid Strategist Relationship Specialty Start Date End Date Pollo Iglesias MD [address] [place] [address] PCP - General Internal Medicine 06/03/15 07/07/18 Arden Muñoz DO [address] [place] [address] PCP - General Internal Medicine 07/08/18 Abdiaziz Blue MD [address] [place] [address] Referring Physician Urology 05/11/19 Guru Traci Sanches MD [address] [address] [email or web address] Medical Oncology 05/11/19 Justice Kate MD [address] [place] [address] Urology 05/11/19 Al Benoit MD [address] [place] [address] [email or web address] Radiation Oncology 05/11/19 Self-Referred, Patient 06/05/19 06/05/19 documented as of this encounter Additional Source Comments The information contained in this document represents components of the legal health record. It is not the complete legal health record.[facility]
--- OUTSIDE RECORDS SUMMARY | 2025-01-02 08:04 | XMS_ITS | Clinical Summary ---
Author Organization [facility] Address [address] [place] [address] Phone Care Team Providers Care Facilities Custodian Name Role Phone Arden Muñzo DO Primary Care Provider Abdiaziz Blue MD Unavailable + Guru Traci Sanches MD Unavailable [phone] uJstice Kate MD Unavailable Al Benoit MD Unavailable Allergies No known [...] and he is welcome to see an machine stuffer automatic closer to home or at [facility]. He will consider his options. 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 The plan is to stop Coumadin 5 [...] this topic Medical Devices Implanted Type Area Kindergarten Tutor Device Identifier Shelf Expiration Date Model / Serial / Lot Screw Bone 6.5x26mm Osteolock Ea Hip 16a - [id number] Implanted:Qty: 1 on 07/08/2015 by Abhinav Fuller MD at [facility] Left: Hip [employer] 04/06/2020 5260-5-0 26 / / [id number] Screw Bone 6.5x24mm Osteolock Ea Hip 16a - [id number] Implanted:Qty: 1 on 07/08/2015 by Abhinav Fuller MD at [facility] Left: Hip [employer] 04/09/2020 5260-5-0 24 / / [id number] Screw Compression Bone 4.5x38 Reverse Shoulder 08 - [id number] Implanted:Qty: 1 on 06/29/2016 by Noah Waters Jp, MD at [facility] Right: Shoulder [employer] VPV627 / / Screw Anterior Comp Reverse Shoulder 08 - [id number] Implanted:Qty: 1 on 06/29/2016 by Noah Waters Jp, MD at [facility] Right: Shoulder [employer] PVH266 / / Screw Bone Locking 4.5x35 Reverse Shoulder 08 - [id number] Implanted:Qty: 1 on 06/29/2016 by Noah Waters Jp, MD at [facility] Right: Shoulder [employer] ULF346 / / Screw Compression Shoulder Err462 Reverse Shoulder 08 - [id number] Implanted:Qty: 1 on 06/29/2016 by Noah Waters Jp, MD at [facility] Right: Shoulder [employer] [id number] / / Centered 36 Mm Reverse Shoulder 05 - [id number] Implanted:Qty: 1 on 06/29/2016 by Noah Waters Jp, MD at [facility] Right: Shoulder [employer] 11/06/2020 EUE677 / [id number] / Implant Hip 58mm Femoral Shell Acetabular Hemispherical Revision Trident Titanium Ea Hip Implanted:Qty: 1 on 07/08/2015 by Abhinav Fuller MD at [facility] STANDARD Left: Hip OJ [employer] 05/28/2020 509-02-5 8F / / [id number] Implant Hip X3 0deg 36mm Size F Femoral Insert Acetabular Trident Ea Hip Implanted:Qty: 1 on 07/08/2015 by Abhinav Fuller MD at [facility] STANDARD Left: Hip [employer] 04/18/2020 623-00-3 6F / / [id number] Implant Hip Xlarge 18f Femoral Sleeve Proximal Textured Ztt Srom Ea Hip Implanted:Qty: 1 on 07/08/2015 by Abhinav Fuller MD at [facility] STANDARD Left: Hip [employer] 07/13/2019 55-0530 / / [id number] Implant Hip [id number] Femoral Stem Tapered 11to13 Standard 36mm Plus 8mm Lateral Neck Srom Ea Hip Implanted:Qty: 1 on 07/08/2015 by Abhinav Fuller MD at [facility] STANDARD Left: Hip [employer] 07/14/2019 [id number] / / [id number] Implant Hip 36mm Plus 6 Femoral Head Tapered 11to13 - Metal Biolox Ea Hip Implanted:Qty: 1 on 07/08/2015 by Abhinav Fuller MD at [facility] STANDARD Left: Hip [employer] 07/13/2019 1365-33- 000 / / [id number] Force Fiber Implanted:Qty: 3 on 01/07/2016 by Noah Waters Jp, MD at [facility] Shoulder 08/19/2020 / / [id number] 25 Mm Diameter X 25 Mm Length Long Post Reverse Shoulder - [id number] Implanted:Qty: 1 on 06/29/2016 by Noah Waters Jp, MD at [facility] Right: Shoulder [employer] 04/15/2018 IOG513 / [id number] / 6b Ascend Flex Standard Ptc Humeral Stem Shoulder 14 - [id number] Implanted:Qty: 1 on 06/29/2016 by Noah Waters Jp, MD at [facility] Right: Shoulder [employer] 04/06/2021 [id number] / [id number] / High Offset Reversed Tray + 0 Shoulder 03 - [id number] Implanted:Qty: 1 on 06/29/2016 by Noah Waters Jp, MD at [facility] Right: Shoulder [employer] 04/13/2021 QEU868 / [id number] / 36 Diameter Revision Reversed Insert+ 6/12.5 B Shoulder 04 - [id number] Implanted:Qty: 1 on 06/29/2016 by Noah Waters Jp, MD at [facility] Right: Shoulder [employer] 03/27/2021 [id number] / [id number] / Explanted Type Area Kindergarten Tutor Device Identifier Shelf Expiration Date Model / Serial / Lot Plate Bone 420mm Button Sterile Titanium 7 Hole Ea - [id number] Implanted:Qty: 1 on 01/07/2016 by Noah Waters Jp, MD at [facility] Explanted:Qty: 1 on 06/29/2016 at [facility] [employer] Right: Shoulder SYNTHES 482.823 / / Aequalis Perform Glenoid Cortiloc L60 Shoulder 02 Nc - [id number] Implanted:Qty: 1 on 01/07/2016 by Noah Waters Jp, MD at [facility] Explanted:Qty: 1 on 06/29/2016 by Noah Waters Jp, MD at [facility] Right: Shoulder [employer] 09/24/2020 UJR424 / / [id number] Head Humeral Shoulder Simpliciti 04k40mx - [id number] Implanted:Qty: 1 on 01/07/2016 by Noah Waters Jp, MD at [facility] Explanted:Qty: 1 on 06/29/2016 by Noah Waters Jp, MD at [facility] Right: Shoulder [employer] 07/29/2020 [id number] / [id number] 29 / Nucleus Cementless Sz3 Simpliciti Ea - [id number] Implanted:Qty: 1 on 01/07/2016 by Noah Waters Jp, MD at [facility] Explanted:Qty: 1 on 06/29/2016 by Noah Waters Jp, MD at [facility] Right: Shoulder [employer] 06/24/2020 EDP626 / [id number] / Insurance MEDICARE PART A & B [facility] MEDICARE SUPPLEMENT MEDICARE PART A & B MEDICARE SUPPLEMENT MEDICARE PART A & B MEDICARE SUPPLEMENT MEDICARE PART A & B Member Subscriber Plan / Payer (Ef fective 2009-) Name:Arturo Bentley Member ID:[id number] Relation to Subscriber:Self Name:Arturo Bentley Subscriber ID:[id number] Payer ID:[id number] Group ID:Not on file Type:Medicare Address: [email or web address] [address] MEDICARE SUPPLEMENT MEDICARE PART A & B MEDICARE SUPPLEMENT MEDICARE PART A & B MEDICARE SUPPLEMENT MEDICARE PART A & B [facility] MEDICARE SUPPLEMENT MEDICARE PART A & B [id number] [place] [address] MEDICARE SUPPLEMENT MEDICARE PART A & B [facility] MEDICARE SUPPLEMENT Advance Directives For more information, please contact: [phone] (9AM - 5PM Shauna/[facility], Wednesday-Wednesday) Documents on File Type Date Recorded Patient Shake Feeder Expl anation Healthcare Proxy 07/17/2015 1:01 PM [...] 2:28 PM 07/11/2015 4:30 PM Care Teams Facilities Custodian Relationship Specialty Start Date End Date Arden Muñoz DO [address] [place] [address] PCP - General Internal Medicine 07/08/18 Abdiaziz Blue MD [address] [place] [address] Referring Physician Urology 05/11/19 Guru Traci Sanches MD [address] [address] [email or web address] Medical Oncology 05/11/19 Justice Kate MD [address] [place] [address] [email or web address] Urology 05/11/19 Al Benoit MD [address] [place] [address] [email or web address] Radiation Oncology 05/11/19 Additional Source Comments The information contained in this document represents components of the legal health record. It is not the complete legal health record.[facility]
--- OUTSIDE RECORDS SUMMARY | 2025-01-02 08:04 | XMS_ITS | Encounter Summary ---
Author Organization [facility] Address [address] [place] [address] Phone Care Team Providers Care Behavioral Health Tech Name Role Phone Pollo Iglesias MD Primary Care Provider Arden Muñoz DO Primary Care Provider Abdiaziz Blue MD Unavailable + Guru Traci Sanches MD Unavailable Justice Kate MD Unavailable Al Benoit MD Unavailable Self-Referred, Patient Unavailable Unavailab le Encounter Details Date Type Department Care Team (Late st Contact Info) Description 06/29/2016 Procedure Pass [facility] [place] [place] [address] [place] [phone] Social History Tobacco Use Types Packs/Day Years [...] on filedocumented in this encounter Care Teams Behavioral Health Tech Relationship Specialty Start Date End Date Pollo Iglesias MD [address] [place] [address] PCP - General Internal Medicine 06/03/15 07/07/18 Arden Muñoz DO [address] [place] [address] PCP - General Internal Medicine 07/08/18 Abdiaziz Blue MD [address] [place] [address] Referring Physician Urology 05/11/19 Guru Traci Sanches MD [address] [address] [email or web address] Medical Oncology 05/11/19 Justice Kate MD [address] [place] [address] [email or web address] Urology 05/11/19 Al Benoit MD [address] [place], [place] [address] [email or web address] Radiation Oncology 05/11/19 Self-Referred, Patient 06/05/19 06/05/19 documented as of this encounter Additional Source Comments The information contained in this document represents components of the legal health record. It is not the complete legal health record.[facility]
--- OUTSIDE RECORDS SUMMARY | 2025-01-02 08:04 | XMS_ITS | Encounter Summary ---
Author Organization [facility] Address [address] [place] [address] Phone Care Team Providers Care Yarn Man Name Role Phone Pollo Iglesias MD Primary Care Provider Arden Muñoz DO Primary Care Provider Abdiaziz Blue MD Unavailable + Guru Traci Sanches MD Unavailable [phone] Justice Kate MD Unavailable Al Benoit MD Unavailable Self-Referred, Patient Unavailable Unavailab le Encounter Details Date Type Department Care Team (Late st Contact Info) Description 02/13/2016 Documentation [facility] [place] of [place]opaedic Surgery, Sports Medicine Service 175 [facility] 4th [place] [address] Danny Acosta MD [address] [place] [address] Social History Tobacco Use Types Packs/Day Years [...] on filedocumented in this encounter Care Teams Yarn Man Relationship Specialty Start Date End Date Pollo Iglesias MD [address] [place] [address] PCP - General Internal Medicine 06/03/15 07/07/18 Arden Muñoz DO [address] [place] [address] PCP - General Internal Medicine 07/08/18 Abdiaziz Blue MD [address] [place] [address] Referring Physician Urology 05/11/19 Guru Traci Sanches MD [address] [address] [email or web address] Medical Oncology 05/11/19 Justice Kate MD [address] [place] [address] [email or web address] Urology 05/11/19 Al Benoit MD [address] [place] [address] [email or web address] Radiation Oncology 05/11/19 Self-Referred, Patient 06/05/19 06/05/19 documented as of this encounter Additional Source Comments The information contained in this document represents components of the legal health record. It is not the complete legal health record.[facility]
--- OUTSIDE RECORDS SUMMARY | 2025-01-02 08:04 | XMS_ITS | Clinical Summary ---
Author Organization [facility] Address [address] [place] [address] Care Team Providers Care Supervisor Core Shop Name Role Phone Unavailable Primary Care Provider [...] Vaccine (1 of 2) 01/20/1994 RSV Vaccine 50 years and old er and Patients (1 - 1-dose 75+ series) 01/20/2019 COVID-19 Vaccine ( - 2023-2 5 season) 2024 Hepatitis B Vaccines Aged Out No long er eligible based on patient's age to complete this topic
--- OUTSIDE RECORDS SUMMARY | 2025-01-02 08:04 | XMS_ITS | Encounter Summary ---
Author Organization [facility] Address [address] [place] [address] Phone Care Team Providers Care Umbrella Frame Maker Name Role Phone Pollo Iglesias MD Primary Care Provider Arden Muñoz DO Primary Care Provider Abdiaziz Blue MD Unavailable + Guru Traci Sanches MD Unavailable Justice Kate MD Unavailable Al Benoit MD Unavailable Self-Referred, Patient Unavailable Unavailab le Encounter Details Date Type Department Care Team (Late st Contact Info) Description 05/01/2016 Procedure Pass [facility] [address] [place] [phone] Social History Tobacco Use Types Packs/Day Years [...] on filedocumented in this encounter Care Teams Umbrella Frame Maker Relationship Specialty Start Date End Date Pollo Iglesias MD [address] [place] [address] PCP - General Internal Medicine 06/03/15 07/07/18 Arden Muñoz DO [address] [place] [address] PCP - General Internal Medicine 07/08/18 Abdiaziz Blue MD [address] [place] [address] Referring Physician Urology 05/11/19 Guru Traci Sanches MD [address] [address] [email or web address] Medical Oncology 05/11/19 Justice Kate MD [address] [place] [address] [email or web address] Urology 05/11/19 Al Benoit MD [address] [place], [place] [address] [email or web address] Radiation Oncology 05/11/19 Self-Referred, Patient 06/05/19 06/05/19 documented as of this encounter Additional Source Comments The information contained in this document represents components of the legal health record. It is not the complete legal health record.[facility]
--- OUTSIDE RECORDS SUMMARY | 2025-01-02 08:04 | XMS_ITS | Encounter Summary ---
Author Organization [facility] Address [address] [place] [address] Phone Care Team Providers Care First Assistant Name Role Phone Pollo Iglesias MD Primary Care Provider [phone] Arden Muñoz DO Primary Care Provider Abdiaziz Blue MD Unavailable + Guru Traci Sanches MD Unavailable Justice Kate MD Unavailable [phone] Al Benoit MD Unavailable Self-Referred, Patient Unavailable Unavailab le Encounter Details Date Type Department Care Team (Late st Contact Info) Description 02/13/2016 Telephone [facility] [place] of [place]edic Surgery, Sports Medicine Service [address] [address] Danny Acosta MD [address] [place] [address] Social History Tobacco Use Types Packs/Day Years [...] on filedocumented in this encounter Care Teams First Assistant Relationship Specialty Start Date End Date Pollo Iglesias MD [address] [place] [address] PCP - General Internal Medicine 06/03/15 07/07/18 Arden Muñoz DO [address] [place] [address] PCP - General Internal Medicine 07/08/18 Abdiaziz Blue MD [address] [place] [address] Referring Physician Urology 05/11/19 Guru Traci Sanches MD [address] [address] [email or web address] Medical Oncology 05/11/19 Justice Kate MD [address] [place] [address] [email or web address] Urology 05/11/19 Al Benoit MD [address] [place] [address] [email or web address] Radiation Oncology 05/11/19 Self-Referred, Patient 06/05/19 06/05/19 documented as of this encounter Additional Source Comments The information contained in this document represents components of the legal health record. It is not the complete legal health record.[facility]
--- OUTSIDE RECORDS SUMMARY | 2025-01-02 08:04 | XMS_ITS | Encounter Summary ---
Author Organization [facility] Address [address] [place] [address] Phone Care Team Providers Care Bag Machine Operator Helper Name Role Phone Pollo Iglesias MD Primary Care Provider [phone] Arden Muñoz DO Primary Care Provider Abdiaziz Blue MD Unavailable + Guru Traci Sanches MD Unavailable Justice Kate MD Unavailable [phone] Al Benoit MD Unavailable [phone] Self-Referred, Patient Unavailable Unavailab le Encounter Details Date Type Department Care Team (Late st Contact Info) Description 05/05/2016 Telephone [facility] [address] [place] [address] Mitra Leal MD [address] [place] [address] Social History Tobacco Use Types Packs/Day Years [...] on filedocumented in this encounter Care Teams Bag Machine Operator Helper Relationship Specialty Start Date End Date Pollo Iglesias MD [address] [place] [address] PCP - General Internal Medicine 06/03/15 07/07/18 Arden Muñoz DO [address] [place] [address] PCP - General Internal Medicine 07/08/18 Abdiaziz Blue MD [address] [place] [address] Referring Physician Urology 05/11/19 Guru Traci Sanches MD [address] [place] [address] [email or web address] 05/11/19 Justice Kate MD [address] [place] [address] Urology 05/11/19 Al Benoit MD [address] [place] [address] [email or web address] Radiation Oncology 05/11/19 Self-Referred, Patient 06/05/19 06/05/19 documented as of this encounter Additional Source Comments The information contained in this document represents components of the legal health record. It is not the complete legal health record.[facility]
--- OUTSIDE RECORDS SUMMARY | 2025-01-02 08:04 | XMS_ITS | Data Portability ---
Author Organization [place] [facility] Address [address] [address] Assessment Encounter Date Assessment Date Assessment LastModified by Organization Details LastModified Time 07/30/2023 07/30/2023 HAF scheduled. He has my email in case he needs to change the appointment. [email or web address] Not available 07/30/2023 10:28:33 Plan of Treatment Reminders Order Date Submit Date Provider Last Modified By Organization Details Last Modified Time Details Appointments DON[facility] Fitting Follow Up (60) 2025 11:00A M GAUTAM ZELAYA Not available Not available Not available Lab None recorded . Referral None recorded . Procedures None recorded . Surgeries None recorded . Imaging None recorded . Medication Orders None recorded . Patient TargetsNo targets recorded. Patient InstructionsNo instructions recorded. Reason for Referral None Reported. Results Created Date Observation Date Name Description Value Unit Range Abnormal Flag Note LastModifiedBy Organization Detail LastModifiedTime 11/03/1907/22/2023 imagi ng/di agnos tic resul t No [...] Name and Address Organization Details Recorded Time Bilateral exostosis of external ear canals 80390735765 61714 Active 2023 Exostosis of external canal, bilateral ; Note: Date Diagnosed : 07/22/2023 10:03 AM (H61.813) Not Available [facility] 4 03:10:10 Abnormal auditory perceptio n 85849144 Active 2023 Other abnormal auditory perceptio ns, left ear; Note: Date Diagnosed : 07/22/2023 10:03 AM (H93.292) Not Available [facility] 4 03:10:11 Sensorine ural hearing loss of bilateral ears 948874431 Active 2023 ALONA GUILLEN, [address] [address], [place], [address] , [facility] - [facility] 4 10:29:09 Problem Notes None recorded. Medical Equipment None Reported. Medications Name Sig Start Date Stop Date Status Note LastModified by Organization Details LastModified Time multivitam in tablet active Medication ID: [id number] Bra nidia Name: multivitam in Send Method: E-Prescrib ed Subs Allowed: subs OK Medicat ionGeneric Name: multivitam in Not Available Not Available Not Available atorvastat in 40 mg tablet active Medication ID: [id number] Paul jacob Name: atorvastat in Send Method: E-Prescrib ed Subs Allowed: subs OK Medicat ionGeneric Name: atorvastat in Not Available Not Available Not Available neomycin-p olymyxin-h ydrocort 3.5 mg/mL-10,0 00 unit/mL-1 % ear solution INSTILL 4-5 DROPS IN LEFT EAR EVERY DAY active Not Available Not Available No t Available tamsulosin 0.4 mg capsule active Medication ID: [id number] Paul nd Name: tamsulosin Send Method: E-Prescrib ed Subs Allowed: subs OK Medicat ionGeneric Name: tamsulosin Not Available Not Available Not Available warfarin 5 mg tablet active Medication ID: [id number] Bra nd Name: warfarin S end Method: E-Prescrib ed Subs Allowed: subs [place] Medicat ionGeneric Name: warfarin Not Available Not Available Not Available lorazepam 1 mg tablet active Medication ID: [id number] Bra nd Name: lorazepam Send Method: E-Prescrib ed Subs Allowed: subs [place] Medicat ionGeneric Name: lorazepam Not Available Not Available Not Available finasterid e 5 mg tablet active Medication ID: [id number] Bra nd Name: finasterid e Send Method: E-Prescrib ed Subs Allowed: subs OK Medicat ionGeneric Name: finasterid e Not Available Not Available Not Available aspirin 81 mg capsule active Medication ID: [id number] Bra nd Name: aspirin Se nd Method: E-Prescrib [...] Diagnosis SNOMED-CT Code Diagnosis ICD10 Code Diagnosis IMO Codes Diagnosis Note 165 GAUTAM ZELAYA [facility] [place] [address] [address] 07/30/2023 09:51:52 09/02/2023 00:15:53 Sensorineural hearing loss of bilateral ears [id number] H90.3 1905 GAUTAM ZELAYA [facility] [place] 100 [facility] 100 [place] [address] 08/12/2023 10:36:38 08/12/2023 11:38:04 Sensorineural hearing loss of bilateral ears [id number] H90.3 8647 GAUTAM ZELAYA [facility] [place] 100 [facility] 100 [place] [address] 10/01/2023 10:34:45 10/02/2023 14:45:28 Sensorineural hearing loss of bilateral ears [id number] H90.3 [id number] GAUTAM ZELAYA [facility] of [facility] - [facility] 100 [place] [address] 10/19/2024 11:12:39 10/20/2024 15:57:14 Sensorineural hearing loss of bilateral ears [id number] H90.3 Health Concerns Section Related Observation LastModified by Organization Detai ls LastModified Time None Recorded Concern Status LastModified by Organization Details LastModified Time None Recorded Advance Directives Directive None Recorded Payers Insurance Date Sequence Insurance Name Policy Number Policy Devine Covered Member ID Devine Member ID Guarantor Name 10/19/2024 2 [employer] (MEDICARE SUPPLEMENT) Arturo Bentley [id number] Arturo Bentley 10/19/2024 1 [place]IC[place]: [employer] Arturo Bentley [id number] Arturo Bentley Notes Date Note Type Note Provider Name and Address Organization Details Recorded Time 07/30/2023 text/html Pt is here today with {{spouse* daughter son }}. They are {{a* an}} {{new* experienced}} user of hearing aids. Here today due to difficulty {{ in all situations. Especially with his left ear, he feels it is always blocked. Goes out every morning to play pickleball or pinEdgeConneXong, leads a pretty active lifestyle with friends. #}} Discussed type, technology levels, and manufacturers of hearing aids. Type of phone: {{iphone android (galaxy) android (off brand) no smart phone iphone, but not too interested in the bluetooth/angie technology.#}} Ordering:{{Oticon phon ak* Widex}} {{ [id number] Life-R in P7 steel frazier#}}Softball Core Molder: {{ 1M#}}Domes: {{ open medium#}}Other: {{}} Paid today: {{$ $0#}}Due at fitting {{$ $5144#}}Total: {{$ $5144#}} ALONA GUILLEN, [facility] 100 [facility],[address] [address], [place], [address], [facility] - [facility] 07/30/2023 10:29:20 08/12/2023 text/html Fit today with phonak Set at level 3 and fit to target. Turned down after REM for comfort. 90% with weak occlusion client success manager. VC activated and explained. All tap controls turned off. Discussed insertion/removal of devices from ears and steward/stewardess second class and cleaning of devices which included changing the domes, replacing the filter, and wiping down the HAs. Patient was able to successfully insert devices into ears in office Not interested in phone connectivityPaid [id number] via check via ARG GAUTAM ZELAYA 100 [facility],[address] [address], [place], [address], [facility] 08/12/2023 11:33:57 10/01/2023 text/html Concerns: No concerns [...] 1 year FU with HT. ALONA GUILLEN, GAUTAM 100 [facility],[address] [address], [place], [address], [facility] 10/01/2023 11:03:39 10/19/2024 text/html Concerns: No concerns today. Notes he is hearing well and has enough supplies at this time.Check/clean: GWO before and after cleaning. Changed filters, domes, and tails. Brushed microphones. Put through vacuum chamber cycle. Adjustments: none made todayFU: Annual already scheduled for next year. Will do a hearing test at that time. GAUTAM ZELAYA [address] [facility],[address] [address], [place], [address], [facility] 10/19/2024 11:31:51
--- OUTSIDE RECORDS SUMMARY | 2025-01-02 08:04 | XMS_ITS | Encounter Summary ---
Author Organization [facility] Address [address] [place] [address] [address] [place] [address] Phone Care Team Providers Care Personnel Consultant Name Role Phone Pollo Iglesias MD Primary Care Provider [phone] Arden Muñoz DO Primary Care Provider [phone] Abdiaziz Blue MD Unavailable + Guru Traci Sanches MD Unavailable Justice Kate MD Unavailable Al Benoit MD Unavailable [phone] Self-Referred, Patient Unavailable Unavailab le Reason for Referral * Consultation (Routine) - Closed Specialty Diagnoses / Procedures Referred By Contclementina rojas Referred To Contact Rheumatology Diagnoses Primary osteoarthritis of right shoulder System, Provider Not In, PhD [address] [address] Referral ID Status Reason Start Date Expiration Date Visits Re quested Visits Authorized [id number] Closed 06/03/2015 06/03/2016 1 1 Encounter Details Date Type Department Care Team (Latest Contact Info) Description 06/03/2015 Transcribe Orders [facility] [place] [address], [address] Floor, [address] [place] [address] InstrDong avila MD [address] [place] [address] [place] [id number] Primary osteoarthritis of right shoulder (Primary Dx) [...] Diagnoses Orde r Schedule Ambulatory referral [place] [facility] [place] Outpatient Referral Routine Primary osteoarthritis of right shoulder Ordered: 06/03/2015 documented as of this encounter Visit Diagnoses Diagnosis Primary osteoarthritis of right shoulder- Primary documented in this encounter Care Teams Personnel Consultant Relationship Specialty Start Date End Date Pollo Iglesias MD [address] [place] [address] PCP - General Internal Medicine 06/03/15 07/07/18 Arden Muñoz DO [address] [place] [address] PCP - General Internal Medicine 07/08/18 Abdiaziz Blue MD [address] [place] [address] Referring Physician Urology 05/11/19 Guru Traci Sanches MD [facility] [address] [email or web address] Medical Oncology 05/11/19 Justice Kate MD [address] [place] [address] [email or web address] Urology 05/11/19 Al Benoit MD [address] [place] [address] [email or web address] Radiation Oncology 05/11/19 Self-Referred, Patient 06/05/19 06/05/19 documented as of this encounter Additional Source Comments The information contained in this document represents components of the legal health record. It is not the complete legal health record.[facility]
--- NOTE | 2025-01-02 08:20 | A.OFFVIS_ITS ---
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 Patient states symptoms started about 6 months ago, now primarily affecting his right middle finger. He denies any numbness or tingling. He denies any pain . He has not tried any form of treatment. 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 Patient states symptoms started about 6 months ago, now primarily affecting his right middle finger. He denies any numbness or tingling. He denies any pain . He has not tried any form of treatment. 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 Father No problems noted. Social History (Updated 01/02/25 @ 08:27 by DARYA Echeverria) Housing: House Alcohol intake: current Alcohol intake frequency: does not drink Patient Tobacco Use Status: Never used Tobacco service: No Current occupational status: retired Current occupation: left handed Cognitive needs: No Hearing needs: Yes (b/l hearing aids) Vision needs: Yes (rx glasses) Review of Systems Const All systems reviewed & are unremarkable except as noted in HPI and below Physical Exam Vital Signs: BMI result Body Mass Index 25.8 Extrem Other: Patient is alert, oriented, and in no acute distress. Neuro: Normal sensation of the tips of all digits of the bilateral hand at this time Vascular: Cap refill brisk Pain: Tenderness to palpation of the A1 pulleys of bilateral middle fingers Pain associated with locking and catching of the digits ROM: There is a visible and palpable locking and catching of the right middle finger, patient is able to flex and extend all other digits of bilateral hands fully and without difficulty Skin: No lacerations or abrasions. General: No ecchymosis, erythema, or evidence of infection. Psych: Appears grossly normal Affect normal Attitude cooperative Office Procedures AMB Tendon Injection Tendon Injection [id number] Tendon Sheath Injection All charges added?: Procedure code (CPT) selection complete Assessment & Plan Assessment & Plan (1) Trigger finger, left middle finger: Code(s): M65.332 - Trigger finger, left middle finger Category: Medical (2) Trigger finger, right middle finger: Code(s): M65.331 - Trigger finger, right middle finger Category: Medical Plan 1. Right middle finger trigger finger Patient is educated about this condition Patient is educated about the typical treatment course Patient would like to proceed with steroid injection The risks and benefits of a steroid injection including but not limited to risk of damage to blood vessels, nerves, tendons, infection, skin bleaching, failure to improve symptoms, increased pain, and possible need for further injections or other intervention were discussed with the patient and the patient wishes to proceed with the steroid injection. Once consent was obtained, I sterilely prepped the area over the A1 terry of the flexor tendon sheath of the right middle finger. I then injected the flexor tendon sheath with a combination of 1 mL of dexamethasone (4mg/ml), and 1% lidocaine. The patient tolerated the procedure well with no complications. If the patient continues to have locking and catching 4-6 weeks following this injection, they may call to schedule appointment to discuss alternative treatment options Follow-up for discussion of the left middle finger trigger injection Sooner with any acute concerns Coding Level of Care Code New Pt Level 3 (19880) Diagnoses Trigger finger, left middle finger M65.332 Trigger finger, right middle finger M65.331 CPT Codes Tendon Injection - Tendon Injection 1: [id number] Tendon Sheath Injection ([id number])
[2025-01-02 08:21] VITALS: BMI 25.8
== END 2025-01-02 08:53 | disposition home or self-care (01) ==
LOC: HO.HOS 08:01
PROVIDERS: PCP Internal Medicine
DX: M65.332 Trigger finger, left middle finger (principal); M65.331 Trigger finger, right middle finger
CPT/HCPCS: 20550; 99203

== ENCOUNTER → 2025-01-02 08:00 | Outpatient (BNVA) | payer MEDICARE, SELFPAY | PROVIDERS: PCP Internal Medicine | DX: M65.331 Trigger finger, right middle finger (principal); M65.332 Trigger finger, left middle finger | CPT/HCPCS: 20550; 99202; J1100; J2003 ==

== ENCOUNTER 2025-01-16 08:37 | Outpatient (AMB) | payer MEDICARE, SELFPAY ==
--- OUTSIDE RECORDS SUMMARY | 2013-10-13 23:00 | XMS_ITS | Encounter Summary ---
Author Organization [facility] Address [address] [facility] [address] [place] [address] Phone Care Team Providers Care Home School Coordinator Name Role Phone Unavailable Primary Care Provider Unavailabl e Encounter Details Date Type Department Care Team (Late st Contact Info) Description 10/14/2013 Hospital Encounter [facility] [address] [place] [address] Noah Waters Jp, MD [address] [facility] [address] [place] [address] [email or web address] Social History Tobacco Use Types Packs/Day Years [...] (No Interpretation) (10/14/2013 12:00 AM EDT) Narrative [facility] IMG INTERFACES - 09/20/2015 8:40 AM EDT This study is for PACS storage only and not for interpretation. Procedure Note SYSTEMGENERATED, DOCUMENTATION - 09/20/2015 This study is for PACS storage only and not for interpretation. us Noah Waters MD IMG OUTSIDE IMAGING W/OUT INTER PRETATION Final Result [facility] IMG INTERFACES documented in this encounter Visit Diagnoses Not on filedocumented in this encounter Additional Source Comments The information contained in this document represents components of the legal health record. It is not the complete legal health record.[facility]
--- OUTSIDE RECORDS SUMMARY | 2014-11-21 23:00 | XMS_ITS | Encounter Summary ---
Author Organization [facility] Address [address] [facility] [address] [place] [address] Phone Care Team Providers Care Fret Saw Operator Name Role Phone Unavailable Primary Care Provider Unavailabl e Encounter Details Date Type Department Care Team (Late st Contact Info) Description 11/22/2014 Hospital Encounter [facility] [address] [place] [address] Noah Waters Jp, MD 55 [facility] [place] [address] [email or web address] [email or web address] Social History Tobacco Use Types Packs/Day Years [...] (No Interpretation) (11/22/2014 12:00 AM EDT) Narrative [facility] [place] - 09/20/2015 8:53 AM EDT This study is for PACS storage only and not for interpretation. Procedure Note SYSTEMGENERATED, DOCUMENTATION - 09/20/2015 This study is for PACS storage only and not for interpretation. us Noah Waters MD IMG OUTSIDE IMAGING W/OUT INTER PRETATION Final Result [facility] documented in this encounter Visit Diagnoses Not on filedocumented in this encounter Additional Source Comments The information contained in this document represents components of the legal health record. It is not the complete legal health record.[facility]
--- OUTSIDE RECORDS SUMMARY | 2015-04-03 | XMS_ITS | Encounter Summary ---
Author Organization [facility] Address [address] [facility] [address] [place] [address] Phone Care Team Providers Care Transportation Officer Name Role Phone Unavailable Primary Care Provider Unavailabl e Encounter Details Date Type Department Care Team (Late st Contact Info) Description 04/03/2015 Hospital Encounter [facility] [address] [place] [address] Noah Waters Jp, MD 55 [facility] [address] [place] [address] [email or web address] Social History Tobacco Use Types Packs/Day [...] (No Interpretation) (04/03/2015 12:00 AM EST) Narrative [facility] [place] - 09/20/2015 8:39 AM EDT This study is for PACS storage only and not for interpretation. Procedure Note SYSTEMGENERATED, DOCUMENTATION - 09/20/2015 This study is for PACS storage only and not for interpretation. us Noah Waters MD IMG OUTSIDE IMAGING W/OUT INTER PRETATION Final Result [facility] [place] documented in this encounter Visit Diagnoses Not on filedocumented in this encounter Additional Source Comments The information contained in this document represents components of the legal health record. It is not the complete legal health record.[facility]
--- NOTE | 2025-01-16 08:38 | MHC.OFFVIS ---
Vital Signs 01/16/25 08:42 Height 5 ft 7 in Weight 165 lb BMI 25.8 Intake Visit Reasons: INJ: LT middle trigger finger Intake Note: Arturo is an 79 year old left hand dominant male who presents today for a Left Middle Finger Trigger Injection. Patient was last seen on 01/03/25 where he received a right middle finger trigger injection. At today's visit he states that the last injection did give mild releif. Allergies No Known Allergies (No Known Allergies*) Allergy (Verified 01/10/25 09:35) HPI HPI INJ: LT middle trigger finger: Details: Arturo is an 79 year old left hand dominant male who presents today for a Left Middle Finger Trigger Injection. Patient was last seen on 01/03/25 where he received a right middle finger trigger injection. At today's visit he states that the last injection did give mild releif, and then his locking and catching has improved significantly since previous evaluation. 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 Father No problems noted. Social History (Updated 01/02/25 @ 08:27 by DARYA Echeverria) Housing: House Alcohol intake: current Alcohol intake frequency: does not drink Patient Tobacco Use Status: Never used Tobacco service: No Current occupational status: retired Current occupation: left handed Cognitive needs: No Hearing needs: Yes (b/l hearing aids) Vision needs: Yes (rx glasses) Review of Systems Const All systems reviewed & are unremarkable except as noted in HPI and below Physical Exam Vital Signs: BMI result Body Mass Index 25.8 Office Procedures AMB Tendon Injection Tendon Injection 93304-Chqagu Tendon Sheath Injection All charges added?: Procedure code (CPT) selection complete Assessment & Plan Assessment & Plan (1) Trigger finger, left middle finger: Code(s): M65.332 - Trigger finger, left middle finger Category: Medical Plan 1. Left middle finger trigger finger The risks and benefits of a steroid injection including but not limited to risk of damage to blood vessels, nerves, tendons, infection, skin bleaching, failure to improve symptoms, increased pain, and possible need for further injections or other intervention were discussed with the patient and the patient wishes to proceed with the steroid injection. Once consent was obtained, I sterilely prepped the area over the A1 terry of the flexor tendon sheath of the left middle finger. I then injected the flexor tendon sheath with a combination of 1 mL of dexamethasone (4mg/ml), and 1% lidocaine. The patient tolerated the procedure well with no complications. If the patient continues to have locking and catching 4-6 weeks following this injection, they may call to schedule appointment to discuss alternative treatment options Follow-up prn Coding Level of Care Code Procedure Only Diagnoses Trigger finger, left middle finger M65.332 CPT Codes Tendon Injection - Tendon Injection 1: 86888-Imjeny Tendon Sheath Injection ([id number])
[2025-01-16 08:42] VITALS: BMI 25.8
--- OUTSIDE RECORDS SUMMARY | 2025-01-16 09:02 | XMS_ITS | Encounter Summary ---
Author Organization [facility] Address [address] [place] [address] Phone Care Team Providers Care Admissions Evaluator Name Role Phone Pollo Iglesias MD Primary Care Provider [phone] Arden Muñoz DO Primary Care Provider Abdiaziz Blue MD Unavailable + Guru Traci Sanches MD Unavailable Justice Kate MD Unavailable [phone] Al Benoit MD Unavailable Self-Referred, Patient Unavailable Unavailab le Reason for Visit * Reason Onset Date Comments Post Discharge Follow Up Call 07/12/2015 Encounter Details Date Type Department Care Team (Late st Contact Info) Description 07/12/2015 Telephone [facility] [address] [place] [address] RN [address] [place] [address] [email or web address] Discharge Follow Up Call [...] on filedocumented in this encounter Care Teams Admissions Evaluator Relationship Specialty Start Date End Date Pollo Iglesias MD [address] [place] [address] PCP - General Internal Medicine 06/03/15 07/07/18 Arden Muñoz DO [address] [place] [address] PCP - General Internal Medicine 07/08/18 Abdiaziz Blue MD [address] [place] [address] Referring Physician Urology 05/11/19 [address] [facility] [address] [address] [email or web address] Medical Oncology 05/11/19 Justice Kate MD [address] [place] [address] [email or web address] Urology 05/11/19 Al Benoit MD [address] [place] [address] [email or web address] Radiation Oncology 05/11/19 Self-Referred, Patient 06/05/19 06/05/19 documented as of this encounter Additional Source Comments The information contained in this document represents components of the legal health record. It is not the complete legal health record.[facility]
--- OUTSIDE RECORDS SUMMARY | 2025-01-16 09:02 | XMS_ITS | Encounter Summary ---
Author Organization [facility] [place] [facility] Address [address] [place] [address] Phone Care Team Providers Care Theology Professor Name Role Phone Pollo Iglesias MD Primary Care Provider Arden Muñoz DO Primary Care Provider Abdiaziz Blue MD Unavailable + Guru Traci Sanches MD Unavailable Justice Kate MD Unavailable [phone] Al Benoit MD Unavailable [phone] Self-Referred, Patient Unavailable Unavailab le Encounter Details Date Type Department Care Team (Late st Contact Info) Description 01/07/[address] [facility] [address] [place] [phone] Social History Tobacco Use Types Packs/Day Years [...] on filedocumented in this encounter Care Teams Theology Professor Relationship Specialty Start Date End Date Pollo Iglesias MD [address] [place] [address] PCP - General Internal Medicine 06/03/15 07/07/18 Arden Muñoz DO [address] [place] [address] PCP - General Internal Medicine 07/08/18 Abdiaziz Blue MD [address] [place] [address] Referring Physician Urology 05/11/19 Guru Traci Sanches MD [address] [address] [email or web address] Medical Oncology 05/11/19 Justice Kate MD [address] [place] [address] [email or web address] Urology 05/11/19 Al Benoit MD [address] [place] [address] [email or web address] Radiation Oncology 05/11/19 Self-Referred, Patient 06/05/19 06/05/19 documented as of this encounter Additional Source Comments The information contained in this document represents components of the legal health record. It is not the complete legal health record.[facility]
--- OUTSIDE RECORDS SUMMARY | 2025-01-16 09:02 | XMS_ITS | Encounter Summary ---
Author Organization [facility] Address [address] [place] [address] Phone Care Team Providers Care Knitter Operator Name Role Phone Pollo Iglesias MD Primary Care Provider Arden Muñoz DO Primary Care Provider Abdiaziz Blue MD Unavailable + Guru Traci Sanches MD Unavailable Justice Kate MD Unavailable [phone] Al Benoit MD Unavailable [phone] Self-Referred, Patient Unavailable Unavailab le Encounter Details Date Type Department Care Team (Late st Contact Info) Description 06/19/2015 Ancillary Orders [facility] Services [address] [place] [address] Criss Langston MD [address] [place] [address] [email or web address] Social History Tobacco Use Types [...] on filedocumented in this encounter Care Teams Knitter Operator Relationship Specialty Start Date End Date Pollo Iglesias MD [address] [place] [address] PCP - General Internal Medicine 06/03/15 07/07/18 Arden Muñoz DO [address] [place] [address] PCP - General Internal Medicine 07/08/18 Abdiaziz Blue MD [address] [place] [address] Referring Physician Urology 05/11/19 Guru Traci Sanches MD [facility] [address] [address] [email or web address] Oncology 05/11/19 Justice Kate MD [address] [place] [address] [email or web address] Urology 05/11/19 Al Benoit MD [address] [place] [address] [email or web address] Radiation Oncology 05/11/19 Self-Referred, Patient 06/05/19 06/05/19 documented as of this encounter Additional Source Comments The information contained in this document represents components of the legal health record. It is not the complete legal health record.[facility]
--- OUTSIDE RECORDS SUMMARY | 2025-01-16 09:02 | XMS_ITS | Encounter Summary ---
Author Organization [facility] Address [address] [place] [address] Phone Care Team Providers Care Neurosurgeon Name Role Phone Pollo Iglesias MD Primary Care Provider Arden Muñoz DO Primary Care Provider Abdiaziz Blue MD Unavailable + Guru Traci Sanches MD Unavailable Justice Kate MD Unavailable [phone] Al Benoit MD Unavailable Self-Referred, Patient Unavailable Unavailab le Encounter Details Date Type Department Care Team (Late st Contact Info) Description 01/14/2016 Telephone [facility] Department of Orthopaedic Surgery, Sports Medicine Service [address] [address] Danny Acosta MD 175 [place] [address] Social History Tobacco Use Types Packs/Day Years [...] on filedocumented in this encounter Care Teams Neurosurgeon Relationship Specialty Start Date End Date Pollo Iglesias MD [address] [place] [address] PCP - General Internal Medicine 06/03/15 07/07/18 Arden Muñoz DO [address] [place] [address] PCP - General Internal Medicine 07/08/18 Abdiaziz Blue MD [address] [place] [address] Referring Physician Urology 05/11/19 Guru Traci Sanches MD [address] [address] [email or web address] Medical Oncology 05/11/19 Justice Kate MD [address] [place] [address] [email or web address] Urology 05/11/19 Al Benoit MD [address] [place] [address] [email or web address] Radiation Oncology 05/11/19 Self-Referred, Patient 06/05/19 06/05/19 documented as of this encounter Additional Source Comments The information contained in this document represents components of the legal health record. It is not the complete legal health record.[facility]
--- OUTSIDE RECORDS SUMMARY | 2025-01-16 09:02 | XMS_ITS | Clinical Summary ---
Author Organization [facility] Address [address] [place], [place] [address] Phone Care Team Providers Care Flange Machine Operator Name Role Phone Saravanan Fajardo MD Primary Care Provider [phone] Allergies No known active allergies Medications finasteride [...] times a day. 180 each 3 12/01/2024 6 Active Active Problems Problem Noted Date Diagnosed Date Longstanding persistent atri al fibrillation (CMS/HCC V24, CMS/HCC V28) 07/29/2021 Overview (04/05/2024): Last Assessment & Plan: Patient has permanent atrial fibrillation, without any tacky or bradycardia symptoms reported. He is auto rate controlled. He remains anticoagulated for high IEI3RS3-PXLc score with prior stroke. He does have sleep apnea by home sleep study though the sleep center did not have any upcoming in lab titration study appointments available per his report and he plans to see the pulmonology team at [facility] next week. We discussed the [...] Description 12/01/2024 11:20 AM EDT Office Visit [facility] [address] [place] [address] Neville Salazar MD Longstanding persistent atrial fibrillation (CMS/HCC V24, CMS/HCC V28) (Primary Dx) 11/24/2024 2:00 PM EDT Office Visit [facility] [address] [place] [phone] Neville Salazar MD Longstanding persistent atrial fibrillation (CMS/HCC V24, CMS/HCC V28) (Primary Dx); Nonrheumatic tricuspid valve regurgitation 11/16/2024 11:00 AM EDT Ancillary Procedure [facility] [address] [place] [address] Longstanding persistent atrial fibrillation (CMS/HCC V24, CMS/HCC [...] Description 03/30/2025 10:40 AM EST Office Visit [facility] [address] [place] [address] Anca Roberts NP [address] [place] [address] [place] [address] Health Maintenance Due Date Last Done Comments [...] Associated Diagnosis Comments EXTERNAL CLINICAL LAB Routine 12/01/2024 8:38 AM EDT TRANSTHORACIC ECHOCARDIOGRAM (TTE) COMPLETE Routine 11/16/2024 11:43 AM EDT Longstanding persistent atrial fibrillation (CMS/HCC V24, CMS/HCC V28) from Last 3 Months Results * External clinical lab (12/01/2024 8:38 AM EDT) us Historical Provider LAB BLOOD ORDERABLES Edit ed Result - Final * (ABNORMAL) TRANSTHORACIC ECHOCARDIOGRAM (TTE) COMPLETE (11/16/2024 11:43 AM EDT) BSA 1.91 m2 CV PACS Left [facility] [place] 8.0 cm CV PACS Left [facility] [place] 8.5 cm CV PACS LA Area Sys [...] Volume 63 mL CV PACS MV Deceleration [place] 2.8 m/s2 CV PACS E Wave Deceleration [...] Result from Last 3 Months Insurance MEDICARE [facility] Care Teams Flange Machine Operator Relationship Specialty Start Date End Date Saravanan Fajardo MD [address] [place] [address] PCP - General Internal Medicine 11/24/24
--- OUTSIDE RECORDS SUMMARY | 2025-01-16 09:02 | XMS_ITS | Encounter Summary ---
Author Organization [facility] Address [address] [place] [address] Phone Care Team Providers Care Medical Sonographer Name Role Phone Arden Muñoz DO Primary Care Provider [phone] Abdiaziz Blue MD Unavailable + Guru Traci Sanches MD Unavailable Justice Kate MD Unavailable Al Benoit MD Unavailable Encounter Details Date Type Department Care Team (Late st Contact Info) Description 07/20/2022 Ancillary Orders [facility] Orthopedics & Sports Medicine [address] [place] [address] Awa Andino MD [address] [place] [address] Orthopedics & Sports Medicine, [facility] [place], [place] [phone] [email or web address] Social History Tobacco Use Types Packs/Day Years [...] on filedocumented in this encounter Care Teams Medical Sonographer Relationship Specialty Start Date End Date Arden Muñoz DO [address] [place] [address] PCP - General Internal Medicine 07/08/18 Abdiaziz Blue MD [address] [place] [address] Referring Physician Urology 05/11/19 Guru Traci Sanches MD [address] [address] [email or web address] Medical Oncology 05/11/19 Justice Kate MD [address] [place] [address] [email or web address] Urology 05/11/19 Al Benoit MD [address] [place] [address] [email or web address] Radiation Oncology 05/11/19 documented as of this encounter Additional Source Comments The information contained in this document represents components of the legal health record. It is not the complete legal health record.[facility]
--- OUTSIDE RECORDS SUMMARY | 2025-01-16 09:02 | XMS_ITS | Encounter Summary ---
Author Organization [facility] Address [address] [place] [address] Phone Care Team Providers Care Supply Chain Coordinator Name Role Phone Arden Muñoz DO Primary Care Provider Abdiaziz Blue MD Unavailable + Guru Traci Sanches MD Unavailable Justice Kate MD Unavailable Al Benoit MD Unavailable [phone] Encounter Details Date Type Department Care Team (Late st Contact Info) Description 07/20/2022 Ancillary Orders [address] [address] Awa Andino MD [address] [place] [address] Orthopedics & Sports Medicine, [place], [place] [id number] [email or web address] Hip pain, right Social [...] thigh documented in this encounter Care Teams Supply Chain Coordinator Relationship Specialty Start Date End Date Arden Muñoz DO [address] [place] [address] PCP - General Internal Medicine 07/08/18 Abdiaziz Blue MD [address] [place] [address] Referring Physician Urology 05/11/19 Guru Traci Sanches MD [address] [address] [email or web address] Medical Oncology 05/11/19 Justice Kate MD [address] [place] [address] [email or web address] Urology 05/11/19 Al Benoit MD [address] [place] [address] [email or web address] Radiation Oncology 05/11/19 documented as of this encounter Additional Source Comments The information contained in this document represents components of the legal health record. It is not the complete legal health record.[facility]
--- OUTSIDE RECORDS SUMMARY | 2025-01-16 09:02 | XMS_ITS | Encounter Summary ---
Author Organization [facility] Address [address] [place] [address] Phone Care Team Providers Care Bread Dough Mixer Name Role Phone Arden Muñoz DO Primary Care Provider Abdiaziz Blue MD Unavailable + Guru Traci Sanches MD Unavailable Justice Kate MD Unavailable Al Benoit MD Unavailable Encounter Details Date Type Department Care Team (Late st Contact Info) Description 01/09/2022 Ancillary Orders [address] [address] Awa Andino MD [address] [place] [address] Orthopedics & Sports Medicine, [place] [address] [email or web address] Hip pain, chronic, right Social [...] right documented in this encounter Care Teams Bread Dough Mixer Relationship Specialty Start Date End Date Arden Muñoz DO [address] [place] [address] PCP - General Internal Medicine 07/08/18 Abdiaziz Blue MD [address] [place] [address] Referring Physician Urology 05/11/19 Guru Traci Sanches MD [address] [address] [email or web address] Medical Oncology 05/11/19 Justice Kate MD [address] [place] [address] [email or web address] Urology 05/11/19 Al Benoit MD [address] [place] [address] [email or web address] Radiation Oncology 05/11/19 documented as of this encounter Additional Source Comments The information contained in this document represents components of the legal health record. It is not the complete legal health record.[facility]
--- OUTSIDE RECORDS SUMMARY | 2025-01-16 09:02 | XMS_ITS | Encounter Summary ---
Author Organization [facility] Address [address] [place] [address] Phone Care Team Providers Care Chemistry Physics Teacher Name Role Phone Pollo Iglesias MD Primary Care Provider [phone] Arden Muñoz DO Primary Care Provider [phone] Abdiaziz Blue MD Unavailable + Guru Traci Sanches MD Unavailable Justice Kate MD Unavailable [phone] Al Benoit MD Unavailable [phone] Self-Referred, Patient Unavailable Unavailab le Encounter Details Date Type Department Care Team (Late st Contact Info) Description 03/06/2016 Procedure Pass [facility] [place] [address] [facility], 6th [place] [address] Social History Tobacco Use Types Packs/Day Years [...] on filedocumented in this encounter Care Teams Chemistry Physics Teacher Relationship Specialty Start Date End Date Pollo Iglesias MD [address] [place] [address] PCP - General Internal Medicine 06/03/15 07/07/18 Arden Muñoz DO [address] [place] [address] PCP - General Internal Medicine 07/08/18 Abdiaziz Blue MD [address] [place] [address] Referring Physician Urology 05/11/19 Guru Traci Sanches MD [address] [address] [email or web address] Medical Oncology 05/11/19 Justice Kate MD [address] [place] [address] Urology 05/11/19 Al Benoit MD [address] [place] [address] [email or web address] Radiation Oncology 05/11/19 Self-Referred, Patient 06/05/19 06/05/19 documented as of this encounter Additional Source Comments The information contained in this document represents components of the legal health record. It is not the complete legal health record.[facility]
--- OUTSIDE RECORDS SUMMARY | 2025-01-16 09:03 | XMS_ITS | Encounter Summary ---
Author Organization [facility] Address [address] [place] [address] Phone Care Team Providers Care Production Cook Name Role Phone Pollo Iglesias MD Primary Care Provider Arden Muñoz DO Primary Care Provider [phone] Abdiaziz Blue MD Unavailable + Guru Traci Sanches MD Unavailable Justice Kate MD Unavailable [phone] Al Benoit MD Unavailable [phone] Self-Referred, Patient Unavailable Unavailab le Encounter Details Date Type Department Care Team (Late st Contact Info) Description 05/01/2016 Procedure Pass [facility] [address] [place] [phone] Social History Tobacco Use Types Packs/Day Years [...] on filedocumented in this encounter Care Teams Production Cook Relationship Specialty Start Date End Date Pollo Iglesias MD [address] [place] [address] PCP - General Internal Medicine 06/03/15 07/07/18 Arden Muñoz DO [address] [place] [address] PCP - General Internal Medicine 07/08/18 Abdiaziz Blue MD [address] [place] [address] Referring Physician Urology 05/11/19 Guru Traci Sanches MD [address] [place] [address] [address] [email or web address] Medical Oncology 05/11/19 Justice Kate MD [address] [place] [address] [email or web address] Urology 05/11/19 Al Benoit MD [address] [place], [place] [address] [email or web address] Radiation Oncology 05/11/19 Self-Referred, Patient 06/05/19 06/05/19 documented as of this encounter Additional Source Comments The information contained in this document represents components of the legal health record. It is not the complete legal health record.[facility]
--- OUTSIDE RECORDS SUMMARY | 2025-01-16 09:03 | XMS_ITS | Clinical Summary ---
Author Organization [facility] Address [address] [place] [address] Phone Care Team Providers Care Wood Club Neck Whipper Name Role Phone Arden Muñoz DO Primary Care Provider [phone] Abdiaziz Blue MD Unavailable + Guru Traci [...] and he is welcome to see an breaker unit assembler closer to home or at [facility]. He will consider his options. Ultimately, he [...] is 1%, Ruiz/NSQIP estimated risk of perioperative ID or cardiac arrest is <1%, can proceed [...] 1997, on coumadin since CVA in 2013, public opinion survey taker Dr. Enrique Vogt, normal stress ECHO 01/29/14, CHADSVASC2=3 Assessment & Plan (06/26/2015 2:37 PM EDT): Given the severity of his embolic stroke 2 years ago, bridging anticoagulate with Lovenox has been recommended by his public opinion survey taker. The plan is to stop Coumadin 5 [...] this topic Medical Devices Implanted Type Area Shot Lighter Device Identifier Shelf Expiration Date Model / Serial / Lot Screw Bone 6.5x26mm Osteolock Ea Hip 16a - [id number] Implanted:Qty: 1 on 07/08/2015 by Abhinav Fuller MD at [facility] Left: Hip [employer] 04/06/2020 5260-5-0 26 / / [id number] Screw Bone 6.5x24mm Osteolock Ea Hip 16a - [id number] Implanted:Qty: 1 on 07/08/2015 by Abhinav Fuller MD at [facility] Left: Hip [employer] 04/09/2020 5260-5-0 24 / / [id number] Screw Compression Bone 4.5x38 Reverse Shoulder 08 - [id number] Implanted:Qty: 1 on 06/29/2016 by Noah Waters Jp, MD at [facility] Right: Shoulder [employer] [id number] / / Screw Anterior Comp Reverse Shoulder 08 - [id number] Implanted:Qty: 1 on 06/29/2016 by Noah Waters Jp, MD at [facility] Right: Shoulder [employer] [id number] / / Screw Bone Locking 4.5x35 Reverse Shoulder 08 - [id number] Implanted:Qty: 1 on 06/29/2016 by Noah Waters Jp, MD at [facility] Right: Shoulder [employer] COB267 / / Screw Compression Shoulder Mnc578 Reverse Shoulder 08 - [id number] Implanted:Qty: 1 on 06/29/2016 by Noah Waters Jp, MD at [facility] Right: Shoulder [employer] BBS408 / / Centered 36 Mm Reverse Shoulder 05 - [id number] Implanted:Qty: 1 on 06/29/2016 by Noah Waters Jp, MD at [facility] SMDA Right: Shoulder [employer] 11/06/2020 NZR471 / [id number] / Implant Hip 58mm Femoral Shell Acetabular Hemispherical Revision Trident Titanium Ea Hip Implanted:Qty: 1 on 07/08/2015 by Abhinav Fuller MD at [facility] STANDARD Left: Hip OJ [employer] 05/28/2020 509-02-5 8F / / [id number] Implant Hip X3 0deg 36mm Size F Femoral Insert Acetabular Trident Ea Hip Implanted:Qty: 1 on 07/08/2015 by Abhinav Fuller MD at [facility] STANDARD Left: Hip [employer] 04/18/2020 623-00-3 6F / / [id number] Implant Hip Xlarge 18f Femoral Sleeve Proximal Textured Ztt Srom Ea Hip Implanted:Qty: 1 on 07/08/2015 by Abhinav Fuller MD at [facility] STANDARD Left: Hip [employer] 07/13/2019 55-0530 / / [id number] Implant Hip 87p01w155ph Femoral Stem Tapered 11to13 Standard 36mm Plus 8mm Lateral Neck Srom Ea Hip Implanted:Qty: 1 on 07/08/2015 by Abhinav Fuller MD at [facility] STANDARD Left: Hip [employer] 07/14/2019 [id number] / / [id number] Implant Hip 36mm Plus 6 Femoral Head Tapered 11to13 - Metal Biolox Ea Hip Implanted:Qty: 1 on 07/08/2015 by Abhinav Fuller MD at [facility] STANDARD Left: Hip [employer] 07/13/2019 1365-33- 000 / / [id number] Force Fiber Implanted:Qty: 3 on 01/07/2016 by Noah Waters Jp, MD at [facility] Shoulder 08/19/2020 / / [id number] 25 Mm Diameter X 25 Mm Length Long Post Reverse Shoulder - [id number] Implanted:Qty: 1 on 06/29/2016 by Noah Waters Jp, MD at [facility] Right: Shoulder [employer] 04/15/2018 FTP172 / [id number] / 6b Ascend Flex Standard Ptc Humeral Stem Shoulder 14 - [id number] Implanted:Qty: 1 on 06/29/2016 by Noah Waters Jp, MD at [facility] Right: Shoulder [employer] 04/06/2021 AUC876T / [id number] / High Offset Reversed Tray + 0 Shoulder 03 - [id number] Implanted:Qty: 1 on 06/29/2016 by Noah Waters Jp, MD at [facility] Right: Shoulder [employer] 04/13/2021 SDM465 / [id number] / 36 Diameter Revision Reversed Insert+ 6/12.5 B Shoulder 04 - [id number] Implanted:Qty: 1 on 06/29/2016 by Noah Waters Jp, MD at [facility] Right: Shoulder [employer] 03/27/2021 [id number] / [id number] / Explanted Type Area Shot Lighter Device Identifier Shelf Expiration Date Model / Serial / Lot Plate Bone 420mm Button Sterile Titanium 7 Hole Ea - [id number] Implanted:Qty: 1 on 01/07/2016 by Noah Waters Jp, MD at [facility] Explanted:Qty: 1 on 06/29/2016 at [facility] [employer] Right: Shoulder SYNTHES 482.823 / / Aequalis Perform Glenoid Cortiloc L60 Shoulder 02 Nc - [id number] Implanted:Qty: 1 on 01/07/2016 by Noah Waters Jp, MD at [facility] Explanted:Qty: 1 on 06/29/2016 by Noah Waters Jp, MD at [facility] Right: Shoulder [employer] 09/24/2020 HWU896 / / [id number] Head Humeral Shoulder Simpliciti 62b92ge - [id number] Implanted:Qty: 1 on 01/07/2016 by Noah Waters Jp, MD at [facility] Explanted:Qty: 1 on 06/29/2016 by Noah Waters Jp, MD at [facility] Right: Shoulder [employer] 07/29/2020 [id number] / [id number] 29 / Nucleus Cementless Sz3 Simpliciti Ea - [id number] Implanted:Qty: 1 on 01/07/2016 by Noah Waters Jp, MD at [facility] Explanted:Qty: 1 on 06/29/2016 by Noah Waters Jp, MD at [facility] Right: Shoulder [employer] 06/24/2020 BFD681 / [id number] / Insurance MEDICARE PART A & B [facility] MEDICARE SUPPLEMENT MEDICARE PART A & B MEDICARE SUPPLEMENT MEDICARE PART A & B MEDICARE SUPPLEMENT MEDICARE PART A & B Member Subscriber Plan / Payer (Ef fective 2009-) Name:Arturo Bentley Member ID:[id number] Relation to Subscriber:Self Name:Arturo Bentley Subscriber ID:[id number] Payer ID:[id number] Group ID:Not on file Type:Medicare Address: [employer] [address] MEDICARE SUPPLEMENT MEDICARE PART A & B MEDICARE SUPPLEMENT MEDICARE PART A & B MEDICARE SUPPLEMENT MEDICARE PART A & B [facility] MEDICARE SUPPLEMENT MEDICARE PART A & B [id number] [place] [address] MEDICARE SUPPLEMENT MEDICARE PART A & B [facility] MEDICARE SUPPLEMENT Advance Directives For more information, please contact: [phone] (9AM - 5PM Shauna/[facility], Wednesday-Wednesday) Documents on File Type Date Recorded Patient Head Wrestling Coach Expl anation Healthcare Proxy 07/17/2015 1:01 PM [...] 2:28 PM 07/11/2015 4:30 PM Care Teams Wood Club Neck Whipper Relationship Specialty Start Date End Date Arden Muñoz DO [address] [place] [address] PCP - General Internal Medicine 07/08/18 Abdiaziz Blue MD [address] [place] [address] Referring Physician Urology 05/11/19 Guru Traci Sanches MD [address] [address] [email or web address] Medical Oncology 05/11/19 Justice Kate MD [address] [place] [address] [email or web address] Urology 05/11/19 Al Benoit MD [address] [place] [address] [email or web address] Radiation Oncology 05/11/19 Additional Source Comments The information contained in this document represents components of the legal health record. It is not the complete legal health record.[facility]
--- OUTSIDE RECORDS SUMMARY | 2025-01-16 09:03 | XMS_ITS | Encounter Summary ---
Author Organization [facility] Address [address] [place] [address] Phone Care Team Providers Care Tight Barrel Inspector Name Role Phone Pollo Iglesias MD Primary Care Provider Arden Muñoz DO Primary Care Provider Abdiaziz Blue MD Unavailable + Guru Traci Sanches MD Unavailable Justice Kate MD Unavailable [phone] Al Benoit MD Unavailable Self-Referred, Patient Unavailable Unavailab le Encounter Details Date Type Department Care Team (Late st Contact Info) Description 02/13/2016 Documentation [facility] Department of Orthopaedic Surgery, Sports Medicine Service [address] [facility] [address] [place] [address] Danny Acosta MD [address] [place] [address] Social History Tobacco Use Types Packs/Day Years [...] on filedocumented in this encounter Care Teams Tight Barrel Inspector Relationship Specialty Start Date End Date Pollo Iglesias MD [address] [place] [address] PCP - General Internal Medicine 06/03/15 07/07/18 Arden Muñoz DO [address] [place] [address] PCP - General Internal Medicine 07/08/18 Abdiaziz Blue MD [address] [place] [address] Referring Physician Urology 05/11/19 Guru Traci Sanches MD [address] [address] [email or web address] Medical Oncology 05/11/19 Justice Kate MD [address] [place] [address] [email or web address] Urology 05/11/19 Al Benoit MD [address] [place] [address] [email or web address] Radiation Oncology 05/11/19 Self-Referred, Patient 06/05/19 06/05/19 documented as of this encounter Additional Source Comments The information contained in this document represents components of the legal health record. It is not the complete legal health record.[facility]
--- OUTSIDE RECORDS SUMMARY | 2025-01-16 09:03 | XMS_ITS | Encounter Summary ---
Author Organization [facility] Address [address] [place] [address] Phone Care Team Providers Care Cataloging Assistant Name Role Phone Pollo Iglesias MD Primary Care Provider Arden Muñoz DO Primary Care Provider Abdiaziz Blue MD Unavailable + Guru Trcai Sanches MD Unavailable Justice Kate MD Unavailable [phone] Al Benoit MD Unavailable [phone] Self-Referred, Patient Unavailable Unavailab le Encounter Details Date Type Department Care Team (Late st Contact Info) Description 06/29/2016 Procedure Pass [facility] PERIOPER[facility]IVE DEPT [address] [place] [id number] Social History Tobacco Use Types Packs/Day Years [...] on filedocumented in this encounter Care Teams Cataloging Assistant Relationship Specialty Start Date End Date Pollo Iglesias MD [address] [place] [address] PCP - General Internal Medicine 06/03/15 07/07/18 Arden Muñoz DO [address] [place] [address] PCP - General Internal Medicine 07/08/18 Abdiaziz Blue MD [address] [place] [address] Referring Physician Urology 05/11/19 Guru Traci Sanches MD [address] [address] [email or web address] Medical Oncology 05/11/19 Justice Kate MD [address] [place] [address] [email or web address] Urology 05/11/19 Al Benoit MD [address] [place], [place] [phone] [email or web address] Radiation Oncology 05/11/19 Self-Referred, Patient 06/05/19 06/05/19 documented as of this encounter Additional Source Comments The information contained in this document represents components of the legal health record. It is not the complete legal health record.[facility]
--- OUTSIDE RECORDS SUMMARY | 2025-01-16 09:03 | XMS_ITS | Clinical Summary ---
Author Organization [facility] Address [address] [place] [address] Care Team Providers Care Customer Servicer Name Role Phone Unavailable Primary Care Provider [...]
--- OUTSIDE RECORDS SUMMARY | 2025-01-16 09:03 | XMS_ITS | Encounter Summary ---
Author Organization [facility] Address [address] [place] [address] [address] [place] [address] Phone Care Team Providers Care Sueding And Buffing Machine Operator Name Role Phone Pollo Iglesias MD Primary Care Provider Arden Muñoz DO Primary Care Provider [phone] Abdiaziz Blue MD Unavailable + Guru Traci Sanches MD Unavailable Justice Kate MD Unavailable Al Benoit MD Unavailable [phone] Self-Referred, Patient Unavailable Unavailab le Reason for Referral * Consultation (Routine) - Closed Specialty Diagnoses / Procedures Referred By Contclementina rojas Referred To Contact Rheumatology Diagnoses Primary osteoarthritis of right shoulder System, Provider Not In, PhD [address] [address] Referral ID Status Reason Start Date Expiration Date Visits Re quested Visits Authorized [id number] Closed 06/03/2015 06/03/2016 1 1 Encounter Details Date Type Department Care Team (Latest Contact Info) Description 06/03/[address] [facility] Rheumatology [address], [address] Floor, [address] [place] [address] InstrDong avila MD [address] [place] [address] [place] [address] Primary osteoarthritis of right shoulder (Primary Dx) [...] Diagnoses Orde r Schedule Ambulatory referral to [facility] Rheumatology Outpatient Referral Routine Primary osteoarthritis of right shoulder Ordered: 06/03/2015 documented as of this encounter Visit Diagnoses Diagnosis Primary osteoarthritis of right shoulder- Primary documented in this encounter Care Teams Sueding And Buffing Machine Operator Relationship Specialty Start Date End Date Pollo Iglesias MD [address] [place] [address] PCP - General Internal Medicine 06/03/15 07/07/18 Arden Muñoz DO [address] [place] [address] PCP - General Internal Medicine 07/08/18 Abdiaziz Blue MD [address] [place] [address] Referring Physician Urology 05/11/19 Guru Traci Sanches MD [facility] [address] [email or web address] Medical Oncology 05/11/19 Justice Kate MD [address] [place] [address] [email or web address] Urology 05/11/19 Al Benoit MD [address] [place] [address] [email or web address] Radiation Oncology 05/11/19 Self-Referred, Patient 06/05/19 06/05/19 documented as of this encounter Additional Source Comments The information contained in this document represents components of the legal health record. It is not the complete legal health record.[facility]
--- OUTSIDE RECORDS SUMMARY | 2025-01-16 09:03 | XMS_ITS | Encounter Summary ---
Author Organization [facility] Address [address] [place] [address] Phone Care Team Providers Care Risk Specialist Name Role Phone Pollo Iglesias MD Primary Care Provider Arden Muñoz DO Primary Care Provider Abdiaziz Blue MD Unavailable + Guru Traci Sanches MD Unavailable Justice Kate MD Unavailable Al Benoit MD Unavailable Self-Referred, Patient Unavailable Unavailab le Encounter Details Date Type Department Care Team (Late st Contact Info) Description 05/05/2016 Telephone VIRTUAL DEPARTMENT [address] [place] [phone] Mitra Leal MD [address] [place] [address] Social History Tobacco Use Types Packs/Day Years [...] on filedocumented in this encounter Care Teams Risk Specialist Relationship Specialty Start Date End Date Pollo Iglesias MD [address] [place] [address] PCP - General Internal Medicine 06/03/15 07/07/18 Arden Muñoz DO [address] [place] [address] PCP - General Internal Medicine 07/08/18 Abdiaziz Blue MD [address] [place] [address] Referring Physician Urology 05/11/19 Guru Traci Sanches MD [address] [place] [address] [email or web address] Medical Oncology 05/11/19 Justice Kate MD [address] [place] [address] Urology 05/11/19 Al Benoit MD [address] [place] [address] [email or web address] Radiation Oncology 05/11/19 Self-Referred, Patient 06/05/19 06/05/19 documented as of this encounter Additional Source Comments The information contained in this document represents components of the legal health record. It is not the complete legal health record.[facility]
--- OUTSIDE RECORDS SUMMARY | 2025-01-16 09:03 | XMS_ITS | Encounter Summary ---
Author Organization [facility] Address [address] [place] [address] Phone Care Team Providers Care Finish Molder Name Role Phone Pollo Iglesias MD Primary Care Provider Arden Muñoz DO Primary Care Provider Abdiaziz Blue MD Unavailable + Guru Traci Sanches MD Unavailable Justiec Kate MD Unavailable [phone] Al Benoit MD Unavailable Self-Referred, Patient Unavailable Unavailab le Encounter Details Date Type Department Care Team (Late st Contact Info) Description 02/13/2016 Telephone [facility] Department of Orthopaedic Surgery, Sports Medicine Service [address] [address] Danny Acosta MD [address] [place] [address] Social History Tobacco Use Types Packs/Day Years [...] Author No 01/07/2016 9:40 PM EDT Danny Aocsta MD * Patient is blind or has [...] on filedocumented in this encounter Care Teams Finish Molder Relationship Specialty Start Date End Date Pollo Iglesias MD [address] [place] [address] PCP - General Internal Medicine 06/03/15 07/07/18 Arden Muñoz DO [address] [place] [address] PCP - General Internal Medicine 07/08/18 Abdiaziz Blue MD [address] [place] [address] Referring Physician Urology 05/11/19 Guru Traci Sanches MD [address] [address] [email or web address] Medical Oncology 05/11/19 Justice Kate MD [address] [place] [address] [email or web address] Urology 05/11/19 Al Benoit MD [address] [place] [address] [email or web address] Radiation Oncology 05/11/19 Self-Referred, Patient 06/05/19 06/05/19 documented as of this encounter Additional Source Comments The information contained in this document represents components of the legal health record. It is not the complete legal health record.[facility]
--- OUTSIDE RECORDS SUMMARY | 2025-01-16 09:03 | XMS_ITS | Encounter Summary ---
Author Organization [facility] Address [address] [place] [address] Phone Care Team Providers Care Clinical Genetics Laboratory Chief Name Role Phone Arden Muñoz DO Primary Care Provider Abdiaziz Blue MD Unavailable + Guru Traci Sanches MD Unavailable Justice Kate MD Unavailable [phone] Al Benoit MD Unavailable Encounter Details Date Type Department Care Team (Late st Contact Info) Description 01/09/2022 Ancillary Orders [facility] Medical [facility] Orthopedics & Sports Medicine [address] [place] [address] Awa Andino MD [address] [place] [address] Orthopedics & Sports Medicine, [place] [address] [email or web address] Social History Tobacco Use Types Packs/Day Years [...] filedocumented in this encounter Care Teams Clinical Genetics Laboratory Chief Relationship Specialty Start Date End Date Arden Muñoz DO [address] [place] [address] PCP - General Internal Medicine 07/08/18 Abdiaziz Blue MD [address] [place] [address] Referring Physician Urology 05/11/19 Guru Traci Sanches MD [address] [address] [email or web address] Medical Oncology 05/11/19 Justice Kate MD [address] [place], [place] [address] [email or web address] Urology 05/11/19 Al Benoit MD [address] [place] [address] [email or web address] Radiation Oncology 05/11/19 documented as of this encounter Additional Source Comments The information contained in this document represents components of the legal health record. It is not the complete legal health record.[facility]
== END 2025-01-16 08:57 | disposition home or self-care (01) ==
LOC: HO.HOS 08:37
PROVIDERS: PCP Internal Medicine
DX: M65.332 Trigger finger, left middle finger (principal)
CPT/HCPCS: 20550

== ENCOUNTER → 2025-01-16 08:37 | Outpatient (BNVA) | payer MEDICARE, SELFPAY | PROVIDERS: PCP Internal Medicine | DX: M65.332 Trigger finger, left middle finger (principal) | CPT/HCPCS: 20550; J1100; J2003 ==

== ENCOUNTER 2025-01-18 09:55 | Outpatient (REF) | payer MEDICARE, SELFPAY ==
--- OUTSIDE RECORDS SUMMARY | 2013-10-13 23:00 | XMS_ITS | Encounter Summary ---
Author Organization [facility] Address [address] [place] [address] Phone Care Team Providers Care Wire Fence Builder Name Role Phone Unavailable Primary Care Provider Unavailabl e Encounter Details Date Type Department Care Team (Late st Contact Info) Description 10/14/2013 Hospital Encounter [facility] [address] [place] [address] Noah Waters Jp, MD [address] [facility] [address] [address] [email or web address] Social History Tobacco Use Types Packs/Day Years Used Date Smoking Tobacco: Passive Smo ke Exposure - Never Smoker Smokeless Tobacco: Never Alcohol Use Standard Drinks/Week Comments No 0 (1 standard drink = 0.6 oz pur e alcohol) Education Answer Date Recorded Are you interested in more education? Not on tommy e 07/10/2022 Are you concerned about learning? Not on file 07/10/2022 No 07/10/2022 No 07/10/2022 Digital Access Answer Date Recorded No 08/10/2022 No 08/10/2022 Reliable internet access at home? Not on file 08/10/2022 Device with a working camera? Not on file Sex and Gender Information Value Date Recorded Sex Assigned at Male 06/04/2019 8:48 PM EDT Legal Sex Male 9:44 AM EDT Gender Identity Male 06/04/2019 8:48 PM EDT Sexual Orientation Straight 06/04/2019 8: 48 PM EDT documented as of this encounter Plan of Treatment Not on file documented as of this encounter Procedures Procedure Name Priority Date/Time Associated Diagnosis Comments XR UPPER EXTREMITY OUTSIDE (NO INTERPRETATION) Routine 10/14/2013 12:00 AM EDT documented in this encounter Results * XR Upper Extremity Outside (No Interpretation) (10/14/2013 12:00 AM EDT) Narrative [facility] [place]G INTERFACES - 09/20/2015 8:40 AM EDT This study is for PACS storage only and not for interpretation. Procedure Note SYSTEMGENERATED, DOCUMENTATION - 09/20/2015 This study is for PACS storage only and not for interpretation. us Noah Waters MD IMG OUTSIDE IMAGING W/OUT INTER PRETATION Final Result [facility]G INTERFACES documented in this encounter Visit Diagnoses Not on filedocumented in this encounter Additional Source Comments The information contained in this document represents components of the legal health record. It is not the complete legal health record.[facility]
--- OUTSIDE RECORDS SUMMARY | 2014-11-21 23:00 | XMS_ITS | Encounter Summary ---
Author Organization [facility] Address [address] [facility] [address] [place] [address] Phone Care Team Providers Care Access Analyst Name Role Phone Unavailable Primary Care Provider Unavailabl e Encounter Details Date Type Department Care Team (Late st Contact Info) Description 11/22/2014 Hospital Encounter [facility] [address] [place] [address] Noah Waters Jp, MD 55 [facility] [place] [place] [address] [email or web address] Social History Tobacco Use Types Packs/Day [...] Procedure Name Priority Date/Time Associated Diagnosis Comments CT SPINE (BONE) OUTSIDE (NO INTERPRETATION) Routine 11/22/2014 12:00 AM EDT documented in this encounter Results * CT Spine (Bone) Focus Outside (No Interpretation) (11/22/2014 12:00 AM EDT) Narrative [facility] [place] INTERFACES - 09/20/2015 8:53 AM EDT This study is for PACS storage only and not for interpretation. Procedure Note SYSTEMGENERATED, DOCUMENTATION - 09/20/2015 This study is for PACS storage only and not for interpretation. us Noah Waters MD IMG OUTSIDE IMAGING W/OUT INTER PRETATION Final Result [facility] documented in this encounter Visit Diagnoses Not on filedocumented in this encounter Additional Source Comments The information contained in this document represents components of the legal health record. It is not the complete legal health record.[facility]
--- OUTSIDE RECORDS SUMMARY | 2015-04-03 | XMS_ITS | Encounter Summary ---
Author Organization [facility] Address [address] [facility] [address] [place] [address] Phone Care Team Providers Care Award Clerk Name Role Phone Unavailable Primary Care Provider Unavailabl e Encounter Details Date Type Department Care Team (Late st Contact Info) Description 04/03/2015 Hospital Encounter [facility] [address] [place] [address] Noah Waters Jp, MD [address] [facility] [address] [place] [address] [email or web address] [email or web address] Social History Tobacco Use Types [...] Procedure Name Priority Date/Time Associated Diagnosis Comments MRI UPPER EXTREMITY OUTSIDE (NO INTERPRETATION) Routine 04/03/2015 12:00 AM EST documented in this encounter Results * MRI Outside Upper Extremity (No Interpretation) (04/03/2015 12:00 AM EST) Narrative [facility]G INTERFACES - 09/20/2015 8:39 AM EDT This study is for PACS storage only and not for interpretation. Procedure Note SYSTEMGENERATED, DOCUMENTATION - 09/20/2015 This study is for PACS storage only and not for interpretation. us Noah Waters MD IMG OUTSIDE IMAGING W/OUT INTER PRETATION Final Result [facility]G INTERFACES documented in this encounter Visit Diagnoses Not on filedocumented in this encounter Additional Source Comments The information contained in this document represents components of the legal health record. It is not the complete legal health record.[facility]
--- OUTSIDE RECORDS SUMMARY | 2025-01-18 11:21 | XMS_ITS | Encounter Summary ---
Author Organization [facility] Address [address] [place] [address] Phone Care Team Providers Care Manager Wholesale Name Role Phone Pollo Iglesias MD Primary Care Provider [phone] Arden Muñoz DO Primary Care Provider Abdiaziz Blue MD Unavailable + Guru Traci Sanches MD Unavailable Justice Kate MD Unavailable [phone] Al Benoit MD Unavailable Self-Referred, Patient Unavailable Unavailab le Encounter Details Date Type Department Care Team (Late st Contact Info) Description 01/14/2016 Telephone [facility] Department of Orthopaedic Surgery, Sports Medicine Service [address] [address] Danny Acosta MD [address] [place] [address] Social History Tobacco Use Types Packs/Day Years [...] filedocumented in this encounter Care Teams Manager Wholesale Relationship Specialty Start Date End Date Pollo Iglesias MD [address] [place] [address] PCP - General Internal Medicine 06/03/15 07/07/18 Arden Muñoz DO [address] [place] [address] PCP - General Internal Medicine 07/08/18 Abdiaziz Blue MD [address] [place] [address] Referring Physician Urology 05/11/19 Guru Traci Sanches MD [address] [address] [email or web address] Medical Oncology 05/11/19 Justice Kate MD [address] [place] [address] [email or web address] Urology 05/11/19 Al Benoit MD [address] [place] [address] [email or web address] Radiation Oncology 05/11/19 Self-Referred, Patient 06/05/19 06/05/19 documented as of this encounter Additional Source Comments The information contained in this document represents components of the legal health record. It is not the complete legal health record.[facility]
--- OUTSIDE RECORDS SUMMARY | 2025-01-18 11:21 | XMS_ITS | Encounter Summary ---
Author Organization [facility] Address [address] [place] [address] Phone Care Team Providers Care Subwarehouse Supervisor Name Role Phone Pollo Iglesias MD Primary Care Provider Arden Muñoz DO Primary Care Provider [phone] Abdiaziz Blue MD Unavailable + Guru Traci Sanches MD Unavailable Justice Kate MD Unavailable [phone] Al Benoit MD Unavailable [phone] Self-Referred, Patient Unavailable Unavailab le Encounter Details Date Type Department Care Team (Late st Contact Info) Description 03/06/2016 Procedure Pass [facility] [place] [address] [facility], 6th [place] [address] Social History Tobacco Use Types Packs/Day Years [...] on filedocumented in this encounter Care Teams Subwarehouse Supervisor Relationship Specialty Start Date End Date Pollo Iglesias MD [address] [place] [address] PCP - General Internal Medicine 06/03/15 07/07/18 Arden Muñoz DO [address] [place] [address] PCP - General Internal Medicine 07/08/18 Abdiaziz Blue MD [address] [place] [address] Referring Physician Urology 05/11/19 Guru Traci Sanches MD [address] [address] [email or web address] Medical Oncology 05/11/19 Justice Kate MD [address] [place] [address] Urology 05/11/19 Al Benoit MD [address] [place] [address] [email or web address] Radiation Oncology 05/11/19 Self-Referred, Patient 06/05/19 06/05/19 documented as of this encounter Additional Source Comments The information contained in this document represents components of the legal health record. It is not the complete legal health record.[facility]
--- OUTSIDE RECORDS SUMMARY | 2025-01-18 11:22 | XMS_ITS | Encounter Summary ---
Author Organization [facility] Address [address] [place] [address] Phone Care Team Providers Care Commercial Center Manager Name Role Phone Arden Muñoz DO Primary Care Provider Abdiaziz Blue MD Unavailable + Guru Traci Sanches MD Unavailable Justice Kate MD Unavailable Al Benoit MD Unavailable Encounter Details Date Type Department Care Team (Late st Contact Info) Description 07/20/2022 Ancillary Orders [facility] Orthopedics & Sports Medicine [address] [place] [address] Awa Andino MD [address] [place] [address] Orthopedics & Sports Medicine, [facility]. [place], [place] [id number] [email or web address] Social History Tobacco Use Types Packs/Day Years [...] on filedocumented in this encounter Care Teams Commercial Center Manager Relationship Specialty Start Date End Date Arden Muñoz DO [address] [place] [address] PCP - General Internal Medicine 07/08/18 Abdiaziz Blue MD [address] [place] [address] Referring Physician Urology 05/11/19 Guru Traci Sanches MD [address] [address] [email or web address] Medical Oncology 05/11/19 Justice Kate MD [address] [place] [address] [email or web address] Urology 05/11/19 Al Benoit MD [address] [place] [address] [email or web address] Radiation Oncology 05/11/19 documented as of this encounter Additional Source Comments The information contained in this document represents components of the legal health record. It is not the complete legal health record.[facility]
--- OUTSIDE RECORDS SUMMARY | 2025-01-18 11:22 | XMS_ITS | Encounter Summary ---
Author Organization [facility] Address [address] [place] [address] Phone Care Team Providers Care Timber Watchman Name Role Phone Arden Muñoz DO Primary Care Provider Abdiaziz Blue MD Unavailable + Guru Traci Sanches MD Unavailable Justice Kate MD Unavailable Al Benoit MD Unavailable Encounter Details Date Type Department Care Team (Late st Contact Info) Description 01/09/2022 Ancillary Orders [address] [address] Awa Andino MD [address] [place] [address] Orthopedics & Sports Medicine, [place] [address] [email or web address] Hip pain, chronic, right Social [...] right documented in this encounter Care Teams Timber Watchman Relationship Specialty Start Date End Date Arden Muñoz DO [address] [place] [address] PCP - General Internal Medicine 07/08/18 Abdiaziz Blue MD 100 [place] [address] Referring Physician Urology 05/11/19 Guru Traci Sanches MD [address] [address] [email or web address] Medical Oncology 05/11/19 Justice Kate MD [address] [place] [address] [email or web address] Urology 05/11/19 Al Benoit MD [address] [place] [address] [email or web address] Radiation Oncology 05/11/19 documented as of this encounter Additional Source Comments The information contained in this document represents components of the legal health record. It is not the complete legal health record.[facility]
--- OUTSIDE RECORDS SUMMARY | 2025-01-18 11:22 | XMS_ITS | Clinical Summary ---
Author Organization [facility] Address [address] [facility] [place], [place] [address] Phone Care Team Providers Care Edge Inker Uppers Name Role Phone Saravanan Fajardo MD Primary Care Provider [phone] Allergies No known active allergies Medications finasteride [...] times a day. 180 each 3 12/01/2024 Active Active Problems Problem Noted Date Diagnosed Date Longstanding persistent atri al fibrillation (CMS/HCC V24, CMS/HCC V28) 07/29/2021 Overview (04/05/2024): Last Assessment & Plan: Patient has permanent atrial fibrillation, without any tacky or bradycardia symptoms reported. He is auto rate controlled. He remains anticoagulated for high ATF9LS9-WHCs score with prior stroke. He does have sleep apnea by home sleep study though the sleep center did not have any upcoming in lab titration study appointments available per his report and he plans to see the pulmonology team at [facility] next week. We discussed the [...] Description 12/01/2024 11:20 AM EDT Office Visit [facility] - [address] [place] [address] Neville Salazar MD Longstanding persistent atrial fibrillation (CMS/HCC V24, CMS/HCC V28) (Primary Dx) 11/24/2024 2:00 PM EDT Office Visit [facility] - [address] [place] [phone] Neville Salazar MD Longstanding persistent atrial fibrillation (CMS/HCC V24, CMS/HCC V28) (Primary Dx); Nonrheumatic tricuspid valve regurgitation 11/16/2024 11:00 AM EDT Ancillary Procedure [facility] [address] [place] [address] Longstanding persistent atrial fibrillation (CMS/HCC [...] Description 03/30/2025 10:40 AM EST Office Visit [facility] - [address] [place] [address] Anca Roberts NP [address] [place] [address] [place] [address] Health Maintenance Due Date Last Done Comments [...] 1.91 m2 CV PACS Left Atrium Minor Alpine 8.0 cm CV PACS Left Atrium Major Alpine 8.5 cm CV PACS LA Area Sys [...] Volume 63 mL CV PACS MV Deceleration Cla[place]on 2.8 m/s2 CV PACS E Wave Deceleration [...] Result from Last 3 Months Insurance MEDICARE [facility] Care Teams Edge Inker Uppers Relationship Specialty Start Date End Date Saravanan Fajardo MD [address] [place] [address] PCP - General Internal Medicine 11/24/24
--- OUTSIDE RECORDS SUMMARY | 2025-01-18 11:22 | XMS_ITS | Encounter Summary ---
Author Organization [facility] Address [address] [place] [address] Phone Care Team Providers Care Fingernail Sculpturer Name Role Phone Pollo Iglesias MD Primary Care Provider Arden Muñoz DO Primary Care Provider Abidaziz Blue MD Unavailable + Guru Traci Sanches MD Unavailable Justice Kate MD Unavailable Al Benoit MD Unavailable [phone] Self-Referred, Patient Unavailable Unavailab le Reason for Visit * Reason Onset Date Comments Post Discharge Follow Up Call 07/12/2015 Encounter Details Date Type Department Care Team (Late st Contact Info) Description 07/12/2015 Telephone [facility] [address] [place] [address] RN [address] [place] [address] [email or web address] Discharge Follow Up Call [...] on filedocumented in this encounter Care Teams Fingernail Sculpturer Relationship Specialty Start Date End Date Pollo Iglseias MD [address] [place] [address] PCP - General Internal Medicine 06/03/15 07/07/18 Arden Muñoz DO [address] [place] [address] PCP - General Internal Medicine 07/08/18 Abdiaziz Blue MD [address] [place] [address] Referring Physician Urology 05/11/19 Guru Traci Sanches MD [facility] [address] [address] [email or web address] Medical Oncology 05/11/19 Justice Kate MD [address] [place] [address] [email or web address] Urology 05/11/19 Al Benoit MD [address] [place] [address] [email or web address] Radiation Oncology 05/11/19 Self-Referred, Patient 06/05/19 06/05/19 documented as of this encounter Additional Source Comments The information contained in this document represents components of the legal health record. It is not the complete legal health record.[facility]
--- OUTSIDE RECORDS SUMMARY | 2025-01-18 11:22 | XMS_ITS | Encounter Summary ---
Author Organization [facility] Address [address] [place] [address] Phone Care Team Providers Care Manager Maritime Name Role Phone Arden Muñoz DO Primary Care Provider Abdiaziz Blue MD Unavailable + Guru Traci Sanches MD Unavailable Justice Kate MD Unavailable Al Benoit MD Unavailable Encounter Details Date Type Department Care Team (Late st Contact Info) Description 07/20/2022 Ancillary Orders [address] [address] Awa Andino MD [address] [place] [address] Orthopedics & Sports Medicine, [place], [place] [phone] [email or web address] Hip pain, right Social History Tobacco Use [...] thigh documented in this encounter Care Teams Manager Maritime Relationship Specialty Start Date End Date Arden Muñoz DO [address] [place] [address] PCP - General Internal Medicine 07/08/18 Abdiaziz Blue MD [address] [place] [address] Referring Physician Urology 05/11/19 Guru Traci Sanches MD [address] [address] [email or web address] Medical Oncology 05/11/19 Justice Kate MD [address] [place] [address] [email or web address] Urology 05/11/19 Al Benoit MD [address] [place] [address] [email or web address] Radiation Oncology 05/11/19 documented as of this encounter Additional Source Comments The information contained in this document represents components of the legal health record. It is not the complete legal health record.[facility]
--- OUTSIDE RECORDS SUMMARY | 2025-01-18 11:22 | XMS_ITS | Encounter Summary ---
Author Organization [facility] Address [address] [place] [address] Phone Care Team Providers Care Sifter Operator Name Role Phone Pollo Iglesias MD Primary Care Provider Arden Muñoz DO Primary Care Provider Abdiaziz Blue MD Unavailable + Guru Traci Sanches MD Unavailable Justice Kate MD Unavailable Al Benoit MD Unavailable Self-Referred, Patient Unavailable Unavailab le Encounter Details Date Type Department Care Team (Late st Contact Info) Description 01/07/2016 Procedure Pass [facility] [address] [place] [phone] Social History Tobacco Use Types Packs/Day Years [...] on filedocumented in this encounter Care Teams Sifter Operator Relationship Specialty Start Date End Date Pollo Iglesias MD [address] [place] [address] PCP - General Internal Medicine 06/03/15 07/07/18 Arden Muñoz DO [address] [place] [address] PCP - General Internal Medicine 07/08/18 Abdiaziz Blue MD [address] [place] [address] Referring Physician Urology 05/11/19 Guru Traci Sanches MD [address] [address] [email or web address] Medical Oncology 05/11/19 Justice Kate MD [address] [place] [address] [email or web address] Urology 05/11/19 Al Benoit MD [address] [place] [address] [email or web address] Radiation Oncology 05/11/19 Self-Referred, Patient 06/05/19 06/05/19 documented as of this encounter Additional Source Comments The information contained in this document represents components of the legal health record. It is not the complete legal health record.[facility]
--- OUTSIDE RECORDS SUMMARY | 2025-01-18 11:22 | XMS_ITS | Encounter Summary ---
Author Organization [facility] Address [address] [place] [address] Phone Care Team Providers Care Diagnostic Imaging Manager Name Role Phone Pollo Iglesias MD Primary Care Provider Arden Muñoz DO Primary Care Provider Abdiaziz Blue MD Unavailable + Guru Traci Sanches MD Unavailable Justice Kate MD Unavailable Al Benoit MD Unavailable Self-Referred, Patient Unavailable Unavailab le Encounter Details Date Type Department Care Team (Late st Contact Info) Description 06/19/2015 Ancillary Orders [facility] [address] [place] [address] Criss Langston MD [address] [place] [address] [email or web address] Social History Tobacco Use Types Packs/Day [...] on filedocumented in this encounter Care Teams Diagnostic Imaging Manager Relationship Specialty Start Date End Date Pollo Iglesias MD [address] [place] [address] PCP - General Internal Medicine 06/03/15 07/07/18 Arden Muñoz DO [address] [place] [address] PCP - General Internal Medicine 07/08/18 Abdiaziz Blue MD [address] [place] [address] Referring Physician Urology 05/11/19 Guru Traci Sanches MD [facility] [address] [email or web address] Medical Oncology 05/11/19 Justice Kate MD [address] [place] [address] [email or web address] Urology 05/11/19 Al Benoit MD [address] [place] [address] [email or web address] Radiation Oncology 05/11/19 Self-Referred, Patient 06/05/19 06/05/19 documented as of this encounter Additional Source Comments The information contained in this document represents components of the legal health record. It is not the complete legal health record.[facility]
--- OUTSIDE RECORDS SUMMARY | 2025-01-18 11:23 | XMS_ITS | Encounter Summary ---
Author Organization [facility] Address [address] [place] [address] Phone Care Team Providers Care Doctor Of Naturopathic Medicine Name Role Phone Pollo Iglesias MD Primary Care Provider [phone] Arden Muñoz DO Primary Care Provider Abdiaziz Blue MD Unavailable + Guru Traci Sanches MD Unavailable Justice Kate MD Unavailable Al Benoit MD Unavailable [phone] Self-Referred, Patient Unavailable Unavailab le Encounter Details Date Type Department Care Team (Late st Contact Info) Description 06/29/2016 Procedure Pass [facility] [address] [place] [phone] Social History Tobacco Use Types Packs/Day Years [...] on filedocumented in this encounter Care Teams Doctor Of Naturopathic Medicine Relationship Specialty Start Date End Date Pollo Iglesias MD [address] [place] [address] PCP - General Internal Medicine 06/03/15 07/07/18 Arden Muñoz DO [address] [place] [address] PCP - General Internal Medicine 07/08/18 Abdiaziz Blue MD [address] [place] [address] Referring Physician Urology 05/11/19 Guru Traci Sanches MD [address] [address] [email or web address] Medical Oncology 05/11/19 Justice Kate MD [address] [place] [address] [email or web address] Urology 05/11/19 Al Benoit MD [address] [place], [place] [address] [email or web address] Radiation Oncology 05/11/19 Self-Referred, Patient 06/05/19 06/05/19 documented as of this encounter Additional Source Comments The information contained in this document represents components of the legal health record. It is not the complete legal health record.[facility]
--- OUTSIDE RECORDS SUMMARY | 2025-01-18 11:23 | XMS_ITS | Clinical Summary ---
Author Organization [facility] Address [address] [place] [address] Care Team Providers Care Body Piercer Name Role Phone Unavailable Primary Care Provider [...]
--- OUTSIDE RECORDS SUMMARY | 2025-01-18 11:23 | XMS_ITS | Data Portability ---
Author Organization [place] [facility] Address [address] [address] Assessment Encounter Date Assessment Date Assessment LastModified [...] Time Bilateral exostosis of external ear canals [id number] Active 2023 Exostosis of external canal, bilateral ; Note: Date Diagnosed : 07/22/2023 10:03 AM (H61.813) Not Available [facility] 4 03:10:10 Abnormal auditory perceptio n [id number] Active 2023 Other abnormal auditory perceptio ns, left ear; Note: Date Diagnosed : 07/22/2023 10:03 AM (H93.292) Not Available [facility] 4 03:10:11 Sensorine ural hearing loss of bilateral ears [id number] Active 2023 ALONA GUILLEN, [place] [address], [place], [address] , [facility] - [facility] 4 10:29:09 Problem Notes None recorded. Medical Equipment None Reported. Medications Name Sig Start Date Stop Date Status Note LastModified by Organization Details LastModified Time multivitam in tablet active Medication ID: [id number] Bra nidia Name: multivitam in Send Method: E-Prescrib ed Subs Allowed: subs OK Medicat ionGeneric Name: multivitam in Not Available Not Available Not Available atorvastat in 40 mg tablet active Medication ID: [id number] Paul jacob Name: atorvastat in Send Method: E-Prescrib ed Subs Allowed: subs OK Medicat ionGeneric Name: atorvastat in Not Available Not Available Not Available neomycin-p olymyxin-h ydrocort 3.5 mg/mL-10,0 00 unit/mL-1 % ear solution INSTILL 4-5 DROPS IN LEFT EAR EVERY DAY active Not Available Not Available No t Available tamsulosin 0.4 mg capsule active Medication ID: [id number] Paul nd Name: tamsulosin Send Method: E-Prescrib ed Subs Allowed: subs OK Medicat ionGeneric Name: tamsulosin Not Available Not Available Not Available warfarin 5 mg tablet active Medication ID: [id number] Bra nd Name: warfarin S end Method: E-Prescrib ed Subs Allowed: subs OK Medicat ionGeneric Name: warfarin Not Available Not Available Not Available lorazepam 1 mg tablet active Medication ID: [id number] Bra nd Name: lorazepam Send Method: E-Prescrib ed Subs Allowed: subs OK Medicat ionGeneric Name: lorazepam Not Available Not Available Not Available finasterid e 5 mg tablet active Medication ID: [id number] Bra nd Name: finasterid e Send Method: E-Prescrib ed Subs Allowed: subs OK Medicat ionGeneric Name: finasterid e Not Available Not Available Not Available aspirin 81 mg capsule active Medication ID: [id number] Bra nd Name: aspirin Se nd Method: [...] 165 GAUTAM ZELAYA [place] [place] [address] [address] 07/30/2023 09:51:52 09/02/2023 00:15:53 Sensorineural hearing loss of bilateral ears [id number] H90.3 1905 GAUTAM ZELAYA [facility] [place] 100 [facility] 100 [place] [address] 08/12/2023 10:36:38 08/12/2023 11:38:04 Sensorineural hearing loss of bilateral ears [id number] H90.3 8647 GAUTAM ZELAYA [place] [place] 100 [facility] 100 [place] [address] 10/01/2023 10:34:45 10/02/2023 14:45:28 Sensorineural hearing loss of bilateral ears [id number] H90.3 98240 GAUTAM ZELAYA ENTS of [facility] - [facility] 100 [place] [address] 10/19/2024 11:12:39 10/20/2024 15:57:14 Sensorineural hearing loss of bilateral ears [id number] H90.3 Health Concerns Section Related Observation LastModified by Organization Detai ls LastModified Time None Recorded Concern Status LastModified by Organization Details LastModified Time None Recorded Advance Directives Directive None Recorded Payers Insurance Date Sequence Insurance Name Policy Number Policy Devine Covered Member ID Devine Member ID Guarantor Name 10/19/2024 2 [employer] (MEDICARE SUPPLEMENT) Arturo Bentley [id number] Arturo Bentley 10/19/2024 1 [place] [employer] Arturo Bentley [id number] Arturo Bentley Notes Date Note Type Note [...] out every morning to play pickleball or pinPAAYong, leads a pretty active lifestyle with friends. #}} Discussed type, technology levels, and manufacturers of hearing aids. Type of phone: {{iphone android (galaxy) android (off brand) no smart phone iphone, but not too interested in the bluetooth/angie technology.#}} Ordering:{{Oticon phon ak* Widex}} {{ [id number] Life-R in P7 steel frazier#}}Help Desk Representative: {{ 1M#}}Domes: {{ open medium#}}Other: {{}} Paid today: {{$ $0#}}Due at fitting {{$ $5144#}}Total: {{$ $5144#}} ALONA GUILLEN, [place] 100 [facility],[place] [address], [place], [address], [facility] - [facility] 07/30/2023 10:29:20 08/12/2023 text/html Fit today with phonak Set at level 3 and fit to target. Turned down after REM for comfort. 90% with weak occlusion senior product development manager. VC activated and explained. All tap controls turned off. Discussed insertion/removal of devices from ears and radio/tv technician and cleaning of devices which included changing the domes, replacing the filter, and wiping down the HAs. Patient was able to successfully insert devices into ears in office Not interested in phone connectivityPaid [id number] via check via ARG GAUTAM ZELAYA [address] [facility],[place] [address], [place], [address], [facility] 08/12/2023 11:33:57 10/01/2023 text/html Concerns: No [...] FU with HT. ALONA GUILLEN, [place] [address] [facility],[place] [address], [place], [address], [facility] 10/01/2023 11:03:39 10/19/2024 text/html Concerns: No concerns today. Notes he is hearing well and has enough supplies at this time.Check/clean: GWO before and after cleaning. Changed filters, domes, and tails. Brushed microphones. Put through vacuum chamber cycle. Adjustments: none made todayFU: Annual already scheduled for next year. Will do a hearing test at that time. GAUTAM ZELAYA [address] [facility],[place] [address], [place], [address], [facility] 10/19/2024 11:31:51
--- OUTSIDE RECORDS SUMMARY | 2025-01-18 11:23 | XMS_ITS | Encounter Summary ---
Author Organization [facility] Address [address] [place] [address] [address] [place] [address] Phone Care Team Providers Care Programmer Analyst Name Role Phone Pollo Iglesias MD Primary Care Provider Arden Muñoz DO Primary Care Provider [phone] Abdiaziz Blue MD Unavailable + Guru Traci Sanches MD Unavailable Justice Kate MD Unavailable Al Benoit MD Unavailable Self-Referred, Patient Unavailable Unavailab le Reason for Referral * Consultation (Routine) - Closed Specialty Diagnoses / Procedures Referred By Contclementina rojas Referred To Contact Rheumatology Diagnoses Primary osteoarthritis of right shoulder System, Provider Not In, PhD [address] [address] Referral ID Status Reason Start Date Expiration Date Visits Re quested Visits Authorized [id number] Closed 06/03/2015 06/03/2016 1 1 Encounter Details Date Type Department Care Team (Latest Contact Info) Description 06/03/2015 Transcribe Orders [facility] Rheumatology [address], 4[address] Floor, [address] [place] [address] InstrDong avila MD [address] [place] [address] [place] [address] Primary osteoarthritis of right shoulder (Primary Dx) [...] Diagnoses Orde r Schedule Ambulatory referral to [facility] Rheumatology Outpatient Referral Routine Primary osteoarthritis of right shoulder Ordered: 06/03/2015 documented as of this encounter Visit Diagnoses Diagnosis Primary osteoarthritis of right shoulder- Primary documented in this encounter Care Teams Programmer Analyst Relationship Specialty Start Date End Date Pollo Iglesias MD [address] [place] [address] PCP - General Internal Medicine 06/03/15 07/07/18 Arden Muñoz DO [address] [place] [address] PCP - General Internal Medicine 07/08/18 Abdiaziz Blue MD [address] [place] [address] Referring Physician Urology 05/11/19 Guru Traci Sanches MD [facility] [address] [email or web address] Medical Oncology 05/11/19 Justice Kate MD [address] [place] [address] [email or web address] Urology 05/11/19 Al Benoit MD [address] [place] [address] [email or web address] Radiation Oncology 05/11/19 Self-Referred, Patient 06/05/19 06/05/19 documented as of this encounter Additional Source Comments The information contained in this document represents components of the legal health record. It is not the complete legal health record.[facility]
--- OUTSIDE RECORDS SUMMARY | 2025-01-18 11:23 | XMS_ITS | Encounter Summary ---
Author Organization [facility] Address [address] [place] [address] Phone Care Team Providers Care Shipping Helper Name Role Phone Pollo Iglesias MD Primary Care Provider Arden Muñoz DO Primary Care Provider Abdiaziz Blue MD Unavailable + Guru Traci Sanches MD Unavailable [phone] Justice Kate MD Unavailable [phone] Al Benoit MD Unavailable [phone] Self-Referred, Patient Unavailable Unavailab le Encounter Details Date Type Department Care Team (Late st Contact Info) Description 05/01/2016 Procedure Pass [place] [facility] PERIOPERATIVE DEPT [address] [place] [phone] Social History Tobacco Use Types Packs/Day Years [...] on filedocumented in this encounter Care Teams Shipping Helper Relationship Specialty Start Date End Date Pollo Iglesias MD [address] [place] [address] PCP - General Internal Medicine 06/03/15 07/07/18 Arden Muñoz DO [address] [place] [address] PCP - General Internal Medicine 07/08/18 Abdiaziz Blue MD [address] [place] [address] Referring Physician Urology 05/11/19 Guru Traci Sanches MD [address] [address] [email or web address] Medical Oncology 05/11/19 Justice Kate MD [address] [place] [address] [email or web address] Urology 05/11/19 Al Benoit MD [address] [place], [place] [id number] [email or web address] Radiation Oncology 05/11/19 Self-Referred, Patient 06/05/19 06/05/19 documented as of this encounter Additional Source Comments The information contained in this document represents components of the legal health record. It is not the complete legal health record.[facility]
--- OUTSIDE RECORDS SUMMARY | 2025-01-18 11:23 | XMS_ITS | Encounter Summary ---
Author Organization [facility] Address [address] [place] [address] Phone Care Team Providers Care 7Th Grade Social Studies Teacher Name Role Phone Pollo Iglesias MD Primary Care Provider Arden Muñoz DO Primary Care Provider Abdiaziz Blue MD Unavailable + Guru Traci Sanches MD Unavailable [phone] Justice Kate MD Unavailable [phone] Al Benoit MD Unavailable Self-Referred, Patient Unavailable Unavailab le Encounter Details Date Type Department Care Team (Late st Contact Info) Description 02/13/2016 Documentation [facility] Department of Orthopaedic Surgery, Sports Medicine Service [address] [facility] [address] [place] [address] Danny Acosta MD [address] [place] [address] Social History Tobacco Use Types Packs/Day Years [...] on filedocumented in this encounter Care Teams 7Th Grade Social Studies Teacher Relationship Specialty Start Date End Date Pollo Iglesias MD [address] [place] [address] PCP - General Internal Medicine 06/03/15 07/07/18 Arden Muñoz DO [address] [place] [address] PCP - General Internal Medicine 07/08/18 Abdiaziz Blue MD [address] [place] [address] Referring Physician Urology 05/11/19 Guru Traci Sanches MD [address] [address] [email or web address] Medical Oncology 05/11/19 Justice Kate MD [address] [place] [address] [email or web address] Urology 05/11/19 Al Benoit MD [address] [place] [address] [email or web address] Radiation Oncology 05/11/19 Self-Referred, Patient 06/05/19 06/05/19 documented as of this encounter Additional Source Comments The information contained in this document represents components of the legal health record. It is not the complete legal health record.[facility]
--- OUTSIDE RECORDS SUMMARY | 2025-01-18 11:23 | XMS_ITS | Clinical Summary ---
Author Organization [facility] Address [address] [place] [address] Phone Care Team Providers Care Loan Operations Specialist Name Role Phone Arden Muñoz DO Primary Care Provider Abdiaziz Blue MD Unavailable + Guru Traci Sanches MD Unavailable [phone] Justice Kate MD Unavailable [phone] Al Benoit MD Unavailable Allergies No known [...] and he is welcome to see an store operations specialist closer to home or at [facility]. He will consider his options. Ultimately, he [...] is 1%, Ruiz/NSQIP estimated risk of perioperative AL or cardiac arrest is <1%, can proceed [...] 1997, on coumadin since CVA in 2013, inner tube inserter Dr. 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 The plan is to stop Coumadin 5 [...] this topic Medical Devices Implanted Type Area Deputy Controller Device Identifier Shelf Expiration Date Model / Serial / Lot Screw Bone 6.5x26mm Osteolock Ea Hip 16a - [id number] Implanted:Qty: 1 on 07/08/2015 by Abhinav Fuller MD at [facility] Left: Hip [employer] 04/06/2020 5260-5-0 26 / / [id number] Screw Bone 6.5x24mm Osteolock Ea Hip 16a - [id number] Implanted:Qty: 1 on 07/08/2015 by Abhinav Fuller MD at [facility] Left: Hip [employer] 04/09/2020 5260-5-0 24 / / [id number] Screw Compression Bone 4.5x38 Reverse Shoulder 08 - [id number] Implanted:Qty: 1 on 06/29/2016 by Noha Waters Jp, MD at [facility] Right: Shoulder [employer] [id number] / / Screw Anterior Comp Reverse Shoulder 08 - [id number] Implanted:Qty: 1 on 06/29/2016 by Noah Waters Jp, MD at [facility] Right: Shoulder [employer] QCF541 / / Screw Bone Locking 4.5x35 Reverse Shoulder 08 - [id number] Implanted:Qty: 1 on 06/29/2016 by Noah Waters Jp, MD at [facility] Right: Shoulder [employer] ATN302 / / Screw Compression Shoulder [id number] Reverse Shoulder 08 - [id number] Implanted:Qty: 1 on 06/29/2016 by Noah Waters Jp, MD at [facility] Right: Shoulder [employer] UWB346 / / Centered 36 Mm Reverse Shoulder 05 - [id number] Implanted:Qty: 1 on 06/29/2016 by Noah Waters Jp, MD at [facility] Right: Shoulder [employer] 11/06/2020 VKY512 / [id number] / Implant Hip 58mm Femoral Shell Acetabular Hemispherical Revision Trident Titanium Ea Hip Implanted:Qty: 1 on 07/08/2015 by Abhinav Fuller MD at [facility] STANDARD Left: Hip OJ [employer] 05/28/2020 509-02-5 8F / / [id number] Implant Hip X3 0deg 36mm Size F Femoral Insert Acetabular Trident Ea Hip Implanted:Qty: 1 on 07/08/2015 by Abhinav Fuller MD at [facility] STANDARD Left: Hip [employer] 04/18/2020 623-00-3 6F / / [id number] Implant Hip Xlarge 18f Femoral Sleeve Proximal Textured Ztt Srom Ea Hip Implanted:Qty: 1 on 07/08/2015 by Abhinav Fuller MD at [facility] STANDARD Left: Hip [employer] 07/13/2019 55-0530 / / [id number] Implant Hip [id number] Femoral Stem Tapered 11to13 Standard 36mm Plus 8mm Lateral Neck Srom Ea Hip Implanted:Qty: 1 on 07/08/2015 by Abhinav Fuller MD at [facility] STANDARD Left: Hip [employer] 07/14/2019 [id number] / / [id number] Implant Hip 36mm Plus 6 Femoral Head Tapered 11to13 - Metal Biolox Ea Hip Implanted:Qty: 1 on 07/08/2015 by Abhinav Fuller MD at [facility] STANDARD Left: Hip [employer] 07/13/2019 1365-33- 000 / / [id number] Force Fiber Implanted:Qty: 3 on 01/07/2016 by Noah Waters Jp, MD at [facility] Shoulder 08/19/2020 / / [id number] 25 Mm Diameter X 25 Mm Length Long Post Reverse Shoulder - [id number] Implanted:Qty: 1 on 06/29/2016 by Noah Waters Jp, MD at [facility] Right: Shoulder [employer] 04/15/2018 PBE873 / [id number] / 6b Ascend Flex Standard Ptc Humeral Stem Shoulder 14 - [id number] Implanted:Qty: 1 on 06/29/2016 by Noah Waters Jp, MD at [facility] Right: Shoulder [employer] 04/06/2021 YQR119A / [id number] / High Offset Reversed Tray + 0 Shoulder 03 - [id number] Implanted:Qty: 1 on 06/29/2016 by Noah Waters Jp, MD at [facility] Right: Shoulder [employer] 04/13/2021 YTS773 / [id number] / 36 Diameter Revision Reversed Insert+ 6/12.5 B Shoulder 04 - [id number] Implanted:Qty: 1 on 06/29/2016 by Noah Waters Jp, MD at [facility] Right: Shoulder [employer] 03/27/2021 NNY186H / [id number] / Explanted Type Area Deputy Controller Device Identifier Shelf Expiration Date Model / Serial / Lot Plate Bone 420mm Button Sterile Titanium 7 Hole Ea - [id number] Implanted:Qty: 1 on 01/07/2016 by Noah Waters Jp, MD at [facility] Explanted:Qty: 1 on 06/29/2016 at [facility] [employer] Right: Shoulder SYNTHES 482.823 / / Aequalis Perform Glenoid Cortiloc L60 Shoulder 02 Nc - [id number] Implanted:Qty: 1 on 01/07/2016 by Noah Waters Jp, MD at [facility] Explanted:Qty: 1 on 06/29/2016 by Naoh Waters Jp, MD at [facility] Right: Shoulder [employer] 09/24/2020 XMS446 / / [id number] Head Humeral Shoulder Simpliciti 60q77zo - [id number] Implanted:Qty: 1 on 01/07/2016 by Noah Waters Jp, MD at [facility] Explanted:Qty: 1 on 06/29/2016 by Noah Waters Jp, MD at [facility] Right: Shoulder [employer] 07/29/2020 [id number] / [id number] / Nucleus Cementless Sz3 Simpliciti Ea - [id number] Implanted:Qty: 1 on 01/07/2016 by Noah Waters Jp, MD at [facility] Explanted:Qty: 1 on 06/29/2016 by Noah Waters Jp, MD at [facility] Right: Shoulder [employer] 06/24/2020 OUU013 / [id number] / Insurance MEDICARE PART A & B [facility] MEDICARE SUPPLEMENT MEDICARE PART A & B MEDICARE SUPPLEMENT MEDICARE PART A & B MEDICARE SUPPLEMENT MEDICARE PART A & B Member Subscriber Plan / Payer (Ef fective 2009-) Name:Arturo Bentley Member ID:[id number] Relation to Subscriber:Self Name:Arturo Bentley Subscriber ID:[id number] Payer ID:[id number] Group ID:Not on file Type:Medicare Address: [employer] [address] MEDICARE SUPPLEMENT MEDICARE PART A & B MEDICARE SUPPLEMENT MEDICARE PART A & B MEDICARE SUPPLEMENT MEDICARE PART A & B [facility] MEDICARE SUPPLEMENT MEDICARE PART A & B [id number] [place] [address] MEDICARE SUPPLEMENT MEDICARE PART A & B [facility] MEDICARE SUPPLEMENT Advance Directives For more information, please contact: [phone] (9AM - 5PM Shauna/[facility], Wednesday-Wednesday) Documents on File Type Date Recorded Patient Precision Dyer Expl anation Healthcare Proxy 07/17/2015 1:01 PM [...] 2:28 PM 07/11/2015 4:30 PM Care Teams Loan Operations Specialist Relationship Specialty Start Date End Date Arden Muñoz DO [address] [place] [address] PCP - General Internal Medicine 07/08/18 Abdiaziz Blue MD [address] [place] [address] Referring Physician Urology 05/11/19 Guru Traci Sanches MD [address] [address] [email or web address] Medical Oncology 05/11/19 Justice Kate MD [address] [place] [address] [email or web address] Urology 05/11/19 lA Benoit MD [address] [place] [address] [email or web address] Radiation Oncology 05/11/19 Additional Source Comments The information contained in this document represents components of the legal health record. It is not the complete legal health record.[facility]
--- OUTSIDE RECORDS SUMMARY | 2025-01-18 11:23 | XMS_ITS | Encounter Summary ---
Author Organization [facility] Address [address] [place] [address] Phone Care Team Providers Care Barrel Ribs Solderer Name Role Phone Pollo Iglesias MD Primary Care Provider [phone] Arden Muñoz DO Primary Care Provider Abdiaziz Blue MD Unavailable + Guru Traci Sanches MD Unavailable Justice Kate MD Unavailable Al Benoit MD Unavailable Self-Referred, Patient Unavailable Unavailab le Encounter Details Date Type Department Care Team (Late st Contact Info) Description 02/13/2016 Telephone [facility] Department of Orthopaedic Surgery, Sports Medicine Service [address] [address] Danny Acosta MD 175 [place] [address] Social History Tobacco Use Types Packs/Day Years [...] on filedocumented in this encounter Care Teams Barrel Ribs Solderer Relationship Specialty Start Date End Date Pollo Iglesias MD [address] [place] [address] PCP - General Internal Medicine 06/03/15 07/07/18 Arden Muñoz DO [address] [place] [address] PCP - General Internal Medicine 07/08/18 Abdiaziz Blue MD [address] [place] [address] Referring Physician Urology 05/11/19 Guru Traci Sanches MD [address] [address] [email or web address] Medical Oncology 05/11/19 Justice Kate MD [address] [place] [address] [email or web address] Urology 05/11/19 Al Benoit MD [address] [place] [address] [email or web address] Radiation Oncology 05/11/19 Self-Referred, Patient 06/05/19 06/05/19 documented as of this encounter Additional Source Comments The information contained in this document represents components of the legal health record. It is not the complete legal health record.[facility]
--- OUTSIDE RECORDS SUMMARY | 2025-01-18 11:23 | XMS_ITS | Encounter Summary ---
Author Organization [facility] Address [address] [place] [address] Phone Care Team Providers Care Sleep Scientist Name Role Phone Arden Muñoz DO Primary Care Provider [phone] Abdiaziz Blue MD Unavailable + Guru Traci Sanches MD Unavailable Justice Kate MD Unavailable Al Benoit MD Unavailable Encounter Details Date Type Department Care Team (Late st Contact Info) Description 01/09/2022 Ancillary Orders [facility] Medical [facility] Orthopedics & Sports Medicine [address] [place] [address] Awa Andino MD [address] [place] [address] Orthopedics & Sports Medicine, [place] [address] [email or web address] Social History Tobacco Use Types Packs/Day Years [...] Assessment Author No 07/01/2016 4:43 PM Amirah lA CNP documented as of this encounter Mental Status * Patient has serious difficulty concentrating, remembering, or making decisions due to physical, mental, or emotional condition Answer Entry Date Author No 07/01/2016 4:43 PM Amirah Al CNP documented in this encounter Plan of Treatment Not on file documented as of this encounter Visit Diagnoses Not on filedocumented in this encounter Care Teams Sleep Scientist Relationship Specialty Start Date End Date Arden Muñoz DO [address] [place] [address] PCP - General Internal Medicine 07/08/18 Abdiaziz Blue MD [address] [place] [address] Referring Physician Urology 05/11/19 Guru Traci Sanches MD [address] [address] [email or web address] Medical Oncology 05/11/19 Justice Kate MD [address] [place], [place] [phone] [email or web address] Urology 05/11/19 Al Benoit MD [address] [place] [address] [email or web address] Radiation Oncology 05/11/19 documented as of this encounter Additional Source Comments The information contained in this document represents components of the legal health record. It is not the complete legal health record.[facility]
--- OUTSIDE RECORDS SUMMARY | 2025-01-18 11:23 | XMS_ITS | Encounter Summary ---
Author Organization [facility] Address [address] [place] [address] Phone Care Team Providers Care Hiv Cts Specialist Name Role Phone Pollo Iglesias MD Primary Care Provider Arden Muñoz DO Primary Care Provider Abdiaziz Blue MD Unavailable + Guru Traci Sanches MD Unavailable Justice Kate MD Unavailable Al Benoit MD Unavailable Self-Referred, Patient Unavailable Unavailab le Encounter Details Date Type Department Care Team (Late st Contact Info) Description 05/05/2016 Telephone VIRTUAL DEPARTMENT [address] [place] [phone] Mitra Leal MD [address] [place] [address] Social History Tobacco Use Types Packs/Day Years [...] on filedocumented in this encounter Care Teams Hiv Cts Specialist Relationship Specialty Start Date End Date Pollo Iglesias MD [address] [place] [address] PCP - General Internal Medicine 06/03/15 07/07/18 Arden Muñoz DO [address] [place] [address] PCP - General Internal Medicine 07/08/18 Abdiaziz Blue MD [address] [place] [address] Referring Physician Urology 05/11/19 Guru Traci Sanches MD [address] [place] [address] [email or web address] Medical Oncology 05/11/19 Justice Kate MD [address] [place] [address] Urology 05/11/19 Al Benoit MD [address] [place] [address] [email or web address] Radiation Oncology 05/11/19 Self-Referred, Patient 06/05/19 06/05/19 documented as of this encounter Additional Source Comments The information contained in this document represents components of the legal health record. It is not the complete legal health record.[facility]
--- OUTSIDE RECORDS SUMMARY | 2025-01-18 11:23 | XMS_ITS | Continuity of Care Document ---
Author Organization [place] - [facility], [facility] Address [address] [place] [address] Assessment No assessment recorded. Plan of Treatment Reminders Order Date Submit [...] instructions recorded. Reason for Referral None Reported. Problems Name Problem SNOMED Code Status Onset Date Resolution Date Notes Provider Name and Address Organization Details Recorded Time Bilateral exostosis of external ear canals [id number] Active 2023 Exostosis of external canal, bilateral ; Note: Date Diagnosed : 07/22/2023 10:03 AM (H61.813) Not Available [facility] 4 03:10:10 Abnormal auditory perceptio n [id number] Active 2023 Other abnormal auditory perceptio ns, left ear; Note: Date Diagnosed : 07/22/2023 10:03 AM (H93.292) Not Available [facility] 4 03:10:11 Sensorine ural hearing loss of bilateral ears 736314653 Active 2023 GAUTAM ZELAYA [address], [address] , [place] - [facility] 4 10:29:09 Problem Notes None recorded. Medical Equipment None Reported. Medications Name Sig Start Date Stop Date Status Note LastModified by Organization Details LastModified Time multivitam in tablet active Medication ID: [id number] nd Name: multivitam in Send Method: E-Prescrib ed Subs Allowed: subs OK Medicat ionGeneric Name: multivitam in Not Available Not Available Not Available atorvastat in 40 mg tablet active Medication ID: [id number] nd Name: atorvastat in Send Method: E-Prescrib ed Subs Allowed: subs OK Medicat ionGeneric Name: atorvastat in Not Available Not Available Not Available neomycin-p olymyxin-h ydrocort 3.5 mg/mL-10,0 00 unit/mL-1 % ear solution INSTILL 4-5 DROPS IN LEFT EAR EVERY DAY active Not Available Not Available No t Available tamsulosin 0.4 mg capsule active Medication ID: [id number] Paul nd Name: tamsulosin Send Method: E-Prescrib ed Subs Allowed: subs OK Medicat ionGeneric Name: tamsulosin Not Available Not Available Not Available warfarin 5 mg tablet active Medication ID: [id number] Paul nd Name: warfarin S end Method: E-Prescrib ed Subs Allowed: subs OK Medicat ionGeneric Name: warfarin Not Available Not Available Not Available lorazepam 1 mg tablet active Medication ID: [id number] nd Name: lorazepam Send Method: E-Prescrib ed Subs Allowed: subs OK Medicat ionGeneric Name: lorazepam Not Available Not Available Not Available finasterid e 5 mg tablet active Medication ID: [id number] Paul nd Name: finasterid e Send Method: E-Prescrib ed Subs Allowed: subs OK Medicat ionGeneric Name: finasterid e Not Available Not Available Not Available aspirin 81 mg capsule active Medication ID: [id number] Paul nd Name: aspirin Se nd Method: E-Prescrib [...] ICD10 Code Diagnosis IMO Codes Diagnosis Note [id number] GAUTAM ZELAYA [facility] of [address] [address] 10/19/2024 11:12:39 10/20/2024 15:57:14 Sensorineural hearing loss of bilateral ears [id number] H90.3 Health Concerns Section Related Observation LastModified by Organization Detai ls LastModified Time None Recorded Concern Status LastModified by Organization Details LastModified Time None Recorded Payers Encounter Date Sequence Insurance Name Policy Number Policy Devine Covered Member ID Devine Member ID Guarantor Name 10/19/2024 2 AARP (MEDICARE SUPPLEMENT) Arturo Bentley [id number] Arturo Bentley 10/19/2024 1 MEDICARE B-[place] [facility] Arturo Bentley [id number] Arturo Bentley Notes Date Note Type Note Provider Name and Address Organization Details Recorded Time 10/19/2024 text/html Concerns: No concerns today. Notes he is hearing well and has enough supplies at this time.Check/clean : GWO before and after cleaning. Changed filters, domes, and tails. Brushed microphones. Put through vacuum chamber cycle. Adjustments: none made todayFU: Annual already scheduled for next year. Will do a hearing test at that time. ALONA GUILLEN, [address],[place] [address], [place], [address], [facility] - [facility] 10/19/2024 11:31:51
[2025-01-18 14:01] LABS: Prostate Specific Antigen 2.17 ng/mL (<0.05-4.0)
== END 2025-01-18 09:56 | disposition home or self-care (01) ==
LOC: HO.HMGCLDS 09:55
PROVIDERS: PCP Internal Medicine; Visit Provider Urology
DX: C61 Malignant neoplasm of prostate (principal); Z12.5 Encounter for screening for malignant neoplasm of prostate
CPT/HCPCS: 36415; 84153

== ENCOUNTER → 2025-01-25 10:23 | Outpatient (BNV) | payer MEDICARE, SELFPAY | PROVIDERS: PCP Internal Medicine; Visit Provider Radiology Diagnostic Radiology | DX: C61 Malignant neoplasm of prostate (principal) | CPT/HCPCS: 72197; 76377 ==

== ENCOUNTER 2025-01-25 10:39 | Outpatient (REF) | payer MEDICARE, SELFPAY ==
--- NOTE | ~2025-01-25 | MR_ITS ---
EXAMINATION: MRI prostate without and with contrast. HISTORY: Elevated PSA. Past history of malignant neoplasm of prostate 03/22/2020. TECHNIQUE: 1.5T body coil survey of the pelvis was performed. Phase array coil imaging of the prostate was performed in multiplanar high resolution axial, coronal, sagittal fast spin echo T2 and axial T1 weighted imaging sequences. Axial diffusion imaging at intermediate and high field performed with ADC mapping. Next, 7.5 mL Gadavist was given by intravenous infusion, and dynamic axial imaging performed. Patient was scanned several times for diffusion and ADC sequences but unsuccessful. COMPARISON: There are no prior studies for comparison. CLINICAL DATA: Most recent PSA: 2.17 ng/ml. PSA Density: 0.12 ng/mL squared Prostate Biopsy: Nothing recent FINDINGS Prostate size: 4.0 x 2.4 x 3.4 cm. Calculated prostate volume is 17.11 mL. Hemorrhage: None. Transitional Zone: Heterogeneous focal increased T2 signal in left mid central and right central base T2 signal. Peripheral Zone: T2: Increased diffuse peripheral zone at the base focal nodular activity left mid zone. Diffusion: Significant artifact from the left hip prosthesis cannot be interpreted diffusion or ADC map. DEI: No abnormal enhancement seen. Seminal Vesicles/Ejaculatory Ducts: Symmetric and normal in signal and caliber. Pelvic Lymph Nodes: No obturator or internal iliac lymph nodes meeting size criteria for adenopathy. Marrow Signal: Normal marrow signal and enhancement without focal lesion identified. MR/MR Prostate wo/w con IMPRESSION: Limited MRI prostate exam due to significant artifact on diffusion, ADC map secondary to left hip prosthesis. The prostate gland is normal size limits mild heterogeneity on T2 axial scan. The INFUSION RN is not elevated and PSA density is within normal PI-RADS Assessment Categories PI-RADS 1: Very low (clinically significant cancer is highly unlikely to be present) PI-RADS 2: Low (clinically significant cancer is unlikely to be present) PI-RADS 3: Intermediate (the presence of clinically significant cancer is equivocal) PI-RADS 4: High (clinically significant cancer is likely to be present) PI-RADS 5: Very high (clinically significant cancer is highly likely to be present) [employer]. MR Prostate Imaging Reporting and Data System version 2.1. [email or web address] Electronically signed by: Khoa Patrick MD 01/26/2025 02:36 PM EST RP
--- NOTE | ~2025-01-25 | MR_ITS ---
EXAMINATION: MRI prostate without and with contrast. HISTORY: Elevated PSA. Past history of malignant neoplasm of prostate 03/22/2020. TECHNIQUE: 1.5T body coil survey of the pelvis was performed. Phase array coil imaging of the prostate was performed in multiplanar high resolution axial, coronal, sagittal fast spin echo T2 and axial T1 weighted imaging sequences. Axial diffusion imaging at intermediate and high field performed with ADC mapping. Next, 7.5 mL Gadavist was given by intravenous infusion, and dynamic axial imaging performed. Patient was scanned several times for diffusion and ADC sequences but unsuccessful. COMPARISON: There are no prior studies for comparison. CLINICAL DATA: Most recent PSA: 2.17 ng/ml. PSA Density: 0.12 ng/mL squared Prostate Biopsy: Nothing recent FINDINGS Prostate size: 4.0 x 2.4 x 3.4 cm. Calculated prostate volume is 17.11 mL. Hemorrhage: None. Transitional Zone: Heterogeneous focal increased T2 signal in left mid central and right central base T2 signal. Peripheral Zone: T2: Increased diffuse peripheral zone at the base focal nodular activity left mid zone. Diffusion: Significant artifact from the left hip prosthesis cannot be interpreted diffusion or ADC map. DEI: No abnormal enhancement seen. Seminal Vesicles/Ejaculatory Ducts: Symmetric and normal in signal and caliber. Pelvic Lymph Nodes: No obturator or internal iliac lymph nodes meeting size criteria for adenopathy. Marrow Signal: Normal marrow signal and enhancement without focal lesion identified. MR/MR CAD IMPRESSION: Limited MRI prostate exam due to significant artifact on diffusion, ADC map secondary to left hip prosthesis. The prostate gland is normal size limits mild heterogeneity on T2 axial scan. The WALLPAPER EMBOSSER HELPER is not elevated and PSA density is within normal PI-RADS Assessment Categories PI-RADS 1: Very low (clinically significant cancer is highly unlikely to be present) PI-RADS 2: Low (clinically significant cancer is unlikely to be present) PI-RADS 3: Intermediate (the presence of clinically significant cancer is equivocal) PI-RADS 4: High (clinically significant cancer is likely to be present) PI-RADS 5: Very high (clinically significant cancer is highly likely to be present) [employer]. MR Prostate Imaging Reporting and Data System version 2.1. [email or web address] Electronically signed by: Khoa Patrick MD 01/26/2025 02:36 PM EST RP
--- OUTSIDE RECORDS SUMMARY | 2025-01-25 13:02 | XMS_ITS | Clinical Summary ---
Author Organization [facility] Address [address] [place] [address] Care Team Providers Care Living Supervisor Name Role Phone Unavailable Primary Care [...]
--- OUTSIDE RECORDS SUMMARY | 2025-01-25 13:02 | XMS_ITS | Data Portability ---
Author Organization [place] - [facility], [facility] Address [address] [address] Assessment Encounter Date Assessment Date Assessment LastModified [...] Time Bilateral exostosis of external ear canals [id number] 67385 Active 2023 Exostosis of external canal, bilateral ; Note: Date Diagnosed : 07/22/2023 10:03 AM (H61.813) Not Available [facility] 4 03:10:10 Abnormal auditory perceptio n 90878347 Active 2023 Other abnormal auditory perceptio ns, left ear; Note: Date Diagnosed : 07/22/2023 10:03 AM (H93.292) Not Available [facility] 4 03:10:11 Sensorine ural hearing loss of bilateral ears 855585377 Active 2023 ALONA GUILLEN, [place] [address], [place], [address] , [facility] - [facility] 4 10:29:09 Problem Notes None recorded. Medical Equipment None Reported. Medications Name Sig Start Date Stop Date Status Note LastModified by Organization Details LastModified Time multivitam in tablet active Medication ID: [id number] Bra nidia Name: multivitam in Send Method: E-Prescrib ed Subs Allowed: subs OK Medicat ionGeneric Name: multivitam in Not Available Not Available Not Available atorvastat in 40 mg tablet active Medication ID: [id number] Paul jacob Name: atorvastat in Send Method: E-Prescrib ed Subs Allowed: subs OK Medicat ionGeneric Name: atorvastat in Not Available Not Available Not Available neomycin-p olymyxin-h ydrocort 3.5 mg/mL-10,0 00 unit/mL-1 % ear solution INSTILL 4-5 DROPS IN LEFT EAR EVERY DAY active Not Available Not Available No t Available tamsulosin 0.4 mg capsule active Medication ID: [id number] Paul nd Name: tamsulosin Send Method: E-Prescrib ed Subs Allowed: subs OK Medicat ionGeneric Name: tamsulosin Not Available Not Available Not Available warfarin 5 mg tablet active Medication ID: [id number] Bra nd Name: warfarin S end Method: E-Prescrib ed Subs Allowed: subs OK Medicat ionGeneric Name: warfarin Not Available Not Available Not Available lorazepam 1 mg tablet active Medication ID: [id number] Bra nd Name: lorazepam Send Method: E-Prescrib ed Subs Allowed: subs OK Medicat ionGeneric Name: lorazepam Not Available Not Available Not Available finasterid e 5 mg tablet active Medication ID: [id number] Bra nd Name: finasterid e Send Method: E-Prescrib ed Subs Allowed: subs OK Medicat ionGeneric Name: finasterid e Not Available Not Available Not Available aspirin 81 mg capsule active Medication ID: [id number] Bra nd Name: aspirin Se nd Method: [...] 165 GAUTAM ZELAYA [place] [address] [address] 07/30/2023 09:51:52 09/02/2023 00:15:53 Sensorineural hearing loss of bilateral ears [id number] H90.3 1905 GAUTAM ZELAYA [place] 100 [facility] 100 [place] [address] 08/12/2023 10:36:38 08/12/2023 11:38:04 Sensorineural hearing loss of bilateral ears [id number] H90.3 [id number] GAUTAM ZELAYA [place] 100 [facility] 100 [place] [address] 10/01/2023 10:34:45 10/02/2023 14:45:28 Sensorineural hearing loss of bilateral ears 169213340 H90.3 [id number] GAUTAM ZELAYA [facility] of [facility] - [facility] [address] [place] [address] 10/19/2024 11:12:39 10/20/2024 15:57:14 Sensorineural hearing loss of bilateral ears 492381030 H90.3 Health Concerns Section Related Observation LastModified by Organization Detai ls LastModified Time None Recorded Concern Status LastModified by Organization Details LastModified Time None Recorded Advance Directives Directive None Recorded Payers Insurance Date Sequence Insurance Name Policy Number Policy Devine Covered Member ID Devine Member ID Guarantor Name 10/19/2024 2 AARP (MEDICARE SUPPLEMENT) Arturo Bentley [id number] Arturo Bentley 10/19/2024 1 [place] B-[place]: [employer] Arturo Bentley [id number] Arturo Bentley Notes Date Note Type Note [...] out every morning to play pickleball or pinTrigger [employer]ong, leads a pretty active lifestyle with friends. #}} Discussed type, technology levels, and manufacturers of hearing aids. Type of phone: {{iphone android (galaxy) android (off brand) no smart phone iphone, but not too interested in the bluetooth/angie technology.#}} Ordering:{{Oticon phon ak* Widex}} {{ [id number] Life-R in P7 steel frazier#}}Histology Supervisor: {{ 1M#}}Domes: {{ open medium#}}Other: {{}} Paid today: {{$ $0#}}Due at fitting {{$ $5144#}}Total: {{$ $5144#}} ALONA GUILLEN, [facility] 100 [facility],[place] [address], [place], [address], [facility] - [facility] 07/30/2023 10:29:20 08/12/2023 text/html Fit today with phonak Set at level 3 and fit to target. Turned down after REM for comfort. 90% with weak occlusion human resources communications manager. VC activated and explained. All tap controls turned off. Discussed insertion/removal of devices from ears and factory expert and cleaning of devices which included changing the domes, replacing the filter, and wiping down the HAs. Patient was able to successfully insert devices into ears in office Not interested in phone connectivityPaid [id number] via check via ARG GAUTAM ZELAYA 100 [facility],[place] [address], [place], [address], [facility] 08/12/2023 11:33:57 10/01/2023 text/html Concerns: No [...] FU with HT. ALONA GUILLEN, GAUTAM 100 [facility],[place] [address], [place], [address], [facility] 10/01/2023 11:03:39 10/19/2024 text/html Concerns: No concerns today. Notes he is hearing well and has enough supplies at this time.Check/clean: GWO before and after cleaning. Changed filters, domes, and tails. Brushed microphones. Put through vacuum chamber cycle. Adjustments: none made todayFU: Annual already scheduled for next year. Will do a hearing test at that time. GAUTAM ZELAYA 100 [facility],[place] [address], [place], [address], [facility] 10/19/2024 11:31:51
--- OUTSIDE RECORDS SUMMARY | 2025-01-25 13:02 | XMS_ITS | Clinical Summary ---
Author Organization [facility] Address [address] [place], [place] [address] Phone Care Team Providers Care Resolution Manager Name Role Phone Saravanan Fajardo MD Primary Care Provider [phone] Allergies No known active allergies Medications finasteride [...] rate controlled. He remains anticoagulated for high [id number] score with prior stroke. He does have sleep apnea by home sleep study though the sleep center did not have any upcoming in lab titration study appointments available per his report and he plans to see the pulmonology team at [facility] next week. We discussed the long-term [...] Description 12/01/2024 11:20 AM EDT Office Visit [facility] - [address] [place] [address] Neville Salazar MD Longstanding persistent atrial fibrillation (CMS/HCC V24, CMS/HCC V28) (Primary Dx) 11/24/2024 2:00 PM EDT Office Visit [facility] - [address] [place] [phone] Neville Salazar MD Longstanding persistent atrial fibrillation (CMS/HCC V24, CMS/HCC V28) (Primary Dx); Nonrheumatic tricuspid valve regurgitation 11/16/2024 11:00 AM EDT Ancillary Procedure [facility] - [address] [place] [address] Longstanding persistent atrial fibrillation (CMS/HCC [...] Description 03/30/2025 10:40 AM EST Office Visit [facility] - [address] [place] [address] Anca Roberts NP [address] [place] [address] [place] [address] Health Maintenance Due Date Last Done Comments Cholesterol Screening (Lipid Panel) 02/22/2022 Falls Risk Assessment 02/22/2022 Medicare Annual Wellness Visit 02/22/2022 Social Influencers of Health Screening 02/22/2022 Depression Screening 03/15/2024 COVID-19 Vaccine ( season) 2025 11/21/2024, 11/12/2023, 03/16/2023, Additional history exists DTaP,Tdap,and Td Vaccines (2 - Td or Tdap) 06/06/2028 06/06/2018 Pneumococcal Vaccine: 50+ Years Completed 09/22/2021, 04/08/2015 Zoster Vaccines Completed 12/09/2021, 09/30/2021 Influenza Vaccine Completed 11/08/2024, , 10/26/2022, Additional history exists RSV Immunization Adult Patients [...] (12/01/2024 8:38 AM EDT) us Historical Provider MD LAB BLOOD ORDERABLES Edit ed Result - Final * (ABNORMAL) TRANSTHORACIC ECHOCARDIOGRAM (TTE) COMPLETE (11/16/2024 11:43 AM EDT) BSA 1.91 m2 CV PACS Left Atrium Minor Caldwell 8.0 cm CV PACS Left Atrium Major Caldwell 8.5 cm CV PACS LA Area Sys [...] Volume 63 mL CV PACS MV Deceleration Stewart 2.8 m/s2 CV PACS E Wave Deceleration [...] Result from Last 3 Months Insurance MEDICARE [facility] Care Teams Resolution Manager Relationship Specialty Start Date End Date Saravanan Fajardo MD [address] [place] [phone] PCP - General Internal Medicine 11/24/24
== END 2025-01-25 10:40 | disposition home or self-care (01) ==
LOC: HO.MRI 10:39
PROVIDERS: PCP Internal Medicine; Visit Provider Urology
DX: C61 Malignant neoplasm of prostate (principal)
CPT/HCPCS: 72197; 76377; A9585

== ENCOUNTER 2025-02-01 10:13 | Outpatient (AMB) | payer MEDICARE, SELFPAY ==
--- NOTE | 2025-02-01 10:27 | A.OFFVIS_ITS ---
Intake Visit Reasons: 6m/MRI/PSA Intake Note: Patient is present for 6M/PSA Urology Medication:FINASTERIDE,TAMSULOSIN Antibiotic Allergy:NONE Blood Thinner:ASPIRIN,WARFARIN NKDA Labs done : 01/18/25 PSA 2.17 Imaging : Prostate MRI 01/25/25 Commercial Accountant Required: No Accompanied by: Spouse Allergies No Known Allergies (No Known Allergies*) Allergy (Verified 02/01/25 10:29) HPI Comments Details: Arturo is a pleasant male. He is a patient of Dr. Muñoz. He is seen for the following urologic issues. - prostate cancer - lower urinary tract symptoms PSA decreased 2.2 Finasteride every other day Still good effect on bladder outlet obstruction Discussed MRI findings Urinary Symptoms Review - No specific urinary symptoms or incontinence issues discussed. - No voiding issues or nocturnal symptoms mentioned. - Patient on finasteride therapy, currently taking it twice a week. Prostate cancer grade group 1 - 05/04 - initial therapy active surveillance 02/06 repeat MRI no clear evidence of prostate carcinoma Prostate cancer diagnosed with Dr. Blue 2018 - initial PSA 6.5, prostate volume 35 g Initial pathology biopsy 05/04 - Gl 3+3 left mid lateral 30%, left mid medial 30% 04/26 cores PSA 08/02 6.5, 12/03 4.2 14%, 04/05 2.9, 09/03 2.2 03/05 2.8, 09/04 2.1, 03/06 2.1, 09/05 1.9, 04/08 3.8, 08/06 3.9, 02/06 2.2 Initial therapy active surveillance, initiate finasteride 08/02 Prolaris DNA analysis 05/06 active surveillance group 08/01 MRI 30 g prostate, no clear evidence of clinically significant lesion Lower urinary tract symptoms Longstanding Nocturia 1-2 Mild hesitancy Current medications tamsulosin PFSH Medical History Generalized anxiety disorder Insomnia Anemia of chronic disease Osteoarthritis H/O ischemic left MCA stroke Nonischemic cardiomyopathy Hyperlipidemia Atrial fibrillation Nocturnal hypoxemia 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 Father No problems noted. Social History (Updated 01/02/25 @ 08:27 by DARYA Echeverria) Housing: House Alcohol intake: current Alcohol intake frequency: does not drink Patient Tobacco Use Status: Never used Tobacco service: No Current occupational status: retired Current occupation: left handed Cognitive needs: No Hearing needs: Yes (b/l hearing aids) Vision needs: Yes (rx glasses) Review of Systems Const Denies chills and Denies fever(s) Card Reports no additional complaints and Denies syncope Resp Denies cough GI Denies abdominal pain and Denies heartburn Reports as per HPI and Denies change in libido Neuro Denies syncope Psych Denies change in libido Endo Denies change in libido Physical Exam Const General: cooperative, healthy appearing, comfortable and no acute distress Orientation/consciousness: patient oriented x3 HEENT Face and sinus: Yes normal facial exam Mouth: moist mucous membranes Neck Neck: Yes normal visual inspection, Yes full ROM and Yes trachea midline Chest Chest palpation & inspection: normal inspection of the chest Resp Effort & Inspection: normal respiratory effort, able to speak in complete sentences and no respiratory distress GI Inspection: Yes normal to inspection Back/Spine/Pelvis Cervical Spine: normal cervical lordosis Thoracic/Lumbar Spine: thoracic and lumbar spine normal to inspection Skin General skin exam: no rashes or lesions noted Neuro General: patient oriented x3, gait normal, tone normal and moves all extremities Extrem General: Yes normal to inspection and Yes capillary refill normal Assessment & Plan Assessment & Plan (1) Prostate cancer: Comment: 05/04 low-grade, low volume prostate cancer Code(s): C61 - Malignant neoplasm of prostate Category: Medical (2) BPH (benign prostatic hyperplasia): Code(s): N40.0 - Benign prostatic hyperplasia without lower urinary tract symptoms Category: Medical Plan Six-month follow-up PSA Orders: Orders Prostate Specific Antigen 6 Months C61 - Malignant neoplasm of prostate Patient Instructions: This note is constructed using voice recognition software. While every effort has been made to ensure accuracy cook roast errors may have been included. Imaging studies, laboratory and physical exam results were discussed and reviewed in detail. No major barriers to patient understanding were identified. An opportunity to ask questions regarding the treatment plan was provided. All questions were answered. The patient expressed understanding and agreement with the above treatment plan. The patient is aware they should contact our office by phone for worsening of their current condition or the appearance of new urologic symptoms. Compliance is encouraged with any medications and followup testing that is ordered. It is a privilege to participate in the urologic care of your patient. If you have any questions or concerns regarding treatment for the above conditions, or other urologic issues, please do not hesitate to contact me. The office telephone contact is [phone]. Sincerely, Dr Chidi Escobar MD, [facility] - Urology Compassionate Specialist Care for the Genitourinary System Coding Level of Care Code Est Pt Level 3 (16030) Complex EM visit Add On G2211 Diagnoses Prostate cancer C61 BPH (benign prostatic hyperplasia) N40.0
--- OUTSIDE RECORDS SUMMARY | 2025-02-01 15:02 | XMS_ITS | Clinical Summary ---
Author Organization [facility] Address [address] [place] [address] Care Team Providers Care Kiln Tester Name Role Phone Unavailable Primary Care [...]
--- OUTSIDE RECORDS SUMMARY | 2025-02-01 15:02 | XMS_ITS | Data Portability ---
Author Organization [place] - [facility], Allergy Address [address] [address] Assessment Encounter Date Assessment Date Assessment LastModified [...] Time Bilateral exostosis of external ear canals [id number] Active 2023 Exostosis of external canal, bilateral ; Note: Date Diagnosed : 07/22/2023 10:03 AM (H61.813) Not Available [facility] 4 03:10:10 Abnormal auditory perceptio n [id number] Active 2023 Other abnormal auditory perceptio ns, left ear; Note: Date Diagnosed : 07/22/2023 10:03 AM (H93.292) Not Available [facility] 4 03:10:11 Sensorine ural hearing loss of bilateral ears [id number] Active 2023 ALONA GUILLEN, [address] [address], [place], [address] , [facility] - [facility] 4 10:29:09 Problem Notes None recorded. Medical Equipment None Reported. Medications Name Sig Start Date Stop Date Status Note LastModified by Organization Details LastModified Time multivitam in tablet active Medication ID: [id number] Bra nidia Name: multivitam in Send Method: E-Prescrib ed Subs Allowed: subs OK Medicat ionGeneric Name: multivitam in Not Available Not Available Not Available atorvastat in 40 mg tablet active Medication ID: [id number] Paul jacob Name: atorvastat in Send Method: E-Prescrib ed Subs Allowed: subs OK Medicat ionGeneric Name: atorvastat in Not Available Not Available Not Available neomycin-p olymyxin-h ydrocort 3.5 mg/mL-10,0 00 unit/mL-1 % ear solution INSTILL 4-5 DROPS IN LEFT EAR EVERY DAY active Not Available Not Available No t Available tamsulosin 0.4 mg capsule active Medication ID: [id number] Paul nd Name: tamsulosin Send Method: E-Prescrib ed Subs Allowed: subs OK Medicat ionGeneric Name: tamsulosin Not Available Not Available Not Available warfarin 5 mg tablet active Medication ID: [id number] Bra nd Name: warfarin S end Method: E-Prescrib ed Subs Allowed: subs OK Medicat ionGeneric Name: warfarin Not Available Not Available Not Available lorazepam 1 mg tablet active Medication ID: [id number] Bra nd Name: lorazepam Send Method: E-Prescrib ed Subs Allowed: subs OK Medicat ionGeneric Name: lorazepam Not Available Not Available Not Available finasterid e 5 mg tablet active Medication ID: [id number] Bra nd Name: finasterid e Send Method: E-Prescrib ed Subs Allowed: subs OK Medicat ionGeneric Name: finasterid e Not Available Not Available Not Available aspirin 81 mg capsule active Medication ID: [id number] Bra nd Name: aspirin Se nd Method: [...] 165 GAUTAM ZELAYA [place] - [place] [address] [address] 07/30/2023 09:51:52 09/02/2023 00:15:53 Sensorineural hearing loss of bilateral ears [id number] H90.3 1905 GAUTAM ZELAYA [place] 100 [facility] 100 [place] [address] 08/12/2023 10:36:38 08/12/2023 11:38:04 Sensorineural hearing loss of bilateral ears [id number] H90.3 [id number] GAUTAM ZELAYA [place] - [place] 100 [facility] 100 [place] [address] 10/01/2023 10:34:45 10/02/2023 14:45:28 Sensorineural hearing loss of bilateral ears [id number] H90.3 [id number] GAUTAM ZELAYA [facility] [address] [place] [address] 10/19/2024 11:12:39 10/20/2024 15:57:14 Sensorineural hearing loss of bilateral ears [id number] H90.3 Health Concerns Section Related Observation LastModified by Organization Detai ls LastModified Time None Recorded Concern Status LastModified by Organization Details LastModified Time None Recorded Advance Directives Directive None Recorded Payers Insurance Date Sequence Insurance Name Policy Number Policy Devine Covered Member ID Devine Member ID Guarantor Name 10/19/2024 2 [employer] (MEDICARE SUPPLEMENT) Arturo Bentley [id number] Arturo Bentley 10/19/2024 1 [place]IC[place]: [employer] Arturo Bentley [id number] Arturo Bentley Notes Date Note Type Note [...] out every morning to play pickleball or 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 #}} Discussed type, technology levels, and manufacturers of hearing aids. Type of phone: {{iphone android (galaxy) android (off brand) no smart phone iphone, but not too interested in the bluetooth/angie technology.#}} Ordering:{{Oticon phon ak* Widex}} {{ [id number] Life-R in P7 steel frazier#}}Garment Presser: {{ 1M#}}Domes: {{ open medium#}}Other: {{}} Paid today: {{$ $0#}}Due at fitting {{$ $5144#}}Total: {{$ $5144#}} ALONA GUILLEN, [facility] 100 [facility],[address] [address], [place], [address], [facility] - [facility] 07/30/2023 10:29:20 08/12/2023 text/html Fit today with phonak Set at level 3 and fit to target. Turned down after REM for comfort. 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 VC activated and explained. All tap controls turned off. Discussed insertion/removal of devices from ears and assistant to the dean and cleaning of devices which included changing the domes, replacing the filter, and wiping down the HAs. Patient was able to successfully insert devices into ears in office Not interested in phone connectivityPaid [id number] via check via ARG GAUTAM ZELAYA [address] [facility],[address] [address], [place], [address], [facility] 08/12/2023 11:33:57 10/01/2023 text/html Concerns: No [...] FU with HT. ALONA GUILLEN, GAUTAM [address] [facility],[address] [address], [place], [address], [facility] 10/01/2023 11:03:39 10/19/2024 text/html Concerns: No concerns today. Notes he is hearing well and has enough supplies at this time.Check/clean: GWO before and after cleaning. Changed filters, domes, and tails. Brushed microphones. Put through vacuum chamber cycle. Adjustments: none made todayFU: Annual already scheduled for next year. Will do a hearing test at that time. GAUTAM ZELAYA [address] [facility],[address] [address], [place], [address], [facility] 10/19/2024 11:31:51
== END 2025-02-01 10:54 | disposition home or self-care (01) ==
LOC: HO.HUSH 10:14
PROVIDERS: PCP Internal Medicine; Visit Provider Urology
DX: C61 Malignant neoplasm of prostate (principal); N40.0 Benign prostatic hyperplasia without lower urinary tract symptoms
CPT/HCPCS: 99213; G2211

== ENCOUNTER → 2025-02-01 10:13 | Outpatient (BNVA) | payer MEDICARE, SELFPAY | PROVIDERS: PCP Internal Medicine; Visit Provider Urology | DX: C61 Malignant neoplasm of prostate (principal); N40.0 Benign prostatic hyperplasia without lower urinary tract symptoms; Z79.01 Long term (current) use of anticoagulants; Z79.82 Long term (current) use of aspirin; R97.21 Rising PSA following treatment for malignant neoplasm of prostate | CPT/HCPCS: 99212 ==